=== PATIENT | male | born 1935 | race Caucasian/White ===

== ENCOUNTER 2016-04-14 19:12 | Inpatient (IN) ==
--- NOTE | 2016-04-14 20:02 | Emergency Department Note ---
Disposition Clinical Impression: Perforated diverticulum of large intestine, Abscess of sigmoid colon due to diverticulitis Disposition: Admitted As Inpatient Condition: Good Referrals: NO,PCP [Non-Partnered Physician] - Forms: ED Satisfaction Letter Time of Disposition: 23:01 Nausea/Vomiting/Diarrhea HPI - General Chief complaint: ED Nausea/Vomiting/Diarrhea Stated complaint: Diarrhea X3 weeks/weakness Time Seen by Provider: 04/14/16 19:40 Source: patient, family (Daughter), EMS Mode of arrival: EMS Limitations: no limitations Nursing Notes Reviewed: Yes Vital Signs Reviewed: Yes - History of Present Illness HPI Narrative: 80-year-old male past medical history hypertension, pulmonary disease 2.5 liter home dependent oxygen presents to the ED for generalized weakness and 3 weeks of watery nonbloody diarrhea. Reports 4-5 episodes of nonbloody diarrhea. Presents via EMS. Daughter is at bedside. States he has been evaluated for diarrhea by his primary care physician Dr. Carpenter multiple times, without cause. Denies any recent antibiotic use, hospitalization, recent travel. Denies any fevers, cough, chest pain, shortness of breath, nausea, vomiting. Patient daughter are more concerned with this generalized weakness. He called EMS squad due to generalized weakness that has been worsening over the past 3 days but ongoing since onset of diarrhea. He was having a bowel movement and was too weak to get up. Denies any fall or loss of consciousness. Prior to the diarrhea he has been very independent at home. Pt Subjective Complaint: diarrhea Onset (ago): week(s) - Related Data Home Medications Medication Instructions Recorded Confirmed Aspirin 81 mg PO DAILY 03/01/15 07/22/15 Atenolol [Tenormin] 100 mg PO DAILY 03/01/15 10/04/15 Donepezil [Aricept] 20 mg PO DAILY 03/01/15 10/04/15 Lisinopril [Zestril] 40 mg PO DAILY 03/01/15 10/04/15 Omeprazole [PriLOSEC] 20 mg PO DAILY 03/01/15 10/04/15 Zafirlukast [Accolate] 10 mg PO DAILY 03/01/15 10/04/15 Amlodipine [Norvasc] 10 mg PO DAILY 07/22/15 10/04/15 Fish Oil/Dha/Epa [Fish Oil 1,200 1 each PO DAILY 07/22/15 07/22/15 mg Fish Oil] Multivitamin [Multivitamins] 1 each PO DAILY 07/22/15 07/22/15 Finasteride [Proscar] 5 mg PO DAILY 10/03/15 10/04/15 Furosemide [Lasix] 40 mg PO DAILY 10/03/15 10/04/15 Nitroglycerin [Nitrostat] 0.4 mg SL PRN PRN 10/03/15 Ranitidine HCl [Heartburn Relief] 150 mg PO DAILY 10/03/15 10/04/15 Previous Rx's Medication Instructions Recorded Amoxicillin/Clavulanate [Augmentin] 875 mg PO BIDWM #20 tablet 10/05/15 Allergies Allergy/AdvReac Type Severity Reaction Status Date / Time No Known Allergies Allergy Verified 03/28/15 08:43 All systems ED: reviewed and negative except as stated. Constitutional: Reports: weakness. Denies: fever, chills, weight change Eyes: Denies: eye pain, vision change ENT ED: Denies: congestion, dysphagia Cardiovascular: Denies: chest pain, dyspnea on exertion Respiratory: Denies: cough, dyspnea Gastrointestinal: Reports: abdominal pain, diarrhea. Denies: nausea, vomiting, melena, hematochezia Genitourinary: Denies: urgency, dysuria Musculoskeletal: Denies: back pain, neck pain Integumentary: Reports: lesions (Lower extremity). Denies: rash, abrasion Neurological: Denies: headache, weakness Past Medical History - Past Medical History Attestation: Yes The following information was validated with the patient. Source: patient, obtained from family Medical history: Reports: CHF, COPD, coronary artery disease, dementia, hyperlipidemia, hypertension Surgical history: Reports: no surgical history Psychiatric history: Reports: no psych history - Social History Smoking Status: Never smoker Smokeless Tobacco Status: No Alcohol use: Reports: none Drug use: Reports: none Physical Exam - General Limitations: no limitations General appearance: alert, in no apparent distress, obese - Head Head exam: atraumatic, normocephalic, normal inspection - Eye Eye exam: Present: normal appearance, PERRL, EOMI - ENT ENT exam: normal exam, normal oropharynx, mucous membranes moist - Neck Neck exam: Present: normal inspection, full ROM, trachea midline - Chest Chest inspection: Present: normal inspection, symmetric chest wall rise - Respiratory Respiratory exam: Present: normal lung sounds bilaterally. Absent: respiratory distress, wheezes - Cardiovascular Cardiovascular exam: Present: regular rate, normal rhythm, normal heart sounds. Absent: systolic murmur, diastolic murmur - Abdominal Exam Abdominal exam: Present: soft, Non-Tender, normal bowel sounds, other (obese abdomen). Absent: tenderness, distention, guarding, rebound, rigidity, Vasquez' s sign, Rovsing's sign, tenderness at McBurney's Point Abdominal tenderness: Present: LLQ, mild - Extremities Exam Extremities exam: Present: normal inspection, full ROM, normal capillary refill , pedal edema. Absent: tenderness, calf tenderness - Back Exam Back exam: Present: normal inspection, full ROM. Absent: tenderness, CVA tenderness (R), CVA tenderness (L) - Neurological Exam Neurological exam: Present: alert, oriented X3 - Psychiatric Psychiatric exam: Present: normal affect, normal mood - Skin Skin exam: Present: warm, dry, intact, erythema. Absent: diaphoresis - Expanded Skin Exam Type of lesion: Present: rash Distribution: RLE Description: Present: erythematous. Absent: tenderness, vesicular, fluctuant, indurated Course Course Narrative: 80-year-old male history of hypertension presents to ED for generalized weakness and 3 weeks of watery nonbloody diarrhea. Since he has been more weaker past 3 weeks worse the past 30 days. Today after having a bowel movement was unable to help himself up to the toilet. He lives at home with his who has a difficult time taking care of him. Patient has a temperature of 100.3. He has hypertensive but admits to not taking his BP medications today. Patient is morbidly obese, is alert and awake and oriented to person place and time. Vogel's regular rate and rhythm. Lungs are clear to auscultation bilaterally. Due to patient's body habitus unable to get a great doll exam however it is soft and nondistended. He has some mild tenderness to the left lower quadrant that was not there until palpated. He has bilateral lower extremity edema with some erythema on the right ankle. States he is being worked up by his dermatologists with multiple skin grafts for biopsy. Patient and daughter states is been tested and is not cellulitis. Is not warm to the touch without any induration does not appear to be cellulitis. He is not acutely dehydrated. Check basic labs, troponin, chest x-ray, CT of the abdomen and pelvis. Patient is in agreement with plan. Will treat his BP with Metoprolol. - Reevaluation(s) Reevaluation #1: Saturday of the abdomen and pelvis demonstrates perforated sigmoid diverticulitis with developing abscess. Patient's abdomen continues to be soft and nontender. Will admit to hospital service. Patients in agreement plan. Started on IV antibiotic Flagyl and Zosyn. Blood cultures ordered. Time: 22:54 - Consultations Consultation #1: Spoke with Dr. Mcbride, medical management with IV antibiotics. Discussed that abdomen is soft without signs of peritonitis, patient in no acute distress. WBC 18.7. Time: 22:54 Consultation #2: Spoke to Dr. Beasley, ok to admit. No further order. Time: 23:14 Vital Signs Temperature 100.3 F H 04/14/16 19:14 Pulse Rate 102 04/14/16 19:14 Respiratory Rate 16 04/14/16 19:14 Blood Pressure 180/78 04/14/16 19:14 O2 Sat by Pulse Oximetry 96 04/14/16 19:14 Temperature 100.3 F H 04/14/16 19:14 Pulse Rate 85 04/14/16 23:03 Respiratory Rate 20 04/14/16 23:03 Blood Pressure 211/72 04/14/16 23:03 O2 Sat by Pulse Oximetry 98 04/14/16 23:03 Oxygen Delivery Oxygen Delivery Room Air Nausea/Vomiting/Diarrhea - Medical Records Medical records reviewed: Yes I reviewed the patient's medical records. - Lab Data Lab results reviewed: Yes I reviewed the patient's lab results. Result diagrams: 04/14/16 20:26 04/14/16 20:26 Lab Results 04/14/16 04/14/16 04/14/16 Range/Units 20:26 20:26 20:26 WBC 18.7 H (4.3-11.1) K/mcL RBC 3.82 L (4.19-5.50) M/mcL Hgb 11.6 L (12.9-16.9) g/dL Hct 34.5 L (37.5-50.1) % MCV 90.3 (83.0-100.0) fL MCH 30.4 (28.0-33.3) pg MCHC 33.6 (31.6-35.5) g/dL RDW 13.1 (11.5-14.5) % Plt Count 373 (140-400) K/mcL MPV 9.6 (9.4-12.4) fL Immature Gran % 0.5 (0-4) % Seg Neutrophils % 87.3 % Lymphocytes % 4.1 % Monocytes % 7.5 % Eosinophils % 0.3 % Basophils % 0.3 % Neutrophils # 16.3 H (1.6-8.9) K/mcL Lymphocytes # 0.8 (0.6-4.6) K/mcL Monocytes # 1.4 H (0.0-1.3) K/mcL Eosinophils # 0.1 (0.0-0.6) K/mcL Basophils # 0.1 (0.0-0.2) K/mcL Immature Plt Fraction 2.0 (1.1-6.1) % Sodium 135 L (136-145) mEq/L Potassium 3.9 (3.5-4.5) mEq/L Chloride 103 (98-109) mEq/L Carbon Dioxide 24 (19-29) mEq/L BUN 15 (8-26) mg/dL Creatinine 0.87 (0.72-1.25) mg/dL Est GFR ( Amer) > 60 (> 60) Est GFR (Non-Af Amer) > 60 (> 60) BUN/Creatinine Ratio 17 (6-26) Glucose 211 H (70-99) mg/dL Calculated Osmolality 287 (280-300) Calcium 8.9 (8.6-10.8) mg/dL Phosphorus 2.5 (2.3-4.7) mg/dL Magnesium 1.9 (1.6-2.6) mg/dL Total Bilirubin 0.6 (0.2-1.2) mg/dL AST 29 (5-34) Units/L ALT 22 (0-55) Units/L Alkaline Phosphatase 68 (38-126) Units/L Troponin I 0.01 (0-0.03) ng/mL B-Natriuretic Peptide (0-100) pg/mL Serum Total Protein 6.9 (6.0-8.3) g/dL Albumin 2.3 L (3.5-5.0) g/dL Globulin 4.6 H (2.4-3.5) g/dL Albumin/Globulin Ratio 0.5 L (1.1-2.2) Urine Color (Yellow) Urine Clarity (Clear) Urine pH (5.0-8.0) pH Units Ur Specific [place] (1.010-1.025) Urine Protein (Neg-Trace) mg/dL Urine Glucose (UA) (Normal) mg/dL Urine Ketones (Negative) mg/dL Urine Blood (Negative) Urine Nitrite (Negative) Urine Bilirubin (Negative) Urine Urobilinogen (Normal) mg/dL Ur Leukocyte Esterase (Negative) Urine Microscopic RBC (0-3) per hpf Urine Microscopic WBC (0-3) per hpf Ur Squamous Epith Cells (None-Few) per lpf Urine Bacteria (None-Few) per hpf Hyaline Casts (None-Few) per lpf Ur Culture Indicated? (NO) 04/14/16 04/14/16 Range/Units 20:26 22:45 WBC (4.3-11.1) K/mcL RBC (4.19-5.50) M/mcL Hgb (12.9-16.9) g/dL Hct (37.5-50.1) % MCV (83.0-100.0) fL MCH (28.0-33.3) pg MCHC (31.6-35.5) g/dL RDW (11.5-14.5) % Plt Count (140-400) K/mcL MPV (9.4-12.4) fL Immature Gran % (0-4) % Seg Neutrophils % % Lymphocytes % % Monocytes % % Eosinophils % % Basophils % % Neutrophils # (1.6-8.9) K/mcL Lymphocytes # (0.6-4.6) K/mcL Monocytes # (0.0-1.3) K/mcL Eosinophils # (0.0-0.6) K/mcL Basophils # (0.0-0.2) K/mcL Immature Plt Fraction (1.1-6.1) % Sodium (136-145) mEq/L Potassium (3.5-4.5) mEq/L Chloride (98-109) mEq/L Carbon Dioxide (19-29) mEq/L BUN (8-26) mg/dL Creatinine (0.72-1.25) mg/dL Est GFR ( Amer) (> 60) Est GFR (Non-Af Amer) (> 60) BUN/Creatinine Ratio (6-26) Glucose (70-99) mg/dL Calculated Osmolality (280-300) Calcium (8.6-10.8) mg/dL Phosphorus (2.3-4.7) mg/dL Magnesium (1.6-2.6) mg/dL Total Bilirubin (0.2-1.2) mg/dL AST (5-34) Units/L ALT (0-55) Units/L Alkaline Phosphatase (38-126) Units/L Troponin I (0-0.03) ng/mL B-Natriuretic Peptide 49 (0-100) pg/mL Serum Total Protein (6.0-8.3) g/dL Albumin (3.5-5.0) g/dL Globulin (2.4-3.5) g/dL Albumin/Globulin Ratio (1.1-2.2) Urine Color Yellow (Yellow) Urine Clarity Clear (Clear) Urine pH 6.0 (5.0-8.0) pH Units Ur Specific [place] 1.028 H (1.010-1.025) Urine Protein 100 H (Neg-Trace) mg/dL Urine Glucose (UA) Normal (Normal) mg/dL Urine Ketones Negative (Negative) mg/dL Urine Blood Trace H (Negative) Urine Nitrite Negative (Negative) Urine Bilirubin Negative (Negative) Urine Urobilinogen Normal (Normal) mg/dL Ur Leukocyte Esterase Trace H (Negative) Urine Microscopic RBC 3-5 H (0-3) per hpf Urine Microscopic WBC 30-50 H (0-3) per hpf Ur Squamous Epith Cells Many H (None-Few) per lpf Urine Bacteria None Seen (None-Few) per hpf Hyaline Casts Few (None-Few) per lpf Ur Culture Indicated? YES A (NO) - Radiology Data Radiology results reviewed: Yes I reviewed the patient's radiology results. Chest X-Ray 04/14/16 19:57 IMPRESSION: Cardiomegaly without evidence of acute cardiopulmonary process. D/ / 04/14/2016 20:53:08 Ja Navarro MD / joselito Interpreting Provider: Ja Navarro MD Abdomen/Pelvis CT 04/14/16 20:44 IMPRESSION: Above findings most likely due to perforated sigmoid diverticulitis with developing abscess. D/ / Martínez Elkins MD / Martínez Elkins MD Interpreting Provider: Martínez Elkins MD - EKG Data EKG attestation: Yes I reviewed and interpreted this EKG. EKG results narrative: EKG performed 1927 normal sinus rhythm 98 bpm through our P waves before every QRS no ST elevations or depressions, old Q waves in inferior leads, intervals are within normal limits. Compared to old EKG performed 10/02/2015 shows consistent findings. No acute ischemic changes. Critical Care Time Critical Care Time: Yes Total Critical Care Time: 35 Attestation: Critical care time 35 minutes managing patient's hypertension and abdominal abscess with ruptured bowel. Attestation Statement - Attestation Attestation: Patient presents to the emergency department with fevers diarrhea for 3 weeks and swelling. Patient has a history of a lower extremity disorder and skin condition that recently had a biopsy. Patient's not familiar with the name of it. But required multiple therapies for this. Notes that he said some increased swelling in his lower extremities bilaterally recently. In addition he feels like he has had increasing weakness for the last 3 weeks since she has had watery diarrhea. He states every bowel movement is basically water. He has not had any nausea or vomiting. No real abdominal pain denies shortness of breath or chest pain. Has a history also of stroke and hypertension he has been taking his medications regularly. On exam obese male heart is regular rhythm and rate. Lungs are clear abdomen is obese but nontender extremities patient has mild swelling of the lower extremities bilaterally with some skin discoloration secondary to skin condition. We will workup for generalized weakness. CT scan revealed a perforated diverticulitis with developing abscess. Surgeon on-call was notified and suggested having medicine with the patient with him seeing him tomorrow. We will start patient on broad-spectrum antibiotics. He remained comfortable without abdominal pain which she has not had through his stay. In addition we continue to treat his hypertension. Hospice was also notified and admission to the hospital was arranged. Care time for this patient 35 minutes. Agree with resident physician assessment plan.
[2016-04-14] MEDS ORDERED: *HR* Metoprolol 5 MG/5 ML VIAL IVP ONE ×2 (20:03→22:03)
[2016-04-14 20:34] LABS: Basophils # 0.1 K/mcL (0.0-0.2); Basophils % 0.3 %; Eosinophils # 0.1 K/mcL (0.0-0.6); Eosinophils % 0.3 %; Hematocrit 34.5 % (37.5-50.1); Hemoglobin 11.6 g/dL (12.9-16.9); Immature Granulocytes % 0.5 % (0-4); Lymphocytes # 0.8 K/mcL (0.6-4.6); Lymphocytes % 4.1 %; Mean Corpuscular HGB Conc 33.6 g/dL (31.6-35.5); Mean Corpuscular Hemoglobin 30.4 pg (28.0-33.3); Mean Corpuscular Volume 90.3 fL (83.0-100.0); Mean Platelet Volume 9.6 fL (9.4-12.4); Monocytes # 1.4 K/mcL (0.0-1.3); Monocytes % 7.5 %; Neutrophils # 16.3 K/mcL (1.6-8.9); Platelet Count 373 K/mcL (140-400); Red Blood Count 3.82 M/mcL (4.19-5.50); Red Cell Distribution Width 13.1 % (11.5-14.5); Segmented Neutrophils % 87.3 %
[2016-04-14 20:49] LABS: Alanine Aminotransferase 22 Units/L (0-55); Albumin 2.3 g/dL (3.5-5.0); Albumin/Globulin Ratio 0.5 (1.1-2.2); Alkaline Phosphatase 68 Units/L (38-126); Aspartate Amino Transferase 29 Units/L (5-34); BUN/Creatinine Ratio 17 (6-26); Bilirubin,Total 0.6 mg/dL (0.2-1.2); Blood Urea Nitrogen 15 mg/dL (8-26); Calcium 8.9 mg/dL (8.6-10.8); Carbon Dioxide 24 mEq/L (19-29); Chloride 103 mEq/L (98-109); Globulin 4.6 g/dL (2.4-3.5); Glucose 211 mg/dL (70-99); Magnesium 1.9 mg/dL (1.6-2.6); Osmolality,Calculated 287 (280-300); Phosphorous 2.5 mg/dL (2.3-4.7); Potassium 3.9 mEq/L (3.5-4.5); Sodium 135 mEq/L (136-145); Total Protein 6.9 g/dL (6.0-8.3); eGFR For African Americans > 60 (> 60); eGFR For Non-African Americans > 60 (> 60)
[2016-04-14] MEDS ORDERED: 0.9 % Sodium Chloride 1,000 ML IVC ONE (22:37)
[2016-04-14] MEDS ORDERED: MetroNIDAZOLE 500 MG/100 ML 500 MG/100 ML BAG IVPB ONE (22:46)
[2016-04-14] MEDS ORDERED: Piperacillin/Tazobactam 3.375 GM in D5% in Water (Mini-Bag+) 100 ML IVPB ONE (22:46)
[2016-04-14 22:52] LABS: Bilirubin,Urine Negative (Negative); Blood,Urine Trace (Negative); Clarity,Urine Clear (Clear); Color,Urine Yellow (Yellow); Glucose,Urine (UA) Normal (Normal); Ketones,Urine Negative (Negative); Leukocyte Esterase,Urine Trace (Negative); Nitrite,Urine Negative (Negative); Protein,Urine 100 mg/dL (Neg-Trace); Specific Gravity,Urine 1.028 (1.010-1.025); Urobilinogen,Urine Normal (Normal)
[2016-04-14 22:55] LABS: Bacteria,Urine None Seen per hpf (None-Few); Hyaline Casts,Urine Few per lpf (None-Few); Squamous Epithelial Cell,Urine Many per lpf (None-Few); WBC,Urine 30-50 per hpf (0-3)
[2016-04-14] MEDS ORDERED: Ondansetron 4 MG/2 ML VIAL IVP PRN (23:51)
[2016-04-14] MEDS ORDERED: Acetaminophen 325 MG TABLET PO PRN (23:51)
[2016-04-14] MEDS ORDERED: Naloxone 0.4 MG/ML INJ IVP PRN (23:51)
[2016-04-14] MEDS ORDERED: *HR* Morphine 2 MG/ML SYRINGE IVP PRN (23:51)
[2016-04-14] MEDS ORDERED: *HR* Promethazine 25 MG/ML VIAL IVP PRN (23:51)
--- NOTE | 2016-04-15 00:07 | Internal Med History&Physical ---
Date of Encounter: 04/15/16 Time of Encounter: 00:03 Assessment and Plan (1) Abscess of sigmoid colon due to diverticulitis Current visit: Yes Status: Acute Continue Cipro and Flagyl and monitor with acute abdominal series. General surgery Dr. Mcbride will be consulted for comanagement (2) Accelerated hypertension Current visit: Yes Status: Acute We will start home blood pressure medications. I will add when necessary emergency antihypertensive medications. (3) Acute gouty arthropathy Current visit: Yes Status: Acute Obtain uric acid level. If elevated will start patient on colchicine for acute gouty arthropathy Internal Medicine - H&P: HPI Chief complaint: Abdominal pain and diarrhea/generalized weakness Admitted From: Home Plans for Post Hospital Care: Home History of present illness: Mr. Desai is a 80 year old male patient presented to emergency department today with generalized weakness and fatigue. Patient also reported intractable diarrhea at least 4-5 times a day. Patient denies any bloody stools. Patient does report left lower quadrant abdominal tenderness. Patient denies any dysuria or burning sensation on urination or any bloody urine. Patient reports subjective fever at home but no chills. Workup emergency department today includes a CT scan abdomen and pelvis which shows evidence of sigmoid diverticulitis with perforation with associated abscess. Dr. Mcbride has been notified in case been discussed. Recommendation is to start patient on antibiotic therapy and continue to monitor. Past Med Surg Social Fam HX - Past Medical History Medical history: CHF, COPD, coronary artery disease, dementia, hyperlipidemia, hypertension Psychiatric history: no psych history - Past Surgical History Surgical History: no surgical history - Social History Smoking Status: Never smoker Smokeless Tobacco Status: No Alcohol use: none Drug use: none - Family History Father Adopted: No Family Member Ethnicity: Non- Living Status: Hx Family Cardiac Disorders: Yes Internal Medicine - H&P: Meds Aspirin 81 mg PO DAILY 03/01/15 [History] Atenolol [Tenormin] 100 mg PO DAILY 03/01/15 [History] Donepezil [Aricept] 20 mg PO DAILY 03/01/15 [History] Lisinopril [Zestril] 40 mg PO DAILY 03/01/15 [History] Omeprazole [PriLOSEC] 20 mg PO DAILY 03/01/15 [History] Zafirlukast [Accolate] 10 mg PO DAILY 03/01/15 [History] Amlodipine [Norvasc] 10 mg PO DAILY 07/22/15 [History] Fish Oil/Dha/Epa [Fish Oil 1,200 mg Fish Oil] 1 each PO DAILY 07/22/15 [History] Multivitamin [Multivitamins] 1 each PO DAILY 07/22/15 [History] Finasteride [Proscar] 5 mg PO DAILY 10/03/15 [History] Furosemide [Lasix] 40 mg PO DAILY 10/03/15 [History] Nitroglycerin [Nitrostat] 0.4 mg SL PRN PRN 10/03/15 [History] Ranitidine HCl [Heartburn Relief] 150 mg PO DAILY 10/03/15 [History] Amoxicillin/Clavulanate [Augmentin] 875 mg PO BIDWM #20 tablet 10/05/15 [Rx] Allergies No Known Allergies Allergy (Verified 03/28/15 08:43) All Systems PM: A 10-system review of systems was performed and is negative for pertinent findings except as documented above in the HPI. - Constitutional Constitutional: fever(s) - EENT Eyes: as per HPI Ears: as per HPI Nose, mouth and throat: as per HPI - Breasts Breasts: as per HPI - Cardiovascular Cardiovascular ROS IM: as per HPI - Respiratory Respiratory: as per HPI - Gastrointestinal Gastrointestinal: as per HPI - Genitourinary Genitourinary ROS male: as per HPI - Musculoskeletal Musculoskeletal ROS IM: as per HPI - Integumentary Integumentary IM: as per HPI - Neurological Neurological ROS: as per HPI - Psychiatric Psychiatric: as per HPI - Endocrine Endocrine IM: as per HPI - Hematologic/Lymphatic Hematologic/Lymphatic: as per HPI - Allergic/Immunologic Allergic/Immunologic: as per HPI - Constitutional Vitals: Temp Pulse Resp BP Pulse Ox 100.3 F H 78 18 204/90 96 04/14/16 19:14 04/14/16 23:30 04/14/16 23:59 04/14/16 23:59 04/14/16 23:30 General appearance: Present: cooperative, A&O X 3, no acute distress, answers questions appropriately - Head Head exam: Present: atraumatic, normal inspection, normocephalic - Eye Eye exam: Present: normal appearance, PERRL - ENT ENT exam: Present: mucous membranes moist, normal exam - Neck Neck exam general surgery: Present: normal inspection, supple - Respiratory Respiratory exam: Present: CTAB - Cardiovascular Cardiovascular exam: Present: RRR, +S1, +S2 - GI/Abdominal GI/Abdominal exam: Present: distended, firm, hypoactive bowel sounds, tenderness - Rectal Rectal exam: Present: deferred - exam: Present: normal inspection - Extremities Exam Extremities exam: Present: warm Additional comments: Right malleolar erythema - Back Exam Back exam: Present: normal inspection - Neurological Exam Neurological exam: Present: alert, CN II-XII intact, oriented X3 - Psychiatric Psychiatric exam: Present: normal affect, normal mood - Skin Skin exam: Present: normal color, warm Internal Med - H&P Results - Labs CBC & Chem 7: 04/14/16 20:26 04/14/16 20:26 Labs: Short CBC 04/14/16 Range/Units 20:26 WBC 18.7 H (4.3-11.1) K/mcL Hgb 11.6 L (12.9-16.9) g/dL Hct 34.5 L (37.5-50.1) % Plt Count 373 (140-400) K/mcL Neutrophils # 16.3 H (1.6-8.9) K/mcL BMP 04/14/16 20:26 Sodium 135 L Potassium 3.9 Chloride 103 Carbon Dioxide 24 BUN 15 Creatinine 0.87 Glucose 211 H Calcium 8.9 Cardiac Enzymes 04/14/16 Range/Units 20:26 Troponin I 0.01 (0-0.03) ng/mL Liver Function 04/14/16 Range/Units 20:26 Total Bilirubin 0.6 (0.2-1.2) mg/dL AST 29 (5-34) Units/L ALT 22 (0-55) Units/L Alkaline Phosphatase 68 (38-126) Units/L Albumin 2.3 L (3.5-5.0) g/dL Urine 04/14/16 Range/Units 22:45 Urine Color Yellow (Yellow) Urine Clarity Clear (Clear) Urine pH 6.0 (5.0-8.0) pH Units Ur Specific [place] 1.028 H (1.010-1.025) Urine Protein 100 H (Neg-Trace) mg/dL Urine Glucose (UA) Normal (Normal) mg/dL - Impressions ITS Impressions Chest X-Ray 04/14/16 19:57 IMPRESSION: Cardiomegaly without evidence of acute cardiopulmonary process. D/ / 04/14/2016 20:53:08 Ja Navarro MD / joselito Interpreting Provider: Ja Navarro MD Abdomen/Pelvis CT 04/14/16 20:44 IMPRESSION: Above findings most likely due to perforated sigmoid diverticulitis with developing abscess. D/ / Martínez Elkins MD / Martínez Elkins MD Interpreting Provider: Martínez Elikns MD
[2016-04-15 00:42] LABS: Uric Acid 3.8 mg/dL (3.5-7.2)
[2016-04-15] MEDS: *HR* Heparin 5,000 UNIT/ML VIAL SQ SCH ×4 (02:45→23:37)
[2016-04-15] MEDS: Ringers Solution, Lactated 1,000 ML IVC SCH ×2 (02:45→15:19)
[2016-04-15 05:09] LABS: Basophils # 0.1 K/mcL (0.0-0.2); Basophils % 0.3 %; Eosinophils # 0.1 K/mcL (0.0-0.6); Eosinophils % 0.3 %; Hematocrit 34.4 % (37.5-50.1); Hemoglobin 11.4 g/dL (12.9-16.9); Immature Granulocytes % 0.6 % (0-4); Lymphocytes # 0.9 K/mcL (0.6-4.6); Lymphocytes % 4.8 %; Mean Corpuscular HGB Conc 33.1 g/dL (31.6-35.5); Mean Corpuscular Hemoglobin 30.4 pg (28.0-33.3); Mean Corpuscular Volume 91.7 fL (83.0-100.0); Mean Platelet Volume 10.4 fL (9.4-12.4); Monocytes # 1.3 K/mcL (0.0-1.3); Monocytes % 7.4 %; Neutrophils # 15.5 K/mcL (1.6-8.9); Platelet Count 266 K/mcL (140-400); Red Blood Count 3.75 M/mcL (4.19-5.50); Red Cell Distribution Width 13.2 % (11.5-14.5); Segmented Neutrophils % 86.6 %
[2016-04-15 05:24] LABS: BUN/Creatinine Ratio 14 (6-26); Blood Urea Nitrogen 11 mg/dL (8-26); Calcium 9.1 mg/dL (8.6-10.8); Carbon Dioxide 21 mEq/L (19-29); Chloride 104 mEq/L (98-109); Glucose 154 mg/dL (70-99); Osmolality,Calculated 286 (280-300); Potassium 4.1 mEq/L (3.5-4.5); Sodium 137 mEq/L (136-145); eGFR For African Americans > 60 (> 60); eGFR For Non-African Americans > 60 (> 60)
[2016-04-15] MEDS: MetroNIDAZOLE 500 MG/100 ML 500 MG/100 ML BAG IVPB SCH ×3 (09:32→23:37)
[2016-04-15] MEDS: Furosemide 40 MG TABLET PO SCH (09:33)
[2016-04-15] MEDS: amLODIPine 5 MG TABLET PO SCH (09:33)
[2016-04-15] MEDS: Lisinopril 20 MG TABLET PO SCH (09:33)
--- NOTE | 2016-04-15 11:40 | Internal Med Progress Note ---
Date of Encounter: 04/15/16 Time of Encounter: 09:00 - Assessment and plan (1) Abscess of sigmoid colon due to diverticulitis Current Visit: Yes Status: Acute Assessment and plan: Surgical consult was called by ER. Suggest treat patient medically. Will continue IV antibiotic, give patient IV fluid, and keep nothing by mouth. Follow-up vitals and white count. (2) Acute gouty arthropathy Current Visit: Yes Status: Acute Assessment and plan: Closely monitor, may need to start NSAID or steroid. (3) CAD (coronary artery disease) Current Visit: No Status: Chronic Assessment and plan: Stable. Supportive management. Qualifiers: Coronary Disease-Associated Artery/Lesion type: teller artery [place] vs. transplanted heart: teller heart Associated angina: without angina Qualified Code(s): I25.10 - Atherosclerotic heart disease of teller coronary artery without angina pectoris (4) CHF (congestive heart failure) Current Visit: No Status: Chronic Assessment and plan: No signs of exacerbation. Qualifiers: Congestive heart failure type: unspecified congestive heart failure type Congestive heart failure chronicity: acute on chronic Qualified Code(s): I50.9 - Heart failure, unspecified (5) COPD (chronic obstructive pulmonary disease) Current Visit: No Status: Chronic Assessment and plan: Stable. Nebulizer when necessary. Qualifiers: COPD type: unspecified COPD Qualified Code(s): J44.9 - Chronic obstructive pulmonary disease, unspecified (6) Hyperlipidemia Current Visit: No Status: Chronic Assessment and plan: Stable. Qualifiers: Hyperlipidemia type: unspecified Qualified Code(s): E78.5 - Hyperlipidemia , unspecified (7) Hypertension Current Visit: No Status: Chronic Assessment and plan: Blood pressure is high, we will continue home medication, and hydralazine IV when necessary. Qualifiers: Hypertension type: essential hypertension Qualified Code(s): I10 - Essential (primary) hypertension (8) DVT prophylaxis Current Visit: Yes Status: Acute Assessment and plan: Heparin subcutaneously - Time Spent With Patient Greater than 35 minutes - Subjective Interval history: Patient is a 80-year-old male presented to ER for abdominal pain, diarrhea. His past medical history is significant for CHF, COPD, CAD, dementia, hyperlipidemia, hypertension. Patient was seen and examined. He is awake alert, oriented 3. He has mild fever overnight. He has a mild abdominal pain. No nausea, no vomiting. Still has diarrhea, which is nonbloody. CT of abdominal shows diverticulitis with possible perforation. We will continue IV Cipro and Flagyl, IV fluid, and keep patient nothing by mouth. Surgical consult. - Constitutional Vitals: Temp Pulse Resp BP Pulse Ox 97.5 F L 68 16 171/76 93 L 04/15/16 10:55 04/15/16 10:55 04/15/16 10:55 04/15/16 10:55 04/15/16 10:55 General appearance: Present: cooperative, A&O X 3, no acute distress, answers questions appropriately - Head Head exam: Present: atraumatic, normocephalic - Eye Eye exam: Present: PERRL, conjuntiva pink, sclera anicteric Pupils: Present: PERRL - Neck Neck exam general surgery: Present: supple, trachea midline. Absent: lymphadenopathy - Respiratory Respiratory exam: Present: CTAB. Absent: accessory muscle use, rales, rhonchi, wheezes - Cardiovascular Cardiovascular exam: Present: RRR, +S1, +S2. Absent: diastolic murmur, gallop, rubs, systolic murmur - GI/Abdominal GI/Abdominal exam: Present: normal bowel sounds, soft, tenderness (Mild to tenderness on left lower quarter without rebound or guarding.), no peritoneal signs. Absent: distended - Extremities Exam Extremities exam: Present: warm, radial pulses palpable and symetrical. Absent : calf tenderness, cyanotic, pedal edema - Neurological Exam Neurological exam: Present: CN II-XII intact, oriented X3, no focal deficits. Absent: pronater drift, facial droop, speech deficit - Skin Skin exam: Present: dry, intact Internal Medicine: Result - Labs CBC & Chem 7: 04/15/16 04:55 04/15/16 04:55 Labs: Short CBC 04/15/16 Range/Units 04:55 WBC 17.9 H (4.3-11.1) K/mcL Hgb 11.4 L (12.9-16.9) g/dL Hct 34.4 L (37.5-50.1) % Plt Count 266 (140-400) K/mcL Neutrophils # 15.5 H (1.6-8.9) K/mcL BMP 04/15/16 04:55 Sodium 137 Potassium 4.1 Chloride 104 Carbon Dioxide 21 BUN 11 Creatinine 0.77 Glucose 154 H Calcium 9.1 Consult Discharge Plan - Plan Referrals: Millie Carpenter DO [Primary Care Provider] -
--- NOTE | 2016-04-15 12:18 | General Surgery Consult Note ---
Date of Encounter: 04/15/16 Time of Encounter: 11:54 History of Present Illness Consult date: 04/15/16 Requesting physician: Kurt Thornton History of present illness: 80-year-old male admitted to [facility] after presenting to the emergency department with nausea and vomiting and a 3 week history of watery , nonbloody diarrhea. The patient describes progressive weakness which ultimately prompted the patient to present to the emergency department. In the course of his evaluation, the patient was noted to have a leukocytosis 18.[address] findings include no significant pulmonary findings on the lower chest; a low density lesions of the liver in stable from a previous CT completed 09/30/14. Extensive diverticulosis of the descending and sigmoid colon is noted with a multiloculated mixed air and fluid collection within the adjacent inflammatory fat of the mid sigmoid colon. No free intraperitoneal air or fluid noted elsewhere within the peritoneum. The findings are consistent with a perforated sigmoid diverticulitis. The patient is a poor historian but denies fever or abdominal pain. The patient was noted to have a low-grade fever of 100.3 with a pulse of 102 on presentation. Past medical history: morbid obesity, chronic respiratory failure requiring home oxygen. CHF, coronary artery disease, dementia, hyperlipidemia, hypertension Surgical history no previous surgeries acknowledged Allergies: No known drug allergies Medications: Aspirin 81 mg by mouth daily Atenolol 100 mg by mouth daily Donepezil 20 mg by mouth daily Lisinopril 40 mg by mouth daily Omeprazole 20 mg by mouth daily Accolate 10 mg by mouth daily Amlodipine 10 mg by mouth daily [place]-3 fish oil 1200 mg 1 by mouth daily Multivitamins 1 by mouth daily Finasteride 5 mg by mouth daily Lasix 40 mg by mouth daily Nitroglycerin 0.4 mg sublingually when necessary for chest pain Ranitidine 150 mg by mouth daily Social history: Patient indicates that he is , lives at home with his spouse of 58 years; he does not smoke, never has; he denies any alcohol or illicit drug use. Family history: Noncontributory Physical examination: Morbidly obese, age-appropriate male, in no acute distress , resting comfortably in his hospital bed. Height 1.8 m, weight 138 kg, BMI 42.5; current vital signs - afebrile, 97.5, pulse 68, respirations 16, blood pressure 171/76. SPO2 on 2 L/m nasal cannula 93% Skin: Warm, no obvious jaundice Lungs: Clear to auscultation, no abdominal pain evident on deep inspiration or cough Cardiac: Regular rate, Somewhat Muffled but No Audible Murmurs Abdomen: Morbidly obese, tenderness in the left mid to upper quadrant. No obvious rebound. Examination is limited by the patient's body habitus, no obvious hepatosplenomegaly, intra-abdominal masses or fullness. Bowel sounds present. Laboratories: White count 17.9, hemoglobin 11.4 with hematocrit 34.4. Platelet count 266,000. Electrolytes, BUN, creatinine within normal limits. Blood glucose 154- 211 (Accu-Chek 176) Bilirubin 0.6, AST 29, ALT 22, alkaline phosphatase 68 Impression: 80-year-old morbidly obese male admitted after presenting to the emergency department with progressive weakness, diarrhea for the past 3 weeks, and complaints of nausea and vomiting. The complaints of nausea and vomiting were not reiterated during my encounter with this patient. Extensive sigmoid diverticulosis with paracolic complex air and fluid collection consistent with what appears to be a contained perforation. Several medical comorbidities including chronic respiratory failure requiring supplemental oxygen, CHF, coronary artery disease, hypertension, hyperlipidemia, and dementia Elevated blood sugars suggestive of non-diagnosed diabetes Recommendations: Consult cardiology for cardiac assessment/risk stratification uncontrolled hypertension Control elevated blood sugars Maintain NPO, may have oral medications with sips water and ice chips sparingly Aggressive broad-spectrum IV antibiotics to treat the acute diverticulitis with perforation If the patient responds to treatment (ATB) sigmoid colectomy in 5-7 days. This may facilitate primary resection (sgmoid colectomy with anastomosis) If the patient fails to respond to treatment and exhibits increasing abd pain , fever, leukocytosis - more urgent surgery with end colostomy (Arúl procedure) I will follow with you, thank you for this consultation. Past Med Surg Social Fam HX - Past Medical History Medical history: CHF, COPD, coronary artery disease, dementia, hypertension Psychiatric history: no psych history - Past Surgical History Surgical History: no surgical history - Social History Smoking Status: Never smoker Smokeless Tobacco Status: No Alcohol use: none Drug use: none - Family History Father Adopted: No Family Member Ethnicity: Non- Living Status: Hx Family Cardiac Disorders: Yes Medications and Allergies Aspirin 81 mg PO DAILY 03/01/15 [History] Atenolol [Tenormin] 100 mg PO DAILY 03/01/15 [History] Donepezil [Aricept] 20 mg PO DAILY 03/01/15 [History] Lisinopril [Zestril] 40 mg PO DAILY 03/01/15 [History] Omeprazole [PriLOSEC] 20 mg PO DAILY 03/01/15 [History] Zafirlukast [Accolate] 10 mg PO DAILY 03/01/15 [History] Amlodipine [Norvasc] 10 mg PO DAILY 07/22/15 [History] Fish Oil/Dha/Epa [Fish Oil 1,200 mg Fish Oil] 1 each PO DAILY 07/22/15 [History] Multivitamin [Multivitamins] 1 each PO DAILY 07/22/15 [History] Finasteride [Proscar] 5 mg PO DAILY 10/03/15 [History] Furosemide [Lasix] 40 mg PO DAILY 10/03/15 [History] Nitroglycerin [Nitrostat] 0.4 mg SL PRN PRN 10/03/15 [History] Ranitidine HCl [Heartburn Relief] 150 mg PO DAILY 10/03/15 [History] Amoxicillin/Clavulanate [Augmentin] 875 mg PO BIDWM #20 tablet 10/05/15 [Rx] Acetaminophen [Tylenol] 650 mg PO Q6HR PRN #0 tablet 04/15/16 [Rx] Colchicine [Colcrys] 0.6 mg PO BID #14 tablet 04/15/16 [Rx] Heparin 5,000 unit SQ Q8HR vial 04/15/16 [Rx] HydrALAZINE 20 mg IV Q6HR PRN #7 vial 04/15/16 [Rx] Morphine [Morphine Sulfate] 2 mg IVP Q4HR PRN #0 syringe 04/15/16 [Rx] Naloxone [Narcan] 0.4 mg IVP Q2MIN PRN #0 inj 04/15/16 [Rx] Ondansetron [Zofran] 4 mg IVP Q8HR PRN #0 vial 04/15/16 [Rx] Promethazine [Phenergan] 25 mg IVP Q6HR PRN #0 vial 04/15/16 [Rx] Allergies No Known Allergies Allergy (Verified 03/28/15 08:43) Review of Systems All systems PM: A 10-system review of systems was performed and is negative for pertinent findings except as documented above in the HPI. General Surgery Exam Initial Vital Signs Temp Pulse Resp BP Pulse Ox 100.3 F H 102 16 180/78 96 04/14/16 19:14 04/14/16 19:14 04/14/16 19:14 04/14/16 19:14 04/14/16 19:14 Exam Initial Vital Signs Temp Pulse Resp BP Pulse Ox 100.3 F H 102 16 180/78 96 04/14/16 19:14 04/14/16 19:14 04/14/16 19:14 04/14/16 19:14 04/14/16 19:14 Results - Labs 04/15/16 04:55 04/15/16 04:55 Abnormal lab results WBC 17.9 K/mcL (4.3-11.1) H 04/15/16 04:55 RBC 3.75 M/mcL (4.19-5.50) L 04/15/16 04:55 Hgb 11.4 g/dL (12.9-16.9) L 04/15/16 04:55 Hct 34.4 % (37.5-50.1) L 04/15/16 04:55 Neutrophils # 15.5 K/mcL (1.6-8.9) H 04/15/16 04:55 Glucose 154 mg/dL (70-99) H 04/15/16 04:55 POC Glucose 176 (58-89) H 04/15/16 08:05 Albumin 2.3 g/dL (3.5-5.0) L 04/14/16 20:26 Globulin 4.6 g/dL (2.4-3.5) H 04/14/16 20:26 Albumin/Globulin Ratio 0.5 (1.1-2.2) L 04/14/16 20:26 Ur Specific [place] 1.028 (1.010-1.025) H 04/14/16 22:45 Urine Protein 100 mg/dL (Neg-Trace) H 04/14/16 22:45 Urine Blood Trace (Negative) H 04/14/16 22:45 Ur Leukocyte Esterase Trace (Negative) H 04/14/16 22:45 Urine Microscopic RBC 3-5 per hpf (0-3) H 04/14/16 22:45 Urine Microscopic WBC 30-50 per hpf (0-3) H 04/14/16 22:45 Ur Squamous Epith Cells Many per lpf (None-Few) H 04/14/16 22:45 Ur Culture Indicated? YES (NO) A 04/14/16 22:45 Diabetes panel 04/15/16 Range/Units 04:55 Sodium 137 (136-145) mEq/L Potassium 4.1 (3.5-4.5) mEq/L Chloride 104 (98-109) mEq/L Carbon Dioxide 21 (19-29) mEq/L BUN 11 (8-26) mg/dL Creatinine 0.77 (0.72-1.25) mg/dL Glucose 154 H (70-99) mg/dL Calcium 9.1 (8.6-10.8) mg/dL Calcium panel 04/15/16 Range/Units 04:55 Calcium 9.1 (8.6-10.8) mg/dL Pituitary panel 04/15/16 Range/Units 04:55 Sodium 137 (136-145) mEq/L Potassium 4.1 (3.5-4.5) mEq/L Chloride 104 (98-109) mEq/L Carbon Dioxide 21 (19-29) mEq/L BUN 11 (8-26) mg/dL Creatinine 0.77 (0.72-1.25) mg/dL Glucose 154 H (70-99) mg/dL Calcium 9.1 (8.6-10.8) mg/dL Adrenal panel 04/15/16 Range/Units 04:55 Sodium 137 (136-145) mEq/L Potassium 4.1 (3.5-4.5) mEq/L Chloride 104 (98-109) mEq/L Carbon Dioxide 21 (19-29) mEq/L BUN 11 (8-26) mg/dL Creatinine 0.77 (0.72-1.25) mg/dL Glucose 154 H (70-99) mg/dL Calcium 9.1 (8.6-10.8) mg/dL All other labs normal. Consult Discharge Plan - Plan Referrals: Millie Carpenter DO [Primary Care Provider] -
[2016-04-16] MEDS: Ringers Solution, Lactated 1,000 ML IVC SCH ×4 (02:40→23:22)
[2016-04-16 06:09] LABS: Basophils % 0.2 %; Eosinophils # 0.1 K/mcL (0.0-0.6); Eosinophils % 0.5 %; Hematocrit 35.6 % (37.5-50.1); Immature Granulocytes % 0.6 % (0-4); Lymphocytes # 1.1 K/mcL (0.6-4.6); Lymphocytes % 6.3 %; Mean Corpuscular HGB Conc 33.7 g/dL (31.6-35.5); Mean Corpuscular Hemoglobin 30.4 pg (28.0-33.3); Mean Corpuscular Volume 90.1 fL (83.0-100.0); Mean Platelet Volume 9.6 fL (9.4-12.4); Monocytes # 1.3 K/mcL (0.0-1.3); Monocytes % 7.2 %; Neutrophils # 15.4 K/mcL (1.6-8.9); Platelet Count 373 K/mcL (140-400); Red Blood Count 3.95 M/mcL (4.19-5.50); Segmented Neutrophils % 85.2 %
[2016-04-16 06:22] LABS: BUN/Creatinine Ratio 15 (6-26); Blood Urea Nitrogen 11 mg/dL (8-26); Calcium 9.3 mg/dL (8.6-10.8); Carbon Dioxide 26 mEq/L (19-29); Chloride 103 mEq/L (98-109); Glucose 138 mg/dL (70-99); Osmolality,Calculated 288 (280-300); Potassium 3.3 mEq/L (3.5-4.5); Sodium 138 mEq/L (136-145); eGFR For African Americans > 60 (> 60); eGFR For Non-African Americans > 60 (> 60)
[2016-04-16] MEDS ORDERED: Potassium Chloride 40 MEQ, Lidocaine 1% 2 ML in D5% in Water 500 ML IVPB ONE (07:44)
[2016-04-16] MEDS: Furosemide 40 MG TABLET PO SCH (08:15)
[2016-04-16] MEDS: amLODIPine 5 MG TABLET PO SCH (08:15)
[2016-04-16] MEDS: Lisinopril 20 MG TABLET PO SCH (08:15)
[2016-04-16] MEDS: *HR* Heparin 5,000 UNIT/ML VIAL SQ SCH ×2 (08:16→17:52)
[2016-04-16] MEDS: Piperacillin/Tazobactam 3.375 GM in D5% in Water (Mini-Bag+) 100 ML IVPB SCH ×3 (08:16→23:13)
[2016-04-16] MEDS ORDERED: Perflutren Lipid Microsphere 1.3 ML in 0.9 % Sodium Chloride 8.7 ML IVP ONE (08:30)
--- NOTE | 2016-04-16 10:02 | Cardiology Consult Note ---
Date of Encounter: 04/16/16 Time of Encounter: 10:48 Assessment and Plan (1) Preoperative cardiovascular examination Current Visit: Yes Status: Acute Cardiology consulted for preoperative evaluation for this patient with perforated diverticulitis with abscess formation. He has a history of coronary artery disease, FARHAT with 2.5L O2 supplementation at CPAP at night. He has had uncontrolled hypertension in the hospital as well. Although he is high risk for surgery, the benefits of surgical management outweigh the risks of withholding surgery from a cardiac standpoint which could result in further decline of his current condition including sepsis and . (2) Hypertension Current Visit: Yes Status: Chronic Patient currently takes atenolol 100 mg daily, lisinopril 40 mg daily, Norvasc 10 mg daily as his antihypertensive regimen. He has remained uncontrolled during his hospital stay and will require more aggressive management to better control his hypertension perioperatively. Continue hydralazine PRN for SBP > 160. Qualifiers: Hypertension type: essential hypertension Qualified Code(s): I10 - Essential (primary) hypertension (3) CAD (coronary artery disease) Current Visit: No Status: Chronic History of CAD with reported heart catheterization at [facility] 30 years ago as reported by the patient. We will attempt to obtain these records. Despite the results, the benefits of having surgery outweigh the risks for withholding surgical management. Echo from today with LVEF 60% with mild concentric LVH and mild left diastolic dysfunction. Qualifiers: Coronary Disease-Associated Artery/Lesion type: [place]well artery [place] vs. transplanted heart: cantwell heart Associated angina: without angina Qualified Code(s): I25.10 - Atherosclerotic heart disease of [place]well coronary artery without angina pectoris Discussion w patient/family: The assessment and plan as outlined above was discussed with the patient and/or family members who expressed understanding and agreement. All questions were answered. Thank you for involving us in the care of your patient. Please call with any questions. History of Present Illness Consult date: 04/16/16 Requesting physician: Marshal Kaminski Consult reason: Pre-operative evaluation Chief complaint: Pre-op evaluation History of present illness: Mr. Desai is a 80 year old male history of hypertension, hyperlipidemia, coronary artery disease, FARHAT on night supplemental O2 2.5 L at home with CPAP, obesity who initially presented to the emergency department for generalized weakness. At that time patient reported that he had had 3 weeks of diarrhea. He reports that it is nonbloody and mostly watery. He was having these episodes up to 4-5 times per day. Reports he had seen his primary care provider before for this. No recent antibiotic use or hospitalizations. He reports worsening weakness over the last few days which prompted the visit to the emergency department. In the emergency department the patient had a CT scan of the abdomen and pelvis which was reported as perforated diverticulitis with abscess formation. Surgery was consulted and the patient was admitted to the hospital to begin IV antibiotics. Cardiology consulted due to the likelihood that the patient will require surgical intervention given his current condition. In terms of cardiac history he had a heart catheterization at [facility] but reports that was 30 years ago. No cardiac work-up since. Initial presentation in the emergency Department: Patient had a CT scan of the abdomen and pelvis which was reported as perforated diverticulitis with abscess formation. WBC 18.7, hemoglobin 11.6, hematocrit 34.5, platelet 373. Sodium 135 , potassium 3.9, chloride 103, bicarbonate 24, BUNs 15, creatinine 0.87, glucose 211. Initial troponin 0.01 During his hospital course patient has had multiple elevated blood pressure readings including 217/97, 216/140, 205/104, 230/98. He takes atenolol 100 mg daily, lisinopril 40 mg daily and Norvasc 10 mg daily at home for his hypertension. Patient reports that his blood pressure is always high when he's at his doctor's office or around a hospital setting. Past Med Surg Social Fam HX - Past Medical History Source: patient Medical history: CHF, COPD, coronary artery disease, dementia, hypertension Psychiatric history: no psych history - Past Surgical History Surgical History: no surgical history - Social History Smoking Status: Never smoker Smokeless Tobacco Status: No Alcohol use: none Drug use: none - Family History Father Adopted: No Family Member Ethnicity: Non- Living Status: Hx Family Cardiac Disorders: Yes Medications and Allergies Atenolol [Tenormin] 100 mg PO DAILY 03/01/15 [History] Donepezil [Aricept] 20 mg PO DAILY 03/01/15 [History] Lisinopril [Zestril] 40 mg PO DAILY 03/01/15 [History] Omeprazole [PriLOSEC] 20 mg PO DAILY 03/01/15 [History] Zafirlukast [Accolate] 20 mg PO DAILY 03/01/15 [History] Amlodipine [Norvasc] 10 mg PO DAILY 07/22/15 [History] Finasteride [Proscar] 5 mg PO DAILY 10/03/15 [History] Ranitidine HCl [Heartburn Relief] 150 mg PO DAILY 10/03/15 [History] Albuterol Sulfate [Proair Hfa] 2 puff IH DAILY 04/15/16 [History] Metoprolol Succinate 100 mg PO DAILY 04/15/16 [History] Nortriptyline HCl 75 mg PO HS 04/15/16 [History] Oxycodone HCl/Acetaminophen [Percocet 5-325 mg Tablet] 1 - 2 tab PO QID [History] Oxygen 2.5 l .ROUTE DAILY 04/15/16 [History] Allergies No Known Allergies Allergy (Verified 04/15/16 15:46) All Systems Review: A 10-system review of systems was performed and is negative for pertinent findings except as documented above in the HPI. - Constitutional Constitutional: fatigue, weakness, no fever(s) - EENT Eyes: no blurred vision - Cardiovascular Cardiovascular: no chest pain at rest, no chest pain with exertion, no dyspnea at rest, no dyspnea on exertion, no palpitations - Respiratory Respiratory: no cough, no dyspnea - Gastrointestinal Gastrointestinal: diarrhea, no abdominal pain, no nausea - Genitourinary Genitourinary: no dysuria - Neurological Neurological: no dizziness Physical Examination Vital Signs, Last 4 Hours Temp Pulse Resp BP Pulse Ox 04/16/16 06:56 97.9 F 74 16 198/82 96 General: Conversant, No Apparent Distress HEENT: Atraumatic, Normocephaly, Mucus Membranes Moist Neck: No JVD Cardiac: Reg Rate and Rhythm, Normal S1 and S2, No Murmur Lungs: Normal Breath Sounds, No Wheeze, Rales, Rhonchi Neuro: Alert and responsive, No focal deficits noted Abdomen: Soft, Non-Tender Skin: No rashes noted on visualized skin Musculoskeletal: No Chest Wall Tenderness Extremities: No Clubbing, No Cyanosis, No Edema Results 04/16/16 05:44 04/16/16 05:44 Lab Results 04/16/16 04/16/16 05:44 05:44 WBC 18.1 H Hgb 12.0 L Hct 35.6 L Plt Count 373 Sodium 138 Potassium 3.3 L Chloride 103 Carbon Dioxide 26 BUN 11 Creatinine 0.74 Glucose 138 H Calcium 9.3 Consult Discharge Plan - Plan Referrals: Millie Carpenter DO [Primary Care Provider] -
--- NOTE | 2016-04-16 10:27 | ECHO - Doppler Report ---
Echo with Imaging Enhancement Agent Name: Nathen Desai Date of Study: 04/16/2016 Date: 1935 Ht: 71.0 in Medical Record#: [id number] Age: 80 Wt: 304.0 lb Gender: Male BSA: 2.52 Order #: [id number] Location: [facility] Room #: 3A55 Reading Physician: Reji Ramos DO, LUCA, ERI PITTS Social Work Specialist: David Longoria RN Ordering Physician: Primary Physician: Indications: Preoperative Evaluation Impressions: Technically sub-optimal due to body habitus. LVEF 60%. Grossly, mldly dilated left ventricle. Mild concentric left ventricular hypertrophy. Mild left ventricular diastolic dysfunction. Grossly, moderate biatrial enlargement. Grossly, normal right ventricular structure and function. No pulmonary hypertension identified. RVSP was not well obtained. No obvious significant valvular dysfunction. Left Ventricular Wall Motion: Rest Echo Findings All wall segments showed normal motion. Findings: Study Quality * Technically sub-optimal due to body habitus. ECG Findings * Normal sinus rhythm. Left Ventricle * LVEF 60%. * * Grossly, mldly dilated left ventricle. * Mild concentric left ventricular hypertrophy. * Mild left ventricular diastolic dysfunction. Right Ventricle * Grossly, normal right ventricular structure and function. Left Atrium * Moderately dilated left atrium. Right Atrium * Moderately dilated right atrium. Interatrial Septum * Interatrial septum not well evaluated. Aortic Valve * Aortic valve not well visualized. * No aortic regurgitation. * No aortic stenosis. Mitral Valve * Normal mitral valve structure and function. * No mitral regurgitation. * No mitral stenosis. Tricuspid Valve * Tricuspid valve not well visualized. * Trace tricuspid regurgitation. * No pulmonary hypertension identified. RVSP was not well obtained. Pulmonic Valve * Pulmonic valve not well visualized. Aorta * Normally sized aortic root. Pericardium * The pericardium appears normal. IVC * Normal IVC dimensions and inspiratory collapse. Pulmonary Artery * Pulmonary artery not well visualized. History Hypertension Family History of CAD 02/06/2014 a Previous Echo was performed. Contrast: Definity 1.3 ml in 8.7 ml of saline 3 ml. Measurements: BP: 198/ 82 2D Normal Values RVIDd: 2.80 cm <2.7 cm IVSd: 1.30 cm 0.6 - 1.0 cm LVIDd: 5.70 cm 3.7 - 5.6 cm LVPWd: 1.30 cm 0.6 - 1.1 cm LVIDs: 3.90 cm 1.5 - 3.6 cm LA: 5.00 cm 2.0 - 4.0cm %FS: 32.80 cm >25 % LVOT Diam: 2.20 cm LA volume: 73 Mitral Valve Peak E:.75 m/sec Peak A:1.07 m/sec E/A Ratio:0.7 Peak E' Lat Charly:8.29 cm/s Peak E' Med Charly:6.43 cm/s E/E' Lat Ratio:9 E/E' Med Ratio:11.7 Tricuspid Valve TV Peak Charly:2.48 m/sec TV Peak Grad:25.00 mmHg Updated by Reji Ramos DO, FACMary, GISSELLE, ERI on 04/16/2016 10:21:35 AM electronically signed on 04/16/2016 10:22:15 AM with status of Final Wall Motion [place]: 1=Normal, 2=Hypokinesis, 3=Akinesis, 4=Dyskinesis, 5=Aneurysmal, 6=Hyperkinetic, X=Not Visualized (Blank)=Missing
--- NOTE | 2016-04-16 13:26 | General Surgery Progress Note ---
Date of Encounter: 04/16/16 Time of Encounter: 13:10 Subjective Patient reports: still having pain Narrative: General Surgery: Hospital Day #1 - patient feeling better, initially denied abdominal pain. No recurrent fever, nausea or vomiting. Afebrile, 98.0, pulse 60, respirations 16, blood pressure 152/73. Lungs: Clear to auscultation, no abdominal pain with deep inspiration Abdomen: Obese, persistent tenderness left abdomen - mid to upper quadrants. No palpable mass but exam limited by body habitus. Active bowel. During palpation - the patient admitted persistent abdominal tenderness. No detected rebound. Labs: persistent leukocytosis, 18.1, hemoglobin 12.0, hematocrit 35.6. Platelet count 373,000. Electrolytes notable for potassium of 3.3 - IV supplementation provided earlier today Impression: 80-year-old morbidly obese male with perforated sigmoid diverticulitis with pericolic abscess. Antibiotics have been changed from ciprofloxacin and metronidazole to Zosyn. In face of the acute inflammatory findings and impending intra peritoneal abscess single agent therapy is likely not sufficient. Will resume Metronidazole 500 mg IV Q6H in addition to the zosyn. Discussed with Dietary. Patient likely to be NPO for several more days pre op and also immediately post op. IV access may also become problematic during the course of this patient's care. Will consider CVL in the next few days to enable TPN and intermediate venous access. Objective Vital Signs - Last 8 Hours Temp Pulse Resp BP Pulse Ox 04/16/16 11:06 98 F 60 16 152/73 97 04/16/16 06:56 97.9 F 74 16 198/82 96 Intake and Output 04/15/16 04/16/16 04/16/16 23:59 07:59 15:59 Intake Total 1300 / 1300 0 / 0 Output Total 300 / 300 0 / 0 0 / 0 Balance 1000 / 1000 0 / 0 0 / 0 Intake: IV Fluids 1300 / 1300 Lactated Ringers 1,000 ML 1000 / 1000 @ 125 mls/hr IVC .Q8H [facility] Rx#:[id number] Cipro 400 MG/200 ML 400 200 / 200 mg In 200 ml @ 200 mls/hr IVPB Q12HR [facility] Rx#: [id number] Flagyl 500 MG/100 ML 500 100 / 100 mg In 100 ml @ 100 mls/hr IVPB Q8HR [facility] Rx#: [id number] Oral 0 / 0 0 / 0 Output: Urine 300 / 300 0 / 0 0 / 0 Other: Meal NPO npo Percent of Meal Consumed 0% Stool Size Small Small Stool Consistency loose liquid liquid Stool Color Brown # Voids 1 # Bowel Movements 0 1 Blood Glucose* 124 127 142 - Labs 04/16/16 05:44 04/16/16 05:44 Diabetes panel 04/16/16 Range/Units 05:44 Sodium 138 (136-145) mEq/L Potassium 3.3 L (3.5-4.5) mEq/L Chloride 103 (98-109) mEq/L Carbon Dioxide 26 (19-29) mEq/L BUN 11 (8-26) mg/dL Creatinine 0.74 (0.72-1.25) mg/dL Glucose 138 H (70-99) mg/dL Calcium 9.3 (8.6-10.8) mg/dL Calcium panel 04/16/16 Range/Units 05:44 Calcium 9.3 (8.6-10.8) mg/dL Pituitary panel 04/16/16 Range/Units 05:44 Sodium 138 (136-145) mEq/L Potassium 3.3 L (3.5-4.5) mEq/L Chloride 103 (98-109) mEq/L Carbon Dioxide 26 (19-29) mEq/L BUN 11 (8-26) mg/dL Creatinine 0.74 (0.72-1.25) mg/dL Glucose 138 H (70-99) mg/dL Calcium 9.3 (8.6-10.8) mg/dL Adrenal panel 04/16/16 Range/Units 05:44 Sodium 138 (136-145) mEq/L Potassium 3.3 L (3.5-4.5) mEq/L Chloride 103 (98-109) mEq/L Carbon Dioxide 26 (19-29) mEq/L BUN 11 (8-26) mg/dL Creatinine 0.74 (0.72-1.25) mg/dL Glucose 138 H (70-99) mg/dL Calcium 9.3 (8.6-10.8) mg/dL Consult Discharge Plan - Plan Referrals: Millie Carpenter DO [Primary Care Provider] -
[2016-04-16] MEDS: MetroNIDAZOLE 500 MG/100 ML 500 MG/100 ML BAG IVPB SCH ×2 (17:52→23:12)
--- NOTE | 2016-04-16 19:36 | Internal Med Progress Note ---
Date of Encounter: 04/16/16 Time of Encounter: 09:00 - Assessment and plan (1) Abscess of sigmoid colon due to diverticulitis Current Visit: Yes Status: Acute Assessment and plan: Surgical consult was called by ER. Surgical consult saw pt, plan for surgery. Will continue IV antibiotic, give patient IV fluid, and keep nothing by mouth. Follow-up vitals and white count. F/U blood culture. (2) CAD (coronary artery disease) Current Visit: No Status: Chronic Assessment and plan: Stable. Supportive management. Qualifiers: Coronary Disease-Associated Artery/Lesion type: [place] artery [place] vs. transplanted heart: [place] heart Associated angina: without angina Qualified Code(s): I25.10 - Atherosclerotic heart disease of [place] coronary artery without angina pectoris (3) CHF (congestive heart failure) Current Visit: No Status: Chronic Assessment and plan: No signs of exacerbation. Qualifiers: Congestive heart failure type: unspecified congestive heart failure type Congestive heart failure chronicity: acute on chronic Qualified Code(s): I50.9 - Heart failure, unspecified (4) COPD (chronic obstructive pulmonary disease) Current Visit: No Status: Chronic Assessment and plan: Stable. Nebulizer when necessary. Qualifiers: COPD type: unspecified COPD Qualified Code(s): J44.9 - Chronic obstructive pulmonary disease, unspecified (5) Hyperlipidemia Current Visit: No Status: Chronic Assessment and plan: Stable. Qualifiers: Hyperlipidemia type: unspecified Qualified Code(s): E78.5 - Hyperlipidemia , unspecified (6) Hypertension Current Visit: Yes Status: Chronic Assessment and plan: Blood pressure is high, we will continue home medication, and hydralazine IV when necessary. Qualifiers: Hypertension type: essential hypertension Qualified Code(s): I10 - Essential (primary) hypertension (7) DVT prophylaxis Current Visit: Yes Status: Acute Assessment and plan: Heparin subcutaneously - Time Spent With Patient 25 - 35 minutes - Subjective Interval history: Patient is a 80-year-old male presented to ER for abdominal pain, diarrhea. His past medical history is significant for CHF, COPD, CAD, dementia, hyperlipidemia, hypertension. Patient was seen and examined. He is awake alert, oriented 3. He has no further fever overnight. He has a mild abdominal pain. No nausea, no vomiting. Still has diarrhea, which is nonbloody. CT of abdominal shows diverticulitis with possible perforation. WBC elevated, will change abx to zosyn, follow blood cx, Continue IV fluid, and keep patient nothing by mouth. Surgical consult appreciated. - Constitutional Vitals: Temp Pulse Resp BP Pulse Ox 98.6 F 67 18 169/74 96 04/16/16 18:39 04/16/16 18:39 04/16/16 18:39 04/16/16 18:39 04/16/16 18:39 General appearance: Present: cooperative, A&O X 3, no acute distress, answers questions appropriately - Head Head exam: Present: atraumatic, normocephalic - Eye Eye exam: Present: PERRL, conjuntiva pink, sclera anicteric Pupils: Present: PERRL - Neck Neck exam general surgery: Present: supple, trachea midline. Absent: lymphadenopathy - Respiratory Respiratory exam: Present: CTAB. Absent: accessory muscle use, rales, rhonchi, wheezes - Cardiovascular Cardiovascular exam: Present: RRR, +S1, +S2. Absent: diastolic murmur, gallop, rubs, systolic murmur - GI/Abdominal GI/Abdominal exam: Present: normal bowel sounds, soft, tenderness (Mild tenderness on LLQ w/o rebound), no peritoneal signs. Absent: distended - Extremities Exam Extremities exam: Present: warm, radial pulses palpable and symetrical. Absent : calf tenderness, cyanotic, pedal edema - Neurological Exam Neurological exam: Present: CN II-XII intact, oriented X3, no focal deficits. Absent: pronater drift, facial droop, speech deficit - Skin Skin exam: Present: dry, intact Internal Medicine: Result - Labs CBC & Chem 7: 04/16/16 05:44 04/16/16 05:44 Labs: Short CBC 04/16/16 Range/Units 05:44 WBC 18.1 H (4.3-11.1) K/mcL Hgb 12.0 L (12.9-16.9) g/dL Hct 35.6 L (37.5-50.1) % Plt Count 373 (140-400) K/mcL Neutrophils # 15.4 H (1.6-8.9) K/mcL BMP 04/16/16 05:44 Sodium 138 Potassium 3.3 L Chloride 103 Carbon Dioxide 26 BUN 11 Creatinine 0.74 Glucose 138 H Calcium 9.3 Consult Discharge Plan - Plan Referrals: Millie Carpenter, [Primary Care Provider] -
[2016-04-17] MEDS: Ringers Solution, Lactated 1,000 ML IVC SCH (04:47)
[2016-04-17 05:08] LABS: Basophils # 0.1 K/mcL (0.0-0.2); Basophils % 0.4 %; Eosinophils # 0.1 K/mcL (0.0-0.6); Eosinophils % 0.4 %; Hematocrit 35.8 % (37.5-50.1); Hemoglobin 11.8 g/dL (12.9-16.9); Immature Granulocytes % 0.6 % (0-4); Lymphocytes # 0.8 K/mcL (0.6-4.6); Lymphocytes % 4.8 %; Mean Corpuscular Hemoglobin 29.6 pg (28.0-33.3); Mean Corpuscular Volume 89.9 fL (83.0-100.0); Mean Platelet Volume 9.7 fL (9.4-12.4); Monocytes # 1.3 K/mcL (0.0-1.3); Monocytes % 7.3 %; Neutrophils # 14.7 K/mcL (1.6-8.9); Platelet Count 410 K/mcL (140-400); Red Blood Count 3.98 M/mcL (4.19-5.50); Segmented Neutrophils % 86.5 %
[2016-04-17] MEDS: MetroNIDAZOLE 500 MG/100 ML 500 MG/100 ML BAG IVPB SCH ×4 (05:09→23:29)
[2016-04-17] MEDS: *HR* Heparin 5,000 UNIT/ML VIAL SQ SCH ×3 (05:11→21:19)
[2016-04-17 05:19] LABS: Hemoglobin A1C 6.3 %
[2016-04-17 05:21] LABS: Magnesium 1.7 mg/dL (1.6-2.6); Phosphorous 2.9 mg/dL (2.3-4.7)
[2016-04-17 05:22] LABS: Alanine Aminotransferase 19 Units/L (0-55); Albumin 2.1 g/dL (3.5-5.0); Albumin/Globulin Ratio 0.4 (1.1-2.2); Alkaline Phosphatase 70 Units/L (38-126); Aspartate Amino Transferase 22 Units/L (5-34); BUN/Creatinine Ratio 18 (6-26); Bilirubin,Total 0.7 mg/dL (0.2-1.2); Blood Urea Nitrogen 13 mg/dL (8-26); Calcium 9.3 mg/dL (8.6-10.8); Carbon Dioxide 26 mEq/L (19-29); Chloride 103 mEq/L (98-109); Globulin 4.8 g/dL (2.4-3.5); Glucose 154 mg/dL (70-99); Osmolality,Calculated 289 (280-300); Potassium 3.3 mEq/L (3.5-4.5); Sodium 138 mEq/L (136-145); Total Protein 6.9 g/dL (6.0-8.3); eGFR For African Americans > 60 (> 60); eGFR For Non-African Americans > 60 (> 60)
[2016-04-17] MEDS: Piperacillin/Tazobactam 3.375 GM in D5% in Water (Mini-Bag+) 100 ML IVPB SCH ×3 (08:18→23:34)
[2016-04-17] MEDS: Furosemide 40 MG TABLET PO SCH (08:18)
[2016-04-17] MEDS: Lisinopril 20 MG TABLET PO SCH (08:18)
[2016-04-17] MEDS: amLODIPine 5 MG TABLET PO SCH (08:18)
--- NOTE | 2016-04-17 10:10 | Internal Med Progress Note ---
<Helena Parker - Last Filed: 04/17/16 13:24> Date of Encounter: 04/17/16 Time of Encounter: 08:30 - Assessment and plan (1) Abscess of sigmoid colon due to diverticulitis Current Visit: Yes Status: Acute Assessment and plan: - CT A/P suggests perforated sigmoid diverticulitis with developing abscess. - Dr. Mcbride on board and recommends antibiotics treatment for now with possible sigmoid colectomy later. - Clinically stable as patient has been afebrile, leukocytosis improves and no abdominal pain. - Continue IV Zosyn (Day 2) and IV Flagyl (Day 3). - Patient will need to be on NPO for several days. Chief Of Surgery on board and Dr. Mcbride plans to put in central line for the possible need of TPN. - Continue to monitor. (2) Hypertension Current Visit: Yes Status: Chronic Assessment and plan: - Elevated blood pressure this morning but later improves after patient received prn hydralazine as ordered. - Continue atenolol, amlodipine and prn hydralazine IV if SBP > 160. Qualifiers: Hypertension type: essential hypertension Qualified Code(s): I10 - Essential (primary) hypertension (3) CAD (coronary artery disease) Current Visit: No Status: Chronic Assessment and plan: - CAD s/p heart cath 30 years ago. - Cardiology was consulted for preoperative cardiovascular examination and determined patient is at intermediate risk of perioperative complications. Qualifiers: Coronary Disease-Associated Artery/Lesion type: [place] artery [place] vs. transplanted heart: [place] heart Associated angina: without angina Qualified Code(s): I25.10 - Atherosclerotic heart disease of [place] coronary artery without angina pectoris (4) CHF (congestive heart failure) Current Visit: No Status: Chronic Assessment and plan: - Echo on 04/16/16 found LVEF 60% with mild LV diastolic dysfunction. - Continue on Lasix 40 mg PO daily. Qualifiers: Congestive heart failure type: diastolic Congestive heart failure chronicity: unspecified congestive heart failure chronicity Qualified Code(s) : I50.30 - Unspecified diastolic (congestive) heart failure (5) COPD (chronic obstructive pulmonary disease) Current Visit: No Status: Chronic Assessment and plan: - Stable as patient reports no significant shortness of breath at this time. - Consider brochodilator if needed. Qualifiers: COPD type: unspecified COPD Qualified Code(s): J44.9 - Chronic obstructive pulmonary disease, unspecified (6) DVT prophylaxis Current Visit: Yes Status: Acute Assessment and plan: - Continue SQ heparin. - Time Spent With Patient less than 15 minutes - Subjective Interval history: No significant event noted overnight. Patient was seen and examined this morning. Patient complains of still having green-color diarrhea. Patient denies fever, chills, abdominal pain, nausea, vomiting. - Constitutional Vitals: Temp Pulse Resp BP Pulse Ox 98.2 F 86 16 194/77 99 04/17/16 07:27 04/17/16 07:27 04/17/16 07:27 04/17/16 07:27 04/17/16 07:27 General appearance: Present: cooperative, A&O X 3, no acute distress, answers questions appropriately - Head Head exam: Present: atraumatic, normocephalic - Eye Eye exam: Present: PERRL, conjuntiva pink, sclera anicteric Pupils: Present: PERRL - Neck Neck exam general surgery: Present: supple, trachea midline. Absent: lymphadenopathy - Respiratory Respiratory exam: Present: decreased breath sounds. Absent: accessory muscle use, rales, rhonchi, wheezes - Cardiovascular Cardiovascular exam: Present: RRR, +S1, +S2. Absent: diastolic murmur, gallop, rubs, systolic murmur - GI/Abdominal GI/Abdominal exam: Present: distended, normal bowel sounds, soft, tenderness ( left-sided), no peritoneal signs - Extremities Exam Extremities exam: Present: pedal edema (Mild non-pitting.), warm, radial pulses palpable and symetrical. Absent: calf tenderness, cyanotic - Neurological Exam Neurological exam: Present: CN II-XII intact, oriented X3, no focal deficits. Absent: pronater drift, facial droop, speech deficit - Skin Skin exam: Present: dry, intact, warm Internal Medicine: Result - Labs CBC & Chem 7: 04/17/16 04:52 04/17/16 04:52 Labs: Short CBC 04/17/16 Range/Units 04:52 WBC 17.0 H (4.3-11.1) K/mcL Hgb 11.8 L (12.9-16.9) g/dL Hct 35.8 L (37.5-50.1) % Plt Count 410 H (140-400) K/mcL Neutrophils # 14.7 H (1.6-8.9) K/mcL BMP 04/17/16 04:52 Sodium 138 Potassium 3.3 L Chloride 103 Carbon Dioxide 26 BUN 13 Creatinine 0.72 Glucose 154 H Calcium 9.3 Liver Function 04/17/16 Range/Units 04:52 Total Bilirubin 0.7 (0.2-1.2) mg/dL AST 22 (5-34) Units/L ALT 19 (0-55) Units/L Alkaline Phosphatase 70 (38-126) Units/L Albumin 2.1 L (3.5-5.0) g/dL Consult Discharge Plan - Plan Referrals: Millie Carpenter DO [Primary Care Provider] - <Vin Li H - Last Filed: 04/17/16 13:48> Date of Encounter: 04/17/16 - Constitutional Vitals: Temp Pulse Resp BP Pulse Ox 98.4 F 82 16 141/67 94 L 04/17/16 11:47 04/17/16 11:47 04/17/16 11:47 04/17/16 11:47 04/17/16 11:47 Internal Medicine: Result - Labs CBC & Chem 7: 04/17/16 04:52 04/17/16 04:52 Labs: Short CBC 04/17/16 Range/Units 04:52 WBC 17.0 H (4.3-11.1) K/mcL Hgb 11.8 L (12.9-16.9) g/dL Hct 35.8 L (37.5-50.1) % Plt Count 410 H (140-400) K/mcL Neutrophils # 14.7 H (1.6-8.9) K/mcL BMP 04/17/16 04:52 Sodium 138 Potassium 3.3 L Chloride 103 Carbon Dioxide 26 BUN 13 Creatinine 0.72 Glucose 154 H Calcium 9.3 Liver Function 04/17/16 Range/Units 04:52 Total Bilirubin 0.7 (0.2-1.2) mg/dL AST 22 (5-34) Units/L ALT 19 (0-55) Units/L Alkaline Phosphatase 70 (38-126) Units/L Albumin 2.1 L (3.5-5.0) g/dL - Attending Attestation continue nothing by mouth, start TPN once the central line is placed consider switching atenolol to Lopressor IV I examined this patient and my medical decision-making was reviewed with the MANAGER MEDICAL WRITING/PA/Advanced Practice Nurse/Resident Physician. I agree with the documented findings, disposition and treatment plan as described except to the extent set forth below.
--- NOTE | 2016-04-17 11:18 | Electrocardiograph Report ---
[facility] Test Date: 2016-04-14 Pat Name: Nathen Desai Department: 102 Room: 3A55 Gender: M [employer] Developer: Amanda : 1935 Requested By: Ronald Weber Order Number: [id number] Reading MD: Reji Ramos DO Measurements Intervals [place] Rate: 98 P: [place]: 0 QRS: -45 QRSD: 114 T: -1 QT: 335 QTc: 391 Interpretive Statements Sinus rhythm with PACs Possible inferior myocardial infarction, age undetermined Electronically Signed On 04-17-16 11:18:03 EST by Reji Ramos DO
[2016-04-17] MEDS ORDERED: D10% in Water 500 ML IV PRN (12:00)
[2016-04-17] MEDS ORDERED: *HR* Dextrose 50 % in Water (Syg) 50 ML SYRINGE IVP PRN (15:23)
[2016-04-17] MEDS ORDERED: D5% in Water 1,000 ML IV PRN (15:23)
[2016-04-17] MEDS ORDERED: Dextrose Gel 15 GM PO PRN (15:23)
[2016-04-17] MEDS ORDERED: 0.9 % Sodium Chloride 1,000 ML IVC SCH (15:30)
--- NOTE | 2016-04-17 15:40 | General Surgery Progress Note ---
Date of Encounter: 04/17/16 Time of Encounter: 15:30 Subjective Patient reports: feels better, still having pain Narrative: Surgery, Hospital Day 2: Patient voicing no complaints but admits to persisting left lower quadrant abdominal pain. Vital signs stable; low-grade temp 99.3, pulse 82, respirations 16, blood pressure 141/67 Lungs: Clear, no obvious abdominal pain with deep inspiration Abdomen: Obese, with tenderness in the left mid abdomen. No discernible masses or rebound. Active bowel sounds Laboratories: Persistent leukocytosis 17.0 (previously 18.1); hemoglobin 11.8, hematocrit 35.5. Platelet count 410,000. Electrolytes notable for persistent hypokalemia, 3.3. Hemoglobin A1c 6.3. Protein 6.9 but albumin diminished at 2.1; pre-albumin 5.0 Impression/Plan: Acute sigmoid diverticulitis with perforation and pericolic abscess. Patient appears to be responding to IV antibiotics. Continue IV ATB. Protein and calorie malnutrition - it is anticipated that the patient will be NPO for several more days as the hung colic acute inflammation subsides. PN has been discussed with nutrition; this will be initiated today. To faciliate TPN, a CVL will be placed. The procedure has discussed with the patient. Risks include hemorrhage, infection, malposition of the catheter and pneumothorax. Consent has been obtained. Hypokalemia - IV potassium ordered Obesity Hypertension - better control with change medications CAD - appreciate Cardiology assessment/risk stratification for the impending surgery Chronic respiratory failure - stable Hyperlipidemia - TG 59 Objective Vital Signs - Last 8 Hours Temp Pulse Resp BP Pulse Ox 04/17/16 11:47 98.4 F 82 16 141/67 94 L 04/17/16 10:34 163/73 Intake and Output 04/16/16 04/17/16 04/17/16 23:59 07:59 15:59 Intake Total 1722 / 1722 200 / 200 1100 / 1100 Output Total 0 / 0 Balance 1722 / 1722 200 / 200 1100 / 1100 Intake: IV Fluids 1722 / 1722 200 / 200 1100 / 1100 Lactated Ringers 1,000 ML 1000 / 1000 1000 / 1000 @ 125 mls/hr IVC .Q8H [facility] Rx#:[id number] Flagyl 500 MG/100 ML 500 100 / 100 200 / 200 mg In 100 ml @ 100 mls/hr IVPB Q6HR [facility] Rx#: [id number] Zosyn 3.375 GM In 100 / 100 100 / 100 Dextrose 5% (Minibag+) 100 ML 100 ML @ 25 mls/hr IVPB Q8HR [facility] Rx#: [id number] KCl 40 MEQ Xylocaine 2 ML 522 / 522 In Dextrose 5% 500 ML @ 130.5 mls/hr IVPB ONCE ONE Rx#:[id number] Oral 0 / 0 0 / 0 0 / 0 Output: Urine 0 / 0 Other: Meal npo Stool Size Small Smear Stool Consistency soft loose Stool Color Brown Brown Yellow # Voids 3 2 # Bowel Movements 1 1 Weight 138.2 kg Blood Glucose* 147 127 162 Patient Weight 04/17/16 23:59 Weight 138.2 kg - Labs 04/17/16 04:52 04/17/16 04:52 Diabetes panel 04/17/16 04/17/16 04/17/16 Range/Units 04:52 04:52 04:52 Sodium 138 (136-145) mEq/L Potassium 3.3 L (3.5-4.5) mEq/L Chloride 103 (98-109) mEq/L Carbon Dioxide 26 (19-29) mEq/L BUN 13 (8-26) mg/dL Creatinine 0.72 (0.72-1.25) mg/dL Glucose 154 H (70-99) mg/dL Hemoglobin A1c 6.3 H ( - 5.6) % Calcium 9.3 (8.6-10.8) mg/dL AST 22 (5-34) Units/L ALT 19 (0-55) Units/L Alkaline Phosphatase 70 (38-126) Units/L Albumin 2.1 L (3.5-5.0) g/dL Triglycerides 59 (< 150) mg/dL Calcium panel 04/17/16 04/17/16 Range/Units 04:52 04:52 Calcium 9.3 (8.6-10.8) mg/dL Phosphorus 2.9 (2.3-4.7) mg/dL Albumin 2.1 L (3.5-5.0) g/dL Pituitary panel 04/17/16 Range/Units 04:52 Sodium 138 (136-145) mEq/L Potassium 3.3 L (3.5-4.5) mEq/L Chloride 103 (98-109) mEq/L Carbon Dioxide 26 (19-29) mEq/L BUN 13 (8-26) mg/dL Creatinine 0.72 (0.72-1.25) mg/dL Glucose 154 H (70-99) mg/dL Calcium 9.3 (8.6-10.8) mg/dL Adrenal panel 04/17/16 Range/Units 04:52 Sodium 138 (136-145) mEq/L Potassium 3.3 L (3.5-4.5) mEq/L Chloride 103 (98-109) mEq/L Carbon Dioxide 26 (19-29) mEq/L BUN 13 (8-26) mg/dL Creatinine 0.72 (0.72-1.25) mg/dL Glucose 154 H (70-99) mg/dL Calcium 9.3 (8.6-10.8) mg/dL Total Bilirubin 0.7 (0.2-1.2) mg/dL AST 22 (5-34) Units/L ALT 19 (0-55) Units/L Alkaline Phosphatase 70 (38-126) Units/L Albumin 2.1 L (3.5-5.0) g/dL Consult Discharge Plan - Plan Referrals: Millie Carpenter DO [Primary Care Provider] -
--- NOTE | 2016-04-17 15:46 | General Surgery Procedure Note ---
Date of procedure: 04/17/16 Pre-op diagnosis: Acute sigmoid diverticulitis with perforation, prolonged NPO state Post-op diagnosis: same Procedure: Placement of central venous line via right subclavian vein Complications: None apparent Findings: Placement of central venous line via the right subclavian vein was discussed with the patient. Risks include hemorrhage, infection, malposition of the catheter, pneumothorax. Consent was obtained. Once consent was obtained, the patient was placed supine in his hospital bed in Trendelenburg. The right neck and chest were prepped and draped in usual sterile fashion using chlorhexidine. The surgeon was gowned, gloved, masked, and capped. A whole body drape was applied to the patient. Proximally 5 mL 1% lidocaine was infiltrated into the upper anterior chest, infraclavicular region. Using an 18-gauge needle, the right subclavian vein was located. This was accomplished easily, at no time was air aspirated. In the technique described by Desiree, and guidewire was inserted, the needle was extracted. Skin tract was incised and dilated. A 16 cm, 7FR, 3 lumen, [place] catheter was passed over the guidewire. The guidewire was extracted. The catheter was advanced to approximately 15 cm and anchored to the infraclavicular skin using 3-0 silk. The 3 ports aspirated easily for blood and were flushed with saline. A dry sterile dressing was applied. The patient tolerated the procedure well. He had bilaterally equal breath sounds at the completion of the procedure. Stat portable chest x-ray is pending at the time of this dictation and will be reviewed on its completion. The central line will be used for TPN as well as continued IV therapy. The IV access may be used for blood draws. Anesthesia: local (5 mL 1% lidocaine) Surgeon: Kobi Mcbride Estimated blood loss (cc): 1 Pathology: none sent Condition: stable
[2016-04-17] MEDS ORDERED: Clinimix E 5%-15% SOLUTION 2,000 ML with MVI, adult with vitamin K 10 ML IV SCH (17:00)
[2016-04-17] MEDS: Insulin LISPRO 300 UNITS/3 ML VIAL SQ SCH ×3 (17:50→23:36)
[2016-04-18 03:16] LABS: Basophils % 0.3 %; Eosinophils # 0.1 K/mcL (0.0-0.6); Eosinophils % 0.4 %; Hematocrit 34.3 % (37.5-50.1); Hemoglobin 11.3 g/dL (12.9-16.9); Immature Granulocytes % 0.6 % (0-4); Lymphocytes # 0.7 K/mcL (0.6-4.6); Lymphocytes % 4.5 %; Mean Corpuscular HGB Conc 32.9 g/dL (31.6-35.5); Mean Corpuscular Hemoglobin 29.7 pg (28.0-33.3); Mean Corpuscular Volume 90.3 fL (83.0-100.0); Mean Platelet Volume 9.6 fL (9.4-12.4); Monocytes # 1.1 K/mcL (0.0-1.3); Monocytes % 7.3 %; Neutrophils # 13.5 K/mcL (1.6-8.9); Platelet Count 372 K/mcL (140-400); Red Cell Distribution Width 13.1 % (11.5-14.5); Segmented Neutrophils % 86.9 %
[2016-04-18 03:29] LABS: BUN/Creatinine Ratio 15 (6-26); Blood Urea Nitrogen 11 mg/dL (8-26); Calcium 8.7 mg/dL (8.6-10.8); Carbon Dioxide 29 mEq/L (19-29); Chloride 103 mEq/L (98-109); Glucose 184 mg/dL (70-99); Osmolality,Calculated 292 (280-300); Potassium 2.9 mEq/L (3.5-4.5); Sodium 139 mEq/L (136-145); eGFR For African Americans > 60 (> 60); eGFR For Non-African Americans > 60 (> 60)
[2016-04-18] MEDS: Insulin LISPRO 300 UNITS/3 ML VIAL SQ SCH ×5 (03:50→22:05)
[2016-04-18] MEDS: *HR* Heparin 5,000 UNIT/ML VIAL SQ SCH ×3 (05:17→22:05)
[2016-04-18] MEDS: MetroNIDAZOLE 500 MG/100 ML 500 MG/100 ML BAG IVPB SCH ×3 (05:22→18:18)
--- NOTE | 2016-04-18 07:05 | Internal Med Progress Note ---
<Helena Parker - Last Filed: 04/18/16 09:26> Date of Encounter: 04/18/16 Time of Encounter: 06:40 - Assessment and plan (1) Abscess of sigmoid colon due to diverticulitis Current Visit: Yes Status: Acute Assessment and plan: - CT A/P suggests perforated sigmoid diverticulitis with developing abscess. - Dr. Mcbride on board and recommends antibiotics treatment for now with possible sigmoid colectomy later. - Clinically stable as patient has been afebrile, leukocytosis continues to improve and no abdominal pain. - Continue IV Zosyn (Day 3) and IV Flagyl (Day 4). - Currently on NPO. Regulatory Law Specialist on board and patient is receiving TPN via right subclavian CVC placed by Dr. Mcbride yesterday. - Continue to monitor. - Appreciate Dr. Mcbride's assistance in patient care. (2) Hypokalemia Current Visit: Yes Status: Acute Assessment and plan: - K dropped from 3.3 yesterday to 2.9 today despite of 40 meq KCl supplement yesterday. - Will give another 40 meq KCl IV for now. - Will discuss with car storer about K supplement via TPN. Appreciate car storer' s assistance on patient care. (3) Hypertension Current Visit: Yes Status: Chronic Assessment and plan: - Elevated blood pressure this morning. - Will add hydralazine 10 mg IV q6H scheduled for better BP control. - Continue atenolol, amlodipine and prn hydralazine IV if SBP > 160. - Continue to monitor. Qualifiers: Hypertension type: essential hypertension Qualified Code(s): I10 - Essential (primary) hypertension (4) CAD (coronary artery disease) Current Visit: No Status: Chronic Assessment and plan: - CAD s/p heart cath 30 years ago. - Cardiology was consulted for preoperative cardiovascular examination and determined patient is at intermediate risk of perioperative complications. Qualifiers: Coronary Disease-Associated Artery/Lesion type: [place] artery [place] vs. transplanted heart: [place] heart Associated angina: without angina Qualified Code(s): I25.10 - Atherosclerotic heart disease of [place] coronary artery without angina pectoris (5) CHF (congestive heart failure) Current Visit: No Status: Chronic Assessment and plan: - Echo on 04/16/16 found LVEF 60% with mild LV diastolic dysfunction. - Continue on Lasix 40 mg PO daily. Qualifiers: Congestive heart failure type: diastolic Congestive heart failure chronicity: unspecified congestive heart failure chronicity Qualified Code(s) : I50.30 - Unspecified diastolic (congestive) heart failure (6) COPD (chronic obstructive pulmonary disease) Current Visit: No Status: Chronic Assessment and plan: - Stable as patient reports no significant shortness of breath at this time. - Consider brochodilator if needed. Qualifiers: COPD type: unspecified COPD Qualified Code(s): J44.9 - Chronic obstructive pulmonary disease, unspecified (7) DVT prophylaxis Current Visit: Yes Status: Acute Assessment and plan: - Continue SQ heparin. - Time Spent With Patient less than 15 minutes - Subjective Interval history: No significant event noted overnight. Patient had right subclavian CVC placed by Dr. Mcbride yesterday and started on TPN. Patient was seen and examined this morning. Patient still has diarrhea but otherwise feels doing better. Patient denies fever, chills, abdominal pain, nausea, vomiting. - Constitutional Vitals: Temp Pulse Resp BP Pulse Ox 98.7 F 82 18 163/72 92 L 04/18/16 03:52 04/18/16 03:52 04/18/16 03:52 04/18/16 03:52 04/18/16 03:52 General appearance: Present: cooperative, A&O X 3, no acute distress, answers questions appropriately - Head Head exam: Present: atraumatic, normocephalic - Eye Eye exam: Present: EOMI, PERRL - Neck Neck exam general surgery: Present: supple, trachea midline. Absent: lymphadenopathy - Respiratory Respiratory exam: Present: CTAB. Absent: accessory muscle use, rales, rhonchi, wheezes - Cardiovascular Cardiovascular exam: Present: RRR, +S1, +S2. Absent: diastolic murmur, gallop, rubs, systolic murmur - GI/Abdominal GI/Abdominal exam: Present: distended, normal bowel sounds, tenderness (Left- sided discomfort on palpation. ) - Extremities Exam Extremities exam: Present: pedal edema (Bilateral), warm, radial pulses palpable and symetrical - Neurological Exam Neurological exam: Present: CN II-XII intact, oriented X3, no focal deficits. Absent: pronater drift, facial droop, speech deficit - Skin Skin exam: Present: dry, intact, warm Internal Medicine: Result - Labs CBC & Chem 7: 04/18/16 03:00 04/18/16 03:00 Labs: Short CBC 04/18/16 Range/Units 03:00 WBC 15.6 H (4.3-11.1) K/mcL Hgb 11.3 L (12.9-16.9) g/dL Hct 34.3 L (37.5-50.1) % Plt Count 372 (140-400) K/mcL Neutrophils # 13.5 H (1.6-8.9) K/mcL BMP 04/18/16 03:00 Sodium 139 Potassium 2.9 L Chloride 103 Carbon Dioxide 29 BUN 11 Creatinine 0.72 Glucose 184 H Calcium 8.7 - Impressions Impressions Chest X-Ray 04/17/16 15:23 IMPRESSION: 1. Interval placement of a right subclavian central venous catheter, in appropriate position, without evidence of a pneumothorax. 2. Stable mild left basilar atelectasis. 3. Stable cardiomegaly. D/ / 04/17/2016 16:46:14 Simeon Henderson MD / [email or web address] Interpreting Provider: Simeon Henderson MD Consult Discharge Plan - Plan Referrals: Millie Carpenter DO [Primary Care Provider] - <Vin Li H - Last Filed: 04/18/16 09:55> - Constitutional Vitals: Temp Pulse Resp BP Pulse Ox 98.3 F 76 16 187/78 95 04/18/16 07:17 04/18/16 07:17 04/18/16 07:17 04/18/16 07:17 04/18/16 07:17 Internal Medicine: Result - Labs CBC & Chem 7: 04/18/16 03:00 04/18/16 03:00 Labs: Short CBC 04/18/16 Range/Units 03:00 WBC 15.6 H (4.3-11.1) K/mcL Hgb 11.3 L (12.9-16.9) g/dL Hct 34.3 L (37.5-50.1) % Plt Count 372 (140-400) K/mcL Neutrophils # 13.5 H (1.6-8.9) K/mcL BMP 04/18/16 03:00 Sodium 139 Potassium 2.9 L Chloride 103 Carbon Dioxide 29 BUN 11 Creatinine 0.72 Glucose 184 H Calcium 8.7 - Impressions Impressions Chest X-Ray 04/17/16 15:23 IMPRESSION: 1. Interval placement of a right subclavian central venous catheter, in appropriate position, without evidence of a pneumothorax. 2. Stable mild left basilar atelectasis. 3. Stable cardiomegaly. D/ / 04/17/2016 16:46:14 Simeon Henderson MD / [email or web address] Interpreting Provider: Simeon Henderson MD - Attending Attestation Continue TPN, Flagyl and Zosyn I examined this patient and my medical decision-making was reviewed with the WORKPLACE REHABILITATION OFFICER/PA/Advanced Practice Nurse/Resident Physician. I agree with the documented findings, disposition and treatment plan as described except to the extent set forth below.
[2016-04-18] MEDS: Piperacillin/Tazobactam 3.375 GM in D5% in Water (Mini-Bag+) 100 ML IVPB SCH ×2 (07:54→16:32)
[2016-04-18] MEDS: Furosemide 40 MG TABLET PO SCH (09:11)
[2016-04-18] MEDS: Lisinopril 20 MG TABLET PO SCH (09:11)
[2016-04-18] MEDS: amLODIPine 5 MG TABLET PO SCH (09:11)
--- NOTE | 2016-04-18 15:09 | General Surgery Progress Note ---
Date of Encounter: 04/18/16 Time of Encounter: 15:01 Subjective Patient reports: feels better, still having pain Narrative: General Surgery: Hospital Day #3: The patient and he needs to be afebrile, 98.4 , pulse 68, DrTing rate 18, blood pressure 150/77. He is complaining of persistent diarrhea which requires frequent trips to the bathroom. To my examination he still has left-sided abdominal pain but no obvious intra -abdominal masses. No rebound. Blood pressure is improved, but nursing reports IV hydralazine administered twice today for elevated. Laboratories: White count improved, 15.6. Hemoglobin stable at 11.3 with hematocrit 34.3. Platelet count 372,000. Electrolytes notable for potassium of 2.9, otherwise normal electrolytes, BUN and creatinine. Blood sugar/accucheck 180's Impression/plan: Acute sigmoid diverticulitis with perforation and pericolic abscess. Admission CT, 04/14/16. Repeat CT abdomen and pelvis in AM. Continue IV antibiotics. Protein calorie malnutrition - TPN initiated Obesity CAD - stable chronic respiratory failure - stable but a risk factor for the post op period Hypertension - control improved but the patient's blood pressure is still somewhat labile Hypokalemia - exacerbated by the patient's diarrhea and daily furosemide. 40 mEq daily insufficient replacement as evidenced by K+ 2.9. Additonal IV potassium ordered today. Family present at bedside; discussed treatment plans and pending surgery. Objective Vital Signs - Last 8 Hours Temp Pulse Resp BP Pulse Ox 04/18/16 11:24 98 F 71 16 148/65 93 L 04/18/16 07:17 98.3 F 76 16 187/78 95 Intake and Output 04/17/16 04/18/16 04/18/16 23:59 07:59 15:59 Intake Total 400 / 400 1013 / 1013 1345 / 1345 Output Total 100 / 100 0 / 0 Balance 400 / 400 913 / 913 1345 / 1345 Intake: IV Fluids 400 / 400 1013 / 1013 1345 / 1345 Clinimix E 5%-15% 463 / 463 SOLUTION 2,000 ML @ 50 mls/hr IV .Q24H [facility] with M.v.i. Adult 10 ml Rx#: [id number] 0.9 % Sodium Chloride 1, 745 / 745 000 ML @ 50 mls/hr IVC . Q20H [facility] Rx#:[id number] Intralipid 20% 250 ML @ 250 / 250 21 mls/hr IVPB DAILY@1700 [facility] Rx#:[id number] Flagyl 500 MG/100 ML 500 100 / 100 200 / 200 100 / 100 mg In 100 ml @ 100 mls/hr IVPB Q6HR [facility] Rx#: [id number] Zosyn 3.375 GM In 100 / 100 100 / 100 100 / 100 Dextrose 5% (Minibag+) 100 ML 100 ML @ 25 mls/hr IVPB Q8HR [facility] Rx#: [id number] Potassium Chloride 10 mEq 200 / 200 400 / 400 /100mL 10 meq In 100 ml @ 100 mls/hr IVPB Q1H [facility] Rx#:[id number] Oral 0 / 0 0 / 0 0 / 0 Output: Urine 100 / 100 0 / 0 Other: Meal NPO Stool Size Small Small Stool Consistency loose liquid liquid Stool Color Brown Brown Brown Yellow # Voids 1 2 # Bowel Movements 1 1 Blood Glucose* 131 170 181 - Labs 04/18/16 03:00 04/18/16 03:00 Diabetes panel 04/18/16 Range/Units 03:00 Sodium 139 (136-145) mEq/L Potassium 2.9 L (3.5-4.5) mEq/L Chloride 103 (98-109) mEq/L Carbon Dioxide 29 (19-29) mEq/L BUN 11 (8-26) mg/dL Creatinine 0.72 (0.72-1.25) mg/dL Glucose 184 H (70-99) mg/dL Calcium 8.7 (8.6-10.8) mg/dL Calcium panel 04/18/16 Range/Units 03:00 Calcium 8.7 (8.6-10.8) mg/dL Pituitary panel 04/18/16 Range/Units 03:00 Sodium 139 (136-145) mEq/L Potassium 2.9 L (3.5-4.5) mEq/L Chloride 103 (98-109) mEq/L Carbon Dioxide 29 (19-29) mEq/L BUN 11 (8-26) mg/dL Creatinine 0.72 (0.72-1.25) mg/dL Glucose 184 H (70-99) mg/dL Calcium 8.7 (8.6-10.8) mg/dL Adrenal panel 04/18/16 Range/Units 03:00 Sodium 139 (136-145) mEq/L Potassium 2.9 L (3.5-4.5) mEq/L Chloride 103 (98-109) mEq/L Carbon Dioxide 29 (19-29) mEq/L BUN 11 (8-26) mg/dL Creatinine 0.72 (0.72-1.25) mg/dL Glucose 184 H (70-99) mg/dL Calcium 8.7 (8.6-10.8) mg/dL Consult Discharge Plan - Plan Referrals: Millie Carpenter DO [Primary Care Provider] - 04/27/16 1:30 pm
[2016-04-18 15:30] LABS: Magnesium 1.9 mg/dL (1.6-2.6); Potassium 2.9 mEq/L (3.5-4.5)
[2016-04-18] MEDS ORDERED: Clinimix E 5%-15% SOLUTION 2,000 ML with MVI, adult with vitamin K 10 ML, Insulin Hum... IV SCH (17:00)
[2016-04-19] MEDS: Piperacillin/Tazobactam 3.375 GM in D5% in Water (Mini-Bag+) 100 ML IVPB SCH ×3 (00:28→16:03)
[2016-04-19] MEDS: MetroNIDAZOLE 500 MG/100 ML 500 MG/100 ML BAG IVPB SCH ×4 (00:28→17:47)
[2016-04-19] MEDS: Insulin LISPRO 300 UNITS/3 ML VIAL SQ SCH ×6 (00:34→20:27)
[2016-04-19] MEDS: *HR* Heparin 5,000 UNIT/ML VIAL SQ SCH ×3 (05:03→23:08)
[2016-04-19 05:52] LABS: Magnesium 1.9 mg/dL (1.6-2.6); Phosphorous 2.6 mg/dL (2.3-4.7)
[2016-04-19] MEDS: Furosemide 40 MG TABLET PO SCH (08:20)
[2016-04-19] MEDS: Lisinopril 20 MG TABLET PO SCH (08:20)
[2016-04-19] MEDS: amLODIPine 5 MG TABLET PO SCH (08:20)
[2016-04-19 08:22] LABS: Basophils % 0.3 %; Eosinophils % 0.2 %; Hemoglobin 11.5 g/dL (12.9-16.9); Immature Granulocytes % 0.8 % (0-4); Immature Platelets 1.7 % (1.1-6.1); Lymphocytes # 0.7 K/mcL (0.6-4.6); Lymphocytes % 5.2 %; Mean Corpuscular HGB Conc 32.9 g/dL (31.6-35.5); Mean Corpuscular Hemoglobin 29.6 pg (28.0-33.3); Mean Corpuscular Volume 90.2 fL (83.0-100.0); Mean Platelet Volume 9.1 fL (9.4-12.4); Monocytes % 7.4 %; Neutrophils # 11.4 K/mcL (1.6-8.9); Platelet Count 423 K/mcL (140-400); Red Blood Count 3.88 M/mcL (4.19-5.50); Red Cell Distribution Width 13.2 % (11.5-14.5); Segmented Neutrophils % 86.1 %
[2016-04-19 08:32] LABS: BUN/Creatinine Ratio 19 (6-26); Blood Urea Nitrogen 13 mg/dL (8-26); Calcium 8.7 mg/dL (8.6-10.8); Carbon Dioxide 27 mEq/L (19-29); Chloride 104 mEq/L (98-109); Glucose 213 mg/dL (70-99); Osmolality,Calculated 294 (280-300); Potassium 2.9 mEq/L (3.5-4.5); Sodium 139 mEq/L (136-145); eGFR For African Americans > 60 (> 60); eGFR For Non-African Americans > 60 (> 60)
--- NOTE | 2016-04-19 08:35 | Internal Med Progress Note ---
<Helena Parker - Last Filed: 04/19/16 10:37> Date of Encounter: 04/19/16 Time of Encounter: 08:00 - Assessment and plan (1) Abscess of sigmoid colon due to diverticulitis Current Visit: Yes Status: Acute Assessment and plan: - CT A/P suggests perforated sigmoid diverticulitis with developing abscess. - Dr. Mcbride on board and recommends antibiotics treatment for now with possible sigmoid colectomy later. - Clinically stable as patient has been afebrile, leukocytosis continues to improve and no abdominal pain. - Repeated CT A/P today showed persistent changes of sigmoid diverticulitis with pericolonic phlegmon/extraluminal gas & fluid slightly worsened from prior study. - Continue IV Zosyn (Day 4) and IV Flagyl (Day 5). - Currently NPO. [employer] Worker Apprentice on board and patient is receiving TPN via right subclavian CVC placed by Dr. Mcbride yesterday. - Continue to monitor. - Appreciate Dr. Mcbride's assistance in patient care. (2) Hypokalemia Current Visit: Yes Status: Acute Assessment and plan: - K continues to be low (2.9 today) despite of K supplement via IV and TPN. - Likely GI loss from diarrhea. - Mg normal. - Will give another 40 meq KCl IV for now. - Will discuss with personal insurance advisor about increase of K supplement via TPN. Appreciate personal insurance advisor's assistance on patient care. (3) Hypertension Current Visit: Yes Status: Chronic Assessment and plan: - Elevated blood pressure this morning. - Continue atenolol, amlodipine and IV hydralazine scheduled & prn SBP > 160. - Continue to monitor. Qualifiers: Hypertension type: essential hypertension Qualified Code(s): I10 - Essential (primary) hypertension (4) CAD (coronary artery disease) Current Visit: No Status: Chronic Assessment and plan: - CAD s/p heart cath 30 years ago. - Cardiology was consulted for preoperative cardiovascular examination and determined patient is at intermediate risk of perioperative complications. Qualifiers: Coronary Disease-Associated Artery/Lesion type: [place] artery [place] vs. transplanted heart: [place] heart Associated angina: without angina Qualified Code(s): I25.10 - Atherosclerotic heart disease of [place] coronary artery without angina pectoris (5) CHF (congestive heart failure) Current Visit: No Status: Chronic Assessment and plan: - Echo on 04/16/16 found LVEF 60% with mild LV diastolic dysfunction. - Continue on Lasix 40 mg PO daily. Qualifiers: Congestive heart failure type: diastolic Congestive heart failure chronicity: unspecified congestive heart failure chronicity Qualified Code(s) : I50.30 - Unspecified diastolic (congestive) heart failure (6) COPD (chronic obstructive pulmonary disease) Current Visit: No Status: Chronic Assessment and plan: - Stable as patient reports no significant shortness of breath at this time. - Consider brochodilator if needed. Qualifiers: COPD type: unspecified COPD Qualified Code(s): J44.9 - Chronic obstructive pulmonary disease, unspecified (7) DVT prophylaxis Current Visit: Yes Status: Acute Assessment and plan: - Continue SQ heparin. - Subjective Interval history: No significant event noted overnight. Patient was seen and examined this morning. Patient has no complaint except diarrhea, which has been slightly slowing down. Patient denies fever, chills, abdominal pain, nausea, vomiting. - Constitutional Vitals: Temp Pulse Resp BP Pulse Ox 98.2 F 97 16 189/80 95 04/19/16 07:37 04/19/16 07:37 04/19/16 07:37 04/19/16 07:37 04/19/16 07:37 General appearance: Present: cooperative, A&O X 3, no acute distress, answers questions appropriately - Head Head exam: Present: atraumatic, normocephalic - Eye Eye exam: Present: PERRL, conjuntiva pink, sclera anicteric - Neck Neck exam general surgery: Present: supple, trachea midline. Absent: lymphadenopathy - Respiratory Respiratory exam: Present: CTAB. Absent: accessory muscle use, rales, rhonchi, wheezes - Cardiovascular Cardiovascular exam: Present: RRR, +S1, +S2. Absent: diastolic murmur, gallop, rubs, systolic murmur - GI/Abdominal GI/Abdominal exam: Present: normal bowel sounds, soft, tenderness (Some diffuse abdominal discomfort.), no peritoneal signs. Absent: distended - Extremities Exam Extremities exam: Present: pedal edema, warm, radial pulses palpable and symetrical. Absent: calf tenderness, cyanotic - Neurological Exam Neurological exam: Present: CN II-XII intact, oriented X3, no focal deficits. Absent: pronater drift, facial droop, speech deficit - Skin Skin exam: Present: dry, intact, warm Internal Medicine: Result - Labs CBC & Chem 7: 04/19/16 06:36 04/19/16 08:14 Labs: Short CBC 04/19/16 Range/Units 06:36 WBC 13.2 H (4.3-11.1) K/mcL Hgb 11.5 L (12.9-16.9) g/dL Hct 35.0 L (37.5-50.1) % Plt Count 423 H (140-400) K/mcL Neutrophils # 11.4 H (1.6-8.9) K/mcL BMP 04/18/16 04/19/16 14:55 08:14 Sodium 139 Potassium 2.9 L 2.9 L Chloride 104 Carbon Dioxide 27 BUN 13 Creatinine 0.69 L Glucose 213 H Calcium 8.7 - Impressions Impressions Abdomen/Pelvis CT 04/19/16 00:01 IMPRESSION: Persistent changes of sigmoid diverticulitis with pericolonic phlegmon/extraluminal gas and fluid slightly worsened from prior exam. D/ / Bipin Corona MD / Bipin Corona MD Interpreting Provider: Bipin Corona MD Consult Discharge Plan - Plan Referrals: Millie Carpenter DO [Primary Care Provider] - 04/27/16 1:30 pm <Vin Li H - Last Filed: 04/19/16 10:51> - Constitutional Vitals: Temp Pulse Resp BP Pulse Ox 98.2 F 97 16 189/80 95 04/19/16 07:37 04/19/16 07:37 04/19/16 07:37 04/19/16 07:37 04/19/16 07:37 Internal Medicine: Result - Labs CBC & Chem 7: 04/19/16 06:36 04/19/16 08:14 Labs: Short CBC 04/19/16 Range/Units 06:36 WBC 13.2 H (4.3-11.1) K/mcL Hgb 11.5 L (12.9-16.9) g/dL Hct 35.0 L (37.5-50.1) % Plt Count 423 H (140-400) K/mcL Neutrophils # 11.4 H (1.6-8.9) K/mcL BMP 04/18/16 04/19/16 14:55 08:14 Sodium 139 Potassium 2.9 L 2.9 L Chloride 104 Carbon Dioxide 27 BUN 13 Creatinine 0.69 L Glucose 213 H Calcium 8.7 - Impressions Impressions Abdomen/Pelvis CT 04/19/16 00:01 IMPRESSION: Persistent changes of sigmoid diverticulitis with pericolonic phlegmon/extraluminal gas and fluid slightly worsened from prior exam. D/ / 04/19/2016 08:43:03 Bipin Corona MD / nick Interpreting Provider: Bipin Corona MD - Attending Attestation Replete potassium and TPN Possible surgical procedure scheduled for next week Order [place] catheter I examined this patient and my medical decision-making was reviewed with the [employer] PRODUCT CONSULTANT/PA/Advanced Practice Nurse/Resident Physician. I agree with the documented findings, disposition and treatment plan as described except to the extent set forth below.
--- NOTE | 2016-04-19 13:40 | General Surgery Progress Note ---
Date of Encounter: 04/19/16 Time of Encounter: 13:20 Subjective Patient reports: no new complaints Narrative: General Surgery: hospital day #4: Patient denies abdominal pain, his only complaint is urinary frequency and urinary incontinence. A [place] catheter has been trialed unsuccessfully. the patient remains afebrile, 98.2, pulse 76-97, respirations 16, blood pressure 189/80. Lungs: Clear Abdomen: Obese, with minimal tenderness left mid to lower quadrant. No palpable masses or rebound. Exam limited by body habitus Diarrhea is described as better. Urine output: Accurate volume not recorded dating back to 04/15/16 Laboratories: Leukocytosis has improved to 13.2; hemoglobin stable at 11.5, hematocrit 35.0. Platelet count 423,000. Electrolytes, BUN and creatinine stable, potassium remains depleted at 2.9. Hypokalemia despite 80 mEq of IV potassium administered yesterday. Accu-Cheks: 198-221 - dietary has increasing insulin in the TPN; high sliding scale insulin coverage in place CT: Repeated today, personally reviewed. Findings include stable fatty infiltration of liver, multiple benign-appearing cystic lesions within the liver. No abnormal mesenteric lymph nodes. Persistent changes of sigmoid diverticulitis with pericolic phlegmon/abscess. The abscess is slightly enlarged but the rounding inflammation is improved. The abscess has not "coalesced" to facilitate percutaneous drainage, however, there is sufficient stability to warrant continued therapy as is. Surgery to be planned early to mid next week depending on the patient's continued response to therapy. Impression/Plan: Acute sigmoid diverticulitis with pericolic phlegmon/abscess - essentially stable - slight enlargement but surrounding inflammtion better. will allow clear liquids. Surgical resection still pending. Persistent hypokalemia - continue IV supplementation and add oral potassium Hypertension - systolic pressure still in the 180s Obesity Urinary frequency and incontinence - [place] catheter Objective Vital Signs - Last 8 Hours Temp Pulse Resp BP Pulse Ox 04/19/16 07:37 98.2 F 97 16 189/80 95 Intake and Output 04/18/16 04/19/16 04/19/16 23:59 07:59 15:59 Intake Total 1109 / 1109 550 / 550 500 / 500 Balance 1109 / 1109 550 / 550 500 / 500 Intake: IV Fluids 1109 / 1109 550 / 550 500 / 500 Clinimix E 5%-15% 708 / 708 SOLUTION 2,000 ML @ 50 mls/hr IV .Q24H [facility] with M.v.i. Adult 10 ml Rx#: [id number] 0.9 % Sodium Chloride 1, 101 / 101 000 ML @ 50 mls/hr IVC . Q20H [facility] Rx#:[id number] Intralipid 20% 250 ML @ 250 / 250 21 mls/hr IVPB DAILY@1700 [facility] Rx#:[id number] Flagyl 500 MG/100 ML 500 100 / 100 200 / 200 100 / 100 mg In 100 ml @ 100 mls/hr IVPB Q6HR [facility] Rx#: [id number] Zosyn 3.375 GM In 100 / 100 100 / 100 100 / 100 Dextrose 5% (Minibag+) 100 ML 100 ML @ 25 mls/hr IVPB Q8HR [facility] Rx#: [id number] Potassium Chloride 10 mEq 300 / 300 /100mL 10 meq In 100 ml @ 100 mls/hr IVPB Q1H [facility] Rx#:[id number] Potassium Chloride 20 mEq 100 / 100 /100 mL 20 meq In 100 ml @ 50 mls/hr IVPB Q1H [facility] Rx#:[id number] Oral 0 / 0 Other: Meal NPO Stool Size Small Moderate Stool Consistency loose loose Stool Characteristics Normal for Patient Pasty Stool Color Brown Brown Yellow # Voids 1 1 1 # Bowel Movements 1 2 Weight 138.2 kg Blood Glucose* 198 196 221 Patient Weight 04/19/16 23:59 Weight 138.2 kg - Labs 04/19/16 06:36 04/19/16 08:14 Diabetes panel 04/18/16 04/19/16 Range/Units 14:55 08:14 Sodium 139 (136-145) mEq/L Potassium 2.9 L 2.9 L (3.5-4.5) mEq/L Chloride 104 (98-109) mEq/L Carbon Dioxide 27 (19-29) mEq/L BUN 13 (8-26) mg/dL Creatinine 0.69 L (0.72-1.25) mg/dL Glucose 213 H (70-99) mg/dL Calcium 8.7 (8.6-10.8) mg/dL Calcium panel 04/19/16 04/19/16 Range/Units 04:30 08:14 Calcium 8.7 (8.6-10.8) mg/dL Phosphorus 2.6 (2.3-4.7) mg/dL Pituitary panel 04/18/16 04/19/16 Range/Units 14:55 08:14 Sodium 139 (136-145) mEq/L Potassium 2.9 L 2.9 L (3.5-4.5) mEq/L Chloride 104 (98-109) mEq/L Carbon Dioxide 27 (19-29) mEq/L BUN 13 (8-26) mg/dL Creatinine 0.69 L (0.72-1.25) mg/dL Glucose 213 H (70-99) mg/dL Calcium 8.7 (8.6-10.8) mg/dL Adrenal panel 04/18/16 04/19/16 Range/Units 14:55 08:14 Sodium 139 (136-145) mEq/L Potassium 2.9 L 2.9 L (3.5-4.5) mEq/L Chloride 104 (98-109) mEq/L Carbon Dioxide 27 (19-29) mEq/L BUN 13 (8-26) mg/dL Creatinine 0.69 L (0.72-1.25) mg/dL Glucose 213 H (70-99) mg/dL Calcium 8.7 (8.6-10.8) mg/dL Consult Discharge Plan - Plan Referrals: Millie Carpenter DO [Primary Care Provider] - 04/27/16 1:30 pm
[2016-04-19] MEDS ORDERED: Clinimix E 5%-15% SOLUTION 2,000 ML with MVI, adult with vitamin K 10 ML, Insulin Hum... IV SCH (17:00)
[2016-04-20] MEDS: Piperacillin/Tazobactam 3.375 GM in D5% in Water (Mini-Bag+) 100 ML IVPB SCH ×4 (00:38→23:34)
[2016-04-20] MEDS: MetroNIDAZOLE 500 MG/100 ML 500 MG/100 ML BAG IVPB SCH ×5 (00:55→23:34)
[2016-04-20] MEDS: Insulin LISPRO 300 UNITS/3 ML VIAL SQ SCH ×7 (00:56→23:47)
[2016-04-20 05:03] LABS: Basophils # 0.1 K/mcL (0.0-0.2); Basophils % 0.3 %; Eosinophils % 0.1 %; Hemoglobin 12.1 g/dL (12.9-16.9); Lymphocytes # 0.9 K/mcL (0.6-4.6); Lymphocytes % 4.9 %; Mean Corpuscular HGB Conc 33.6 g/dL (31.6-35.5); Mean Corpuscular Hemoglobin 30.2 pg (28.0-33.3); Mean Corpuscular Volume 89.8 fL (83.0-100.0); Mean Platelet Volume 9.5 fL (9.4-12.4); Monocytes # 1.6 K/mcL (0.0-1.3); Monocytes % 8.6 %; Neutrophils # 15.6 K/mcL (1.6-8.9); Platelet Count 430 K/mcL (140-400); Red Blood Count 4.01 M/mcL (4.19-5.50); Red Cell Distribution Width 13.1 % (11.5-14.5); Segmented Neutrophils % 85.1 %
[2016-04-20 05:33] LABS: BUN/Creatinine Ratio 21 (6-26); Blood Urea Nitrogen 15 mg/dL (8-26); Carbon Dioxide 27 mEq/L (19-29); Chloride 103 mEq/L (98-109); Glucose 216 mg/dL (70-99); Osmolality,Calculated 295 (280-300); Sodium 139 mEq/L (136-145); eGFR For African Americans > 60 (> 60); eGFR For Non-African Americans > 60 (> 60)
[2016-04-20] MEDS: *HR* Heparin 5,000 UNIT/ML VIAL SQ SCH ×3 (06:57→21:10)
--- NOTE | 2016-04-20 09:28 | Internal Med Progress Note ---
Addendum entered and electronically signed by Helena Parker DO 04/20/16 15:41: CT A/P was reviewed personally. It appears patient has huge urinary distention but abscess is about the same compare to prior study. Patient's mental status change and discomfort are most likley secondary to urinary retention. Dr. Caldwell of Urology was called and notified about the finding. And Dr. Caldwell is coming for young placement. Addendum entered and electronically signed by Helena Parker DO 04/20/16 14:10: Patient's nurse Erin notified medicine team about patient's mental status change and complaint of abdominal pain. Patient was seen and examined. Patient reports possible syncope and diffuse abdominal fullness/discomfort especially at lower quadrants. Concern of intraabdominal abscess spreading given worsening leukocytosis today. Will obtain CT A/P without contrast without evaluation. UA negative for UTI and urology has been consulted for young placement. Patient's blood pressure is elevated ~ 190s/80s. Will hold hydralazine for now. Closely monitor BP. If BP drops, plan to give IV fluid bolus wide open and transfer to more advanced care unit. Also consider adding vancomycin in that case. Will follow up on the CT A/P result. Original Note: <Helena Parker - Last Filed: 04/20/16 10:15> Date of Encounter: 04/20/16 Time of Encounter: 09:00 - Assessment and plan (1) Abscess of sigmoid colon due to diverticulitis Current Visit: Yes Status: Acute Assessment and plan: - CT A/P suggests perforated sigmoid diverticulitis with developing abscess. - Dr. Mcbride on board and recommends antibiotics treatment for now with sigmoid colectomy planned next week. - Clinically stable as patient has been afebrile and no abdominal pain. WBC is noted to increase from yesterday - Repeated CT A/P today showed persistent changes of sigmoid diverticulitis with pericolonic phlegmon/extraluminal gas & fluid. - Continue IV Zosyn (Day 5) and IV Flagyl (Day 6). - Currently NPO. Electrical Repairer on board and patient is receiving TPN via right subclavian CVC placed by Dr. Mcbride. - Continue to monitor. - Appreciate Dr. Mcbride's assistance in patient care. (2) Hypokalemia Current Visit: Yes Status: Acute Assessment and plan: - K stable (3.0 today). - Likely GI loss from diarrhea. - Mg normal. - Anticipate to improve as patient reports less diarrhea. - Continue K supplement via TPN. Appreciate alum mixer assistance on patient care. - Continue to monitor. (3) Hypertension Current Visit: Yes Status: Chronic Assessment and plan: - Elevated blood pressure this morning. - Continue atenolol, amlodipine and IV hydralazine scheduled & prn SBP > 160. - Continue to monitor. Qualifiers: Hypertension type: essential hypertension Qualified Code(s): I10 - Essential (primary) hypertension (4) Increased urinary frequency Current Visit: Yes Status: Acute Assessment and plan: - Doubt UTI given patient has been on antibiotics but will check UA given WBC increase today. (5) CAD (coronary artery disease) Current Visit: No Status: Chronic Assessment and plan: - CAD s/p heart cath 30 years ago. - Cardiology was consulted for preoperative cardiovascular examination and determined patient is at intermediate risk of perioperative complications. Qualifiers: Coronary Disease-Associated Artery/Lesion type: [place] artery [place] vs. transplanted heart: [place] heart Associated angina: without angina Qualified Code(s): I25.10 - Atherosclerotic heart disease of [place] coronary artery without angina pectoris (6) CHF (congestive heart failure) Current Visit: No Status: Chronic Assessment and plan: - Echo on 04/16/16 found LVEF 60% with mild LV diastolic dysfunction. - Continue on Lasix 40 mg PO daily. Qualifiers: Congestive heart failure type: diastolic Congestive heart failure chronicity: unspecified congestive heart failure chronicity Qualified Code(s) : I50.30 - Unspecified diastolic (congestive) heart failure (7) COPD (chronic obstructive pulmonary disease) Current Visit: No Status: Chronic Assessment and plan: - Stable as patient reports no significant shortness of breath at this time. - Consider brochodilator if needed. Qualifiers: COPD type: unspecified COPD Qualified Code(s): J44.9 - Chronic obstructive pulmonary disease, unspecified (8) DVT prophylaxis Current Visit: Yes Status: Acute Assessment and plan: - Continue SQ heparin. - Subjective Interval history: No significant event noted overnight. Patient was seen and examined this morning. Patient reports no abdominal pain and his diarrhea seems to slow down more. Patient denies fever, chills, nausea, vomiting. Patient notices increase in urinary frequency but denies dysuria. - Constitutional Vitals: Temp Pulse Resp BP Pulse Ox 97.9 F 87 16 192/69 95 04/20/16 07:16 04/20/16 07:16 04/20/16 07:16 04/20/16 07:16 04/20/16 07:16 General appearance: Present: cooperative, A&O X 3, no acute distress, answers questions appropriately - Head Head exam: Present: atraumatic, normocephalic - Eye Eye exam: Present: PERRL, conjuntiva pink, sclera anicteric Pupils: Present: PERRL - Neck Neck exam general surgery: Present: supple, trachea midline. Absent: lymphadenopathy - Respiratory Respiratory exam: Present: decreased breath sounds. Absent: accessory muscle use, rales, rhonchi, wheezes - Cardiovascular Cardiovascular exam: Present: RRR, +S1, +S2. Absent: diastolic murmur, gallop, rubs, systolic murmur - GI/Abdominal GI/Abdominal exam: Present: distended, normal bowel sounds, soft, no peritoneal signs. Absent: tenderness - Extremities Exam Extremities exam: Present: pedal edema, warm, radial pulses palpable and symetrical. Absent: calf tenderness, cyanotic - Neurological Exam Neurological exam: Present: CN II-XII intact, oriented X3, no focal deficits. Absent: pronater drift, facial droop, speech deficit - Skin Skin exam: Present: dry, intact Internal Medicine: Result - Labs CBC & Chem 7: 04/20/16 04:48 04/20/16 04:48 Labs: Short CBC 04/20/16 Range/Units 04:48 WBC 18.4 H (4.3-11.1) K/mcL Hgb 12.1 L (12.9-16.9) g/dL Hct 36.0 L (37.5-50.1) % Plt Count 430 H (140-400) K/mcL Neutrophils # 15.6 H (1.6-8.9) K/mcL BMP 04/19/16 04/20/16 15:00 04:48 Sodium 139 Potassium 2.9 L 3.0 L Chloride 103 Carbon Dioxide 27 BUN 15 Creatinine 0.71 L Glucose 216 H Calcium 9.0 Consult Discharge Plan - Plan Referrals: Millie Carpenter DO [Primary Care Provider] - 04/27/16 1:30 pm <Vin Li H - Last Filed: 04/20/16 16:14> - Constitutional Vitals: Temp Pulse Resp BP Pulse Ox 97.7 F 71 16 181/68 94 L 04/20/16 15:46 04/20/16 15:46 04/20/16 15:46 04/20/16 15:46 04/20/16 15:46 Internal Medicine: Result - Labs CBC & Chem 7: 04/20/16 04:48 04/20/16 04:48 Labs: Short CBC 04/20/16 Range/Units 04:48 WBC 18.4 H (4.3-11.1) K/mcL Hgb 12.1 L (12.9-16.9) g/dL Hct 36.0 L (37.5-50.1) % Plt Count 430 H (140-400) K/mcL Neutrophils # 15.6 H (1.6-8.9) K/mcL BMP 04/20/16 04:48 Sodium 139 Potassium 3.0 L Chloride 103 Carbon Dioxide 27 BUN 15 Creatinine 0.71 L Glucose 216 H Calcium 9.0 Urine 04/20/16 Range/Units 10:47 Urine Color Yellow (Yellow) Urine Clarity Clear (Clear) Urine pH 6.5 (5.0-8.0) pH Units Ur Specific [place] 1.015 (1.010-1.025) Urine Protein Trace (Neg-Trace) mg/dL Urine Glucose (UA) Normal (Normal) mg/dL - Impressions Impressions Abdomen/Pelvis CT 04/20/16 14:05 IMPRESSION: 1. Multilocular diverticular abscess adjacent to the sigmoid colon 2. Urinary bladder distention. Please correlate with any difficulty voiding 3. Stable hyperdense right renal lesion. This is stable compared with an older CT from 04/09/2007, compatible with a complicated cyst D/ / Roger De Luna MD / Roger De Luna MD Interpreting Provider: Roger De Luna MD - Attending Attestation Urinary retention noticed on CT scan, urology consult due to difficult Young placement I examined this patient and my medical decision-making was reviewed with the GEOSPATIAL IMAGE ANALYST/PA/Advanced Practice Nurse/Resident Physician. I agree with the documented findings, disposition and treatment plan as described except to the extent set forth below.
[2016-04-20] MEDS: amLODIPine 5 MG TABLET PO SCH (09:43)
[2016-04-20] MEDS: Lisinopril 20 MG TABLET PO SCH (09:44)
[2016-04-20] MEDS: Furosemide 40 MG TABLET PO SCH (09:44)
[2016-04-20 11:17] LABS: Bilirubin,Urine Negative (Negative); Blood,Urine Negative (Negative); Clarity,Urine Clear (Clear); Color,Urine Yellow (Yellow); Glucose,Urine (UA) Normal (Normal); Ketones,Urine Negative (Negative); Leukocyte Esterase,Urine Negative (Negative); Nitrite,Urine Negative (Negative); PH,Urine 6.5 pH Units (5.0-8.0); Protein,Urine Trace mg/dL (Neg-Trace); Specific Gravity,Urine 1.015 (1.010-1.025); Urobilinogen,Urine Normal (Normal)
[2016-04-20 11:20] LABS: Bacteria,Urine None Seen per hpf (None-Few); Hyaline Casts,Urine None Seen per lpf (None-Few); RBC,Urine 0-3 per hpf (0-3); Squamous Epithelial Cell,Urine Many per lpf (None-Few); WBC,Urine 0-3 per hpf (0-3)
--- NOTE | 2016-04-20 12:40 | General Surgery Progress Note ---
Date of Encounter: 04/20/16 Time of Encounter: 12:00 Subjective Patient reports: other (urinary frequency and urgency) Narrative: General Surgery: hospital day #5 - patient complaining of urinary frequency and urgency. Nursing reports that the patient is in the bathroom every 10 minutes" A Robbins catheter was ordered but not able to be placed; I attempted to place a Robbins without success. It appears patient has significant urethral stenosis. Urology has been consulted. Robbins catheter will be helpful when the sigmoid colectomy is completed. The patient indicates his abdominal pain is completely resolved. He is no longer complaining of diarrhea.\\ The patient is afebrile, 98.6, pulse 91, respirations 16, blood pressure 192/69 ; repeat 201/75. It is possible that the urinary complaints are contributing to the patient's hypertension. Possible overflow incontinence. Lungs: Clear Abdomen: Obese, no obvious tenderness, masses or rebound. Active bowel sounds. Urine output does not appear to be accurately measured due to the patient's urinary frequency. The patient does not describe large volumes per void. Laboratories: Increased leukocytosis to 18.4; hemoglobin 12.1 hematocrit 6.0. Platelet count 430,000 Electrolytes with the exception of potassium within normal limits; BUN 15, creatinine 0.71. Blood glucose and Accu-Cheks still ranging 177-219 despite high sliding scale coverage and increased insulin in TPN. Impression: Persistent hypokalemia, despite IV and oral supplementation Sigmoid diverticulitis with pericolic phlegmon/abscess Urinary frequency - apparent urethral stenosis. Urology consulted for assistance. Discussed with Dr Caldwell. Objective Vital Signs - Last 8 Hours Temp Pulse Resp BP Pulse Ox 04/20/16 11:08 98.6 F 91 16 201/75 94 L 04/20/16 07:16 97.9 F 87 16 192/69 95 Intake and Output 04/19/16 04/20/16 04/20/16 23:59 07:59 15:59 Intake Total 350 / 350 700 / 700 460 / 460 Output Total 250 / 250 300 / 300 Balance 350 / 350 450 / 450 160 / 160 Intake: IV Fluids 200 / 200 450 / 450 100 / 100 Intralipid 20% 250 ML @ 250 / 250 21 mls/hr IVPB DAILY@1700 [facility] Rx#:[id number] Flagyl 500 MG/100 ML 500 100 / 100 100 / 100 100 / 100 mg In 100 ml @ 100 mls/hr IVPB Q6HR [facility] Rx#: [id number] Zosyn 3.375 GM In 100 / 100 100 / 100 Dextrose 5% (Minibag+) 100 ML 100 ML @ 25 mls/hr IVPB Q8HR [facility] Rx#: [id number] Oral 150 / 150 250 / 250 360 / 360 Output: Urine 250 / 250 300 / 300 Other: Meal NPO Breakfast # Voids 2 1 2 # Bowel Movements 2 Weight 137.484 kg Blood Glucose* 177 216 219 Patient Weight 04/20/16 23:59 Weight 137.484 kg - Labs 04/20/16 04:48 04/20/16 04:48 Diabetes panel 04/19/16 04/20/16 Range/Units 15:00 04:48 Sodium 139 (136-145) mEq/L Potassium 2.9 L 3.0 L (3.5-4.5) mEq/L Chloride 103 (98-109) mEq/L Carbon Dioxide 27 (19-29) mEq/L BUN 15 (8-26) mg/dL Creatinine 0.71 L (0.72-1.25) mg/dL Glucose 216 H (70-99) mg/dL Calcium 9.0 (8.6-10.8) mg/dL Calcium panel 04/20/16 Range/Units 04:48 Calcium 9.0 (8.6-10.8) mg/dL Pituitary panel 04/19/16 04/20/16 Range/Units 15:00 04:48 Sodium 139 (136-145) mEq/L Potassium 2.9 L 3.0 L (3.5-4.5) mEq/L Chloride 103 (98-109) mEq/L Carbon Dioxide 27 (19-29) mEq/L BUN 15 (8-26) mg/dL Creatinine 0.71 L (0.72-1.25) mg/dL Glucose 216 H (70-99) mg/dL Calcium 9.0 (8.6-10.8) mg/dL Adrenal panel 04/19/16 04/20/16 Range/Units 15:00 04:48 Sodium 139 (136-145) mEq/L Potassium 2.9 L 3.0 L (3.5-4.5) mEq/L Chloride 103 (98-109) mEq/L Carbon Dioxide 27 (19-29) mEq/L BUN 15 (8-26) mg/dL Creatinine 0.71 L (0.72-1.25) mg/dL Glucose 216 H (70-99) mg/dL Calcium 9.0 (8.6-10.8) mg/dL Consult Discharge Plan - Plan Referrals: Millie Carpenter DO [Primary Care Provider] - 04/27/16 1:30 pm
[2016-04-20] MEDS: Clinimix E 5%-15% SOLUTION 2,000 ML with MVI, adult with vitamin K 10 ML, Insulin Hum... IV SCH (17:02)
--- NOTE | 2016-04-20 17:38 | Urology - Consult Note ---
Date of Encounter: 04/20/16 Time of Encounter: 17:36 - Assessment and Plan (1) Urinary retention due to benign prostatic hyperplasia Current Visit: Yes Status: Acute Assessment and plan: The patient was prepped and draped in normal sterile fashion. I then placed a Glidewire into the patient's urethra and advanced into the bladder. At this point I then dilated the patient's meatus using dilation sheath to 16-[place] which patient tolerated well. The wire was then removed and I placed a 12- [place] Robbins catheter into the patient's bladder. Patient will need to keep his Robbins catheter until recovered from surgery. At this time the catheter can be removed as per standard protocol. (2) Meatal stenosis Current Visit: Yes Status: Acute Assessment and plan: Patient will need to follow up with urology for discussion of treatment of meatal stenosis. Urology CN:JAIR Consult date: 04/20/16 Reason for consult Urology: Difficult Robbins Requesting physician: Kobi Mcbride History of present illness: Nathen is a 80-year-old male known to me secondary to recurrent UTIs for which I saw him approximately 2 years ago. Patient is now admitted secondary to diverticulitis with possible abscess. He is being followed by the surgical service. He has been having some difficulty with voiding where he leaks into a depends. He states that prior to this admission when he voided he sprayed his urinary stream. Multiple attempts of urinary catheter placement were attempted and were unsuccessful. Past Med Surg Social Fam HX - Past Medical History Medical history: CHF, COPD, coronary artery disease, dementia, hypertension Psychiatric history: no psych history - Past Surgical History Surgical History: no surgical history - Social History Smoking Status: Never smoker Smokeless Tobacco Status: No Alcohol use: none Drug use: none - Family History Father Adopted: No Family Member Ethnicity: Non- Living Status: Hx Family Cardiac Disorders: Yes Medications and Allergies Atenolol [Tenormin] 100 mg PO DAILY 03/01/15 [History] Donepezil [Aricept] 20 mg PO DAILY 03/01/15 [History] Lisinopril [Zestril] 40 mg PO DAILY 03/01/15 [History] Omeprazole [PriLOSEC] 20 mg PO DAILY 03/01/15 [History] Zafirlukast [Accolate] 20 mg PO DAILY 03/01/15 [History] Amlodipine [Norvasc] 10 mg PO DAILY 07/22/15 [History] Finasteride [Proscar] 5 mg PO DAILY 10/03/15 [History] Ranitidine HCl [Heartburn Relief] 150 mg PO DAILY 10/03/15 [History] Albuterol Sulfate [Proair Hfa] 2 puff IH DAILY 04/15/16 [History] Metoprolol Succinate 100 mg PO DAILY 04/15/16 [History] Nortriptyline HCl 75 mg PO HS 04/15/16 [History] Oxycodone HCl/Acetaminophen [Percocet 5-325 mg Tablet] 1 - 2 tab PO QID [History] Oxygen 2.5 l .ROUTE DAILY 04/15/16 [History] Allergies No Known Allergies Allergy (Verified 04/15/16 15:46) Review of Systems - Constitutional no chills - EENT Nose, mouth and throat: no dizziness - Cardiovascular no chest pain - Respiratory no cough - Gastrointestinal as per HPI, abdominal pain - Musculoskeletal no back pain - Integumentary no erythema - Neurological no confusion - Psychiatric no anxiety - Hematologic/Lymphatic no easy bleeding - Allergic/Immunologic no throat swelling Exam Initial Vital Signs Temp Pulse Resp BP Pulse Ox 100.3 F H 102 16 180/78 96 04/14/16 19:14 04/14/16 19:14 04/14/16 19:14 04/14/16 19:14 04/14/16 19:14 - General physical appearance Present: well developed - Eyes Present: PERRL - ENT Present: normal nares - Neck Present: no masses - Respiratory Present: normal respiratory effort - Cardiovascular Cardiovascular exam IM: RRR - Abdomen Abdomen: Present: soft (obese) - Genitourinary other (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 Meatus quite narrow) - Integumentary Present: no rash Urology Results - Labs 04/20/16 04:48 04/20/16 04:48 Abnormal lab results WBC 18.4 K/mcL (4.3-11.1) H 04/20/16 04:48 RBC 4.01 M/mcL (4.19-5.50) L 04/20/16 04:48 Hgb 12.1 g/dL (12.9-16.9) L 04/20/16 04:48 Hct 36.0 % (37.5-50.1) L 04/20/16 04:48 Plt Count 430 K/mcL (140-400) H 04/20/16 04:48 Neutrophils # 15.6 K/mcL (1.6-8.9) H 04/20/16 04:48 Monocytes # 1.6 K/mcL (0.0-1.3) H 04/20/16 04:48 Potassium 3.0 mEq/L (3.5-4.5) L 04/20/16 04:48 Creatinine 0.71 mg/dL (0.72-1.25) L 04/20/16 04:48 Glucose 216 mg/dL (70-99) H 04/20/16 04:48 POC Glucose 147 (58-89) H 04/20/16 15:44 Hemoglobin A1c 6.3 % (-5.6) H 04/17/16 04:52 Albumin 2.1 g/dL (3.5-5.0) L 04/17/16 04:52 Globulin 4.8 g/dL (2.4-3.5) H 04/17/16 04:52 Albumin/Globulin Ratio 0.4 (1.1-2.2) L 04/17/16 04:52 Prealbumin 5.0 mg/dL (18.0-45.0) L 04/17/16 04:52 Ur Squamous Epith Cells Many per lpf (None-Few) H 04/20/16 10:47 Diabetes panel 04/20/16 Range/Units 04:48 Sodium 139 (136-145) mEq/L Potassium 3.0 L (3.5-4.5) mEq/L Chloride 103 (98-109) mEq/L Carbon Dioxide 27 (19-29) mEq/L BUN 15 (8-26) mg/dL Creatinine 0.71 L (0.72-1.25) mg/dL Glucose 216 H (70-99) mg/dL Calcium 9.0 (8.6-10.8) mg/dL Calcium panel 04/20/16 Range/Units 04:48 Calcium 9.0 (8.6-10.8) mg/dL Pituitary panel 04/20/16 Range/Units 04:48 Sodium 139 (136-145) mEq/L Potassium 3.0 L (3.5-4.5) mEq/L Chloride 103 (98-109) mEq/L Carbon Dioxide 27 (19-29) mEq/L BUN 15 (8-26) mg/dL Creatinine 0.71 L (0.72-1.25) mg/dL Glucose 216 H (70-99) mg/dL Calcium 9.0 (8.6-10.8) mg/dL Adrenal panel 04/20/16 Range/Units 04:48 Sodium 139 (136-145) mEq/L Potassium 3.0 L (3.5-4.5) mEq/L Chloride 103 (98-109) mEq/L Carbon Dioxide 27 (19-29) mEq/L BUN 15 (8-26) mg/dL Creatinine 0.71 L (0.72-1.25) mg/dL Glucose 216 H (70-99) mg/dL Calcium 9.0 (8.6-10.8) mg/dL All other labs normal. Consult Discharge Plan - Plan Referrals: Millie Carpenter DO [Primary Care Provider] - 04/27/16 1:30 pm
[2016-04-20 17:40] LABS: Bilirubin,Urine Negative (Negative); Blood,Urine Negative (Negative); Clarity,Urine Clear (Clear); Color,Urine Yellow (Yellow); Glucose,Urine (UA) Normal (Normal); Ketones,Urine Negative (Negative); Leukocyte Esterase,Urine Negative (Negative); Nitrite,Urine Negative (Negative); PH,Urine 6.5 pH Units (5.0-8.0); Protein,Urine Negative (Neg-Trace); Urobilinogen,Urine Normal (Normal)
[2016-04-20] MEDS: Insulin DETEMIR 100 UNIT/ML X5UNITS SQ SCH (21:10)
[2016-04-21] MEDS: Insulin LISPRO 300 UNITS/3 ML VIAL SQ SCH ×6 (04:20→23:44)
[2016-04-21 05:51] LABS: Basophils % 0.3 %; Eosinophils # 0.1 K/mcL (0.0-0.6); Eosinophils % 0.7 %; Hematocrit 35.5 % (37.5-50.1); Hemoglobin 11.3 g/dL (12.9-16.9); Immature Granulocytes % 1.2 % (0-4); Lymphocytes # 1.2 K/mcL (0.6-4.6); Lymphocytes % 7.7 %; Mean Corpuscular HGB Conc 31.8 g/dL (31.6-35.5); Mean Corpuscular Hemoglobin 29.4 pg (28.0-33.3); Mean Corpuscular Volume 92.4 fL (83.0-100.0); Mean Platelet Volume 9.8 fL (9.4-12.4); Monocytes # 1.6 K/mcL (0.0-1.3); Monocytes % 10.5 %; Platelet Count 395 K/mcL (140-400); Red Blood Count 3.84 M/mcL (4.19-5.50); Red Cell Distribution Width 13.5 % (11.5-14.5); Segmented Neutrophils % 79.6 %
[2016-04-21] MEDS: MetroNIDAZOLE 500 MG/100 ML 500 MG/100 ML BAG IVPB SCH ×3 (05:51→21:21)
[2016-04-21] MEDS: *HR* Heparin 5,000 UNIT/ML VIAL SQ SCH ×3 (05:58→21:23)
[2016-04-21 06:04] LABS: BUN/Creatinine Ratio 25 (6-26); Blood Urea Nitrogen 17 mg/dL (8-26); Calcium 8.7 mg/dL (8.6-10.8); Carbon Dioxide 32 mEq/L (19-29); Chloride 105 mEq/L (98-109); Glucose 126 mg/dL (70-99); Osmolality,Calculated 299 (280-300); Potassium 3.6 mEq/L (3.5-4.5); Sodium 143 mEq/L (136-145); eGFR For African Americans > 60 (> 60); eGFR For Non-African Americans > 60 (> 60)
[2016-04-21] MEDS: Lisinopril 20 MG TABLET PO SCH (07:38)
[2016-04-21] MEDS: Furosemide 40 MG TABLET PO SCH (07:39)
[2016-04-21] MEDS: amLODIPine 5 MG TABLET PO SCH (07:39)
[2016-04-21] MEDS: Piperacillin/Tazobactam 3.375 GM in D5% in Water (Mini-Bag+) 100 ML IVPB SCH ×3 (07:39→23:48)
--- NOTE | 2016-04-21 10:08 | Internal Med Progress Note ---
Date of Encounter: 04/21/16 Time of Encounter: 10:06 - Assessment and plan (1) Abscess of sigmoid colon due to diverticulitis Current Visit: Yes Status: Acute Assessment and plan: - CT A/P suggests perforated sigmoid diverticulitis with developing intra- abdominal abscess. - Dr. Mcbride on board and recommends antibiotics treatment for now with sigmoid colectomy planned next week. - Clinically stable as patient has been afebrile and no abdominal pain. - Repeated CT A/P showed persistent changes of sigmoid diverticulitis with pericolonic phlegmon/extraluminal gas & fluid. - Continue IV Zosyn (Day 6) and IV Flagyl (Day 7). - Currently NPO. Civil Project Engineer on board and patient is receiving TPN via right subclavian CVC placed by Dr. Mcbride. (2) Urinary obstruction Current Visit: Yes Status: Acute Assessment and plan: Metabolic encephalopathy secondary to Urinary retention Improved after Robbins catheter placement Status post Robbins catheter placement by Dr. Caldwell CT scan of the abdomen showed severe bladder distention, abscess is about the same compare to prior study. (3) Hypokalemia Current Visit: Yes Status: Acute Assessment and plan: -Resolved - Continue K supplement via TPN. Appreciate extractions technician assistance on patient care. - Continue to monitor. (4) Hypertension Current Visit: Yes Status: Chronic Assessment and plan: - Accelerated hypertension - Continue atenolol, amlodipine and IV hydralazine scheduled & prn SBP > 160. - Continue to monitor. Qualifiers: Hypertension type: essential hypertension Qualified Code(s): I10 - Essential (primary) hypertension (5) CAD (coronary artery disease) Current Visit: No Status: Chronic Assessment and plan: - CAD s/p heart cath 30 years ago. - Cardiology was consulted for preoperative cardiovascular examination and determined patient is at intermediate risk of perioperative complications. Qualifiers: Coronary Disease-Associated Artery/Lesion type: [place] artery [place] vs. transplanted heart: [place] heart Associated angina: without angina Qualified Code(s): I25.10 - Atherosclerotic heart disease of [place] coronary artery without angina pectoris (6) CHF (congestive heart failure) Current Visit: No Status: Chronic Assessment and plan: - Echo on 04/16/16 found LVEF 60% with mild LV diastolic dysfunction. - Continue on Lasix 40 mg PO daily. Qualifiers: Congestive heart failure type: diastolic Congestive heart failure chronicity: unspecified congestive heart failure chronicity Qualified Code(s) : I50.30 - Unspecified diastolic (congestive) heart failure (7) COPD (chronic obstructive pulmonary disease) Current Visit: No Status: Chronic Assessment and plan: - Stable as patient reports no significant shortness of breath at this time. - Consider brochodilator if needed. Qualifiers: COPD type: unspecified COPD Qualified Code(s): J44.9 - Chronic obstructive pulmonary disease, unspecified - Time Spent With Patient Greater than 35 minutes - Subjective Interval history: Still complaining of some abdominal discomfort although it has improved, denies any nausea, having some diarrhea, no chest pain or shortness of breath, no fevers - Constitutional Vitals: Temp Pulse Resp BP Pulse Ox 98.4 F 72 18 186/77 95 04/21/16 07:50 04/21/16 07:50 04/21/16 07:50 04/21/16 07:50 04/21/16 07:50 General appearance: Present: cooperative, A&O X 3, no acute distress, answers questions appropriately - Head Head exam: Present: atraumatic, normocephalic - Eye Eye exam: Present: PERRL, conjuntiva pink, sclera anicteric Pupils: Present: PERRL - Neck Neck exam general surgery: Present: supple, trachea midline. Absent: lymphadenopathy - Respiratory Respiratory exam: Present: decreased breath sounds, CTAB. Absent: accessory muscle use, rales, rhonchi, wheezes - Cardiovascular Cardiovascular exam: Present: RRR, +S1, +S2. Absent: diastolic murmur, gallop, rubs, systolic murmur - GI/Abdominal GI/Abdominal exam: Present: distended (Very distended, mildly tender in the umbilical area), normal bowel sounds, soft, no peritoneal signs. Absent: tenderness - Extremities Exam Extremities exam: Present: warm, radial pulses palpable and symetrical. Absent : calf tenderness, cyanotic, pedal edema - Neurological Exam Neurological exam: Present: CN II-XII intact, oriented X3, no focal deficits. Absent: pronater drift, facial droop, speech deficit - Skin Skin exam: Present: dry, intact Additional comments: Right subclavian central line Internal Medicine: Result - Labs CBC & Chem 7: 04/21/16 05:34 04/21/16 05:34 Labs: Short CBC 04/21/16 Range/Units 05:34 WBC 15.0 H (4.3-11.1) K/mcL Hgb 11.3 L (12.9-16.9) g/dL Hct 35.5 L (37.5-50.1) % Plt Count 395 (140-400) K/mcL Neutrophils # 12.0 H (1.6-8.9) K/mcL BMP 04/21/16 05:34 Sodium 143 Potassium 3.6 Chloride 105 Carbon Dioxide 32 H BUN 17 Creatinine 0.69 L Glucose 126 H Calcium 8.7 Urine 04/20/16 04/20/16 Range/Units 10:47 17:00 Urine Color Yellow Yellow (Yellow) Urine Clarity Clear Clear (Clear) Urine pH 6.5 6.5 (5.0-8.0) pH Units Ur Specific [place] 1.015 1.010 (1.010-1.025) Urine Protein Trace Negative (Neg-Trace) mg/dL Urine Glucose (UA) Normal Normal (Normal) mg/dL - Impressions Impressions Abdomen/Pelvis CT 04/20/16 14:05 IMPRESSION: 1. Multilocular diverticular abscess adjacent to the sigmoid colon 2. Urinary bladder distention. Please correlate with any difficulty voiding 3. Stable hyperdense right renal lesion. This is stable compared with an older CT from 04/09/2007, compatible with a complicated cyst D/ / Roger De Luna MD / Roger De Luna MD Interpreting Provider: Roger De Luna MD Consult Discharge Plan - Plan Referrals: Millie Carpenter DO [Primary Care Provider] - 04/27/16 1:30 pm
--- NOTE | 2016-04-21 12:08 | General Surgery Progress Note ---
Date of Encounter: 04/21/16 Time of Encounter: 11:58 Subjective Patient reports: no new complaints Narrative: General Surgery: hospital day #6 - appreciate Dr. Caldwell's assistance and placement urinary catheter. Patient c/o diarrhea but is likely due to oral contrast for the CT yesterday as well as continued inflammation sigmoid colon Patient remains afebrile, 97.9, pulse 85, respirations 18, blood pressure currently 180/76 but through the night 153/72. SPO2 on 2-3 L/m nasal cannula 94-96% Lungs: Clear Abdomen: Obese but nontender. No appreciable intra-abdominal masses. No rebound Urine output: 1700 mL for 04/20/16 and 2500 mL so far today Laboratories: Leukocytosis improved to 15,000; hemoglobin 11.3 with hematocrit 35.5. Electrolytes, BUN, creatinine within normal limits; hypokalemia corrected to 3.6. Blood sugars running 140s to 168 - improved with QHS levemir Impression: Patient appears significantly more comfortable following placement of Robbins catheter No further complaints of abdominal pain. Leukocytosis improving. Sigmoid diverticulosis/diverticulitis with pericolic phlegmon/abscess - responding to IV ATB. Sugery pending. Hypokalemia corrected Hypertension appears to be better controlled Obesity Urethral stenosis, addressed per Urology. Plan: with clinical improvement, will allow full liquid diet. Objective Vital Signs - Last 8 Hours Temp Pulse Resp BP Pulse Ox 04/21/16 10:56 97.9 F 75 18 140/66 93 L 04/21/16 07:50 98.4 F 72 18 186/77 95 04/21/16 06:05 153/77 Intake and Output 04/20/16 04/21/16 04/21/16 23:59 07:59 15:59 Intake Total 200 / 200 550 / 550 Output Total 1700 / 1700 1650 / 1650 850 / 850 Balance -1500 / -1500 -1100 / -1100 -850 / -850 Intake: IV Fluids 200 / 200 550 / 550 Intralipid 20% 250 ML @ 250 / 250 21 mls/hr IVPB DAILY@1700 [facility] Rx#:[id number] Flagyl 500 MG/100 ML 500 100 / 100 200 / 200 mg In 100 ml @ 100 mls/hr IVPB Q6HR [facility] Rx#: [id number] Zosyn 3.375 GM In 100 / 100 100 / 100 Dextrose 5% (Minibag+) 100 ML 100 ML @ 25 mls/hr IVPB Q8HR [facility] Rx#: [id number] Oral 0 / 0 0 / 0 Output: Catheter 1700 / 1700 1650 / 1650 850 / 850 Other: Stool Size Large Small Stool Consistency liquid loose soft Stool Color Brown Brown Yellow # Bowel Movements 2 2 Weight 137.8 kg Blood Glucose* 343 143 168 Patient Weight 04/21/16 23:59 Weight 137.8 kg - Labs 04/21/16 05:34 04/21/16 05:34 Diabetes panel 04/21/16 Range/Units 05:34 Sodium 143 (136-145) mEq/L Potassium 3.6 (3.5-4.5) mEq/L Chloride 105 (98-109) mEq/L Carbon Dioxide 32 H (19-29) mEq/L BUN 17 (8-26) mg/dL Creatinine 0.69 L (0.72-1.25) mg/dL Glucose 126 H (70-99) mg/dL Calcium 8.7 (8.6-10.8) mg/dL Calcium panel 04/21/16 Range/Units 05:34 Calcium 8.7 (8.6-10.8) mg/dL Pituitary panel 04/21/16 Range/Units 05:34 Sodium 143 (136-145) mEq/L Potassium 3.6 (3.5-4.5) mEq/L Chloride 105 (98-109) mEq/L Carbon Dioxide 32 H (19-29) mEq/L BUN 17 (8-26) mg/dL Creatinine 0.69 L (0.72-1.25) mg/dL Glucose 126 H (70-99) mg/dL Calcium 8.7 (8.6-10.8) mg/dL Adrenal panel 04/21/16 Range/Units 05:34 Sodium 143 (136-145) mEq/L Potassium 3.6 (3.5-4.5) mEq/L Chloride 105 (98-109) mEq/L Carbon Dioxide 32 H (19-29) mEq/L BUN 17 (8-26) mg/dL Creatinine 0.69 L (0.72-1.25) mg/dL Glucose 126 H (70-99) mg/dL Calcium 8.7 (8.6-10.8) mg/dL Consult Discharge Plan - Plan Referrals: Millie Carpenter DO [Primary Care Provider] - 04/27/16 1:30 pm
--- NOTE | 2016-04-21 14:42 | Event Note ---
Date of Encounter: 04/21/16 Time of Encounter: 14:25 CXR obtained to eval position of right subclavian CVC. Chest X-Ray 04/21/16 13:50 IMPRESSION: Tip of right-sided central venous catheter with tip retracted to the level of the uppermost SVC. Patient seen/evaluated, had lunch (potato soup), without difficulty. No dyspnea , abdominal pain, chest discomfort. I discussed the position of the right subclavian CVC with Dr. Mcbride. It is still in the upper part of the SVC; per Dr. Mcbride may continue to receive IV medications through that access. Updated nursing staff and patient on plan of care.
[2016-04-21] MEDS: Clinimix E 5%-15% SOLUTION 2,000 ML with MVI, adult with vitamin K 10 ML, Insulin Hum... IV SCH (17:27)
[2016-04-21] MEDS: Insulin DETEMIR 100 UNIT/ML X5UNITS SQ SCH (21:24)
[2016-04-22 03:36] LABS: Basophils # 0.1 K/mcL (0.0-0.2); Basophils % 0.3 %; Eosinophils # 0.1 K/mcL (0.0-0.6); Eosinophils % 0.8 %; Hematocrit 34.8 % (37.5-50.1); Hemoglobin 11.2 g/dL (12.9-16.9); Immature Granulocytes % 0.7 % (0-4); Lymphocytes # 1.4 K/mcL (0.6-4.6); Lymphocytes % 9.4 %; Mean Corpuscular HGB Conc 32.2 g/dL (31.6-35.5); Mean Corpuscular Hemoglobin 29.7 pg (28.0-33.3); Mean Corpuscular Volume 92.3 fL (83.0-100.0); Mean Platelet Volume 9.9 fL (9.4-12.4); Monocytes # 1.5 K/mcL (0.0-1.3); Monocytes % 10.3 %; Neutrophils # 11.4 K/mcL (1.6-8.9); Platelet Count 357 K/mcL (140-400); Red Blood Count 3.77 M/mcL (4.19-5.50); Red Cell Distribution Width 13.7 % (11.5-14.5); Segmented Neutrophils % 78.5 %
[2016-04-22 03:50] LABS: BUN/Creatinine Ratio 27 (6-26); Blood Urea Nitrogen 19 mg/dL (8-26); Carbon Dioxide 29 mEq/L (19-29); Chloride 105 mEq/L (98-109); Glucose 144 mg/dL (70-99); Potassium 3.8 mEq/L (3.5-4.5); Sodium 141 mEq/L (136-145); eGFR For African Americans > 60 (> 60); eGFR For Non-African Americans > 60 (> 60)
[2016-04-22 03:51] LABS: Calcium 8.6 mg/dL (8.6-10.8); Osmolality,Calculated 297 (280-300)
[2016-04-22] MEDS: Insulin LISPRO 300 UNITS/3 ML VIAL SQ SCH ×5 (03:55→20:32)
[2016-04-22] MEDS: *HR* Heparin 5,000 UNIT/ML VIAL SQ SCH ×3 (05:01→21:24)
[2016-04-22] MEDS: Piperacillin/Tazobactam 3.375 GM in D5% in Water (Mini-Bag+) 100 ML IVPB SCH ×2 (07:49→15:18)
[2016-04-22] MEDS: MetroNIDAZOLE 500 MG/100 ML 500 MG/100 ML BAG IVPB SCH (07:50)
[2016-04-22] MEDS: Lisinopril 20 MG TABLET PO SCH (07:50)
[2016-04-22] MEDS: amLODIPine 5 MG TABLET PO SCH (07:50)
[2016-04-22] MEDS: Furosemide 40 MG TABLET PO SCH (07:51)
--- NOTE | 2016-04-22 08:22 | Internal Med Progress Note ---
Date of Encounter: 04/22/16 Time of Encounter: 08:19 - Assessment and plan (1) Abscess of sigmoid colon due to diverticulitis Current Visit: Yes Status: Acute Assessment and plan: - CT A/P suggests perforated acute sigmoid diverticulitis with developing intra- abdominal abscess/pericolonic phlegmon. - Dr. Mcbride on board and recommends antibiotics treatment for now with sigmoid colectomy planned possibly in the next few days . - Repeated CT A/P showed persistent changes of sigmoid diverticulitis with pericolonic phlegmon/extraluminal gas & fluid. - Continue IV Zosyn (Day 7) and IV Flagyl (Day 8). - Currently on full liquid diet Hoisting Pile Driving Engineer on board and patient is receiving TPN via right subclavian CVC placed by Dr. Mcbride. Complains of acute diarrhea, check C. difficile (2) Urinary obstruction Current Visit: Yes Status: Acute Assessment and plan: Metabolic encephalopathy secondary to Urinary retention Improved after Robbins catheter placement Status post Robbins catheter placement by Dr. Caldwell CT scan of the abdomen showed severe bladder distention, abscess is about the same compare to prior study. (3) Hypokalemia Current Visit: Yes Status: Acute Assessment and plan: -Resolved - Continue K supplement via TPN. Appreciate learning development specialist assistance on patient care. - Continue to monitor. (4) Hypertension Current Visit: Yes Status: Chronic Assessment and plan: - Accelerated hypertension - Continue atenolol, amlodipine and IV hydralazine scheduled & prn SBP > 160. - Continue to monitor. Qualifiers: Hypertension type: essential hypertension Qualified Code(s): I10 - Essential (primary) hypertension (5) CAD (coronary artery disease) Current Visit: No Status: Chronic Assessment and plan: - CAD s/p heart cath 30 years ago. - Cardiology was consulted for preoperative cardiovascular examination and determined patient is at intermediate risk of perioperative complications. Qualifiers: Coronary Disease-Associated Artery/Lesion type: [place] artery [place] vs. transplanted heart: [place] heart Associated angina: without angina Qualified Code(s): I25.10 - Atherosclerotic heart disease of [place] coronary artery without angina pectoris (6) CHF (congestive heart failure) Current Visit: No Status: Chronic Assessment and plan: - Echo on 04/16/16 found LVEF 60% with mild LV diastolic dysfunction. - Continue on Lasix 40 mg PO daily. Qualifiers: Congestive heart failure type: diastolic Congestive heart failure chronicity: unspecified congestive heart failure chronicity Qualified Code(s) : I50.30 - Unspecified diastolic (congestive) heart failure (7) COPD (chronic obstructive pulmonary disease) Current Visit: No Status: Chronic Assessment and plan: - Stable as patient reports no significant shortness of breath at this time. - Consider brochodilator if needed. Qualifiers: COPD type: unspecified COPD Qualified Code(s): J44.9 - Chronic obstructive pulmonary disease, unspecified - Time Spent With Patient Greater than 35 minutes - Subjective Interval history: The patient is complaining of increased diarrhea and abdominal discomfort. Feels very weak Denies any nausea, having some diarrhea, no chest pain or shortness of breath, no fevers - Constitutional Vitals: Temp Pulse Resp BP Pulse Ox 98.6 F 100 16 143/80 97 04/22/16 07:29 04/22/16 07:29 04/22/16 07:29 04/22/16 07:29 04/22/16 07:29 General appearance: Present: cooperative, A&O X 3, morbidly obese, no acute distress, answers questions appropriately - Head Head exam: Present: atraumatic, normocephalic - Eye Eye exam: Present: PERRL, conjuntiva pink, sclera anicteric Pupils: Present: PERRL - Neck Neck exam general surgery: Present: supple, trachea midline. Absent: lymphadenopathy - Respiratory Respiratory exam: Present: CTAB. Absent: accessory muscle use, rales, rhonchi, wheezes - Cardiovascular Cardiovascular exam: Present: RRR, +S1, +S2. Absent: diastolic murmur, gallop, rubs, systolic murmur - GI/Abdominal GI/Abdominal exam: Present: distended, normal bowel sounds, soft, no peritoneal signs. Absent: tenderness - Extremities Exam Extremities exam: Present: warm, radial pulses palpable and symetrical. Absent : calf tenderness, cyanotic, pedal edema Additional comments: +1 pitting edema in both lower extremities Robbins catheter present Right subclavian triple-lumen catheter - Neurological Exam Neurological exam: Present: CN II-XII intact, oriented X3, no focal deficits. Absent: pronater drift, facial droop, speech deficit - Skin Skin exam: Present: dry, intact Internal Medicine: Result - Labs CBC & Chem 7: 04/22/16 03:00 04/22/16 03:00 Labs: Short CBC 04/22/16 Range/Units 03:00 WBC 14.5 H (4.3-11.1) K/mcL Hgb 11.2 L (12.9-16.9) g/dL Hct 34.8 L (37.5-50.1) % Plt Count 357 (140-400) K/mcL Neutrophils # 11.4 H (1.6-8.9) K/mcL BMP 04/22/16 03:00 Sodium 141 Potassium 3.8 Chloride 105 Carbon Dioxide 29 BUN 19 Creatinine 0.70 L Glucose 144 H Calcium 8.6 - Impressions Impressions Chest X-Ray 04/21/16 13:50 IMPRESSION: Tip of right-sided central venous catheter with tip retracted to the level of the uppermost SVC. D/ / Sharla Lakhani MD / Sharla Lakhani MD Interpreting Provider: Sharla Lakhani MD Consult Discharge Plan - Plan Referrals: Millie Carpenter DO [Primary Care Provider] - 04/27/16 1:30 pm
--- NOTE | 2016-04-22 10:15 | General Surgery Progress Note ---
Date of Encounter: 04/22/16 Time of Encounter: 10:00 Subjective Patient reports: diarrhea Narrative: General Surgery: hospital day # 7 - patient complaining worsening diarrhea. Denies abd pain Maximum temperature, 99 2; pulse 92 (range 75-95); respiratory rate 16, blood pressure 143/80. SPO2 on 3 L/m nasal cannula 97% Lungs: Clear Abdomen: Obese, soft, nontender. No obvious rebound. No discernible intra- abdominal masses. Robbins intact, urine output 3800 mL yesterday; 425 mL so far today Liquid bowel movements by nursing since. Laboratory: White count slowly improving, 14.5; hemoglobin and hematocrit stable at 11.2 and 34.8; platelet count also stable 357,000. Electrolytes, BUN, creatinine remained within acceptable range; potassium 3.8 Accu-Cheks 140s to 180s. Also acceptable. Impression/Plan: sigmoid diverticulitis with hung colic phlegmon/abscess. Appears to be responding to ATB therapy. Surgery pending. If able to control the infection / inflammation a primary resection (sigmoid colectomy stapled anastomosis) becomes more likely. Increasing diarrhea - possibly due to ATB therapy (antibiotic associated colitis). Will change metronidazole to oral. Objective Vital Signs - Last 8 Hours Temp Pulse Resp BP Pulse Ox 04/22/16 07:29 98.6 F 100 16 143/80 97 04/22/16 03:39 99.2 F 89 17 142/54 96 Intake and Output 04/21/16 04/22/16 04/22/16 23:59 07:59 15:59 Intake Total 780 / 780 350 / 350 480 / 480 Output Total 750 / 750 425 / 425 Balance 30 / 30 -75 / -75 480 / 480 Intake: IV Fluids 300 / 300 350 / 350 Intralipid 20% 250 ML @ 250 / 250 21 mls/hr IVPB DAILY@1700 [facility] Rx#:[id number] Flagyl 500 MG/100 ML 500 200 / 200 mg In 100 ml @ 100 mls/hr IVPB TID [facility] Rx#: [id number] Zosyn 3.375 GM In 100 / 100 100 / 100 Dextrose 5% (Minibag+) 100 ML 100 ML @ 25 mls/hr IVPB Q8HR [facility] Rx#: [id number] Oral 480 / 480 480 / 480 Output: Catheter 750 / 750 425 / 425 Other: Meal Dinner Breakfast Percent of Meal Consumed 100% 100% Stool Size Small Small Moderate Stool Consistency loose loose liquid Stool Characteristics Mucoid Mucoid Stool Color Brown Brown Brown # Bowel Movements 1 1 1 # Bowel Movement Diapers 1 Weight 136.123 kg Blood Glucose* 147 182 Patient Weight 04/22/16 23:59 Weight 136.123 kg - Labs 04/22/16 03:00 04/22/16 03:00 Diabetes panel 04/22/16 Range/Units 03:00 Sodium 141 (136-145) mEq/L Potassium 3.8 (3.5-4.5) mEq/L Chloride 105 (98-109) mEq/L Carbon Dioxide 29 (19-29) mEq/L BUN 19 (8-26) mg/dL Creatinine 0.70 L (0.72-1.25) mg/dL Glucose 144 H (70-99) mg/dL Calcium 8.6 (8.6-10.8) mg/dL Calcium panel 04/22/16 Range/Units 03:00 Calcium 8.6 (8.6-10.8) mg/dL Pituitary panel 04/22/16 Range/Units 03:00 Sodium 141 (136-145) mEq/L Potassium 3.8 (3.5-4.5) mEq/L Chloride 105 (98-109) mEq/L Carbon Dioxide 29 (19-29) mEq/L BUN 19 (8-26) mg/dL Creatinine 0.70 L (0.72-1.25) mg/dL Glucose 144 H (70-99) mg/dL Calcium 8.6 (8.6-10.8) mg/dL Adrenal panel 04/22/16 Range/Units 03:00 Sodium 141 (136-145) mEq/L Potassium 3.8 (3.5-4.5) mEq/L Chloride 105 (98-109) mEq/L Carbon Dioxide 29 (19-29) mEq/L BUN 19 (8-26) mg/dL Creatinine 0.70 L (0.72-1.25) mg/dL Glucose 144 H (70-99) mg/dL Calcium 8.6 (8.6-10.8) mg/dL Consult Discharge Plan - Plan Referrals: Millie Carpenter DO [Primary Care Provider] - 04/27/16 1:30 pm
[2016-04-22] MEDS: metroNIDAZOLE 500 MG TABLET PO SCH ×3 (15:18→21:24)
[2016-04-22] MEDS: Clinimix E 5%-15% SOLUTION 2,000 ML with MVI, adult with vitamin K 10 ML, Insulin Hum... IV SCH (18:03)
[2016-04-22] MEDS: Insulin DETEMIR 100 UNIT/ML X5UNITS SQ SCH (20:31)
[2016-04-23] MEDS: Insulin LISPRO 300 UNITS/3 ML VIAL SQ SCH ×6 (00:18→20:14)
[2016-04-23] MEDS: Piperacillin/Tazobactam 3.375 GM in D5% in Water (Mini-Bag+) 100 ML IVPB SCH ×3 (00:19→17:22)
[2016-04-23 05:19] LABS: Basophils # 0.1 K/mcL (0.0-0.2); Basophils % 0.4 %; Eosinophils # 0.2 K/mcL (0.0-0.6); Eosinophils % 1.2 %; Hematocrit 35.3 % (37.5-50.1); Hemoglobin 11.4 g/dL (12.9-16.9); Immature Granulocytes % 0.7 % (0-4); Lymphocytes # 1.1 K/mcL (0.6-4.6); Lymphocytes % 6.4 %; Mean Corpuscular HGB Conc 32.3 g/dL (31.6-35.5); Mean Corpuscular Hemoglobin 29.8 pg (28.0-33.3); Mean Corpuscular Volume 92.2 fL (83.0-100.0); Mean Platelet Volume 9.6 fL (9.4-12.4); Monocytes # 1.4 K/mcL (0.0-1.3); Monocytes % 8.2 %; Neutrophils # 14.1 K/mcL (1.6-8.9); Platelet Count 346 K/mcL (140-400); Red Blood Count 3.83 M/mcL (4.19-5.50); Red Cell Distribution Width 13.8 % (11.5-14.5); Segmented Neutrophils % 83.1 %
[2016-04-23 05:34] LABS: Alanine Aminotransferase 12 Units/L (0-55); Albumin 2.1 g/dL (3.5-5.0); Albumin/Globulin Ratio 0.6 (1.1-2.2); Alkaline Phosphatase 52 Units/L (38-126); Aspartate Amino Transferase 15 Units/L (5-34); BUN/Creatinine Ratio 22 (6-26); Bilirubin,Total 0.5 mg/dL (0.2-1.2); Blood Urea Nitrogen 16 mg/dL (8-26); Calcium 8.6 mg/dL (8.6-10.8); Carbon Dioxide 31 mEq/L (19-29); Chloride 105 mEq/L (98-109); Globulin 3.6 g/dL (2.4-3.5); Glucose 155 mg/dL (70-99); Osmolality,Calculated 292 (280-300); Potassium 4.2 mEq/L (3.5-4.5); Sodium 139 mEq/L (136-145); Total Protein 5.7 g/dL (6.0-8.3); eGFR For African Americans > 60 (> 60); eGFR For Non-African Americans > 60 (> 60)
[2016-04-23] MEDS: *HR* Heparin 5,000 UNIT/ML VIAL SQ SCH ×3 (06:32→20:13)
--- NOTE | 2016-04-23 07:45 | Internal Med Progress Note ---
<Helena Parker - Last Filed: 04/23/16 10:30> Date of Encounter: 04/23/16 Time of Encounter: 07:15 - Assessment and plan (1) Abscess of sigmoid colon due to diverticulitis Current Visit: Yes Status: Acute Assessment and plan: - CT A/P suggests perforated acute sigmoid diverticulitis with developing intra- abdominal abscess/pericolonic phlegmon. - Dr. Mcbride on board and recommends antibiotics treatment for now with sigmoid colectomy planned possibly in the next few days. - Repeated CT A/P showed persistent changes of sigmoid diverticulitis with pericolonic phlegmon/extraluminal gas & fluid. - Clinically stable with diarrhea improves per patient. C. difficile negative. - Currently on full liquid diet - News Reel Cameraman on board and patient is receiving TPN via right subclavian CVC placed by Dr. Mcbride. - Continue IV Zosyn (Day 8) and PO Flagyl (Day 9). - Appreciate Dr. Mcbride's assistance on patient care. (2) Urinary obstruction Current Visit: Yes Status: Acute Assessment and plan: - Metabolic encephalopathy secondary to Urinary retention - CT scan of the abdomen showed severe bladder distention, abscess is about the same compare to prior study. - Status post Young catheter placement by Dr. Caldwell. Patient will also need outpatient follow-up with urology regarding his meatal stenosis. - Clinically improved. - Continue Young catheter placement until recovered from surgery. (3) Hypokalemia Current Visit: Yes Status: Resolved Assessment and plan: - Resolved - Continue K supplement via TPN. Appreciate meterman assistance on patient care. - Continue to monitor. (4) Hypertension Current Visit: Yes Status: Chronic Assessment and plan: - Accelerated hypertension - Continue atenolol, amlodipine and IV hydralazine scheduled & prn SBP > 160. - Continue to monitor. Qualifiers: Hypertension type: essential hypertension Qualified Code(s): I10 - Essential (primary) hypertension (5) CAD (coronary artery disease) Current Visit: No Status: Chronic Assessment and plan: - CAD s/p heart cath 30 years ago. - Cardiology was consulted for preoperative cardiovascular examination and determined patient is at intermediate risk of perioperative complications. Qualifiers: Coronary Disease-Associated Artery/Lesion type: [place] artery [place] vs. transplanted heart: [place] heart Associated angina: without angina Qualified Code(s): I25.10 - Atherosclerotic heart disease of [place] coronary artery without angina pectoris (6) CHF (congestive heart failure) Current Visit: No Status: Chronic Assessment and plan: - Echo on 04/16/16 found LVEF 60% with mild LV diastolic dysfunction. - Continue on Lasix 40 mg PO daily. Qualifiers: Congestive heart failure type: diastolic Congestive heart failure chronicity: unspecified congestive heart failure chronicity Qualified Code(s) : I50.30 - Unspecified diastolic (congestive) heart failure (7) COPD (chronic obstructive pulmonary disease) Current Visit: No Status: Chronic Assessment and plan: - Stable as patient reports no significant shortness of breath at this time. - Consider brochodilator if needed. Qualifiers: COPD type: unspecified COPD Qualified Code(s): J44.9 - Chronic obstructive pulmonary disease, unspecified (8) DVT prophylaxis Current Visit: Yes Status: Acute Assessment and plan: - Continue SQ heparin. - Subjective Interval history: No significant event noted overnight. Patient was seen and examined this morning. Patient reports no abdominal pain and his bowel movement has been more formed. Patient denies fever, chills, nausea, vomiting. Patient is still on young catheter. - Constitutional Vitals: Temp Pulse Resp BP Pulse Ox 98.3 F 57 16 155/64 95 04/23/16 06:32 04/23/16 06:32 04/23/16 06:32 04/23/16 06:32 04/23/16 06:32 General appearance: Present: cooperative, A&O X 3, morbidly obese, no acute distress, answers questions appropriately - Head Head exam: Present: atraumatic, normal inspection, normocephalic - Eye Eye exam: Present: PERRL, conjuntiva pink, sclera anicteric - Neck Neck exam general surgery: Present: supple, trachea midline. Absent: lymphadenopathy - Respiratory Respiratory exam: Present: CTAB. Absent: accessory muscle use, rales, rhonchi, wheezes - Cardiovascular Cardiovascular exam: Present: RRR, +S1, +S2. Absent: diastolic murmur, gallop, rubs, systolic murmur - GI/Abdominal GI/Abdominal exam: Present: normal bowel sounds, soft, no peritoneal signs. Absent: tenderness - Extremities Exam Extremities exam: Present: pedal edema, warm, radial pulses palpable and symetrical. Absent: calf tenderness, cyanotic - Neurological Exam Neurological exam: Present: CN II-XII intact, oriented X3, no focal deficits. Absent: pronater drift, facial droop, speech deficit - Skin Skin exam: Present: dry, intact Internal Medicine: Result - Labs CBC & Chem 7: 04/23/16 05:00 04/23/16 05:00 Labs: Short CBC 04/23/16 Range/Units 05:00 WBC 17.0 H (4.3-11.1) K/mcL Hgb 11.4 L (12.9-16.9) g/dL Hct 35.3 L (37.5-50.1) % Plt Count 346 (140-400) K/mcL Neutrophils # 14.1 H (1.6-8.9) K/mcL BMP 04/23/16 05:00 Sodium 139 Potassium 4.2 Chloride 105 Carbon Dioxide 31 H BUN 16 Creatinine 0.72 Glucose 155 H Calcium 8.6 Liver Function 04/23/16 Range/Units 05:00 Total Bilirubin 0.5 (0.2-1.2) mg/dL AST 15 (5-34) Units/L ALT 12 (0-55) Units/L Alkaline Phosphatase 52 (38-126) Units/L Albumin 2.1 L (3.5-5.0) g/dL Consult Discharge Plan - Plan Referrals: Millie Carpenter DO [Primary Care Provider] - 04/27/16 1:30 pm <Vin Li H - Last Filed: 04/23/16 11:28> - Assessment and plan (1) Abscess of sigmoid colon due to diverticulitis Current Visit: Yes Status: Acute (2) Urinary obstruction Current Visit: Yes Status: Acute (3) Hypokalemia Current Visit: Yes Status: Resolved (4) Hypertension Current Visit: Yes Status: Chronic Qualifiers: Hypertension type: essential hypertension Qualified Code(s): I10 - Essential (primary) hypertension (5) CAD (coronary artery disease) Current Visit: No Status: Chronic Qualifiers: Coronary Disease-Associated Artery/Lesion type: [place] artery [place] vs. transplanted heart: [place] heart Associated angina: without angina Qualified Code(s): I25.10 - Atherosclerotic heart disease of [place] coronary artery without angina pectoris (6) CHF (congestive heart failure) Current Visit: No Status: Chronic Qualifiers: Congestive heart failure type: diastolic Congestive heart failure chronicity: unspecified congestive heart failure chronicity Qualified Code(s) : I50.30 - Unspecified diastolic (congestive) heart failure (7) COPD (chronic obstructive pulmonary disease) Current Visit: No Status: Chronic Qualifiers: COPD type: unspecified COPD Qualified Code(s): J44.9 - Chronic obstructive pulmonary disease, unspecified - Constitutional Vitals: Temp Pulse Resp BP Pulse Ox 98.3 F 57 16 155/64 95 04/23/16 06:32 04/23/16 06:32 04/23/16 06:32 04/23/16 06:32 04/23/16 06:32 Internal Medicine: Result - Labs CBC & Chem 7: 04/23/16 05:00 04/23/16 05:00 Labs: Short CBC 04/23/16 Range/Units 05:00 WBC 17.0 H (4.3-11.1) K/mcL Hgb 11.4 L (12.9-16.9) g/dL Hct 35.3 L (37.5-50.1) % Plt Count 346 (140-400) K/mcL Neutrophils # 14.1 H (1.6-8.9) K/mcL BMP 04/23/16 05:00 Sodium 139 Potassium 4.2 Chloride 105 Carbon Dioxide 31 H BUN 16 Creatinine 0.72 Glucose 155 H Calcium 8.6 Liver Function 04/23/16 Range/Units 05:00 Total Bilirubin 0.5 (0.2-1.2) mg/dL AST 15 (5-34) Units/L ALT 12 (0-55) Units/L Alkaline Phosphatase 52 (38-126) Units/L Albumin 2.1 L (3.5-5.0) g/dL - Attending Attestation COntinue antibiotics management per SX I examined this patient and my medical decision-making was reviewed with the GRAPE PICKER/PA/Advanced Practice Nurse/Resident Physician. I agree with the documented findings, disposition and treatment plan as described except to the extent set forth below.
[2016-04-23] MEDS ORDERED: D10% in Water 500 ML IV PRN (11:24)
[2016-04-23] MEDS: amLODIPine 5 MG TABLET PO SCH (11:36)
[2016-04-23] MEDS: Furosemide 40 MG TABLET PO SCH (11:36)
[2016-04-23] MEDS: Lisinopril 20 MG TABLET PO SCH (11:36)
[2016-04-23] MEDS: metroNIDAZOLE 500 MG TABLET PO SCH ×4 (11:39→20:13)
--- NOTE | 2016-04-23 12:48 | General Surgery Progress Note ---
Date of Encounter: 04/23/16 Time of Encounter: 12:34 Subjective Patient reports: no new complaints Narrative: General Surgery: hospital day #8 -patient without complaints, feeling better as diarrhea is diminished. He denies abdominal pain. The patient remains afebrile, 98.3; pulse currently 105 but usual range 5788 ; respirations 16, blood pressure 152/81. SPO2 on 3 L/m nasal cannula 93-97% Lungs: Clear Abdomen: Obese, nontender. No detected intra-abdominal masses. No obvious rebound. Patient is tolerating a full liquid diet without increased abdominal pain. Active bowel sounds. Urine output: 1850 mL yesterday, 2600 mL so far today. Laboratories: White count elevated to 17,000; hemoglobin stable at 11.4 with hematocrit 35.3. Electrolytes, BUN, creatinine within normal limits. Potassium 4.2. We will reduce oral potassium from 80 mEq daily to 40mEq daily LFTs within normal limits; total serum protein 5.7, albumin 2.1; prealbumin 16.0 Accuchecks 158-[address] abdomen and pelvis last completed 04/20/16 showed the pericolic phlegmon/ abscess approximately 75.5 by 54.2mm; Prior CT 04/19 this same area measured 92.16 x 62.39 and on 04/14 is area measured 3.1 x 74.28. Despite the expected variation from one radiologist to another the phlegmon appears to be cuate with less surrounding inflammation. Impression: the increased leukocytosis is concerning. The patient currently demonstrates no new findings and no new complaints. Continue current medical regimen and monitor status. the diarrhea is improved. repeat CBC pending in AM Objective Vital Signs - Last 8 Hours Temp Pulse Resp BP Pulse Ox 04/23/16 11:30 98.3 F 105 16 152/81 97 04/23/16 06:32 98.3 F 57 16 155/64 95 Intake and Output 04/22/16 04/23/16 04/23/16 23:59 07:59 15:59 Intake Total 1000 / 1000 650 / 650 730 / 730 Output Total 400 / 400 1900 / 1900 700 / 700 Balance 600 / 600 -1250 / -1250 30 / 30 Intake: IV Fluids 100 / 100 100 / 100 250 / 250 Intralipid 20% 250 ML @ 250 / 250 21 mls/hr IVPB DAILY@1700 [facility] Rx#:[id number] Zosyn 3.375 GM In 100 / 100 100 / 100 Dextrose 5% (Minibag+) 100 ML 100 ML @ 25 mls/hr IVPB Q8HR [facility] Rx#: [id number] Oral 900 / 900 550 / 550 480 / 480 Output: Catheter 400 / 400 1900 / 1900 700 / 700 Other: Meal Breakfast Percent of Meal Consumed 100% Stool Size Small Small Moderate Stool Consistency loose loose loose Stool Color Brown Brown Brown Yellow Green # Bowel Movements 1 Blood Glucose* 195 158 181 - Labs 04/23/16 05:00 04/23/16 05:00 Diabetes panel 04/23/16 Range/Units 05:00 Sodium 139 (136-145) mEq/L Potassium 4.2 (3.5-4.5) mEq/L Chloride 105 (98-109) mEq/L Carbon Dioxide 31 H (19-29) mEq/L BUN 16 (8-26) mg/dL Creatinine 0.72 (0.72-1.25) mg/dL Glucose 155 H (70-99) mg/dL Calcium 8.6 (8.6-10.8) mg/dL AST 15 (5-34) Units/L ALT 12 (0-55) Units/L Alkaline Phosphatase 52 (38-126) Units/L Albumin 2.1 L (3.5-5.0) g/dL Calcium panel 04/23/16 Range/Units 05:00 Calcium 8.6 (8.6-10.8) mg/dL Phosphorus 3.0 (2.3-4.7) mg/dL Albumin 2.1 L (3.5-5.0) g/dL Pituitary panel 04/23/16 Range/Units 05:00 Sodium 139 (136-145) mEq/L Potassium 4.2 (3.5-4.5) mEq/L Chloride 105 (98-109) mEq/L Carbon Dioxide 31 H (19-29) mEq/L BUN 16 (8-26) mg/dL Creatinine 0.72 (0.72-1.25) mg/dL Glucose 155 H (70-99) mg/dL Calcium 8.6 (8.6-10.8) mg/dL Adrenal panel 04/23/16 Range/Units 05:00 Sodium 139 (136-145) mEq/L Potassium 4.2 (3.5-4.5) mEq/L Chloride 105 (98-109) mEq/L Carbon Dioxide 31 H (19-29) mEq/L BUN 16 (8-26) mg/dL Creatinine 0.72 (0.72-1.25) mg/dL Glucose 155 H (70-99) mg/dL Calcium 8.6 (8.6-10.8) mg/dL Total Bilirubin 0.5 (0.2-1.2) mg/dL AST 15 (5-34) Units/L ALT 12 (0-55) Units/L Alkaline Phosphatase 52 (38-126) Units/L Albumin 2.1 L (3.5-5.0) g/dL Consult Discharge Plan - Plan Referrals: Millie Carpenter DO [Primary Care Provider] - 04/27/16 1:30 pm
[2016-04-23] MEDS ORDERED: Clinimix E 5%-20% SOLUTION 2,000 ML, Amino Acids 10% 0 ML with MVI, adult with vitami... IV SCH (17:00)
[2016-04-23] MEDS ORDERED: Clinimix E 5%-15% SOLUTION 2,000 ML with MVI, adult with vitamin K 10 ML, Insulin Hum... IV SCH (17:00)
[2016-04-23] MEDS: Insulin DETEMIR 100 UNIT/ML X5UNITS SQ SCH (20:15)
[2016-04-24] MEDS: Piperacillin/Tazobactam 3.375 GM in D5% in Water (Mini-Bag+) 100 ML IVPB SCH ×3 (00:05→17:35)
[2016-04-24] MEDS: Insulin LISPRO 300 UNITS/3 ML VIAL SQ SCH ×6 (00:06→20:10)
[2016-04-24] MEDS: Melatonin 3 MG TABLET PO SCH ×2 (00:07→21:56)
[2016-04-24 05:14] LABS: BUN/Creatinine Ratio 21 (6-26); Blood Urea Nitrogen 15 mg/dL (8-26); Calcium 8.8 mg/dL (8.6-10.8); Carbon Dioxide 30 mEq/L (19-29); Chloride 102 mEq/L (98-109); Glucose 159 mg/dL (70-99); Osmolality,Calculated 288 (280-300); Potassium 4.1 mEq/L (3.5-4.5); Sodium 137 mEq/L (136-145); eGFR For African Americans > 60 (> 60); eGFR For Non-African Americans > 60 (> 60)
[2016-04-24 05:16] LABS: Basophils # 0.1 K/mcL (0.0-0.2); Basophils % 0.4 %; Eosinophils # 0.3 K/mcL (0.0-0.6); Eosinophils % 1.7 %; Hematocrit 35.2 % (37.5-50.1); Hemoglobin 11.3 g/dL (12.9-16.9); Lymphocytes # 1.2 K/mcL (0.6-4.6); Lymphocytes % 6.5 %; Mean Corpuscular HGB Conc 32.1 g/dL (31.6-35.5); Mean Corpuscular Hemoglobin 29.6 pg (28.0-33.3); Mean Corpuscular Volume 92.1 fL (83.0-100.0); Mean Platelet Volume 10.1 fL (9.4-12.4); Monocytes # 1.5 K/mcL (0.0-1.3); Neutrophils # 14.9 K/mcL (1.6-8.9); Platelet Count 344 K/mcL (140-400); Red Blood Count 3.82 M/mcL (4.19-5.50); Segmented Neutrophils % 82.4 %
[2016-04-24] MEDS: *HR* Heparin 5,000 UNIT/ML VIAL SQ SCH ×3 (06:08→20:20)
[2016-04-24] MEDS: Lisinopril 20 MG TABLET PO SCH (09:00)
[2016-04-24] MEDS: amLODIPine 5 MG TABLET PO SCH (09:01)
[2016-04-24] MEDS: Furosemide 40 MG TABLET PO SCH (09:01)
[2016-04-24] MEDS: metroNIDAZOLE 500 MG TABLET PO SCH ×4 (09:01→20:20)
--- NOTE | 2016-04-24 15:31 | General Surgery Progress Note ---
Date of Encounter: 04/24/16 Time of Encounter: 15:13 Subjective Patient reports: no new complaints Narrative: General Surgery: hospital day #9 - and daughter at bedside.. Patient voicing no new complaints. Diarrhea has diminished significantly. Patient remains afeb, 98.1; HR 73, RR 18, BP 158/90 Accuchecks - stable in the 150's Lungs clear to auscultation Abdomen: obese, soft, non tender. No discernible masses. No rebound. Active bowel sounds. Labs: increased leukocytosis - 18.1; Hgb/Hct stable 11.3/35.2; Platelets 344, 000 - also stable Electrolytes, BUN, Cr stable and within normal limits. K+ - 4.1 CT: completed today, was personally reviewed with [facility]. Findings include: stable hepatic cysts; no renal mass or hydronephrosis; no biliary findings; the sigmoid diverticulitis extends to the dome and left lateral wall of the urinary bladder; the multiloculated pericolonic abscess is stable. This collection is not amenable to percutaneous drainage. The stability is reassuring but the increasing leukocytosis is a concern. Impression: the patient 's medical status appears to have "plateau ed". It does not appear that continued medical management will offer significant additional benefit. Sigmoid colectomy will be scheduled, 03/27/2016, 07:45. The surgery was discussed in detail with the patient and family. An extended face to face encounter was necessary to complete this discussion. The risks of surgery include hemorrhage, infection, intra abdominal abscess, injury to adjacent structures, respiratory failure, cardiac failure/NV, stroke and if an anastomosis is completed, disruption or anastomotic leak. Possible post op transfer to ICU was also discussed. Plan: discontinue oral potassium continue TPN change full liquid diet to clear liquids. continue IV zosyn and oral metronidazole. exploratory celiotomy, sigmoid colectomy with possible colo colonic anastomosis v end colostomy, AM 04/26/2016. ADDENDUM TO MEDICAL AND SURGICAL HISTORY: reveals that patient had a stroke approx 20 years ago. 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 Objective Vital Signs - Last 8 Hours Temp Pulse Resp BP Pulse Ox 04/24/16 11:34 98.1 F 73 18 158/90 96 Intake and Output 04/23/16 04/24/16 04/24/16 23:59 07:59 15:59 Intake Total 340 / 340 350 / 350 Output Total 1400 / 1400 1250 / 1250 550 / 550 Balance -1060 / -1060 -900 / -900 -550 / -550 Intake: IV Fluids 100 / 100 350 / 350 Intralipid 20% 250 ML @ 250 / 250 21 mls/hr IVPB DAILY@1700 [facility] Rx#:[id number] Zosyn 3.375 GM In 100 / 100 100 / 100 Dextrose 5% (Minibag+) 100 ML 100 ML @ 25 mls/hr IVPB Q8HR [facility] Rx#: [id number] Oral 240 / 240 0 / 0 Output: Catheter 1400 / 1400 1250 / 1250 550 / 550 Other: Meal Dinner NPO Percent of Meal Consumed 75% Stool Size Small Stool Consistency soft Stool Color Brown # Bowel Movements 1 Weight 136.1 kg Blood Glucose* 186 156 155 Patient Weight 04/24/16 23:59 Weight 136.1 kg - Labs 04/24/16 04:30 04/24/16 04:30 Diabetes panel 04/24/16 Range/Units 04:30 Sodium 137 (136-145) mEq/L Potassium 4.1 (3.5-4.5) mEq/L Chloride 102 (98-109) mEq/L Carbon Dioxide 30 H (19-29) mEq/L BUN 15 (8-26) mg/dL Creatinine 0.71 L (0.72-1.25) mg/dL Glucose 159 H (70-99) mg/dL Calcium 8.8 (8.6-10.8) mg/dL Calcium panel 04/24/16 Range/Units 04:30 Calcium 8.8 (8.6-10.8) mg/dL Pituitary panel 04/24/16 Range/Units 04:30 Sodium 137 (136-145) mEq/L Potassium 4.1 (3.5-4.5) mEq/L Chloride 102 (98-109) mEq/L Carbon Dioxide 30 H (19-29) mEq/L BUN 15 (8-26) mg/dL Creatinine 0.71 L (0.72-1.25) mg/dL Glucose 159 H (70-99) mg/dL Calcium 8.8 (8.6-10.8) mg/dL Adrenal panel 04/24/16 Range/Units 04:30 Sodium 137 (136-145) mEq/L Potassium 4.1 (3.5-4.5) mEq/L Chloride 102 (98-109) mEq/L Carbon Dioxide 30 H (19-29) mEq/L BUN 15 (8-26) mg/dL Creatinine 0.71 L (0.72-1.25) mg/dL Glucose 159 H (70-99) mg/dL Calcium 8.8 (8.6-10.8) mg/dL Consult Discharge Plan - Plan Referrals: Millie Carpenter DO [Primary Care Provider] - 04/27/16 1:30 pm
--- NOTE | 2016-04-24 17:32 | Internal Med Progress Note ---
Date of Encounter: 04/24/16 Time of Encounter: 11:00 - Assessment and plan (1) Abscess of sigmoid colon due to diverticulitis Current Visit: Yes Status: Acute Assessment and plan: - CT A/P suggests perforated acute sigmoid diverticulitis with developing intra- abdominal abscess/pericolonic phlegmon. - Dr. Mcbride on board and recommends antibiotics treatment for now with sigmoid colectomy planned possibly in the next few days. - Repeated CT A/P showed persistent changes of sigmoid diverticulitis with pericolonic phlegmon/extraluminal gas & fluid. - Clinically stable with diarrhea improves per patient. C. difficile negative. - Currently on full liquid diet - Press Assistant And Feeder on board and patient is receiving TPN via right subclavian CVC placed by Dr. Mcbride. - Continue IV Zosyn (Day 8) and PO Flagyl (Day 9). - Appreciate Dr. Mcbride's assistance on patient care. - plan for surgery per Dr Mcbride on 04/26 am (2) CAD (coronary artery disease) Current Visit: No Status: Chronic Assessment and plan: - CAD s/p heart cath 30 years ago. - Cardiology was consulted for preoperative cardiovascular examination and determined patient is at intermediate risk of perioperative complications. Qualifiers: Coronary Disease-Associated Artery/Lesion type: [place] artery [place] vs. transplanted heart: [place] heart Associated angina: without angina Qualified Code(s): I25.10 - Atherosclerotic heart disease of [place] coronary artery without angina pectoris (3) CHF (congestive heart failure) Current Visit: No Status: Chronic Assessment and plan: - Echo on 04/16/16 found LVEF 60% with mild LV diastolic dysfunction. - Continue on Lasix 40 mg PO daily. Qualifiers: Congestive heart failure type: diastolic Congestive heart failure chronicity: unspecified congestive heart failure chronicity Qualified Code(s) : I50.30 - Unspecified diastolic (congestive) heart failure (4) COPD (chronic obstructive pulmonary disease) Current Visit: No Status: Chronic Assessment and plan: - Stable as patient reports no significant shortness of breath at this time. - Consider brochodilator if needed. Qualifiers: COPD type: unspecified COPD Qualified Code(s): J44.9 - Chronic obstructive pulmonary disease, unspecified (5) Hyperlipidemia Current Visit: No Status: Chronic Assessment and plan: Stable. Qualifiers: Hyperlipidemia type: unspecified Qualified Code(s): E78.5 - Hyperlipidemia , unspecified (6) Hypertension Current Visit: Yes Status: Chronic Assessment and plan: - Accelerated hypertension - Continue atenolol, amlodipine and IV hydralazine scheduled & prn SBP > 160. - Continue to monitor. Qualifiers: Hypertension type: essential hypertension Qualified Code(s): I10 - Essential (primary) hypertension (7) DVT prophylaxis Current Visit: Yes Status: Acute Assessment and plan: - Continue SQ heparin. - Time Spent With Patient 25 - 35 minutes - Subjective Interval history: Patient is a 80-year-old male presented to ER for abdominal pain, diarrhea. His past medical history is significant for CHF, COPD, CAD, dementia, hyperlipidemia, hypertension. Patient was seen and examined. He is awake alert, oriented 3. He has no further fever overnight. On TPN. Still have leukocytosis. Repeat CT abdomen shows stable pericolonic abscess. Surgical consult is appreciated. Plan is to have surgery on April 26. - Constitutional Vitals: Temp Pulse Resp BP Pulse Ox 98 F 82 16 155/74 96 04/24/16 16:59 04/24/16 16:59 04/24/16 16:59 04/24/16 16:59 04/24/16 16:59 General appearance: Present: cooperative, A&O X 3, morbidly obese, no acute distress, answers questions appropriately - Head Head exam: Present: atraumatic, normocephalic - Eye Eye exam: Present: PERRL, conjuntiva pink, sclera anicteric Pupils: Present: PERRL - Neck Neck exam general surgery: Present: supple, trachea midline. Absent: lymphadenopathy - Respiratory Respiratory exam: Present: CTAB. Absent: accessory muscle use, rales, rhonchi, wheezes - Cardiovascular Cardiovascular exam: Present: RRR, +S1, +S2. Absent: diastolic murmur, gallop, rubs, systolic murmur - GI/Abdominal GI/Abdominal exam: Present: normal bowel sounds, soft, tenderness (Mild tenderness without rebound or guarding), no peritoneal signs. Absent: distended - Extremities Exam Extremities exam: Present: warm, radial pulses palpable and symetrical. Absent : calf tenderness, cyanotic, pedal edema - Neurological Exam Neurological exam: Present: CN II-XII intact, oriented X3, no focal deficits. Absent: pronater drift, facial droop, speech deficit - Skin Skin exam: Present: dry, intact Internal Medicine: Result - Labs CBC & Chem 7: 04/24/16 04:30 04/24/16 04:30 Labs: Short CBC 04/24/16 Range/Units 04:30 WBC 18.1 H (4.3-11.1) K/mcL Hgb 11.3 L (12.9-16.9) g/dL Hct 35.2 L (37.5-50.1) % Plt Count 344 (140-400) K/mcL Neutrophils # 14.9 H (1.6-8.9) K/mcL BMP 04/24/16 04:30 Sodium 137 Potassium 4.1 Chloride 102 Carbon Dioxide 30 H BUN 15 Creatinine 0.71 L Glucose 159 H Calcium 8.8 - Impressions Impressions Abdomen/Pelvis CT 04/24/16 11:30 IMPRESSION: 1. Sigmoid diverticulitis with extension to the adjacent dome and left lateral wall of the bladder. Gas within the bladder likely iatrogenic and related to the Robbins catheter but raising the possibility of fistula. Stable multiloculated pericolonic abscess. 2. Otherwise stable CT of the abdomen and pelvis. Multiple hepatic cysts and indeterminate right hepatic lesion. Middle pole right renal cyst. D/ / 04/24/2016 12:29:16 Ja Robison MD / Martha Gomes Interpreting Provider: Ja Robison MD Consult Discharge Plan - Plan Referrals: Millie Carpenter DO [Primary Care Provider] - 04/27/16 1:30 pm
[2016-04-24] MEDS: Clinimix E 5%-15% SOLUTION 2,000 ML with MVI, adult with vitamin K 10 ML, Insulin Hum... IV SCH (17:34)
[2016-04-24] MEDS: Insulin DETEMIR 100 UNIT/ML X5UNITS SQ SCH (20:20)
[2016-04-25] MEDS: Insulin LISPRO 300 UNITS/3 ML VIAL SQ SCH ×6 (00:05→20:46)
[2016-04-25] MEDS: Piperacillin/Tazobactam 3.375 GM in D5% in Water (Mini-Bag+) 100 ML IVPB SCH ×3 (00:34→17:29)
[2016-04-25 03:35] LABS: Basophils # 0.1 K/mcL (0.0-0.2); Basophils % 0.3 %; Eosinophils # 0.3 K/mcL (0.0-0.6); Eosinophils % 1.4 %; Hematocrit 34.1 % (37.5-50.1); Hemoglobin 11.3 g/dL (12.9-16.9); Immature Granulocytes % 0.8 % (0-4); Lymphocytes % 5.2 %; Mean Corpuscular HGB Conc 33.1 g/dL (31.6-35.5); Mean Corpuscular Hemoglobin 30.5 pg (28.0-33.3); Mean Corpuscular Volume 92.2 fL (83.0-100.0); Mean Platelet Volume 9.7 fL (9.4-12.4); Monocytes # 1.5 K/mcL (0.0-1.3); Monocytes % 7.9 %; Neutrophils # 16.3 K/mcL (1.6-8.9); Platelet Count 335 K/mcL (140-400); Red Cell Distribution Width 14.4 % (11.5-14.5); Segmented Neutrophils % 84.4 %
[2016-04-25 03:49] LABS: BUN/Creatinine Ratio 25 (6-26); Blood Urea Nitrogen 19 mg/dL (8-26); Calcium 8.8 mg/dL (8.6-10.8); Carbon Dioxide 31 mEq/L (19-29); Chloride 102 mEq/L (98-109); Glucose 162 mg/dL (70-99); Osmolality,Calculated 290 (280-300); Potassium 4.2 mEq/L (3.5-4.5); Sodium 137 mEq/L (136-145); eGFR For African Americans > 60 (> 60); eGFR For Non-African Americans > 60 (> 60)
[2016-04-25] MEDS: *HR* Heparin 5,000 UNIT/ML VIAL SQ SCH ×3 (05:39→20:45)
[2016-04-25] MEDS: amLODIPine 5 MG TABLET PO SCH (07:50)
[2016-04-25] MEDS: Furosemide 40 MG TABLET PO SCH (07:50)
[2016-04-25] MEDS: Lisinopril 20 MG TABLET PO SCH (07:50)
[2016-04-25] MEDS: metroNIDAZOLE 500 MG TABLET PO SCH ×4 (07:50→20:45)
--- NOTE | 2016-04-25 15:59 | Internal Med Progress Note ---
Date of Encounter: 04/25/16 Time of Encounter: 10:00 - Assessment and plan (1) Abscess of sigmoid colon due to diverticulitis Current Visit: Yes Status: Acute Assessment and plan: - CT A/P suggests perforated acute sigmoid diverticulitis with developing intra- abdominal abscess/pericolonic phlegmon. - Dr. Mcbride on board and recommends antibiotics treatment for now with sigmoid colectomy planned possibly in the next few days. - Repeated CT A/P showed persistent changes of sigmoid diverticulitis with pericolonic phlegmon/extraluminal gas & fluid. - Clinically stable with diarrhea improves per patient. C. difficile negative. - Currently on full liquid diet - Slide Forming Machine Operator on board and patient is receiving TPN via right subclavian CVC placed by Dr. Mcbride. - Continue IV Zosyn (Day 8) and PO Flagyl (Day 9). - Appreciate Dr. Mcbride's assistance on patient care. - plan for surgery per Dr Mcbride on 04/26 am (2) CAD (coronary artery disease) Current Visit: No Status: Chronic Assessment and plan: - CAD s/p heart cath 30 years ago. - Cardiology was consulted for preoperative cardiovascular examination and determined patient is at intermediate risk of perioperative complications. Qualifiers: Coronary Disease-Associated Artery/Lesion type: [place] artery [place] vs. transplanted heart: [place] heart Associated angina: without angina Qualified Code(s): I25.10 - Atherosclerotic heart disease of [place] coronary artery without angina pectoris (3) CHF (congestive heart failure) Current Visit: No Status: Chronic Assessment and plan: - Echo on 04/16/16 found LVEF 60% with mild LV diastolic dysfunction. - Continue on Lasix 40 mg PO daily. Qualifiers: Congestive heart failure type: diastolic Congestive heart failure chronicity: unspecified congestive heart failure chronicity Qualified Code(s) : I50.30 - Unspecified diastolic (congestive) heart failure (4) COPD (chronic obstructive pulmonary disease) Current Visit: No Status: Chronic Assessment and plan: - Stable as patient reports no significant shortness of breath at this time. - Consider brochodilator if needed. Qualifiers: COPD type: unspecified COPD Qualified Code(s): J44.9 - Chronic obstructive pulmonary disease, unspecified (5) Hyperlipidemia Current Visit: No Status: Chronic Assessment and plan: Stable. Qualifiers: Hyperlipidemia type: unspecified Qualified Code(s): E78.5 - Hyperlipidemia , unspecified (6) Hypertension Current Visit: Yes Status: Chronic Assessment and plan: - Accelerated hypertension - Continue atenolol, amlodipine and IV hydralazine scheduled & prn SBP > 160. - Continue to monitor. Qualifiers: Hypertension type: essential hypertension Qualified Code(s): I10 - Essential (primary) hypertension (7) DVT prophylaxis Current Visit: Yes Status: Acute Assessment and plan: - Continue SQ heparin. - Time Spent With Patient 25 - 35 minutes - Subjective Interval history: Patient is a 80-year-old male presented to ER for abdominal pain, diarrhea. His past medical history is significant for CHF, COPD, CAD, dementia, hyperlipidemia, hypertension. Patient was seen and examined. He is awake alert, oriented 3. He has no further fever overnight. On TPN. Still have leukocytosis. Repeat CT abdomen shows stable pericolonic abscess. Surgical consult is appreciated. Plan is to have surgery on April 26. Continue zosyn now. - Constitutional Vitals: Temp Pulse Resp BP Pulse Ox 98.0 F 72 14 130/68 96 04/25/16 15:21 04/25/16 15:21 04/25/16 15:21 04/25/16 15:21 04/25/16 15:21 General appearance: Present: cooperative, A&O X 3, morbidly obese, no acute distress, answers questions appropriately - Head Head exam: Present: atraumatic, normocephalic - Eye Eye exam: Present: PERRL, conjuntiva pink, sclera anicteric Pupils: Present: PERRL - Neck Neck exam general surgery: Present: supple, trachea midline. Absent: lymphadenopathy - Respiratory Respiratory exam: Present: CTAB. Absent: accessory muscle use, rales, rhonchi, wheezes - Cardiovascular Cardiovascular exam: Present: RRR, +S1, +S2. Absent: diastolic murmur, gallop, rubs, systolic murmur - GI/Abdominal GI/Abdominal exam: Present: normal bowel sounds, soft, tenderness (Mild tenderness on lower abdomen), no peritoneal signs. Absent: distended - Extremities Exam Extremities exam: Present: warm, radial pulses palpable and symetrical. Absent : calf tenderness, cyanotic, pedal edema - Neurological Exam Neurological exam: Present: CN II-XII intact, oriented X3, no focal deficits. Absent: pronater drift, facial droop, speech deficit - Skin Skin exam: Present: dry, intact Internal Medicine: Result - Labs CBC & Chem 7: 04/25/16 03:27 04/25/16 03:27 Labs: Short CBC 04/25/16 Range/Units 03:27 WBC 19.3 H (4.3-11.1) K/mcL Hgb 11.3 L (12.9-16.9) g/dL Hct 34.1 L (37.5-50.1) % Plt Count 335 (140-400) K/mcL Neutrophils # 16.3 H (1.6-8.9) K/mcL BMP 04/25/16 03:27 Sodium 137 Potassium 4.2 Chloride 102 Carbon Dioxide 31 H BUN 19 Creatinine 0.76 Glucose 162 H Calcium 8.8 - Impressions Impressions Abdomen/Pelvis CT 04/24/16 11:30 IMPRESSION: 1. Sigmoid diverticulitis with extension to the adjacent dome and left lateral wall of the bladder. Gas within the bladder likely iatrogenic and related to the Robbins catheter but raising the possibility of fistula. Stable multiloculated pericolonic abscess. 2. Otherwise stable CT of the abdomen and pelvis. Multiple hepatic cysts and indeterminate right hepatic lesion. Middle pole right renal cyst. D/ : / 04/24/2016 12:29:16 Ja Robison MD / Martha Gomes Interpreting Provider: Ja Robison MD Consult Discharge Plan - Plan Referrals: Millie Carpenter DO [Primary Care Provider] - Kobi Mcbride MD [Non-Partnered Physician] -
[2016-04-25] MEDS: Clinimix E 5%-15% SOLUTION 2,000 ML with MVI, adult with vitamin K 10 ML, Insulin Hum... IV SCH (17:29)
--- NOTE | 2016-04-25 17:45 | General Surgery Progress Note ---
Date of Encounter: 04/25/16 Time of Encounter: 16:00 Subjective Patient reports: no new complaints Narrative: General surgery: Patient indicates that he is stable, he is voicing no complaints. He denies any abdominal pain. the patient remains afebrile despite increasing leukocytosis; pulse 72, respirations 14, blood pressure stable at 130/68. Lungs: Clear Abdomen: Obese, nontender with no appreciable intra-abdominal masses or rebound. Laboratories: White count has increased to 19.3; hemoglobin stable at 11.3, hematocrit 34.1. Electrolytes, BUN and creatinine also remained stable Accu-Cheks are slightly increased - there was a high of 269; range 164-199 Impression: A 10-year-old male with acute sigmoid diverticulitis with perforation and surrounding abscess/phlegmon. This abscess/phlegmon is poorly defined and not amenable to percutaneous drainage. Surgery is planned in the a.m. as discussed with the patient and his family yesterday. This was again discussed with the family and patient today, they have no further questions. The procedure, risks, and benefits were discussed. Possibility of a colostomy was reiterated. She expressed understanding and is ready to proceed in a.m. Objective Vital Signs - Last 8 Hours Temp Pulse Resp BP Pulse Ox 04/25/16 15:21 98.0 F 72 14 130/68 96 04/25/16 10:45 98.5 F 67 16 133/68 94 L Intake and Output 04/25/16 04/25/16 04/25/16 07:59 15:59 23:59 Intake Total 350 / 350 1300 / 1300 Output Total 925 / 925 800 / 800 650 / 650 Balance -575 / -575 500 / 500 -650 / -650 Intake: IV Fluids 350 / 350 100 / 100 Intralipid 20% 250 ML @ 250 / 250 21 mls/hr IVPB DAILY@1700 [facility] Rx#:[id number] Zosyn 3.375 GM In 100 / 100 100 / 100 Dextrose 5% (Minibag+) 100 ML 100 ML @ 25 mls/hr IVPB Q8HR [facility] Rx#: [id number] Oral 0 / 0 1200 / 1200 Output: Urine 0 / 0 Catheter 925 / 925 800 / 800 650 / 650 Other: Meal Lunch Stool Size Moderate Moderate Stool Consistency liquid liquid Stool Color Brown Brown Yellow # Bowel Movements 2 0 Weight 136.1 kg Blood Glucose* 172 184 Patient Weight 04/25/16 23:59 Weight 136.1 kg - Labs 04/25/16 03:27 04/25/16 03:27 Diabetes panel 04/25/16 Range/Units 03:27 Sodium 137 (136-145) mEq/L Potassium 4.2 (3.5-4.5) mEq/L Chloride 102 (98-109) mEq/L Carbon Dioxide 31 H (19-29) mEq/L BUN 19 (8-26) mg/dL Creatinine 0.76 (0.72-1.25) mg/dL Glucose 162 H (70-99) mg/dL Calcium 8.8 (8.6-10.8) mg/dL Calcium panel 04/25/16 Range/Units 03:27 Calcium 8.8 (8.6-10.8) mg/dL Pituitary panel 04/25/16 Range/Units 03:27 Sodium 137 (136-145) mEq/L Potassium 4.2 (3.5-4.5) mEq/L Chloride 102 (98-109) mEq/L Carbon Dioxide 31 H (19-29) mEq/L BUN 19 (8-26) mg/dL Creatinine 0.76 (0.72-1.25) mg/dL Glucose 162 H (70-99) mg/dL Calcium 8.8 (8.6-10.8) mg/dL Adrenal panel 04/25/16 Range/Units 03:27 Sodium 137 (136-145) mEq/L Potassium 4.2 (3.5-4.5) mEq/L Chloride 102 (98-109) mEq/L Carbon Dioxide 31 H (19-29) mEq/L BUN 19 (8-26) mg/dL Creatinine 0.76 (0.72-1.25) mg/dL Glucose 162 H (70-99) mg/dL Calcium 8.8 (8.6-10.8) mg/dL Consult Discharge Plan - Plan Referrals: Millie Carpenter DO [Primary Care Provider] - Kobi Mcbride MD [Non-Partnered Physician] -
[2016-04-25] MEDS: Melatonin 3 MG TABLET PO SCH (20:44)
[2016-04-25] MEDS: Insulin DETEMIR 100 UNIT/ML X5UNITS SQ SCH (20:45)
[2016-04-26] MEDS: Insulin LISPRO 300 UNITS/3 ML VIAL SQ SCH ×4 (00:12→20:19)
[2016-04-26] MEDS: Piperacillin/Tazobactam 3.375 GM in D5% in Water (Mini-Bag+) 100 ML IVPB SCH (00:36)
[2016-04-26] MEDS: *HR* Heparin 5,000 UNIT/ML VIAL SQ SCH (05:09)
[2016-04-26 05:21] LABS: Basophils # 0.1 K/mcL (0.0-0.2); Basophils % 0.4 %; Eosinophils # 0.2 K/mcL (0.0-0.6); Eosinophils % 1.4 %; Hematocrit 32.9 % (37.5-50.1); Hemoglobin 10.7 g/dL (12.9-16.9); Lymphocytes # 0.9 K/mcL (0.6-4.6); Lymphocytes % 5.4 %; Mean Corpuscular HGB Conc 32.5 g/dL (31.6-35.5); Mean Corpuscular Hemoglobin 29.9 pg (28.0-33.3); Mean Corpuscular Volume 91.9 fL (83.0-100.0); Mean Platelet Volume 9.9 fL (9.4-12.4); Monocytes # 1.3 K/mcL (0.0-1.3); Monocytes % 8.2 %; Neutrophils # 13.6 K/mcL (1.6-8.9); Platelet Count 282 K/mcL (140-400); Red Blood Count 3.58 M/mcL (4.19-5.50); Red Cell Distribution Width 14.3 % (11.5-14.5); Segmented Neutrophils % 83.6 %
[2016-04-26 05:31] LABS: INR 1.4; Prothrombin Time 15.1 Seconds (9.4-12.1)
[2016-04-26 05:36] LABS: BUN/Creatinine Ratio 24 (6-26); Blood Urea Nitrogen 17 mg/dL (8-26); Calcium 8.5 mg/dL (8.6-10.8); Carbon Dioxide 33 mEq/L (19-29); Chloride 105 mEq/L (98-109); Glucose 169 mg/dL (70-99); Magnesium 2.2 mg/dL (1.6-2.6); Osmolality,Calculated 291 (280-300); Phosphorous 2.7 mg/dL (2.3-4.7); Sodium 138 mEq/L (136-145); eGFR For African Americans > 60 (> 60); eGFR For Non-African Americans > 60 (> 60)
[2016-04-26] MEDS ORDERED: *HR* FentaNYL (PF) 100 MCG/2 ML VIAL ONE ×2 (07:13→07:19)
[2016-04-26] MEDS ORDERED: *HR* Succinylcholine 200 MG/10 ML VIAL IVP ONE (07:13)
[2016-04-26] MEDS ORDERED: *HR* Propofol 200 MG/20 ML VIAL IVP ONE ×2 (07:13→07:20)
[2016-04-26] MEDS ORDERED: *HR* Rocuronium Bromide 50 MG/5 ML VIAL ONE ×4 (07:13→09:23)
[2016-04-26] MEDS ORDERED: Neostigmine Methylsulfate 3 MG/3 ML SYRINGE ONE ×2 (07:19→11:39)
[2016-04-26] MEDS ORDERED: Ondansetron 4 MG/2 ML VIAL ONE (07:19)
[2016-04-26] MEDS ORDERED: Lidocaine -MPF 2% 2 ML VIAL ONE (07:19)
[2016-04-26] MEDS ORDERED: Dexamethasone 4 MG/ML VIAL ONE (07:19)
[2016-04-26] MEDS ORDERED: *HR* Midazolam HCl 2 MG/2 ML VIAL ONE (07:20)
[2016-04-26] MEDS ORDERED: *HR* Promethazine 25 MG/ML VIAL IVP PRN ×2 (07:36→13:22)
[2016-04-26] MEDS ORDERED: *HR* Labetalol 20 MG/4 ML SYRINGE IVP PRN (07:36)
--- NOTE | 2016-04-26 07:39 | Anesthesia Evaluation PreOp ---
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), Other (dementia?) Other Medical History: Diabetes Type II, GERD, Other (obesity BMI=42.2) Anesthesia History: Past Anesthesia (no prior surgery) Alcohol Use: none Drug use: none Medications and Allergies Atenolol [Tenormin] 100 mg PO DAILY 03/01/15 [History] Donepezil [Aricept] 20 mg PO DAILY 03/01/15 [History] Lisinopril [Zestril] 40 mg PO DAILY 03/01/15 [History] Omeprazole [PriLOSEC] 20 mg PO DAILY 03/01/15 [History] Zafirlukast [Accolate] 20 mg PO DAILY 03/01/15 [History] Amlodipine [Norvasc] 10 mg PO DAILY 07/22/15 [History] Finasteride [Proscar] 5 mg PO DAILY 10/03/15 [History] Ranitidine HCl [Heartburn Relief] 150 mg PO DAILY 10/03/15 [History] Albuterol Sulfate [Proair Hfa] 2 puff IH DAILY 04/15/16 [History] Metoprolol Succinate 100 mg PO DAILY 04/15/16 [History] Nortriptyline HCl 75 mg PO HS 04/15/16 [History] Oxycodone HCl/Acetaminophen [Percocet 5-325 mg Tablet] 1 - 2 tab PO QID [History] Oxygen 2.5 l .ROUTE DAILY 04/15/16 [History] Allergies No Known Allergies Allergy (Verified 04/15/16 15:46) - Meds/Allergy Pre-op Review Medications Reviewed: Yes Allergies Reviewed: Yes Beta Blockers on Current Med List: Yes If Beta Blockers taken, Date/Time (Last Dose taken): 04/25/2016 at 0750 Anesthesia Results - Labs 04/26/16 04:43 04/26/16 04:43 - Imaging EKG: report reviewed (04/14/2016 SR with PAC's, possible inferior infarct) Additional studies: 04/16/2016 Echo technically sub-optimal due to body habitus LVEF 60% grossly, mildly dilated LV mild concentric LVH mild LV diastolic dysfunction grossly, mild biatrial enlargement no obvious significant valvular dysfunction Anesthesia Exam Vital Signs/O2 Sat/Glucose, Most Recent Temp Pulse Resp BP Pulse Ox 99.2 F 81 12 149/71 95 04/26/16 03:21 04/26/16 03:21 04/26/16 03:21 04/26/16 03:21 04/26/16 03:21 Blood Glucose* 171 Height: 5'11''/1.8 m Weight: 302 lbs/137.348 kg NPO (# of Hours): 8 Pain Scale: 0 Pain Scale Used: Numeric (1 - 10) - HEENT Pupil (Motor): EOMI Mallampati: III Teeth: Normal Oral Opening: Greater than 3 - [employer] LOC: Oriented [employer] Motor: Normal RUE, Normal LUE, Normal RLE, Normal LLE, Normal Face [employer] Sensory: Normal: RUE, LUE, RLE, LLE, Face - Cardiac Rhythm: Regular Murmur: None - Pulmonary Breath Sounds: bilateral Clear Respiratory Effort: Symmetrical Anesthesia Assess/Plan ASA Score: 4 (Patient understands that he is at increased risk for perioperative complications including myocardial infarct, arrhythmias, CVA, post op vent support/ICU stay, and . Patient wishes to proceed.) Modified [place] Scale for Level of Consciousness: Cooperative, oriented, and tranquil Anesthetic Plan: General Monitoring Plan: Standard Monitors Recovery Plan: PACU
[2016-04-26] MEDS ORDERED: Ringers Solution, Lactated 1,000 ML IVC SCH (07:45)
[2016-04-26] MEDS ORDERED: *HR* Remifentanil 2 MG VIAL IVP ONE ×2 (08:05→10:59)
[2016-04-26] MEDS ORDERED: 0.9 % Sodium Chloride Mini Bag 100 ML ONE (08:54)
[2016-04-26] MEDS ORDERED: *HR* Metoprolol 5 MG/5 ML VIAL IVP ONE (09:27)
[2016-04-26] MEDS ORDERED: *HR* HYDROmorphone 2 MG/ML SYRINGE ONE ×2 (10:11→11:39)
--- NOTE | 2016-04-26 12:31 | Operative Note ---
Date of procedure: 04/26/16 Pre-op diagnosis: Acute perforated sigmoid diverticulitis with pericolic abscess Post-op diagnosis: same Procedure: Exploratory celiotomy, Raúl procedure (sigmoid colectomy with end colostomy and Raúl pouch); partial omentectomy, incidental appendectomy Complications: None apparent Anesthesia: [facility] Surgeon: Kobi Mcbride Estimated blood loss (cc): 700 IV fluids (cc): 2,000 (500 mL colloid) Specimen: sigmoid colon, omentum, appendix Condition: stable Disposition: PACU Procedure in Detail: The patient was brought to the operating room where he was placed supine upon the operating room table. The patient was intubated and anesthetized by [facility]. When the airway was secured, the patient was placed in low lithotomy using yellowfin stirrups. A Robbins catheter was already in place, an OG tube was passed by anesthesia. The patient was appropriately identified as to person and procedure. The accuracy of this information was confirmed by the procedure team. The abdomen and perineum were prepped and draped in the usual sterile fashion. When examined under anesthesia a large mass in the left lower quadrant was apparent. This mass was not discernible when the patient was awake. A midline incision was made from just above the umbilicus to the symphysis pubis. The incision was extended to the fascia. Bleeding points were controlled with electrocautery. The fascia was divided in the midline and the abdomen entered atraumatically. Exposure was facilitated with a self- retaining Omni Trak retractor. The palpable mass taken on external exam was a markedly thickened inflamed sigmoid colon with the expected paracolic abscess/ phlegmon. The urinary bladder was densely adherent to the medial wall of the sigmoid. As the urinary bladder was mobilized from the sigmoid colon, the abscess was entered. Copious pus was encountered. Aerobic and anaerobic cultures were obtained. The pus was evacuated. Once the bladder was mobilized , the mesentery medial to the sigmoid was incised and divided with the aid of the Covidien Impact Dissector. Section was carried into the pelvis where the inflammation was no longer present. The sigmoid was skeletonized and transected with the aid of a Ethicon TX 60 mm stapler. A noncrushing bowel clamp was applied proximal to the staple line and the bowel was divided. The sigmoid was mobilized from the lateral peritoneal wall dissection extending to the mid descending colon where the bowel was again divided with the aid of an Ethicon TX 60 mm stapler. The mesentery was divided with the Covidien Impact dissector with the left colic vessels controlled with suture ligatures of 2-0 silk. The specimen was removed from the field. The presence of this large abscess precluded my efforts to complete a primary anastomosis. The descending colon was from the lateral peritoneal reflection with the dissection extending proximal to the splenic flexure onto the distal transverse colon. This allowed sufficient length to exteriorize the descending colon as an end colostomy in the left upper quadrant anterior abdominal wall. The small bowel was examined and found to be normal. A rather lengthy retrocecal appendix was encountered. There was no inflammation, but the tip of the appendix was very close to the hepatic flexure. The mesoappendix was divided with curved hemostats. The appendix was transected at its junction with the cecum using the Ethicon TX 60 mm stapler. The appendiceal artery was suture ligated with 3-0 silk and the rest of the mesoappendix was divided with the aid of the Covidien Impact dissector. The appendix was removed from the field. The left upper quadrant and pelvis were inspected for adequate hemostasis before creating the ostomy through the anterior abdominal wall in the left upper quadrant. The site was selected, a circular incision was made in the skin and the dissection carried to the anterior rectus sheath. The rectus sheath was incised transversely, the left rectus abdominis muscle divided in the direction of its fibers, and the posterior rectus sheath was then transversely incised. The descending end colostomy was exteriorized through this opening and held in place with noncrushing bowel clamps. The abdominal wall was closed in layers closing the peritoneum with running interlocking 0 Vicryl. Fascia was approximated with interrupted [id number] 0 Vicryl. Subcutaneous tissue was approximated with running 3-0 Vicryl. The skin edges were reapproximated with fabi. A dry sterile dressing was applied to the midline incision. The end colostomy was then matured by excising the staple line, placing 4 quadrant vertical mattress 3-0 chromic followed by interrupted 3-0 chromic to approximate the colonic mucosa to the skin edges. An ostomy appliance was then placed. The patient was taken to recovery in stable condition. He tolerated the procedure well. Needle, sponge, and instrument counts were correct at the close of the case.
[2016-04-26] MEDS: *HR* HYDROmorphone (PF) 1 MG/ML SYRINGE IVP PRN ×5 (12:37→21:57)
--- NOTE | 2016-04-26 13:18 | Anesthesia Evaluation Post Op ---
Date of Encounter: 04/26/16 Time of Encounter: 13:20 - Vital Signs Vital Signs: Selected Entries 04/26/16 13:10 Pulse Rate 89 Respiratory Rate 16 Blood Pressure 156/98 O2 Sat by Pulse Oximetry 95 - Lungs Lungs: Clear Ascult./Percussion - Airway Airway: Non-obstructed - Cardiovascular Regular Rate - Mental Status Mental Status: Alert & Oriented, Answers Appropriately - Nausea Vomiting Nausea Vomiting: Not Present - Hydration Hydration: NPO - Discharge PostOp Status: Transfer Patient to floor
[2016-04-26] MEDS ORDERED: Ondansetron 4 MG/2 ML VIAL IVP PRN (13:22)
[2016-04-26] MEDS ORDERED: NON-FORMULARY MEDICATION 1 EACH EACH (Oxygen [Oxygen] 2.5 L) SCH (13:22)
[2016-04-26] MEDS ORDERED: Acetaminophen IV 1,000 MG/100 ML INFUS..BTL IVPB SCH (13:22)
[2016-04-26] MEDS ORDERED: D10% in Water 500 ML IV PRN (13:22)
[2016-04-26] MEDS ORDERED: Clinimix E 5%-15% SOLUTION 2,000 ML with MVI, adult with vitamin K 10 ML, Insulin Hum... IV SCH ×2 (13:22→17:00)
[2016-04-26] MEDS ORDERED: D5% in Water 1,000 ML IV PRN (13:22)
[2016-04-26] MEDS ORDERED: *HR* Dextrose 50 % in Water (Syg) 50 ML SYRINGE IVP PRN (13:22)
[2016-04-26] MEDS ORDERED: Naloxone 0.4 MG/ML INJ IVP PRN (13:22)
--- NOTE | 2016-04-26 15:20 | Internal Med Progress Note ---
Date of Encounter: 04/26/16 Time of Encounter: 15:00 - Assessment and plan (1) Abscess of sigmoid colon due to diverticulitis Current Visit: Yes Status: Acute Assessment and plan: - CT A/P suggests perforated acute sigmoid diverticulitis with developing intra- abdominal abscess/pericolonic phlegmon. - Dr. Mcbride on board and recommends antibiotics treatment for now with sigmoid colectomy planned possibly in the next few days. - Repeated CT A/P showed persistent changes of sigmoid diverticulitis with pericolonic phlegmon/extraluminal gas & fluid. - Clinically stable with diarrhea improves per patient. C. difficile negative. - Civil Manager on board and patient is receiving TPN via right subclavian CVC placed by Dr. Mcbride. - Appreciate Dr. Mcbride's assistance on patient care. - Surgery done today by Dr Mcbride. On Ertapenem now. Patient is at high risk because he has a diverticulitis which needed surgical intervention. (2) CAD (coronary artery disease) Current Visit: No Status: Chronic Assessment and plan: - CAD s/p heart cath 30 years ago. - Cardiology was consulted for preoperative cardiovascular examination and determined patient is at intermediate risk of perioperative complications. Qualifiers: Coronary Disease-Associated Artery/Lesion type: [place] artery [place] vs. transplanted heart: [place] heart Associated angina: without angina Qualified Code(s): I25.10 - Atherosclerotic heart disease of [place] coronary artery without angina pectoris (3) CHF (congestive heart failure) Current Visit: No Status: Chronic Assessment and plan: - Echo on 04/16/16 found LVEF 60% with mild LV diastolic dysfunction. - Continue on Lasix 40 mg PO daily. Qualifiers: Congestive heart failure type: diastolic Congestive heart failure chronicity: unspecified congestive heart failure chronicity Qualified Code(s) : I50.30 - Unspecified diastolic (congestive) heart failure (4) COPD (chronic obstructive pulmonary disease) Current Visit: No Status: Chronic Assessment and plan: - Stable as patient reports no significant shortness of breath at this time. - Consider brochodilator if needed. Qualifiers: COPD type: unspecified COPD Qualified Code(s): J44.9 - Chronic obstructive pulmonary disease, unspecified (5) Hyperlipidemia Current Visit: No Status: Chronic Assessment and plan: Stable. Qualifiers: Hyperlipidemia type: unspecified Qualified Code(s): E78.5 - Hyperlipidemia , unspecified (6) Hypertension Current Visit: Yes Status: Chronic Assessment and plan: - Accelerated hypertension - Continue atenolol, amlodipine and IV hydralazine scheduled & prn SBP > 160. - Continue to monitor. Qualifiers: Hypertension type: essential hypertension Qualified Code(s): I10 - Essential (primary) hypertension (7) DVT prophylaxis Current Visit: Yes Status: Acute Assessment and plan: - Continue SQ heparin. - Time Spent With Patient Greater than 35 minutes - Subjective Interval history: Patient is a 80-year-old male presented to ER for abdominal pain, diarrhea. His past medical history is significant for CHF, COPD, CAD, dementia, hyperlipidemia, hypertension. Patient has surgery today. Patient was seen and examined after surgery. He is sleepy, possibly due to anesthesia. He can be wake up and answer questions properly. He is placed on close monitoring. He does not complain pain right now. Will continue close monitoring, ertapenem placed by surgeon. - Constitutional Vitals: Temp Pulse Resp BP Pulse Ox 98.2 F 93 18 190/67 94 L 04/26/16 13:35 04/26/16 13:35 04/26/16 13:35 04/26/16 13:35 04/26/16 13:35 General appearance: Present: cooperative, A&O X 3, morbidly obese, no acute distress, answers questions appropriately - Head Head exam: Present: atraumatic, normocephalic - Eye Eye exam: Present: PERRL, conjuntiva pink, sclera anicteric Pupils: Present: PERRL - Neck Neck exam general surgery: Present: supple, trachea midline. Absent: lymphadenopathy - Respiratory Respiratory exam: Present: CTAB. Absent: accessory muscle use, rales, rhonchi, wheezes - Cardiovascular Cardiovascular exam: Present: RRR, +S1, +S2. Absent: diastolic murmur, gallop, rubs, systolic murmur - GI/Abdominal GI/Abdominal exam: Present: normal bowel sounds, soft, no peritoneal signs. Absent: distended, tenderness Additional comments: colostomy in place. No infiltration on incision dressing. - Extremities Exam Extremities exam: Present: warm, radial pulses palpable and symetrical. Absent : calf tenderness, cyanotic, pedal edema - Neurological Exam Neurological exam: Present: CN II-XII intact, oriented X3, no focal deficits. Absent: pronater drift, facial droop, speech deficit - Skin Skin exam: Present: dry, intact Internal Medicine: Result - Labs CBC & Chem 7: 04/26/16 04:43 04/26/16 04:43 Labs: Short CBC 04/26/16 Range/Units 04:43 WBC 16.2 H (4.3-11.1) K/mcL Hgb 10.7 L (12.9-16.9) g/dL Hct 32.9 L (37.5-50.1) % Plt Count 282 (140-400) K/mcL Neutrophils # 13.6 H (1.6-8.9) K/mcL BMP 04/26/16 04:43 Sodium 138 Potassium 4.0 Chloride 105 Carbon Dioxide 33 H BUN 17 Creatinine 0.70 L Glucose 169 H Calcium 8.5 L - ABG Interpretation ABG results: PT/INR, D-dimer PT 15.1 Seconds (9.4-12.1) H 04/26/16 04:43 Consult Discharge Plan - Plan Referrals: Millie Carpenter DO [Primary Care Provider] - Kobi Mcbride MD [Non-Partnered Physician] -
[2016-04-26] MEDS: *HR* Metoprolol 5 MG/5 ML VIAL IVP SCH (16:53)
[2016-04-26] MEDS: Clinimix E 5%-15% SOLUTION 2,000 ML with MVI, adult with vitamin K 10 ML, Insulin Hum... IV SCH ×2 (16:54→17:00)
[2016-04-26] MEDS: Insulin DETEMIR 100 UNIT/ML X5UNITS SQ SCH (21:58)
[2016-04-26] MEDS: Acetaminophen IV 1,000 MG/100 ML INFUS..BTL IVPB SCH (21:58)
[2016-04-27] MEDS: Insulin LISPRO 300 UNITS/3 ML VIAL SQ SCH ×6 (00:40→20:59)
[2016-04-27] MEDS: *HR* Metoprolol 5 MG/5 ML VIAL IVP SCH ×5 (00:43→23:58)
[2016-04-27] MEDS: Acetaminophen IV 1,000 MG/100 ML INFUS..BTL IVPB SCH ×4 (03:24→21:13)
[2016-04-27 04:13] LABS: BUN/Creatinine Ratio 37 (6-26); Blood Urea Nitrogen 27 mg/dL (8-26); Calcium 8.6 mg/dL (8.6-10.8); Carbon Dioxide 29 mEq/L (19-29); Chloride 105 mEq/L (98-109); Glucose 141 mg/dL (70-99); Osmolality,Calculated 291 (280-300); Potassium 4.8 mEq/L (3.5-4.5); Sodium 137 mEq/L (136-145); eGFR For African Americans > 60 (> 60); eGFR For Non-African Americans > 60 (> 60)
[2016-04-27] MEDS: *HR* HYDROmorphone (PF) 1 MG/ML SYRINGE IVP PRN ×3 (04:29→16:24)
[2016-04-27 05:14] LABS: Magnesium 2.1 mg/dL (1.6-2.6); Phosphorous 2.9 mg/dL (2.3-4.7)
[2016-04-27 07:39] LABS: Basophils % 0.1 %; Eosinophils % 0.1 %; Immature Granulocytes % 1.2 % (0-4); Immature Platelets 3.3 % (1.1-6.1); Lymphocytes # 0.9 K/mcL (0.6-4.6); Lymphocytes % 4.6 %; Mean Corpuscular HGB Conc 32.2 g/dL (31.6-35.5); Mean Corpuscular Hemoglobin 30.3 pg (28.0-33.3); Mean Platelet Volume 10.9 fL (9.4-12.4); Monocytes # 1.8 K/mcL (0.0-1.3); Monocytes % 9.5 %; Platelet Count 258 K/mcL (140-400); Red Blood Count 2.87 M/mcL (4.19-5.50); Red Cell Distribution Width 14.7 % (11.5-14.5); Segmented Neutrophils % 84.5 %
[2016-04-27] MEDS: Clinimix E 5%-15% SOLUTION 2,000 ML with MVI, adult with vitamin K 10 ML, Insulin Hum... IV SCH ×3 (07:49→17:41)
[2016-04-27] MEDS: Ringers Solution, Lactated 1,000 ML IVC SCH ×2 (07:51→12:56)
[2016-04-27 08:02] LABS: Hemoglobin 8.7 g/dL (12.9-16.9); Mean Corpuscular Volume 94.1 fL (83.0-100.0)
[2016-04-27 08:07] LABS: Platelet Estimate Normal (Normal)
[2016-04-27] MEDS: Ertapenem 1,000 MG in 0.9 % Sodium Chloride Mini Bag 100 ML IVPB SCH (08:15)
[2016-04-27] MEDS: Lisinopril 20 MG TABLET PO SCH (08:16)
[2016-04-27] MEDS: Furosemide 40 MG TABLET PO SCH (08:16)
[2016-04-27] MEDS: amLODIPine 5 MG TABLET PO SCH (08:16)
--- NOTE | 2016-04-27 11:25 | General Surgery Progress Note ---
Date of Encounter: 04/25/16 Time of Encounter: 10:40 Subjective Patient reports: feels better, still having pain Narrative: General Surgery: POD #1 - patient is awake and alert, complaining of incisional pain as expected. Patient has been afebrile since surgery, 98.8, pulse regular, 70 bpm; respirations 18-20, blood pressure 131/65. SPO2 on 4 L/m nasal cannula 95-97% Lungs: Clear to auscultation no bibasilar breath sounds are diminished. Minimal abdominal pain with deep inspiration Abdominal pain with cough, as expected Abdomen: Soft, with active bowel sounds. Small amount of stool present at the stoma. Midline incision is clean and dry. Active bowel sounds. Stoma upper left abdomen - healthy; intact mucosa. Robbins: Intact - urine output approximately 725 mL this date Laboratories: White count 18.9, reaction to surgery; hemoglobin 8.7, hematocrit 27.0 - reflecting intraoperative blood loss and perioperative IV fluids/dilution Platelet count 258,000. Electrolytes - sodium 137, potassium 4.8, BUN 27, creatinine 1.73. Estimated GFR remains greater than 60. Accu-Cheks: Range 146-196 Impression/Plan: Postoperative day 1 - status post Raúl procedure for sigmoid diverticulitis with large pericolic abscess; acceptable status Bowel activity present, active bowel sounds and colostomy output - will allow clear liquids Hyperkalemia - will reduce potassium and TPN as well as any oral supplements Acute blood loss anemia - related to intra operative blood loss as well as perioperative fluid/dilution. Continue to monitor Urethral stenosis - effectively dilated, requiring long-term Robbins per [facility]. Hypertension: Currently blood pressure controlled Diabetes mellitus - acceptable Accu-Cheks with sliding scale coverage History of chronic respiratory failure - status stable Dementia - stable - no obvious exacerbation with surgery/anesthesia morbid obesity Objective Vital Signs - Last 8 Hours Temp Pulse Resp BP Pulse Ox 04/27/16 06:42 98.8 F 70 20 131/65 04/27/16 05:58 77 18 147/80 97 04/27/16 04:09 98.3 F 75 16 151/71 95 Intake and Output 04/26/16 04/27/16 04/27/16 23:59 07:59 15:59 Intake Total 200 / 200 350 / 350 Output Total 375 / 375 350 / 350 Balance 200 / 200 -25 / -25 -350 / -350 Intake: IV Fluids 200 / 200 350 / 350 Ofirmev 1,000 mg In 100 200 / 200 100 / 100 ml @ 400 mls/hr IVPB Q6H [facility] Rx#:[id number] Intralipid 20% 250 ML @ 250 / 250 21 mls/hr IVPB DAILY@1700 [facility] Rx#:[id number] Oral 0 / 0 Output: Catheter 375 / 375 350 / 350 Other: Meal NPO NPO Percent of Meal Consumed 0% Weight 135.533 kg Blood Glucose* 253 146 Patient Weight 04/27/16 23:59 Weight 135.533 kg - Labs 04/27/16 04:50 04/27/16 03:45 Diabetes panel 04/27/16 Range/Units 03:45 Sodium 137 (136-145) mEq/L Potassium 4.8 H (3.5-4.5) mEq/L Chloride 105 (98-109) mEq/L Carbon Dioxide 29 (19-29) mEq/L BUN 27 H D (8-26) mg/dL Creatinine 0.73 (0.72-1.25) mg/dL Glucose 141 H (70-99) mg/dL Calcium 8.6 (8.6-10.8) mg/dL Calcium panel 04/27/16 04/27/16 Range/Units 03:45 03:45 Calcium 8.6 (8.6-10.8) mg/dL Phosphorus 2.9 (2.3-4.7) mg/dL Pituitary panel 04/27/16 Range/Units 03:45 Sodium 137 (136-145) mEq/L Potassium 4.8 H (3.5-4.5) mEq/L Chloride 105 (98-109) mEq/L Carbon Dioxide 29 (19-29) mEq/L BUN 27 H D (8-26) mg/dL Creatinine 0.73 (0.72-1.25) mg/dL Glucose 141 H (70-99) mg/dL Calcium 8.6 (8.6-10.8) mg/dL Adrenal panel 04/27/16 Range/Units 03:45 Sodium 137 (136-145) mEq/L Potassium 4.8 H (3.5-4.5) mEq/L Chloride 105 (98-109) mEq/L Carbon Dioxide 29 (19-29) mEq/L BUN 27 H D (8-26) mg/dL Creatinine 0.73 (0.72-1.25) mg/dL Glucose 141 H (70-99) mg/dL Calcium 8.6 (8.6-10.8) mg/dL - VTE Documentation of Mechanical Device: Intermittent pneumatic compression device Consult Discharge Plan - Plan Referrals: Kobi Mcbride MD [Non-Partnered Physician] -
--- NOTE | 2016-04-27 14:40 | Internal Med Progress Note ---
Date of Encounter: 04/27/16 Time of Encounter: 10:00 - Assessment and plan (1) Abscess of sigmoid colon due to diverticulitis Current Visit: Yes Status: Acute Assessment and plan: - CT A/P suggests perforated acute sigmoid diverticulitis with developing intra- abdominal abscess/pericolonic phlegmon. - Repeated CT A/P showed persistent changes of sigmoid diverticulitis with pericolonic phlegmon/extraluminal gas & fluid. - Surgery done by Dr Mcbride. On Ertapenem now. Clear liquid diet started. (2) CAD (coronary artery disease) Current Visit: No Status: Chronic Assessment and plan: - CAD s/p heart cath 30 years ago. - Cardiology was consulted for preoperative cardiovascular examination and determined patient is at intermediate risk of perioperative complications. Qualifiers: Coronary Disease-Associated Artery/Lesion type: [place] artery [place] vs. transplanted heart: [place] heart Associated angina: without angina Qualified Code(s): I25.10 - Atherosclerotic heart disease of [place] coronary artery without angina pectoris (3) CHF (congestive heart failure) Current Visit: No Status: Chronic Assessment and plan: - Echo on 04/16/16 found LVEF 60% with mild LV diastolic dysfunction. - Continue on Lasix 40 mg PO daily. Qualifiers: Congestive heart failure type: diastolic Congestive heart failure chronicity: unspecified congestive heart failure chronicity Qualified Code(s) : I50.30 - Unspecified diastolic (congestive) heart failure (4) COPD (chronic obstructive pulmonary disease) Current Visit: No Status: Chronic Assessment and plan: - Stable as patient reports no significant shortness of breath at this time. - Consider brochodilator if needed. Qualifiers: COPD type: unspecified COPD Qualified Code(s): J44.9 - Chronic obstructive pulmonary disease, unspecified (5) Hyperlipidemia Current Visit: No Status: Chronic Assessment and plan: Stable. Qualifiers: Hyperlipidemia type: unspecified Qualified Code(s): E78.5 - Hyperlipidemia , unspecified (6) Hypertension Current Visit: Yes Status: Chronic Assessment and plan: - Accelerated hypertension - Continue atenolol, amlodipine and IV hydralazine scheduled & prn SBP > 160. - Continue to monitor. Qualifiers: Hypertension type: essential hypertension Qualified Code(s): I10 - Essential (primary) hypertension (7) DVT prophylaxis Current Visit: Yes Status: Acute Assessment and plan: - Continue SQ heparin. - Time Spent With Patient 25 - 35 minutes - Subjective Interval history: Patient is a 80-year-old male presented to ER for abdominal pain, diarrhea. His past medical history is significant for CHF, COPD, CAD, dementia, hyperlipidemia, hypertension. Patient has surgery. Day 1 post surgery. Has mild to moderate incisional pain. No nausea, no vomiting. No fever. Started a clear liquid diet per surgical consult. on ertapenem. Continue close monitoring - Constitutional Vitals: Temp Pulse Resp BP Pulse Ox 98.8 F 75 16 159/61 98 04/27/16 06:42 04/27/16 12:52 04/27/16 11:44 04/27/16 12:52 04/27/16 11:44 General appearance: Present: cooperative, A&O X 3, morbidly obese, no acute distress, answers questions appropriately - Head Head exam: Present: atraumatic, normocephalic - Eye Eye exam: Present: PERRL, conjuntiva pink, sclera anicteric Pupils: Present: PERRL - Neck Neck exam general surgery: Present: supple, trachea midline. Absent: lymphadenopathy - Respiratory Respiratory exam: Present: CTAB. Absent: accessory muscle use, rales, rhonchi, wheezes - Cardiovascular Cardiovascular exam: Present: RRR, +S1, +S2. Absent: diastolic murmur, gallop, rubs, systolic murmur - GI/Abdominal GI/Abdominal exam: Present: normal bowel sounds, soft, no peritoneal signs. Absent: distended, tenderness Additional comments: Colostomy in place. Abd incision w/o infiltrate. - Extremities Exam Extremities exam: Present: warm, radial pulses palpable and symetrical. Absent : calf tenderness, cyanotic, pedal edema - Neurological Exam Neurological exam: Present: CN II-XII intact, oriented X3, no focal deficits. Absent: pronater drift, facial droop, speech deficit - Skin Skin exam: Present: dry, intact Internal Medicine: Result - Labs CBC & Chem 7: 04/27/16 04:50 04/27/16 03:45 Labs: Short CBC 04/27/16 Range/Units 04:50 WBC 18.9 H (4.3-11.1) K/mcL Hgb 8.7 L D (12.9-16.9) g/dL Hct 27.0 L (37.5-50.1) % Plt Count 258 (140-400) K/mcL Neutrophils # 16.0 H (1.6-8.9) K/mcL BMP 04/27/16 03:45 Sodium 137 Potassium 4.8 H Chloride 105 Carbon Dioxide 29 BUN 27 H D Creatinine 0.73 Glucose 141 H Calcium 8.6 - ABG Interpretation ABG results: PT/INR, D-dimer PT 15.1 Seconds (9.4-12.1) H 04/26/16 04:43 - VTE Documentation of Mechanical Device: Intermittent pneumatic compression device Consult Discharge Plan - Plan Referrals: Kobi Mcbride MD [Non-Partnered Physician] -
[2016-04-27] MEDS: Insulin DETEMIR 100 UNIT/ML X5UNITS SQ SCH (20:59)
[2016-04-28] MEDS: Insulin LISPRO 300 UNITS/3 ML VIAL SQ SCH ×6 (00:19→19:44)
[2016-04-28] MEDS: *HR* HYDROmorphone (PF) 1 MG/ML SYRINGE IVP PRN ×3 (01:08→19:38)
[2016-04-28] MEDS: Acetaminophen IV 1,000 MG/100 ML INFUS..BTL IVPB SCH ×2 (03:15→08:51)
[2016-04-28 03:20] LABS: Basophils % 0.1 %; Eosinophils # 0.1 K/mcL (0.0-0.6); Eosinophils % 0.8 %; Hematocrit 25.7 % (37.5-50.1); Immature Granulocytes % 0.8 % (0-4); Lymphocytes # 0.9 K/mcL (0.6-4.6); Lymphocytes % 5.4 %; Mean Corpuscular HGB Conc 32.7 g/dL (31.6-35.5); Mean Corpuscular Hemoglobin 30.8 pg (28.0-33.3); Mean Corpuscular Volume 94.1 fL (83.0-100.0); Monocytes # 1.5 K/mcL (0.0-1.3); Monocytes % 9.2 %; Neutrophils # 13.4 K/mcL (1.6-8.9); Platelet Count 256 K/mcL (140-400); Red Blood Count 2.73 M/mcL (4.19-5.50); Red Cell Distribution Width 14.9 % (11.5-14.5); Segmented Neutrophils % 83.7 %
[2016-04-28 03:21] LABS: Hemoglobin 8.4 g/dL (12.9-16.9)
[2016-04-28 03:33] LABS: Phosphorous 2.7 mg/dL (2.3-4.7)
[2016-04-28 03:36] LABS: Alanine Aminotransferase 6 Units/L (0-55); Albumin/Globulin Ratio 0.6 (1.1-2.2); Alkaline Phosphatase 37 Units/L (38-126); Aspartate Amino Transferase 12 Units/L (5-34); BUN/Creatinine Ratio 32 (6-26); Bilirubin,Total 0.4 mg/dL (0.2-1.2); Blood Urea Nitrogen 22 mg/dL (8-26); Calcium 8.5 mg/dL (8.6-10.8); Carbon Dioxide 29 mEq/L (19-29); Chloride 104 mEq/L (98-109); Globulin 3.3 g/dL (2.4-3.5); Glucose 162 mg/dL (70-99); Osmolality,Calculated 291 (280-300); Potassium 4.4 mEq/L (3.5-4.5); Sodium 137 mEq/L (136-145); Total Protein 5.2 g/dL (6.0-8.3); eGFR For African Americans > 60 (> 60); eGFR For Non-African Americans > 60 (> 60)
[2016-04-28 03:37] LABS: Albumin 1.9 g/dL (3.5-5.0)
[2016-04-28] MEDS: *HR* Metoprolol 5 MG/5 ML VIAL IVP SCH (05:43)
[2016-04-28] MEDS: Ertapenem 1,000 MG in 0.9 % Sodium Chloride Mini Bag 100 ML IVPB SCH (08:42)
[2016-04-28] MEDS: Furosemide 40 MG TABLET PO SCH (08:43)
[2016-04-28] MEDS: Lisinopril 20 MG TABLET PO SCH (08:44)
[2016-04-28] MEDS: amLODIPine 5 MG TABLET PO SCH (08:44)
--- NOTE | 2016-04-28 09:49 | General Surgery Progress Note ---
Date of Encounter: 04/28/16 Time of Encounter: 09:39 Subjective Patient reports: no new complaints, pain is less Narrative: General Surgery - POD #2: Patient is awake and alert, his incisional pain is described as diminished. He is tolerating clear liquids with no nausea vomiting. The patient remains afebrile and hemodynamically stable - 98.3, pulse 84, respirations 18, blood pressure 181/68. SPO2 on 4 L/m nasal cannula 96% Lungs: Clear Abdomen: Soft, minimal incisional tenderness, nondistended. Active bowel sounds. Midline incision clean and dry. No obvious intra-abdominal masses or rebound. Stoma left upper anterior abdominal wall appears healthy. Stoma output approximately 450 mL since surgery. Urine output 1925 mL for the period 04/27/16, 850 mL so far today Laboratories: White count slowly improving, 16.0; hemoglobin 8.4 with hematocrit 25.7; platelet count 256,000. Electrolytes, BUN, Creatinine within normal limits. LFTs within normal limits; total serum protein 5.2, albumin 1.9. Accu-Cheks ranging 146-196 Operative pathology still pending Impressions/plan: 80-year-old male, postoperative day 2, status post Raúl procedure with incidental appendectomy. Acceptable postoperative status. Postoperative anemia - stable at approximately 8.4/25.7 Hypertension - systolic elevated; we will resume oral meds, however, the patient may require additional BP control Morbid obesity Hyperkalemia - resolved Hypoproteinemia/hypoalbuminemia - continue TPN, advance diet; eventual goal is to resume regular diet and discontinue TPN Diabetes mellitus - acceptable Accu-Cheks, continue sliding-scale coverage History of chronic respiratory failure - status appears stable History of dementia - status appears stable Urethral stenosis - continue indwelling Robbins Objective Vital Signs - Last 8 Hours Temp Pulse Resp BP Pulse Ox 04/28/16 07:11 98.3 F 84 18 181/68 96 04/28/16 04:13 98.3 F 96 14 185/69 97 04/28/16 04:03 16 94 L Intake and Output 04/27/16 04/28/16 04/28/16 23:59 07:59 15:59 Intake Total 100 / 100 450 / 450 360 / 360 Output Total 200 / 200 1000 / 1000 Balance -100 / -100 -550 / -550 360 / 360 Intake: IV Fluids 100 / 100 450 / 450 Ofirmev 1,000 mg In 100 100 / 100 200 / 200 ml @ 400 mls/hr IVPB Q6H [facility] Rx#:[id number] Intralipid 20% 250 ML @ 250 / 250 21 mls/hr IVPB DAILY@1700 [facility] Rx#:[id number] Oral 0 / 0 0 / 0 360 / 360 Infusion Intake 0 / 0 Output: Stool 0 / 0 150 / 150 Catheter 200 / 200 850 / 850 Other: Meal Breakfast Blood Glucose* 182 173 - Labs 04/28/16 03:10 04/28/16 03:10 Diabetes panel 04/27/16 04/28/16 Range/Units 10:58 03:10 Sodium 137 (136-145) mEq/L Potassium 4.4 (3.5-4.5) mEq/L Chloride 104 (98-109) mEq/L Carbon Dioxide 29 (19-29) mEq/L BUN 22 (8-26) mg/dL Creatinine 0.68 L (0.72-1.25) mg/dL Glucose 162 H (70-99) mg/dL Calcium 8.5 L (8.6-10.8) mg/dL AST 12 (5-34) Units/L ALT 6 (0-55) Units/L Alkaline Phosphatase 37 L (38-126) Units/L Albumin 1.9 L (3.5-5.0) g/dL Triglycerides 40 (< 150) mg/dL Calcium panel 04/28/16 04/28/16 Range/Units 03:10 03:10 Calcium 8.5 L (8.6-10.8) mg/dL Phosphorus 2.7 (2.3-4.7) mg/dL Albumin 1.9 L (3.5-5.0) g/dL Pituitary panel 04/28/16 Range/Units 03:10 Sodium 137 (136-145) mEq/L Potassium 4.4 (3.5-4.5) mEq/L Chloride 104 (98-109) mEq/L Carbon Dioxide 29 (19-29) mEq/L BUN 22 (8-26) mg/dL Creatinine 0.68 L (0.72-1.25) mg/dL Glucose 162 H (70-99) mg/dL Calcium 8.5 L (8.6-10.8) mg/dL Adrenal panel 04/28/16 Range/Units 03:10 Sodium 137 (136-145) mEq/L Potassium 4.4 (3.5-4.5) mEq/L Chloride 104 (98-109) mEq/L Carbon Dioxide 29 (19-29) mEq/L BUN 22 (8-26) mg/dL Creatinine 0.68 L (0.72-1.25) mg/dL Glucose 162 H (70-99) mg/dL Calcium 8.5 L (8.6-10.8) mg/dL Total Bilirubin 0.4 (0.2-1.2) mg/dL AST 12 (5-34) Units/L ALT 6 (0-55) Units/L Alkaline Phosphatase 37 L (38-126) Units/L Albumin 1.9 L (3.5-5.0) g/dL - VTE Documentation of Mechanical Device: Intermittent pneumatic compression device Consult Discharge Plan - Plan Referrals: Kobi Mcbride MD [Non-Partnered Physician] -
[2016-04-28] MEDS: *HR* OxyCODONE/APAP 5/325 TABLET PO PRN ×2 (11:25→17:20)
--- NOTE | 2016-04-28 13:49 | Internal Med Progress Note ---
Date of Encounter: 04/28/16 Time of Encounter: 10:00 - Assessment and plan (1) Abscess of sigmoid colon due to diverticulitis Current Visit: Yes Status: Acute Assessment and plan: - CT A/P suggests perforated acute sigmoid diverticulitis with developing intra- abdominal abscess/pericolonic phlegmon. - Repeated CT A/P showed persistent changes of sigmoid diverticulitis with pericolonic phlegmon/extraluminal gas & fluid. - Surgery done by Dr cMbride. On Ertapenem now. On Full liquid diet. patient is at high risk of because he has diverticulitis with perforation, which need surgical intervention. (2) CAD (coronary artery disease) Current Visit: No Status: Chronic Assessment and plan: - CAD s/p heart cath 30 years ago. - Cardiology was consulted for preoperative cardiovascular examination and determined patient is at intermediate risk of perioperative complications. Qualifiers: Coronary Disease-Associated Artery/Lesion type: [place] artery [place] vs. transplanted heart: [place] heart Associated angina: without angina Qualified Code(s): I25.10 - Atherosclerotic heart disease of [place] coronary artery without angina pectoris (3) CHF (congestive heart failure) Current Visit: No Status: Chronic Assessment and plan: - Echo on 04/16/16 found LVEF 60% with mild LV diastolic dysfunction. - Continue on Lasix 40 mg PO daily. Qualifiers: Congestive heart failure type: diastolic Congestive heart failure chronicity: unspecified congestive heart failure chronicity Qualified Code(s) : I50.30 - Unspecified diastolic (congestive) heart failure (4) COPD (chronic obstructive pulmonary disease) Current Visit: No Status: Chronic Assessment and plan: - Stable as patient reports no significant shortness of breath at this time. - Consider brochodilator if needed. Qualifiers: COPD type: unspecified COPD Qualified Code(s): J44.9 - Chronic obstructive pulmonary disease, unspecified (5) Hyperlipidemia Current Visit: No Status: Chronic Assessment and plan: Stable. Qualifiers: Hyperlipidemia type: unspecified Qualified Code(s): E78.5 - Hyperlipidemia , unspecified (6) Hypertension Current Visit: Yes Status: Chronic Assessment and plan: - Accelerated hypertension - Continue atenolol, amlodipine, lisinopril and IV hydralazine prn SBP > 160. - Continue to monitor. - Change scheduled iv hydralazine to po. Qualifiers: Hypertension type: essential hypertension Qualified Code(s): I10 - Essential (primary) hypertension (7) DVT prophylaxis Current Visit: Yes Status: Acute Assessment and plan: - Continue SQ heparin. - Time Spent With Patient Greater than 35 minutes - Subjective Interval history: Patient is a 80-year-old male presented to ER for abdominal pain, diarrhea. His past medical history is significant for CHF, COPD, CAD, dementia, hyperlipidemia, hypertension. Patient has surgery. Day 2 post surgery. Not c/o pain today. No nausea, no vomiting. No fever. Started a full liquid diet per surgical consult. on ertapenem. Continue close monitoring. - Constitutional Vitals: Temp Pulse Resp BP Pulse Ox 98.3 F 84 14 181/68 96 04/28/16 07:11 04/28/16 07:11 04/28/16 13:10 04/28/16 07:11 04/28/16 13:10 General appearance: Present: cooperative, A&O X 3, morbidly obese, no acute distress, answers questions appropriately - Head Head exam: Present: atraumatic, normocephalic - Eye Eye exam: Present: PERRL, conjuntiva pink, sclera anicteric Pupils: Present: PERRL - Neck Neck exam general surgery: Present: supple, trachea midline. Absent: lymphadenopathy - Respiratory Respiratory exam: Present: CTAB. Absent: accessory muscle use, rales, rhonchi, wheezes - Cardiovascular Cardiovascular exam: Present: RRR, +S1, +S2. Absent: diastolic murmur, gallop, rubs, systolic murmur - GI/Abdominal GI/Abdominal exam: Present: normal bowel sounds, soft, no peritoneal signs. Absent: distended, tenderness Additional comments: Colostomy bag in place. Incision wound is clear. - Extremities Exam Extremities exam: Present: warm, radial pulses palpable and symetrical. Absent : calf tenderness, cyanotic, pedal edema - Neurological Exam Neurological exam: Present: CN II-XII intact, oriented X3, no focal deficits. Absent: pronater drift, facial droop, speech deficit - Skin Skin exam: Present: dry, intact Internal Medicine: Result - Labs CBC & Chem 7: 04/28/16 03:10 04/28/16 03:10 Labs: Short CBC 04/28/16 Range/Units 03:10 WBC 16.0 H (4.3-11.1) K/mcL Hgb 8.4 L (12.9-16.9) g/dL Hct 25.7 L (37.5-50.1) % Plt Count 256 (140-400) K/mcL Neutrophils # 13.4 H (1.6-8.9) K/mcL BMP 04/28/16 03:10 Sodium 137 Potassium 4.4 Chloride 104 Carbon Dioxide 29 BUN 22 Creatinine 0.68 L Glucose 162 H Calcium 8.5 L Liver Function 04/28/16 Range/Units 03:10 Total Bilirubin 0.4 (0.2-1.2) mg/dL AST 12 (5-34) Units/L ALT 6 (0-55) Units/L Alkaline Phosphatase 37 L (38-126) Units/L Albumin 1.9 L (3.5-5.0) g/dL - ABG Interpretation ABG results: PT/INR, D-dimer PT 15.1 Seconds (9.4-12.1) H 04/26/16 04:43 - VTE Documentation of Mechanical Device: Intermittent pneumatic compression device Consult Discharge Plan - Plan Referrals: Kobi Mcbride MD [Non-Partnered Physician] -
[2016-04-28] MEDS: Clinimix E 5%-15% SOLUTION 2,000 ML with MVI, adult with vitamin K 10 ML, Insulin Hum... IV SCH (15:57)
[2016-04-28] MEDS: *HR* Heparin 5,000 UNIT/ML VIAL SQ SCH (17:16)
[2016-04-28] MEDS: hydrALAZINE 25 MG TABLET PO SCH (17:17)
[2016-04-28] MEDS: Insulin DETEMIR 100 UNIT/ML X5UNITS SQ SCH (19:39)
[2016-04-29] MEDS: *HR* OxyCODONE/APAP 5/325 TABLET PO PRN ×3 (00:40→13:03)
[2016-04-29] MEDS: hydrALAZINE 25 MG TABLET PO SCH ×5 (00:41→23:55)
[2016-04-29] MEDS: Insulin LISPRO 300 UNITS/3 ML VIAL SQ SCH ×7 (00:41→23:56)
[2016-04-29 04:21] LABS: Basophils % 0.2 %; Eosinophils # 0.2 K/mcL (0.0-0.6); Hematocrit 24.4 % (37.5-50.1); Hemoglobin 7.9 g/dL (12.9-16.9); Immature Granulocytes % 1.2 % (0-4); Lymphocytes # 1.3 K/mcL (0.6-4.6); Lymphocytes % 10.7 %; Mean Corpuscular HGB Conc 32.4 g/dL (31.6-35.5); Mean Corpuscular Hemoglobin 30.5 pg (28.0-33.3); Mean Corpuscular Volume 94.2 fL (83.0-100.0); Mean Platelet Volume 10.1 fL (9.4-12.4); Monocytes # 1.2 K/mcL (0.0-1.3); Monocytes % 10.2 %; Neutrophils # 9.1 K/mcL (1.6-8.9); Platelet Count 253 K/mcL (140-400); Red Blood Count 2.59 M/mcL (4.19-5.50); Segmented Neutrophils % 75.7 %
[2016-04-29 04:40] LABS: BUN/Creatinine Ratio 33 (6-26); Blood Urea Nitrogen 21 mg/dL (8-26); Calcium 8.4 mg/dL (8.6-10.8); Carbon Dioxide 32 mEq/L (19-29); Chloride 105 mEq/L (98-109); Glucose 136 mg/dL (70-99); Magnesium 2.1 mg/dL (1.6-2.6); Osmolality,Calculated 291 (280-300); Phosphorous 3.1 mg/dL (2.3-4.7); Potassium 4.4 mEq/L (3.5-4.5); Sodium 138 mEq/L (136-145); eGFR For African Americans > 60 (> 60); eGFR For Non-African Americans > 60 (> 60)
[2016-04-29 04:51] LABS: Reactive Lymphocytes Present (Not Present)
[2016-04-29 04:52] LABS: Platelet Estimate Normal (Normal)
[2016-04-29] MEDS: *HR* Heparin 5,000 UNIT/ML VIAL SQ SCH ×2 (05:52→17:27)
[2016-04-29] MEDS: amLODIPine 5 MG TABLET PO SCH (09:17)
[2016-04-29] MEDS: Furosemide 40 MG TABLET PO SCH (09:17)
[2016-04-29] MEDS: Lisinopril 20 MG TABLET PO SCH (09:17)
[2016-04-29] MEDS: Ertapenem 1,000 MG in 0.9 % Sodium Chloride Mini Bag 100 ML IVPB SCH (09:18)
[2016-04-29] MEDS: *HR* HYDROmorphone (PF) 1 MG/ML SYRINGE IVP PRN (09:52)
--- NOTE | 2016-04-29 13:56 | General Surgery Progress Note ---
Date of Encounter: 04/29/16 Time of Encounter: 13:50 Subjective Patient reports: no new complaints, still having pain, tolerating liquids well Narrative: General Surgery: POD #3 - patient appears to be in stable condition, he is voicing no new complaints but on examination he is indicating increased abdominal pain. This may be due to the conversion from hourly Dilaudid 2 every 4 hour Percocet. The patient is afebrile, 98.4, pulse 62, respirations 18, blood pressure 180/ 76 (range 144/55 to 180/76) SPO2 on 4 L/m nasal cannula 96% Lungs: Clear to auscultation Cardiac: Regular rate, no appreciable murmurs Abdomen: Obese, diffusely tender to moderate palpation, no obvious rebound. Active bowel sounds. Midline incision clean and dry. Stoma left upper anterior abdominal wall appears healthy - stool approximately 300 mL no output recorded this date Robbins: Remains intact, urine output 2100 mL for calendar day 04/28/16; 2425 mL so far today Laboratories: Leukocytosis continues to improve, 12.0; hemoglobin 7.9 with hematocrit 24.4; platelet count 253,000 Electrolytes, BUN and creatinine remain acceptable/within normal limits Accu-Cheks - peak of 230 last evening; for this date, range 115 to 158. - Acceptable control Impression/Plan: Postoperative day 3, status post Raúl procedure with incidental appendectomy. Patient appears to be doing well. Pathology pending. Intraoperative cultures - no growth, will discontinue Ertapenem Morbid obesity Diabetes mellitus - satisfactory control per sliding scale coverage Hypertension - appears to be better controlled, however with pain, the patient is demonstrating increased blood pressure as expected. Postoperative pain - change Percocet to 10/325 every 6 hours as needed for pain; maintain Dilaudid for breakthrough Protein/calorie depletion - continue to taper TPN as oral intake returns to normal Acute blood loss anemia - H&H currently 7.9/24.4 - transfuse 1 unit of packed cells Urethral stenosis - maintain Robbins Objective Vital Signs - Last 8 Hours Temp Pulse Resp BP Pulse Ox 04/29/16 11:56 98.4 F 62 18 180/76 98 04/29/16 09:59 14 97 04/29/16 07:45 98.1 F 66 14 142/66 97 Intake and Output 04/28/16 04/29/16 04/29/16 23:59 07:59 15:59 Intake Total 480 / 480 300 / 300 480 / 480 Output Total 400 / 400 2425 / 2425 Balance 80 / 80 -2125 / -2124 480 / 480 Intake: Oral 480 / 480 300 / 300 480 / 480 Output: Stool 150 / 150 0 / 0 Catheter 250 / 250 2425 / 2425 Other: Meal Dinner Breakfast Percent of Meal Consumed 100% 100% Weight 135.5 kg Blood Glucose* 230 115 Patient Weight 04/29/16 23:59 Weight 135.5 kg - Labs 04/29/16 03:57 04/29/16 04:00 Diabetes panel 04/29/16 Range/Units 04:00 Sodium 138 (136-145) mEq/L Potassium 4.4 (3.5-4.5) mEq/L Chloride 105 (98-109) mEq/L Carbon Dioxide 32 H (19-29) mEq/L BUN 21 (8-26) mg/dL Creatinine 0.63 L (0.72-1.25) mg/dL Glucose 136 H (70-99) mg/dL Calcium 8.4 L (8.6-10.8) mg/dL Calcium panel 04/29/16 Range/Units 04:00 Calcium 8.4 L (8.6-10.8) mg/dL Phosphorus 3.1 (2.3-4.7) mg/dL Pituitary panel 04/29/16 Range/Units 04:00 Sodium 138 (136-145) mEq/L Potassium 4.4 (3.5-4.5) mEq/L Chloride 105 (98-109) mEq/L Carbon Dioxide 32 H (19-29) mEq/L BUN 21 (8-26) mg/dL Creatinine 0.63 L (0.72-1.25) mg/dL Glucose 136 H (70-99) mg/dL Calcium 8.4 L (8.6-10.8) mg/dL Adrenal panel 04/29/16 Range/Units 04:00 Sodium 138 (136-145) mEq/L Potassium 4.4 (3.5-4.5) mEq/L Chloride 105 (98-109) mEq/L Carbon Dioxide 32 H (19-29) mEq/L BUN 21 (8-26) mg/dL Creatinine 0.63 L (0.72-1.25) mg/dL Glucose 136 H (70-99) mg/dL Calcium 8.4 L (8.6-10.8) mg/dL - VTE Documentation of Mechanical Device: Intermittent pneumatic compression device Consult Discharge Plan - Plan Referrals: Kobi Mcbride MD [Non-Partnered Physician] -
--- NOTE | 2016-04-29 14:57 | Internal Med Progress Note ---
Date of Encounter: 04/29/16 Time of Encounter: 09:00 - Assessment and plan (1) Abscess of sigmoid colon due to diverticulitis Current Visit: Yes Status: Acute Assessment and plan: - CT A/P suggests perforated acute sigmoid diverticulitis with developing intra- abdominal abscess/pericolonic phlegmon. - Repeated CT A/P showed persistent changes of sigmoid diverticulitis with pericolonic phlegmon/extraluminal gas & fluid. - Surgery done by Dr Mcbride. Advance diet per surgery. patient is at high risk of because he has diverticulitis with perforation, which need surgical intervention. (2) CAD (coronary artery disease) Current Visit: No Status: Chronic Assessment and plan: - CAD s/p heart cath 30 years ago. - Cardiology was consulted for preoperative cardiovascular examination and determined patient is at intermediate risk of perioperative complications. Qualifiers: Qualified Code(s): I25.10 - Atherosclerotic heart disease of [place] coronary artery without angina pectoris (3) CHF (congestive heart failure) Current Visit: No Status: Chronic Assessment and plan: - Echo on 04/16/16 found LVEF 60% with mild LV diastolic dysfunction. - Continue on Lasix 40 mg PO daily. Qualifiers: Qualified Code(s): I50.30 - Unspecified diastolic (congestive) heart failure (4) COPD (chronic obstructive pulmonary disease) Current Visit: No Status: Chronic Assessment and plan: - Stable as patient reports no significant shortness of breath at this time. - Consider brochodilator if needed. Qualifiers: Qualified Code(s): J44.9 - Chronic obstructive pulmonary disease, unspecified (5) Hyperlipidemia Current Visit: No Status: Chronic Assessment and plan: Stable. Qualifiers: Qualified Code(s): E78.5 - Hyperlipidemia, unspecified (6) Hypertension Current Visit: Yes Status: Chronic Assessment and plan: - Accelerated hypertension - Continue atenolol, amlodipine, lisinopril and IV hydralazine prn SBP > 160. - Continue to monitor. - Change scheduled iv hydralazine to po. - Add isosorbide dinitrate 10mg po tid. Qualifiers: Qualified Code(s): I10 - Essential (primary) hypertension (7) DVT prophylaxis Current Visit: Yes Status: Acute Assessment and plan: - Continue SQ heparin. - Time Spent With Patient Greater than 35 minutes - Subjective Interval history: Patient is a 80-year-old male presented to ER for abdominal pain, diarrhea. His past medical history is significant for CHF, COPD, CAD, dementia, hyperlipidemia, hypertension. Patient has surgery. Day 3 post surgery. Not c/o pain today. No nausea, no vomiting. No fever. Advance diet per surgical consult. Gradually taper down TPN. WBC get down, abx stopped per surgical consult. Will give 1 unit PRBC today because the hemoglobin is 7.9. Continue close monitoring. - Constitutional Vitals: Temp Pulse Resp BP Pulse Ox 98.4 F 62 18 180/76 98 04/29/16 11:56 04/29/16 11:56 04/29/16 11:56 04/29/16 11:56 04/29/16 11:56 General appearance: Present: cooperative, A&O X 3, morbidly obese, no acute distress, answers questions appropriately - Head Head exam: Present: atraumatic, normocephalic - Eye Eye exam: Present: PERRL, conjuntiva pink, sclera anicteric Pupils: Present: PERRL - Neck Neck exam general surgery: Present: supple, trachea midline. Absent: lymphadenopathy - Respiratory Respiratory exam: Present: CTAB. Absent: accessory muscle use, rales, rhonchi, wheezes - Cardiovascular Cardiovascular exam: Present: RRR, +S1, +S2. Absent: diastolic murmur, gallop, rubs, systolic murmur - GI/Abdominal GI/Abdominal exam: Present: normal bowel sounds, soft, no peritoneal signs. Absent: distended, tenderness Additional comments: Colostomy bag in place. Incision is clear. - Extremities Exam Extremities exam: Present: warm, radial pulses palpable and symetrical. Absent : calf tenderness, cyanotic, pedal edema - Neurological Exam Neurological exam: Present: CN II-XII intact, oriented X3, no focal deficits. Absent: pronater drift, facial droop, speech deficit - Skin Skin exam: Present: dry, intact Internal Medicine: Result - Labs CBC & Chem 7: 04/29/16 03:57 04/29/16 04:00 Labs: Short CBC 04/29/16 Range/Units 03:57 WBC 12.0 H (4.3-11.1) K/mcL Hgb 7.9 L (12.9-16.9) g/dL Hct 24.4 L (37.5-50.1) % Plt Count 253 (140-400) K/mcL Neutrophils # 9.1 H (1.6-8.9) K/mcL BMP 04/29/16 04:00 Sodium 138 Potassium 4.4 Chloride 105 Carbon Dioxide 32 H BUN 21 Creatinine 0.63 L Glucose 136 H Calcium 8.4 L - ABG Interpretation ABG results: PT/INR, D-dimer PT 15.1 Seconds (9.4-12.1) H 04/26/16 04:43 - VTE Documentation of Mechanical Device: Intermittent pneumatic compression device Consult Discharge Plan - Plan Referrals: Kobi Mcbride MD [Non-Partnered Physician] -
[2016-04-29] MEDS ORDERED: 0.9 % Sodium Chloride Mini Bag 100 ML ONE (15:10)
[2016-04-29] MEDS: Clinimix E 5%-15% SOLUTION 2,000 ML with MVI, adult with vitamin K 10 ML, Insulin Hum... IV SCH ×2 (17:33→17:37)
[2016-04-29] MEDS: *HR* OxyCODONE/APAP 10/325 TABLET PO PRN (17:56)
[2016-04-29] MEDS: Insulin DETEMIR 100 UNIT/ML X5UNITS SQ SCH (21:08)
[2016-04-30] MEDS: *HR* OxyCODONE/APAP 10/325 TABLET PO PRN ×4 (01:03→21:28)
[2016-04-30] MEDS: Insulin LISPRO 300 UNITS/3 ML VIAL SQ SCH ×5 (05:35→21:29)
[2016-04-30] MEDS: *HR* Heparin 5,000 UNIT/ML VIAL SQ SCH ×2 (05:36→18:15)
[2016-04-30] MEDS: hydrALAZINE 25 MG TABLET PO SCH ×3 (05:36→18:15)
[2016-04-30] MEDS: Furosemide 40 MG TABLET PO SCH (07:35)
[2016-04-30] MEDS: Lisinopril 20 MG TABLET PO SCH (07:36)
[2016-04-30] MEDS: amLODIPine 5 MG TABLET PO SCH (07:36)
[2016-04-30 08:38] LABS: Basophils % 0.3 %; Eosinophils % 0.3 %; Hematocrit 27.9 % (37.5-50.1); Hemoglobin 9.3 g/dL (12.9-16.9); Immature Granulocytes % 0.9 % (0-4); Lymphocytes # 0.6 K/mcL (0.6-4.6); Lymphocytes % 4.7 %; Mean Corpuscular HGB Conc 33.3 g/dL (31.6-35.5); Mean Corpuscular Hemoglobin 30.5 pg (28.0-33.3); Mean Corpuscular Volume 91.5 fL (83.0-100.0); Mean Platelet Volume 9.7 fL (9.4-12.4); Monocytes # 0.8 K/mcL (0.0-1.3); Neutrophils # 10.2 K/mcL (1.6-8.9); Platelet Count 294 K/mcL (140-400); Red Blood Count 3.05 M/mcL (4.19-5.50); Red Cell Distribution Width 15.5 % (11.5-14.5); Segmented Neutrophils % 86.8 %
[2016-04-30 08:49] LABS: BUN/Creatinine Ratio 37 (6-26); Blood Urea Nitrogen 29 mg/dL (8-26); Calcium 8.7 mg/dL (8.6-10.8); Carbon Dioxide 31 mEq/L (19-29); Chloride 102 mEq/L (98-109); Glucose 181 mg/dL (70-99); Magnesium 1.8 mg/dL (1.6-2.6); Osmolality,Calculated 294 (280-300); Phosphorous 3.5 mg/dL (2.3-4.7); Potassium 4.1 mEq/L (3.5-4.5); Sodium 137 mEq/L (136-145); eGFR For African Americans > 60 (> 60); eGFR For Non-African Americans > 60 (> 60)
--- NOTE | 2016-04-30 11:36 | General Surgery Progress Note ---
Date of Encounter: 04/30/16 Time of Encounter: 11:05 Subjective Patient reports: feels better, pain is less Narrative: General Surgery: POD #4 - patient describes a difficult night; he describes significant lower abdominal pain related to acute urinary retention due to a malfunctioning catheter. The Robbins catheter was irrigated this morning with clearance of the obstruction. Urine output for calendar day 04/29/16 - 3575 mL. The Robbins catheter reservoir is full this AM with volume yet to be measured. Lungs: Notable for endoscopic respiratory wheezing this morning; respiratory treatment (albuterol) pending Abdomen: Soft, less tender than my examination yesterday; no obvious intra- abdominal masses. Midline incision clean and healing well. The patient is tolerating a regular diet, no abdominal distention, nausea or vomiting. Stoma left upper anterior abdominal wall healthy; stool output approximately 120 mL in the last 24 Impression/Plan: POD #4 - acceptable post op status. S/p Raúl procedure for acute sigmoid diverticulitis with perforation. Pathology still pending. patient tolerating diet, TPN has been tapered, to be discontinued today. Acute blood loss anemia - s/p transfusion 1 unit PRBC - H&H 9.3/27.9. Leukocytosis continues to improve, 11.8 Hypertension: Currently blood pressure 195/74; through the night ranging from 118/65-165/63. Continue to monitor and treat. Chronic respiratory failure: SPO2 maintain 95-96% with 2-4 L/minute nasal cannula. Wean supplemental oxygen to maintain SPO2 greater than 92% Wheezing this AM - repeat furosemide this evening. morbid obesity Diabetes mellitus - Accu-Cheks ranging 115 - 202. This should continue to improve/return to baseline when TPN discontinued. Urethral stenosis - addressed by [facility]. Robbins to be removed soon. Objective Vital Signs - Last 8 Hours Temp Pulse Resp BP Pulse Ox 04/30/16 07:42 18 97 04/30/16 06:33 97.6 F 77 16 195/74 97 04/30/16 04:33 17 96 Intake and Output 04/29/16 04/30/16 04/30/16 23:59 07:59 15:59 Intake Total 300 / 300 0 / 0 240 / 240 Output Total 1150 / 1150 120 / 120 Balance -850 / -850 -120 / -120 240 / 240 Intake: Oral 0 / 0 0 / 0 240 / 240 Blood Product 300 / 300 Rbcs Leuko Poor As-1 300 / 300 Unit [id number] Output: Urine 0 / 0 Stool 0 / 0 120 / 120 Catheter 1150 / 1150 0 / 0 Other: Meal Breakfast Percent of Meal Consumed 25% Blood Glucose* 142 196 - Labs 04/30/16 08:30 04/30/16 08:30 Diabetes panel 04/30/16 Range/Units 08:30 Sodium 137 (136-145) mEq/L Potassium 4.1 (3.5-4.5) mEq/L Chloride 102 (98-109) mEq/L Carbon Dioxide 31 H (19-29) mEq/L BUN 29 H (8-26) mg/dL Creatinine 0.79 (0.72-1.25) mg/dL Glucose 181 H (70-99) mg/dL Calcium 8.7 (8.6-10.8) mg/dL Calcium panel 04/30/16 Range/Units 08:30 Calcium 8.7 (8.6-10.8) mg/dL Phosphorus 3.5 (2.3-4.7) mg/dL Pituitary panel 04/30/16 Range/Units 08:30 Sodium 137 (136-145) mEq/L Potassium 4.1 (3.5-4.5) mEq/L Chloride 102 (98-109) mEq/L Carbon Dioxide 31 H (19-29) mEq/L BUN 29 H (8-26) mg/dL Creatinine 0.79 (0.72-1.25) mg/dL Glucose 181 H (70-99) mg/dL Calcium 8.7 (8.6-10.8) mg/dL Adrenal panel 04/30/16 Range/Units 08:30 Sodium 137 (136-145) mEq/L Potassium 4.1 (3.5-4.5) mEq/L Chloride 102 (98-109) mEq/L Carbon Dioxide 31 H (19-29) mEq/L BUN 29 H (8-26) mg/dL Creatinine 0.79 (0.72-1.25) mg/dL Glucose 181 H (70-99) mg/dL Calcium 8.7 (8.6-10.8) mg/dL - VTE Documentation of Mechanical Device: Intermittent pneumatic compression device Consult Discharge Plan - Plan Referrals: Kobi Mcbride MD [Non-Partnered Physician] -
--- NOTE | 2016-04-30 14:30 | Internal Med Progress Note ---
Date of Encounter: 04/30/16 Time of Encounter: 10:00 - Assessment and plan (1) Abscess of sigmoid colon due to diverticulitis Current Visit: Yes Status: Acute Assessment and plan: - CT A/P suggests perforated acute sigmoid diverticulitis with developing intra- abdominal abscess/pericolonic phlegmon. - Repeated CT A/P showed persistent changes of sigmoid diverticulitis with pericolonic phlegmon/extraluminal gas & fluid. - Surgery done by Dr Mcbride. Advance diet per surgery. Taper down TPN. patient is at high risk of because he has diverticulitis with perforation, which need surgical intervention. (2) CAD (coronary artery disease) Current Visit: No Status: Chronic Assessment and plan: - CAD s/p heart cath 30 years ago. - Cardiology was consulted for preoperative cardiovascular examination and determined patient is at intermediate risk of perioperative complications. Qualifiers: Qualified Code(s): I25.10 - Atherosclerotic heart disease of [place] coronary artery without angina pectoris (3) CHF (congestive heart failure) Current Visit: No Status: Chronic Assessment and plan: - Echo on 04/16/16 found LVEF 60% with mild LV diastolic dysfunction. - Continue on Lasix 40 mg PO daily. - Extra one dose lasix iv given today per surgical consult. Qualifiers: Qualified Code(s): I50.30 - Unspecified diastolic (congestive) heart failure (4) COPD (chronic obstructive pulmonary disease) Current Visit: No Status: Chronic Assessment and plan: - Stable as patient reports no significant shortness of breath at this time. - Consider brochodilator if needed. Qualifiers: Qualified Code(s): J44.9 - Chronic obstructive pulmonary disease, unspecified (5) Hyperlipidemia Current Visit: No Status: Chronic Assessment and plan: Stable. Qualifiers: Qualified Code(s): E78.5 - Hyperlipidemia, unspecified (6) Hypertension Current Visit: Yes Status: Chronic Assessment and plan: - Accelerated hypertension - Continue atenolol, amlodipine, lisinopril and IV hydralazine prn SBP > 160. - Continue to monitor. - Change scheduled iv hydralazine to po. - Add isosorbide dinitrate 10mg po tid. - Sometimes BP is still high possibly due to pain. Qualifiers: Qualified Code(s): I10 - Essential (primary) hypertension (7) DVT prophylaxis Current Visit: Yes Status: Acute Assessment and plan: - Continue SQ heparin. - Time Spent With Patient Greater than 35 minutes - Subjective Interval history: Patient is a 80-year-old male presented to ER for abdominal pain, diarrhea. His past medical history is significant for CHF, COPD, CAD, dementia, hyperlipidemia, hypertension. Patient has surgery. Day 4 post surgery. Not c/o pain today. No nausea, no vomiting. No fever. Advance diet per surgical consult. Gradually taper down TPN, possibly stop today. WBC get down, abx stopped per surgical consult. Hgb elevated after 1 unit PRBC. Continue close monitoring. - Constitutional Vitals: Temp Pulse Resp BP Pulse Ox 97.7 F 59 14 114/65 95 04/30/16 11:26 04/30/16 11:26 04/30/16 11:26 04/30/16 11:26 04/30/16 11:26 General appearance: Present: cooperative, A&O X 3, morbidly obese, no acute distress, answers questions appropriately - Head Head exam: Present: atraumatic, normocephalic - Eye Eye exam: Present: PERRL, conjuntiva pink, sclera anicteric Pupils: Present: PERRL - Neck Neck exam general surgery: Present: supple, trachea midline. Absent: lymphadenopathy - Respiratory Respiratory exam: Present: CTAB. Absent: accessory muscle use, rales, rhonchi, wheezes - Cardiovascular Cardiovascular exam: Present: RRR, +S1, +S2. Absent: diastolic murmur, gallop, rubs, systolic murmur - GI/Abdominal GI/Abdominal exam: Present: normal bowel sounds, soft, no peritoneal signs. Absent: distended, tenderness Additional comments: Colostomy bag in place, incision is clear. - Extremities Exam Extremities exam: Present: warm, radial pulses palpable and symetrical. Absent : calf tenderness, cyanotic, pedal edema - Neurological Exam Neurological exam: Present: CN II-XII intact, oriented X3, no focal deficits. Absent: pronater drift, facial droop, speech deficit - Skin Skin exam: Present: dry, intact Internal Medicine: Result - Labs CBC & Chem 7: 04/30/16 08:30 04/30/16 08:30 Labs: Short CBC 04/30/16 Range/Units 08:30 WBC 11.8 H (4.3-11.1) K/mcL Hgb 9.3 L (12.9-16.9) g/dL Hct 27.9 L (37.5-50.1) % Plt Count 294 (140-400) K/mcL Neutrophils # 10.2 H (1.6-8.9) K/mcL BMP 04/30/16 08:30 Sodium 137 Potassium 4.1 Chloride 102 Carbon Dioxide 31 H BUN 29 H Creatinine 0.79 Glucose 181 H Calcium 8.7 - ABG Interpretation ABG results: PT/INR, D-dimer PT 15.1 Seconds (9.4-12.1) H 04/26/16 04:43 - VTE Documentation of Mechanical Device: Intermittent pneumatic compression device Consult Discharge Plan - Plan Referrals: Kobi Mcbride MD [Non-Partnered Physician] -
[2016-04-30] MEDS ORDERED: Furosemide 40 MG/4 ML VIAL IVP ONE (18:00)
[2016-04-30] MEDS: Clinimix E 5%-15% SOLUTION 2,000 ML with MVI, adult with vitamin K 10 ML, Insulin Hum... IV SCH (18:27)
[2016-05-01] MEDS: hydrALAZINE 25 MG TABLET PO SCH ×4 (00:51→17:21)
[2016-05-01] MEDS: Insulin LISPRO 300 UNITS/3 ML VIAL SQ SCH ×6 (00:51→22:20)
[2016-05-01 03:53] LABS: Basophils % 0.4 %; Eosinophils # 0.3 K/mcL (0.0-0.6); Eosinophils % 2.9 %; Hematocrit 26.6 % (37.5-50.1); Hemoglobin 8.8 g/dL (12.9-16.9); Immature Granulocytes % 1.4 % (0-4); Lymphocytes # 1.2 K/mcL (0.6-4.6); Lymphocytes % 12.2 %; Mean Corpuscular HGB Conc 33.1 g/dL (31.6-35.5); Mean Corpuscular Hemoglobin 30.9 pg (28.0-33.3); Mean Corpuscular Volume 93.3 fL (83.0-100.0); Mean Platelet Volume 9.4 fL (9.4-12.4); Monocytes # 0.9 K/mcL (0.0-1.3); Monocytes % 9.7 %; Neutrophils # 6.9 K/mcL (1.6-8.9); Platelet Count 243 K/mcL (140-400); Red Blood Count 2.85 M/mcL (4.19-5.50); Red Cell Distribution Width 15.8 % (11.5-14.5); Segmented Neutrophils % 73.4 %
[2016-05-01 04:26] LABS: BUN/Creatinine Ratio 36 (6-26); Blood Urea Nitrogen 29 mg/dL (8-26); Calcium 8.7 mg/dL (8.6-10.8); Carbon Dioxide 31 mEq/L (19-29); Chloride 104 mEq/L (98-109); Glucose 115 mg/dL (70-99); Osmolality,Calculated 297 (280-300); Potassium 4.3 mEq/L (3.5-4.5); Sodium 140 mEq/L (136-145); eGFR For African Americans > 60 (> 60); eGFR For Non-African Americans > 60 (> 60)
[2016-05-01] MEDS: *HR* Heparin 5,000 UNIT/ML VIAL SQ SCH ×2 (05:30→17:21)
[2016-05-01] MEDS: Lisinopril 20 MG TABLET PO SCH (07:59)
[2016-05-01] MEDS: Furosemide 40 MG TABLET PO SCH (07:59)
[2016-05-01] MEDS: amLODIPine 5 MG TABLET PO SCH (07:59)
[2016-05-01] MEDS: *HR* OxyCODONE/APAP 10/325 TABLET PO PRN ×3 (09:14→22:19)
[2016-05-01] MEDS: *HR* HYDROmorphone (PF) 1 MG/ML SYRINGE IVP PRN (10:32)
--- NOTE | 2016-05-01 13:05 | General Surgery Progress Note ---
Date of Encounter: 05/01/16 Time of Encounter: 12:45 Subjective Patient reports: no new complaints Narrative: General Surgery: POD #5 - patient describes cramping abdominal pain this AM but no N/V. Tolerating diet. Colostomy moving without difficulty. Patient is afebrile, 98.1; pulse 61, respirations 16, blood pressure 112/64. SPO2 on 3 L/min per nasal cannula 96% Lungs: Clear to auscultation Abdomen: obese, nontender. Active bowel sounds. Healthy stoma functioning properly left upper anterior abdominal wall. Urine output for 04/30/16 - 2850 mL; urine output so far today 1850 mL. Laboratories: White count has returned to normal, 9.4; hemoglobin 8.8, hematocrit 26.6. Platelet count 243,000. Electrolytes within normal limits, BUN 29, creatinine 0.80. Accu-Cheks - range 117 to 194. Pathology: Right colon with diverticulosis, acute and chronic inflammation, congestion and abscess formation consistent with history of acute perforated diverticulitis. No malignancy or atypia seen. Appendix with no pathologic findings. Impression/plan: 80-year-old male, approximately 5 days status post Raúl procedure. Doing well post op. Tolerating diet. Colostomy care teaching initiated. Will continue those while patient remains in the hospital. Home health to continue with teaching and care at home post discharge. Urethral stricture requiring dilatation and prolonged Robbins catheter - catheter to be removed today Acute blood loss anemia - stable status post transfusion Morbid obesity Diabetes mellitus - satisfactory blood sugar control Hypertension - currently controlled Objective Vital Signs - Last 8 Hours Temp Pulse Resp BP Pulse Ox 05/01/16 11:08 16 96 05/01/16 10:26 98.1 F 61 14 112/64 96 05/01/16 07:18 97.8 F 64 14 111/74 97 05/01/16 05:39 95 Intake and Output 04/30/16 05/01/16 05/01/16 23:59 07:59 15:59 Intake Total 360 / 360 0 / 0 240 / 240 Output Total 1100 / 1100 1600 / 1600 450 / 450 Balance -740 / -740 -1600 / -1600 -210 / -210 Intake: Oral 360 / 360 0 / 0 240 / 240 Output: Stool 300 / 300 200 / 200 Catheter 800 / 800 1400 / 1400 450 / 450 Other: Meal Dinner Breakfast Percent of Meal Consumed 95% 100% Stool Size Moderate Stool Consistency soft Stool Characteristics Normal for Patient Stool Color Brown Weight 135.5 kg Blood Glucose* 154 120 138 Patient Weight 05/01/16 23:59 Weight 135.5 kg - Labs 05/01/16 03:40 05/01/16 03:40 Diabetes panel 05/01/16 Range/Units 03:40 Sodium 140 (136-145) mEq/L Potassium 4.3 (3.5-4.5) mEq/L Chloride 104 (98-109) mEq/L Carbon Dioxide 31 H (19-29) mEq/L BUN 29 H (8-26) mg/dL Creatinine 0.80 (0.72-1.25) mg/dL Glucose 115 H (70-99) mg/dL Calcium 8.7 (8.6-10.8) mg/dL Calcium panel 05/01/16 Range/Units 03:40 Calcium 8.7 (8.6-10.8) mg/dL Pituitary panel 05/01/16 Range/Units 03:40 Sodium 140 (136-145) mEq/L Potassium 4.3 (3.5-4.5) mEq/L Chloride 104 (98-109) mEq/L Carbon Dioxide 31 H (19-29) mEq/L BUN 29 H (8-26) mg/dL Creatinine 0.80 (0.72-1.25) mg/dL Glucose 115 H (70-99) mg/dL Calcium 8.7 (8.6-10.8) mg/dL Adrenal panel 05/01/16 Range/Units 03:40 Sodium 140 (136-145) mEq/L Potassium 4.3 (3.5-4.5) mEq/L Chloride 104 (98-109) mEq/L Carbon Dioxide 31 H (19-29) mEq/L BUN 29 H (8-26) mg/dL Creatinine 0.80 (0.72-1.25) mg/dL Glucose 115 H (70-99) mg/dL Calcium 8.7 (8.6-10.8) mg/dL - VTE Documentation of Mechanical Device: Intermittent pneumatic compression device Consult Discharge Plan - Plan Referrals: Kobi Mcbride MD [Non-Partnered Physician] -
--- NOTE | 2016-05-01 17:27 | Internal Med Progress Note ---
Date of Encounter: 05/01/16 Time of Encounter: 08:45 - Assessment and plan (1) Abscess of sigmoid colon due to diverticulitis Current Visit: Yes Status: Acute Assessment and plan: Status post surgery with exploratory celiotomy, Raúl procedure. Doing well from a surgical standpoint. Pain being controlled with oral narcotic medications. (2) DVT prophylaxis Current Visit: Yes Status: Acute Assessment and plan: With subcutaneous heparin (3) Hypertension Current Visit: Yes Status: Chronic Assessment and plan: Blood pressure has improved. Continue current antihypertensive regimen Qualifiers: Hypertension type: essential hypertension Qualified Code(s): I10 - Essential (primary) hypertension (4) CAD (coronary artery disease) Current Visit: No Status: Chronic Assessment and plan: Chronic. No chest pain. Qualifiers: Coronary Disease-Associated Artery/Lesion type: [place] artery [place] vs. transplanted heart: [place] heart Associated angina: without angina Qualified Code(s): I25.10 - Atherosclerotic heart disease of [place] coronary artery without angina pectoris (5) CHF (congestive heart failure) Current Visit: No Status: Chronic Assessment and plan: On oral Lasix. No acute exacerbation Qualifiers: Congestive heart failure type: diastolic Congestive heart failure chronicity: unspecified congestive heart failure chronicity Qualified Code(s) : I50.30 - Unspecified diastolic (congestive) heart failure (6) COPD (chronic obstructive pulmonary disease) Current Visit: No Status: Chronic Assessment and plan: On bronchodilator nebs as needed. Qualifiers: COPD type: unspecified COPD Qualified Code(s): J44.9 - Chronic obstructive pulmonary disease, unspecified - Subjective Interval history: Patient complaining of cramping abdominal pain. Tolerating regular diet. Denies any nausea or vomiting. Is complaining of cough. No sputum production. - Constitutional Vitals: Temp Pulse Resp BP Pulse Ox 98.1 F 64 16 134/64 97 05/01/16 15:00 05/01/16 15:00 05/01/16 15:00 05/01/16 15:00 05/01/16 15:00 General appearance: Present: cooperative, A&O X 3, morbidly obese, no acute distress, answers questions appropriately - Respiratory Respiratory exam: Present: CTAB. Absent: accessory muscle use, rales, rhonchi, wheezes - Cardiovascular Cardiovascular exam: Present: RRR, +S1, +S2. Absent: diastolic murmur, gallop, rubs, systolic murmur - GI/Abdominal GI/Abdominal exam: Present: normal bowel sounds, soft, tenderness (At surgical site) Additional comments: Colostomy bag in place - Extremities Exam Extremities exam: Present: warm, radial pulses palpable and symetrical. Absent : calf tenderness, cyanotic, pedal edema - Neurological Exam Neurological exam: Present: CN II-XII intact, oriented X3, no focal deficits. Absent: facial droop, speech deficit - Skin Skin exam: Present: dry, intact Internal Medicine: Result - Labs CBC & Chem 7: 05/02/16 03:30 05/02/16 03:30 Labs: Short CBC 05/01/16 Range/Units 03:40 WBC 9.4 (4.3-11.1) K/mcL Hgb 8.8 L (12.9-16.9) g/dL Hct 26.6 L (37.5-50.1) % Plt Count 243 (140-400) K/mcL Neutrophils # 6.9 (1.6-8.9) K/mcL BMP 05/01/16 03:40 Sodium 140 Potassium 4.3 Chloride 104 Carbon Dioxide 31 H BUN 29 H Creatinine 0.80 Glucose 115 H Calcium 8.7 - ABG Interpretation ABG results: PT/INR, D-dimer PT 15.1 Seconds (9.4-12.1) H 04/26/16 04:43 - VTE Documentation of Mechanical Device: Intermittent pneumatic compression device Consult Discharge Plan - Plan Referrals: Kobi Mcbride MD [Non-Partnered Physician] - - Attending Attestation This document has been at least partially created by Modern Message recognition technology by Dr. Valadez. Errors in grammar, wording or other phrases may exist. If errors are found after the documentation is signed, they will be addressed individually in the addendum section of this document when appropriate. Medical Decision Making - MDM Narrative Medical decision making narrative: Moderate risk for complications - Lab Data Result diagrams: 05/02/16 03:30 05/02/16 03:30 Lab Results 04/15/16 04/15/16 04/15/16 Range/Units 04:55 04:55 08:05 WBC 17.9 H (4.3-11.1) K/mcL RBC 3.75 L (4.19-5.50) M/mcL Hgb 11.4 L (12.9-16.9) g/dL Hct 34.4 L (37.5-50.1) % MCV 91.7 (83.0-100.0) fL MCH 30.4 (28.0-33.3) pg MCHC 33.1 (31.6-35.5) g/dL RDW 13.2 (11.5-14.5) % Plt Count 266 (140-400) K/mcL MPV 10.4 (9.4-12.4) fL Immature Gran % 0.6 (0-4) % Seg Neutrophils % 86.6 % Lymphocytes % 4.8 % Monocytes % 7.4 % Eosinophils % 0.3 % Basophils % 0.3 % Neutrophils # 15.5 H (1.6-8.9) K/mcL Lymphocytes # 0.9 (0.6-4.6) K/mcL Monocytes # 1.3 (0.0-1.3) K/mcL Eosinophils # 0.1 (0.0-0.6) K/mcL Basophils # 0.1 (0.0-0.2) K/mcL Reactive Lymphocytes (Not Present) Platelet Estimate (Normal) Immature Plt Fraction (1.1-6.1) % PT (9.4-12.1) Seconds INR Sodium 137 (136-145) mEq/L Potassium 4.1 (3.5-4.5) mEq/L Chloride 104 (98-109) mEq/L Carbon Dioxide 21 (19-29) mEq/L BUN 11 (8-26) mg/dL Creatinine 0.77 (0.72-1.25) mg/dL Est GFR ( Amer) > 60 (> 60) Est GFR (Non-Af Amer) > 60 (> 60) BUN/Creatinine Ratio 14 (6-26) Glucose 154 H (70-99) mg/dL POC Glucose 176 H (58-89) Est Mean Plasma Glucose mg/dl Hemoglobin A1c ( - 5.6) % Calculated Osmolality 286 (280-300) Calcium 9.1 (8.6-10.8) mg/dL Phosphorus (2.3-4.7) mg/dL Magnesium (1.6-2.6) mg/dL Total Bilirubin (0.2-1.2) mg/dL AST (5-34) Units/L ALT (0-55) Units/L Alkaline Phosphatase (38-126) Units/L Serum Total Protein (6.0-8.3) g/dL Albumin (3.5-5.0) g/dL Globulin (2.4-3.5) g/dL Albumin/Globulin Ratio (1.1-2.2) Prealbumin (18.0-45.0) mg/dL Triglycerides (< 150) mg/dL Urine Color (Yellow) Urine Clarity (Clear) Urine pH (5.0-8.0) pH Units Ur Specific [place] (1.010-1.025) Urine Protein (Neg-Trace) mg/dL Urine Glucose (UA) (Normal) mg/dL Urine Ketones (Negative) mg/dL Urine Blood (Negative) Urine Nitrite (Negative) Urine Bilirubin (Negative) Urine Urobilinogen (Normal) mg/dL Ur Leukocyte Esterase (Negative) Urine Microscopic RBC (0-3) per hpf Urine Microscopic WBC (0-3) per hpf Ur Squamous Epith Cells (None-Few) per lpf Urine Bacteria (None-Few) per hpf Hyaline Casts (None-Few) per lpf Ur Culture Indicated? (NO) C. difficile Tox (PCR) (Negative) Specimen Rejected Blood Type Antibody Screen Crossmatch 04/15/16 04/15/16 04/16/16 Range/Units 11:47 17:17 00:33 WBC (4.3-11.1) K/mcL RBC (4.19-5.50) M/mcL Hgb (12.9-16.9) g/dL Hct (37.5-50.1) % MCV (83.0-100.0) fL MCH (28.0-33.3) pg MCHC (31.6-35.5) g/dL RDW (11.5-14.5) % Plt Count (140-400) K/mcL MPV (9.4-12.4) fL Immature Gran % (0-4) % Seg Neutrophils % % Lymphocytes % % Monocytes % % Eosinophils % % Basophils % % Neutrophils # (1.6-8.9) K/mcL Lymphocytes # (0.6-4.6) K/mcL Monocytes # (0.0-1.3) K/mcL Eosinophils # (0.0-0.6) K/mcL Basophils # (0.0-0.2) K/mcL Reactive Lymphocytes (Not Present) Platelet Estimate (Normal) Immature Plt Fraction (1.1-6.1) % PT (9.4-12.1) Seconds INR Sodium (136-145) mEq/L Potassium (3.5-4.5) mEq/L Chloride (98-109) mEq/L Carbon Dioxide (19-29) mEq/L BUN (8-26) mg/dL Creatinine (0.72-1.25) mg/dL Est GFR ( Amer) (> 60) Est GFR (Non-Af Amer) (> 60) BUN/Creatinine Ratio (6-26) Glucose (70-99) mg/dL POC Glucose 164 H 124 H 133 H (58-89) Est Mean Plasma Glucose mg/dl Hemoglobin A1c ( - 5.6) % Calculated Osmolality (280-300) Calcium (8.6-10.8) mg/dL Phosphorus (2.3-4.7) mg/dL Magnesium (1.6-2.6) mg/dL Total Bilirubin (0.2-1.2) mg/dL AST (5-34) Units/L ALT (0-55) Units/L Alkaline Phosphatase (38-126) Units/L Serum Total Protein (6.0-8.3) g/dL Albumin (3.5-5.0) g/dL Globulin (2.4-3.5) g/dL Albumin/Globulin Ratio (1.1-2.2) Prealbumin (18.0-45.0) mg/dL Triglycerides (< 150) mg/dL Urine Color (Yellow) Urine Clarity (Clear) Urine pH (5.0-8.0) pH Units Ur Specific [place] (1.010-1.025) Urine Protein (Neg-Trace) mg/dL Urine Glucose (UA) (Normal) mg/dL Urine Ketones (Negative) mg/dL Urine Blood (Negative) Urine Nitrite (Negative) Urine Bilirubin (Negative) Urine Urobilinogen (Normal) mg/dL Ur Leukocyte Esterase (Negative) Urine Microscopic RBC (0-3) per hpf Urine Microscopic WBC (0-3) per hpf Ur Squamous Epith Cells (None-Few) per lpf Urine Bacteria (None-Few) per hpf Hyaline Casts (None-Few) per lpf Ur Culture Indicated? (NO) C. difficile Tox (PCR) (Negative) Specimen Rejected Blood Type Antibody Screen Crossmatch 04/16/16 04/16/16 04/16/16 Range/Units 05:44 05:44 05:53 WBC 18.1 H (4.3-11.1) K/mcL RBC 3.95 L (4.19-5.50) M/mcL Hgb 12.0 L (12.9-16.9) g/dL Hct 35.6 L (37.5-50.1) % MCV 90.1 (83.0-100.0) fL MCH 30.4 (28.0-33.3) pg MCHC 33.7 (31.6-35.5) g/dL RDW 13.0 (11.5-14.5) % Plt Count 373 (140-400) K/mcL MPV 9.6 (9.4-12.4) fL Immature Gran % 0.6 (0-4) % Seg Neutrophils % 85.2 % Lymphocytes % 6.3 % Monocytes % 7.2 % Eosinophils % 0.5 % Basophils % 0.2 % Neutrophils # 15.4 H (1.6-8.9) K/mcL Lymphocytes # 1.1 (0.6-4.6) K/mcL Monocytes # 1.3 (0.0-1.3) K/mcL Eosinophils # 0.1 (0.0-0.6) K/mcL Basophils # 0.0 (0.0-0.2) K/mcL Reactive Lymphocytes (Not Present) Platelet Estimate (Normal) Immature Plt Fraction (1.1-6.1) % PT (9.4-12.1) Seconds INR Sodium 138 (136-145) mEq/L Potassium 3.3 L (3.5-4.5) mEq/L Chloride 103 (98-109) mEq/L Carbon Dioxide 26 (19-29) mEq/L BUN 11 (8-26) mg/dL Creatinine 0.74 (0.72-1.25) mg/dL Est GFR ( Amer) > 60 (> 60) Est GFR (Non-Af Amer) > 60 (> 60) BUN/Creatinine Ratio 15 (6-26) Glucose 138 H (70-99) mg/dL POC Glucose 127 H (58-89) Est Mean Plasma Glucose mg/dl Hemoglobin A1c ( - 5.6) % Calculated Osmolality 288 (280-300) Calcium 9.3 (8.6-10.8) mg/dL Phosphorus (2.3-4.7) mg/dL Magnesium (1.6-2.6) mg/dL Total Bilirubin (0.2-1.2) mg/dL AST (5-34) Units/L ALT (0-55) Units/L Alkaline Phosphatase (38-126) Units/L Serum Total Protein (6.0-8.3) g/dL Albumin (3.5-5.0) g/dL Globulin (2.4-3.5) g/dL Albumin/Globulin Ratio (1.1-2.2) Prealbumin (18.0-45.0) mg/dL Triglycerides (< 150) mg/dL Urine Color (Yellow) Urine Clarity (Clear) Urine pH (5.0-8.0) pH Units Ur Specific [place] (1.010-1.025) Urine Protein (Neg-Trace) mg/dL Urine Glucose (UA) (Normal) mg/dL Urine Ketones (Negative) mg/dL Urine Blood (Negative) Urine Nitrite (Negative) Urine Bilirubin (Negative) Urine Urobilinogen (Normal) mg/dL Ur Leukocyte Esterase (Negative) Urine Microscopic RBC (0-3) per hpf Urine Microscopic WBC (0-3) per hpf Ur Squamous Epith Cells (None-Few) per lpf Urine Bacteria (None-Few) per hpf Hyaline Casts (None-Few) per lpf Ur Culture Indicated? (NO) C. difficile Tox (PCR) (Negative) Specimen Rejected Blood Type Antibody Screen Crossmatch 04/16/16 04/16/16 04/16/16 Range/Units 11:11 17:05 23:53 WBC (4.3-11.1) K/mcL RBC (4.19-5.50) M/mcL Hgb (12.9-16.9) g/dL Hct (37.5-50.1) % MCV (83.0-100.0) fL MCH (28.0-33.3) pg MCHC (31.6-35.5) g/dL RDW (11.5-14.5) % Plt Count (140-400) K/mcL MPV (9.4-12.4) fL Immature Gran % (0-4) % Seg Neutrophils % % Lymphocytes % % Monocytes % % Eosinophils % % Basophils % % Neutrophils # (1.6-8.9) K/mcL Lymphocytes # (0.6-4.6) K/mcL Monocytes # (0.0-1.3) K/mcL Eosinophils # (0.0-0.6) K/mcL Basophils # (0.0-0.2) K/mcL Reactive Lymphocytes (Not Present) Platelet Estimate (Normal) Immature Plt Fraction (1.1-6.1) % PT (9.4-12.1) Seconds INR Sodium (136-145) mEq/L Potassium (3.5-4.5) mEq/L Chloride (98-109) mEq/L Carbon Dioxide (19-29) mEq/L BUN (8-26) mg/dL Creatinine (0.72-1.25) mg/dL Est GFR ( Amer) (> 60) Est GFR (Non-Af Amer) (> 60) BUN/Creatinine Ratio (6-26) Glucose (70-99) mg/dL POC Glucose 142 H 146 H 147 H (58-89) Est Mean Plasma Glucose mg/dl Hemoglobin A1c ( - 5.6) % Calculated Osmolality (280-300) Calcium (8.6-10.8) mg/dL Phosphorus (2.3-4.7) mg/dL Magnesium (1.6-2.6) mg/dL Total Bilirubin (0.2-1.2) mg/dL AST (5-34) Units/L ALT (0-55) Units/L Alkaline Phosphatase (38-126) Units/L Serum Total Protein (6.0-8.3) g/dL Albumin (3.5-5.0) g/dL Globulin (2.4-3.5) g/dL Albumin/Globulin Ratio (1.1-2.2) Prealbumin (18.0-45.0) mg/dL Triglycerides (< 150) mg/dL Urine Color (Yellow) Urine Clarity (Clear) Urine pH (5.0-8.0) pH Units Ur Specific [place] (1.010-1.025) Urine Protein (Neg-Trace) mg/dL Urine Glucose (UA) (Normal) mg/dL Urine Ketones (Negative) mg/dL Urine Blood (Negative) Urine Nitrite (Negative) Urine Bilirubin (Negative) Urine Urobilinogen (Normal) mg/dL Ur Leukocyte Esterase (Negative) Urine Microscopic RBC (0-3) per hpf Urine Microscopic WBC (0-3) per hpf Ur Squamous Epith Cells (None-Few) per lpf Urine Bacteria (None-Few) per hpf Hyaline Casts (None-Few) per lpf Ur Culture Indicated? (NO) C. difficile Tox (PCR) (Negative) Specimen Rejected Blood Type Antibody Screen Crossmatch 04/17/16 04/17/16 04/17/16 Range/Units 04:52 04:52 04:52 WBC 17.0 H (4.3-11.1) K/mcL RBC 3.98 L (4.19-5.50) M/mcL Hgb 11.8 L (12.9-16.9) g/dL Hct 35.8 L (37.5-50.1) % MCV 89.9 (83.0-100.0) fL MCH 29.6 (28.0-33.3) pg MCHC 33.0 (31.6-35.5) g/dL RDW 13.0 (11.5-14.5) % Plt Count 410 H (140-400) K/mcL MPV 9.7 (9.4-12.4) fL Immature Gran % 0.6 (0-4) % Seg Neutrophils % 86.5 % Lymphocytes % 4.8 % Monocytes % 7.3 % Eosinophils % 0.4 % Basophils % 0.4 % Neutrophils # 14.7 H (1.6-8.9) K/mcL Lymphocytes # 0.8 (0.6-4.6) K/mcL Monocytes # 1.3 (0.0-1.3) K/mcL Eosinophils # 0.1 (0.0-0.6) K/mcL Basophils # 0.1 (0.0-0.2) K/mcL Reactive Lymphocytes (Not Present) Platelet Estimate (Normal) Immature Plt Fraction (1.1-6.1) % PT (9.4-12.1) Seconds INR Sodium 138 (136-145) mEq/L Potassium 3.3 L (3.5-4.5) mEq/L Chloride 103 (98-109) mEq/L Carbon Dioxide 26 (19-29) mEq/L BUN 13 (8-26) mg/dL Creatinine 0.72 (0.72-1.25) mg/dL Est GFR ( Amer) > 60 (> 60) Est GFR (Non-Af Amer) > 60 (> 60) BUN/Creatinine Ratio 18 (6-26) Glucose 154 H (70-99) mg/dL POC Glucose (58-89) Est Mean Plasma Glucose 134 mg/dl Hemoglobin A1c 6.3 H ( - 5.6) % Calculated Osmolality 289 (280-300) Calcium 9.3 (8.6-10.8) mg/dL Phosphorus (2.3-4.7) mg/dL Magnesium (1.6-2.6) mg/dL Total Bilirubin 0.7 (0.2-1.2) mg/dL AST 22 (5-34) Units/L ALT 19 (0-55) Units/L Alkaline Phosphatase 70 (38-126) Units/L Serum Total Protein 6.9 (6.0-8.3) g/dL Albumin 2.1 L (3.5-5.0) g/dL Globulin 4.8 H (2.4-3.5) g/dL Albumin/Globulin Ratio 0.4 L (1.1-2.2) Prealbumin (18.0-45.0) mg/dL Triglycerides (< 150) mg/dL Urine Color (Yellow) Urine Clarity (Clear) Urine pH (5.0-8.0) pH Units Ur Specific [place] (1.010-1.025) Urine Protein (Neg-Trace) mg/dL Urine Glucose (UA) (Normal) mg/dL Urine Ketones (Negative) mg/dL Urine Blood (Negative) Urine Nitrite (Negative) Urine Bilirubin (Negative) Urine Urobilinogen (Normal) mg/dL Ur Leukocyte Esterase (Negative) Urine Microscopic RBC (0-3) per hpf Urine Microscopic WBC (0-3) per hpf Ur Squamous Epith Cells (None-Few) per lpf Urine Bacteria (None-Few) per hpf Hyaline Casts (None-Few) per lpf Ur Culture Indicated? (NO) C. difficile Tox (PCR) (Negative) Specimen Rejected Blood Type Antibody Screen Crossmatch 04/17/16 04/17/16 04/17/16 Range/Units 04:52 04:52 06:08 WBC (4.3-11.1) K/mcL RBC (4.19-5.50) M/mcL Hgb (12.9-16.9) g/dL Hct (37.5-50.1) % MCV (83.0-100.0) fL MCH (28.0-33.3) pg MCHC (31.6-35.5) g/dL RDW (11.5-14.5) % Plt Count (140-400) K/mcL MPV (9.4-12.4) fL Immature Gran % (0-4) % Seg Neutrophils % % Lymphocytes % % Monocytes % % Eosinophils % % Basophils % % Neutrophils # (1.6-8.9) K/mcL Lymphocytes # (0.6-4.6) K/mcL Monocytes # (0.0-1.3) K/mcL Eosinophils # (0.0-0.6) K/mcL Basophils # (0.0-0.2) K/mcL Reactive Lymphocytes (Not Present) Platelet Estimate (Normal) Immature Plt Fraction (1.1-6.1) % PT (9.4-12.1) Seconds INR Sodium (136-145) mEq/L Potassium (3.5-4.5) mEq/L Chloride (98-109) mEq/L Carbon Dioxide (19-29) mEq/L BUN (8-26) mg/dL Creatinine (0.72-1.25) mg/dL Est GFR ( Amer) (> 60) Est GFR (Non-Af Amer) (> 60) BUN/Creatinine Ratio (6-26) Glucose (70-99) mg/dL POC Glucose 127 H (58-89) Est Mean Plasma Glucose mg/dl Hemoglobin A1c ( - 5.6) % Calculated Osmolality (280-300) Calcium (8.6-10.8) mg/dL Phosphorus 2.9 (2.3-4.7) mg/dL Magnesium 1.7 (1.6-2.6) mg/dL Total Bilirubin (0.2-1.2) mg/dL AST (5-34) Units/L ALT (0-55) Units/L Alkaline Phosphatase (38-126) Units/L Serum Total Protein (6.0-8.3) g/dL Albumin (3.5-5.0) g/dL Globulin (2.4-3.5) g/dL Albumin/Globulin Ratio (1.1-2.2) Prealbumin 5.0 L (18.0-45.0) mg/dL Triglycerides 59 (< 150) mg/dL Urine Color (Yellow) Urine Clarity (Clear) Urine pH (5.0-8.0) pH Units Ur Specific [place] (1.010-1.025) Urine Protein (Neg-Trace) mg/dL Urine Glucose (UA) (Normal) mg/dL Urine Ketones (Negative) mg/dL Urine Blood (Negative) Urine Nitrite (Negative) Urine Bilirubin (Negative) Urine Urobilinogen (Normal) mg/dL Ur Leukocyte Esterase (Negative) Urine Microscopic RBC (0-3) per hpf Urine Microscopic WBC (0-3) per hpf Ur Squamous Epith Cells (None-Few) per lpf Urine Bacteria (None-Few) per hpf Hyaline Casts (None-Few) per lpf Ur Culture Indicated? (NO) C. difficile Tox (PCR) (Negative) Specimen Rejected Blood Type Antibody Screen Crossmatch 04/17/16 04/17/16 04/17/16 Range/Units 11:36 17:03 19:34 WBC (4.3-11.1) K/mcL RBC (4.19-5.50) M/mcL Hgb (12.9-16.9) g/dL Hct (37.5-50.1) % MCV (83.0-100.0) fL MCH (28.0-33.3) pg MCHC (31.6-35.5) g/dL RDW (11.5-14.5) % Plt Count (140-400) K/mcL MPV (9.4-12.4) fL Immature Gran % (0-4) % Seg Neutrophils % % Lymphocytes % % Monocytes % % Eosinophils % % Basophils % % Neutrophils # (1.6-8.9) K/mcL Lymphocytes # (0.6-4.6) K/mcL Monocytes # (0.0-1.3) K/mcL Eosinophils # (0.0-0.6) K/mcL Basophils # (0.0-0.2) K/mcL Reactive Lymphocytes (Not Present) Platelet Estimate (Normal) Immature Plt Fraction (1.1-6.1) % PT (9.4-12.1) Seconds INR Sodium (136-145) mEq/L Potassium (3.5-4.5) mEq/L Chloride (98-109) mEq/L Carbon Dioxide (19-29) mEq/L BUN (8-26) mg/dL Creatinine (0.72-1.25) mg/dL Est GFR ( Amer) (> 60) Est GFR (Non-Af Amer) (> 60) BUN/Creatinine Ratio (6-26) Glucose (70-99) mg/dL POC Glucose 162 H 154 H 163 H (58-89) Est Mean Plasma Glucose mg/dl Hemoglobin A1c ( - 5.6) % Calculated Osmolality (280-300) Calcium (8.6-10.8) mg/dL Phosphorus (2.3-4.7) mg/dL Magnesium (1.6-2.6) mg/dL Total Bilirubin (0.2-1.2) mg/dL AST (5-34) Units/L ALT (0-55) Units/L Alkaline Phosphatase (38-126) Units/L Serum Total Protein (6.0-8.3) g/dL Albumin (3.5-5.0) g/dL Globulin (2.4-3.5) g/dL Albumin/Globulin Ratio (1.1-2.2) Prealbumin (18.0-45.0) mg/dL Triglycerides (< 150) mg/dL Urine Color (Yellow) Urine Clarity (Clear) Urine pH (5.0-8.0) pH Units Ur Specific [place] (1.010-1.025) Urine Protein (Neg-Trace) mg/dL Urine Glucose (UA) (Normal) mg/dL Urine Ketones (Negative) mg/dL Urine Blood (Negative) Urine Nitrite (Negative) Urine Bilirubin (Negative) Urine Urobilinogen (Normal) mg/dL Ur Leukocyte Esterase (Negative) Urine Microscopic RBC (0-3) per hpf Urine Microscopic WBC (0-3) per hpf Ur Squamous Epith Cells (None-Few) per lpf Urine Bacteria (None-Few) per hpf Hyaline Casts (None-Few) per lpf Ur Culture Indicated? (NO) C. difficile Tox (PCR) (Negative) Specimen Rejected Blood Type Antibody Screen Crossmatch 04/17/16 04/18/16 04/18/16 Range/Units 23:28 03:00 03:00 WBC 15.6 H (4.3-11.1) K/mcL RBC 3.80 L (4.19-5.50) M/mcL Hgb 11.3 L (12.9-16.9) g/dL Hct 34.3 L (37.5-50.1) % MCV 90.3 (83.0-100.0) fL MCH 29.7 (28.0-33.3) pg MCHC 32.9 (31.6-35.5) g/dL RDW 13.1 (11.5-14.5) % Plt Count 372 (140-400) K/mcL MPV 9.6 (9.4-12.4) fL Immature Gran % 0.6 (0-4) % Seg Neutrophils % 86.9 % Lymphocytes % 4.5 % Monocytes % 7.3 % Eosinophils % 0.4 % Basophils % 0.3 % Neutrophils # 13.5 H (1.6-8.9) K/mcL Lymphocytes # 0.7 (0.6-4.6) K/mcL Monocytes # 1.1 (0.0-1.3) K/mcL Eosinophils # 0.1 (0.0-0.6) K/mcL Basophils # 0.0 (0.0-0.2) K/mcL Reactive Lymphocytes (Not Present) Platelet Estimate (Normal) Immature Plt Fraction (1.1-6.1) % PT (9.4-12.1) Seconds INR Sodium 139 (136-145) mEq/L Potassium 2.9 L (3.5-4.5) mEq/L Chloride 103 (98-109) mEq/L Carbon Dioxide 29 (19-29) mEq/L BUN 11 (8-26) mg/dL Creatinine 0.72 (0.72-1.25) mg/dL Est GFR ( Amer) > 60 (> 60) Est GFR (Non-Af Amer) > 60 (> 60) BUN/Creatinine Ratio 15 (6-26) Glucose 184 H (70-99) mg/dL POC Glucose 131 H (58-89) Est Mean Plasma Glucose mg/dl Hemoglobin A1c ( - 5.6) % Calculated Osmolality 292 (280-300) Calcium 8.7 (8.6-10.8) mg/dL Phosphorus (2.3-4.7) mg/dL Magnesium (1.6-2.6) mg/dL Total Bilirubin (0.2-1.2) mg/dL AST (5-34) Units/L ALT (0-55) Units/L Alkaline Phosphatase (38-126) Units/L Serum Total Protein (6.0-8.3) g/dL Albumin (3.5-5.0) g/dL Globulin (2.4-3.5) g/dL Albumin/Globulin Ratio (1.1-2.2) Prealbumin (18.0-45.0) mg/dL Triglycerides (< 150) mg/dL Urine Color (Yellow) Urine Clarity (Clear) Urine pH (5.0-8.0) pH Units Ur Specific [place] (1.010-1.025) Urine Protein (Neg-Trace) mg/dL Urine Glucose (UA) (Normal) mg/dL Urine Ketones (Negative) mg/dL Urine Blood (Negative) Urine Nitrite (Negative) Urine Bilirubin (Negative) Urine Urobilinogen (Normal) mg/dL Ur Leukocyte Esterase (Negative) Urine Microscopic RBC (0-3) per hpf Urine Microscopic WBC (0-3) per hpf Ur Squamous Epith Cells (None-Few) per lpf Urine Bacteria (None-Few) per hpf Hyaline Casts (None-Few) per lpf Ur Culture Indicated? (NO) C. difficile Tox (PCR) (Negative) Specimen Rejected Blood Type Antibody Screen Crossmatch 04/18/16 04/18/16 04/18/16 Range/Units 03:41 07:23 11:18 WBC (4.3-11.1) K/mcL RBC (4.19-5.50) M/mcL Hgb (12.9-16.9) g/dL Hct (37.5-50.1) % MCV (83.0-100.0) fL MCH (28.0-33.3) pg MCHC (31.6-35.5) g/dL RDW (11.5-14.5) % Plt Count (140-400) K/mcL MPV (9.4-12.4) fL Immature Gran % (0-4) % Seg Neutrophils % % Lymphocytes % % Monocytes % % Eosinophils % % Basophils % % Neutrophils # (1.6-8.9) K/mcL Lymphocytes # (0.6-4.6) K/mcL Monocytes # (0.0-1.3) K/mcL Eosinophils # (0.0-0.6) K/mcL Basophils # (0.0-0.2) K/mcL Reactive Lymphocytes (Not Present) Platelet Estimate (Normal) Immature Plt Fraction (1.1-6.1) % PT (9.4-12.1) Seconds INR Sodium (136-145) mEq/L Potassium (3.5-4.5) mEq/L Chloride (98-109) mEq/L Carbon Dioxide (19-29) mEq/L BUN (8-26) mg/dL Creatinine (0.72-1.25) mg/dL Est GFR ( Amer) (> 60) Est GFR (Non-Af Amer) (> 60) BUN/Creatinine Ratio (6-26) Glucose (70-99) mg/dL POC Glucose 181 H 170 H 181 H (58-89) Est Mean Plasma Glucose mg/dl Hemoglobin A1c ( - 5.6) % Calculated Osmolality (280-300) Calcium (8.6-10.8) mg/dL Phosphorus (2.3-4.7) mg/dL Magnesium (1.6-2.6) mg/dL Total Bilirubin (0.2-1.2) mg/dL AST (5-34) Units/L ALT (0-55) Units/L Alkaline Phosphatase (38-126) Units/L Serum Total Protein (6.0-8.3) g/dL Albumin (3.5-5.0) g/dL Globulin (2.4-3.5) g/dL Albumin/Globulin Ratio (1.1-2.2) Prealbumin (18.0-45.0) mg/dL Triglycerides (< 150) mg/dL Urine Color (Yellow) Urine Clarity (Clear) Urine pH (5.0-8.0) pH Units Ur Specific [place] (1.010-1.025) Urine Protein (Neg-Trace) mg/dL Urine Glucose (UA) (Normal) mg/dL Urine Ketones (Negative) mg/dL Urine Blood (Negative) Urine Nitrite (Negative) Urine Bilirubin (Negative) Urine Urobilinogen (Normal) mg/dL Ur Leukocyte Esterase (Negative) Urine Microscopic RBC (0-3) per hpf Urine Microscopic WBC (0-3) per hpf Ur Squamous Epith Cells (None-Few) per lpf Urine Bacteria (None-Few) per hpf Hyaline Casts (None-Few) per lpf Ur Culture Indicated? (NO) C. difficile Tox (PCR) (Negative) Specimen Rejected Blood Type Antibody Screen Crossmatch 04/18/16 04/18/16 04/18/16 Range/Units 14:55 16:31 22:03 WBC (4.3-11.1) K/mcL RBC (4.19-5.50) M/mcL Hgb (12.9-16.9) g/dL Hct (37.5-50.1) % MCV (83.0-100.0) fL MCH (28.0-33.3) pg MCHC (31.6-35.5) g/dL RDW (11.5-14.5) % Plt Count (140-400) K/mcL MPV (9.4-12.4) fL Immature Gran % (0-4) % Seg Neutrophils % % Lymphocytes % % Monocytes % % Eosinophils % % Basophils % % Neutrophils # (1.6-8.9) K/mcL Lymphocytes # (0.6-4.6) K/mcL Monocytes # (0.0-1.3) K/mcL Eosinophils # (0.0-0.6) K/mcL Basophils # (0.0-0.2) K/mcL Reactive Lymphocytes (Not Present) Platelet Estimate (Normal) Immature Plt Fraction (1.1-6.1) % PT (9.4-12.1) Seconds INR Sodium (136-145) mEq/L Potassium 2.9 L (3.5-4.5) mEq/L Chloride (98-109) mEq/L Carbon Dioxide (19-29) mEq/L BUN (8-26) mg/dL Creatinine (0.72-1.25) mg/dL Est GFR ( Amer) (> 60) Est GFR (Non-Af Amer) (> 60) BUN/Creatinine Ratio (6-26) Glucose (70-99) mg/dL POC Glucose 184 H 198 H (58-89) Est Mean Plasma Glucose mg/dl Hemoglobin A1c ( - 5.6) % Calculated Osmolality (280-300) Calcium (8.6-10.8) mg/dL Phosphorus (2.3-4.7) mg/dL Magnesium 1.9 (1.6-2.6) mg/dL Total Bilirubin (0.2-1.2) mg/dL AST (5-34) Units/L ALT (0-55) Units/L Alkaline Phosphatase (38-126) Units/L Serum Total Protein (6.0-8.3) g/dL Albumin (3.5-5.0) g/dL Globulin (2.4-3.5) g/dL Albumin/Globulin Ratio (1.1-2.2) Prealbumin (18.0-45.0) mg/dL Triglycerides (< 150) mg/dL Urine Color (Yellow) Urine Clarity (Clear) Urine pH (5.0-8.0) pH Units Ur Specific [place] (1.010-1.025) Urine Protein (Neg-Trace) mg/dL Urine Glucose (UA) (Normal) mg/dL Urine Ketones (Negative) mg/dL Urine Blood (Negative) Urine Nitrite (Negative) Urine Bilirubin (Negative) Urine Urobilinogen (Normal) mg/dL Ur Leukocyte Esterase (Negative) Urine Microscopic RBC (0-3) per hpf Urine Microscopic WBC (0-3) per hpf Ur Squamous Epith Cells (None-Few) per lpf Urine Bacteria (None-Few) per hpf Hyaline Casts (None-Few) per lpf Ur Culture Indicated? (NO) C. difficile Tox (PCR) (Negative) Specimen Rejected Blood Type Antibody Screen Crossmatch 04/19/16 04/19/16 04/19/16 Range/Units 00:29 04:12 04:30 WBC (4.3-11.1) K/mcL RBC (4.19-5.50) M/mcL Hgb (12.9-16.9) g/dL Hct (37.5-50.1) % MCV (83.0-100.0) fL MCH (28.0-33.3) pg MCHC (31.6-35.5) g/dL RDW (11.5-14.5) % Plt Count (140-400) K/mcL MPV (9.4-12.4) fL Immature Gran % (0-4) % Seg Neutrophils % % Lymphocytes % % Monocytes % % Eosinophils % % Basophils % % Neutrophils # (1.6-8.9) K/mcL Lymphocytes # (0.6-4.6) K/mcL Monocytes # (0.0-1.3) K/mcL Eosinophils # (0.0-0.6) K/mcL Basophils # (0.0-0.2) K/mcL Reactive Lymphocytes (Not Present) Platelet Estimate (Normal) Immature Plt Fraction (1.1-6.1) % PT (9.4-12.1) Seconds INR Sodium (136-145) mEq/L Potassium (3.5-4.5) mEq/L Chloride (98-109) mEq/L Carbon Dioxide (19-29) mEq/L BUN (8-26) mg/dL Creatinine (0.72-1.25) mg/dL Est GFR ( Amer) (> 60) Est GFR (Non-Af Amer) (> 60) BUN/Creatinine Ratio (6-26) Glucose (70-99) mg/dL POC Glucose 203 H 137 H (58-89) Est Mean Plasma Glucose mg/dl Hemoglobin A1c ( - 5.6) % Calculated Osmolality (280-300) Calcium (8.6-10.8) mg/dL Phosphorus 2.6 (2.3-4.7) mg/dL Magnesium 1.9 (1.6-2.6) mg/dL Total Bilirubin (0.2-1.2) mg/dL AST (5-34) Units/L ALT (0-55) Units/L Alkaline Phosphatase (38-126) Units/L Serum Total Protein (6.0-8.3) g/dL Albumin (3.5-5.0) g/dL Globulin (2.4-3.5) g/dL Albumin/Globulin Ratio (1.1-2.2) Prealbumin (18.0-45.0) mg/dL Triglycerides (< 150) mg/dL Urine Color (Yellow) Urine Clarity (Clear) Urine pH (5.0-8.0) pH Units Ur Specific [place] (1.010-1.025) Urine Protein (Neg-Trace) mg/dL Urine Glucose (UA) (Normal) mg/dL Urine Ketones (Negative) mg/dL Urine Blood (Negative) Urine Nitrite (Negative) Urine Bilirubin (Negative) Urine Urobilinogen (Normal) mg/dL Ur Leukocyte Esterase (Negative) Urine Microscopic RBC (0-3) per hpf Urine Microscopic WBC (0-3) per hpf Ur Squamous Epith Cells (None-Few) per lpf Urine Bacteria (None-Few) per hpf Hyaline Casts (None-Few) per lpf Ur Culture Indicated? (NO) C. difficile Tox (PCR) (Negative) Specimen Rejected Blood Type Antibody Screen Crossmatch 04/19/16 04/19/16 04/19/16 Range/Units 06:36 07:32 08:14 WBC 13.2 H (4.3-11.1) K/mcL RBC 3.88 L (4.19-5.50) M/mcL Hgb 11.5 L (12.9-16.9) g/dL Hct 35.0 L (37.5-50.1) % MCV 90.2 (83.0-100.0) fL MCH 29.6 (28.0-33.3) pg MCHC 32.9 (31.6-35.5) g/dL RDW 13.2 (11.5-14.5) % Plt Count 423 H (140-400) K/mcL MPV 9.1 L (9.4-12.4) fL Immature Gran % 0.8 (0-4) % Seg Neutrophils % 86.1 % Lymphocytes % 5.2 % Monocytes % 7.4 % Eosinophils % 0.2 % Basophils % 0.3 % Neutrophils # 11.4 H (1.6-8.9) K/mcL Lymphocytes # 0.7 (0.6-4.6) K/mcL Monocytes # 1.0 (0.0-1.3) K/mcL Eosinophils # 0.0 (0.0-0.6) K/mcL Basophils # 0.0 (0.0-0.2) K/mcL Reactive Lymphocytes (Not Present) Platelet Estimate (Normal) Immature Plt Fraction 1.7 (1.1-6.1) % PT (9.4-12.1) Seconds INR Sodium 139 (136-145) mEq/L Potassium 2.9 L (3.5-4.5) mEq/L Chloride 104 (98-109) mEq/L Carbon Dioxide 27 (19-29) mEq/L BUN 13 (8-26) mg/dL Creatinine 0.69 L (0.72-1.25) mg/dL Est GFR ( Amer) > 60 (> 60) Est GFR (Non-Af Amer) > 60 (> 60) BUN/Creatinine Ratio 19 (6-26) Glucose 213 H (70-99) mg/dL POC Glucose 196 H (58-89) Est Mean Plasma Glucose mg/dl Hemoglobin A1c ( - 5.6) % Calculated Osmolality 294 (280-300) Calcium 8.7 (8.6-10.8) mg/dL Phosphorus (2.3-4.7) mg/dL Magnesium (1.6-2.6) mg/dL Total Bilirubin (0.2-1.2) mg/dL AST (5-34) Units/L ALT (0-55) Units/L Alkaline Phosphatase (38-126) Units/L Serum Total Protein (6.0-8.3) g/dL Albumin (3.5-5.0) g/dL Globulin (2.4-3.5) g/dL Albumin/Globulin Ratio (1.1-2.2) Prealbumin (18.0-45.0) mg/dL Triglycerides (< 150) mg/dL Urine Color (Yellow) Urine Clarity (Clear) Urine pH (5.0-8.0) pH Units Ur Specific [place] (1.010-1.025) Urine Protein (Neg-Trace) mg/dL Urine Glucose (UA) (Normal) mg/dL Urine Ketones (Negative) mg/dL Urine Blood (Negative) Urine Nitrite (Negative) Urine Bilirubin (Negative) Urine Urobilinogen (Normal) mg/dL Ur Leukocyte Esterase (Negative) Urine Microscopic RBC (0-3) per hpf Urine Microscopic WBC (0-3) per hpf Ur Squamous Epith Cells (None-Few) per lpf Urine Bacteria (None-Few) per hpf Hyaline Casts (None-Few) per lpf Ur Culture Indicated? (NO) C. difficile Tox (PCR) (Negative) Specimen Rejected Blood Type Antibody Screen Crossmatch 04/19/16 04/19/16 04/19/16 Range/Units 12:30 15:00 16:05 WBC (4.3-11.1) K/mcL RBC (4.19-5.50) M/mcL Hgb (12.9-16.9) g/dL Hct (37.5-50.1) % MCV (83.0-100.0) fL MCH (28.0-33.3) pg MCHC (31.6-35.5) g/dL RDW (11.5-14.5) % Plt Count (140-400) K/mcL MPV (9.4-12.4) fL Immature Gran % (0-4) % Seg Neutrophils % % Lymphocytes % % Monocytes % % Eosinophils % % Basophils % % Neutrophils # (1.6-8.9) K/mcL Lymphocytes # (0.6-4.6) K/mcL Monocytes # (0.0-1.3) K/mcL Eosinophils # (0.0-0.6) K/mcL Basophils # (0.0-0.2) K/mcL Reactive Lymphocytes (Not Present) Platelet Estimate (Normal) Immature Plt Fraction (1.1-6.1) % PT (9.4-12.1) Seconds INR Sodium (136-145) mEq/L Potassium 2.9 L (3.5-4.5) mEq/L Chloride (98-109) mEq/L Carbon Dioxide (19-29) mEq/L BUN (8-26) mg/dL Creatinine (0.72-1.25) mg/dL Est GFR ( Amer) (> 60) Est GFR (Non-Af Amer) (> 60) BUN/Creatinine Ratio (6-26) Glucose (70-99) mg/dL POC Glucose 221 H 212 H (58-89) Est Mean Plasma Glucose mg/dl Hemoglobin A1c ( - 5.6) % Calculated Osmolality (280-300) Calcium (8.6-10.8) mg/dL Phosphorus (2.3-4.7) mg/dL Magnesium (1.6-2.6) mg/dL Total Bilirubin (0.2-1.2) mg/dL AST (5-34) Units/L ALT (0-55) Units/L Alkaline Phosphatase (38-126) Units/L Serum Total Protein (6.0-8.3) g/dL Albumin (3.5-5.0) g/dL Globulin (2.4-3.5) g/dL Albumin/Globulin Ratio (1.1-2.2) Prealbumin (18.0-45.0) mg/dL Triglycerides (< 150) mg/dL Urine Color (Yellow) Urine Clarity (Clear) Urine pH (5.0-8.0) pH Units Ur Specific [place] (1.010-1.025) Urine Protein (Neg-Trace) mg/dL Urine Glucose (UA) (Normal) mg/dL Urine Ketones (Negative) mg/dL Urine Blood (Negative) Urine Nitrite (Negative) Urine Bilirubin (Negative) Urine Urobilinogen (Normal) mg/dL Ur Leukocyte Esterase (Negative) Urine Microscopic RBC (0-3) per hpf Urine Microscopic WBC (0-3) per hpf Ur Squamous Epith Cells (None-Few) per lpf Urine Bacteria (None-Few) per hpf Hyaline Casts (None-Few) per lpf Ur Culture Indicated? (NO) C. difficile Tox (PCR) (Negative) Specimen Rejected Blood Type Antibody Screen Crossmatch 04/19/16 04/19/16 04/20/16 Range/Units 19:36 23:49 04:25 WBC (4.3-11.1) K/mcL RBC (4.19-5.50) M/mcL Hgb (12.9-16.9) g/dL Hct (37.5-50.1) % MCV (83.0-100.0) fL MCH (28.0-33.3) pg MCHC (31.6-35.5) g/dL RDW (11.5-14.5) % Plt Count (140-400) K/mcL MPV (9.4-12.4) fL Immature Gran % (0-4) % Seg Neutrophils % % Lymphocytes % % Monocytes % % Eosinophils % % Basophils % % Neutrophils # (1.6-8.9) K/mcL Lymphocytes # (0.6-4.6) K/mcL Monocytes # (0.0-1.3) K/mcL Eosinophils # (0.0-0.6) K/mcL Basophils # (0.0-0.2) K/mcL Reactive Lymphocytes (Not Present) Platelet Estimate (Normal) Immature Plt Fraction (1.1-6.1) % PT (9.4-12.1) Seconds INR Sodium (136-145) mEq/L Potassium (3.5-4.5) mEq/L Chloride (98-109) mEq/L Carbon Dioxide (19-29) mEq/L BUN (8-26) mg/dL Creatinine (0.72-1.25) mg/dL Est GFR ( Amer) (> 60) Est GFR (Non-Af Amer) (> 60) BUN/Creatinine Ratio (6-26) Glucose (70-99) mg/dL POC Glucose 229 H 177 H 201 H (58-89) Est Mean Plasma Glucose mg/dl Hemoglobin A1c ( - 5.6) % Calculated Osmolality (280-300) Calcium (8.6-10.8) mg/dL Phosphorus (2.3-4.7) mg/dL Magnesium (1.6-2.6) mg/dL Total Bilirubin (0.2-1.2) mg/dL AST (5-34) Units/L ALT (0-55) Units/L Alkaline Phosphatase (38-126) Units/L Serum Total Protein (6.0-8.3) g/dL Albumin (3.5-5.0) g/dL Globulin (2.4-3.5) g/dL Albumin/Globulin Ratio (1.1-2.2) Prealbumin (18.0-45.0) mg/dL Triglycerides (< 150) mg/dL Urine Color (Yellow) Urine Clarity (Clear) Urine pH (5.0-8.0) pH Units Ur Specific [place] (1.010-1.025) Urine Protein (Neg-Trace) mg/dL Urine Glucose (UA) (Normal) mg/dL Urine Ketones (Negative) mg/dL Urine Blood (Negative) Urine Nitrite (Negative) Urine Bilirubin (Negative) Urine Urobilinogen (Normal) mg/dL Ur Leukocyte Esterase (Negative) Urine Microscopic RBC (0-3) per hpf Urine Microscopic WBC (0-3) per hpf Ur Squamous Epith Cells (None-Few) per lpf Urine Bacteria (None-Few) per hpf Hyaline Casts (None-Few) per lpf Ur Culture Indicated? (NO) C. difficile Tox (PCR) (Negative) Specimen Rejected Blood Type Antibody Screen Crossmatch 04/20/16 04/20/16 04/20/16 Range/Units 04:48 04:48 07:21 WBC 18.4 H (4.3-11.1) K/mcL RBC 4.01 L (4.19-5.50) M/mcL Hgb 12.1 L (12.9-16.9) g/dL Hct 36.0 L (37.5-50.1) % MCV 89.8 (83.0-100.0) fL MCH 30.2 (28.0-33.3) pg MCHC 33.6 (31.6-35.5) g/dL RDW 13.1 (11.5-14.5) % Plt Count 430 H (140-400) K/mcL MPV 9.5 (9.4-12.4) fL Immature Gran % 1.0 (0-4) % Seg Neutrophils % 85.1 % Lymphocytes % 4.9 % Monocytes % 8.6 % Eosinophils % 0.1 % Basophils % 0.3 % Neutrophils # 15.6 H (1.6-8.9) K/mcL Lymphocytes # 0.9 (0.6-4.6) K/mcL Monocytes # 1.6 H (0.0-1.3) K/mcL Eosinophils # 0.0 (0.0-0.6) K/mcL Basophils # 0.1 (0.0-0.2) K/mcL Reactive Lymphocytes (Not Present) Platelet Estimate (Normal) Immature Plt Fraction (1.1-6.1) % PT (9.4-12.1) Seconds INR Sodium 139 (136-145) mEq/L Potassium 3.0 L (3.5-4.5) mEq/L Chloride 103 (98-109) mEq/L Carbon Dioxide 27 (19-29) mEq/L BUN 15 (8-26) mg/dL Creatinine 0.71 L (0.72-1.25) mg/dL Est GFR ( Amer) > 60 (> 60) Est GFR (Non-Af Amer) > 60 (> 60) BUN/Creatinine Ratio 21 (6-26) Glucose 216 H (70-99) mg/dL POC Glucose 216 H (58-89) Est Mean Plasma Glucose mg/dl Hemoglobin A1c ( - 5.6) % Calculated Osmolality 295 (280-300) Calcium 9.0 (8.6-10.8) mg/dL Phosphorus (2.3-4.7) mg/dL Magnesium (1.6-2.6) mg/dL Total Bilirubin (0.2-1.2) mg/dL AST (5-34) Units/L ALT (0-55) Units/L Alkaline Phosphatase (38-126) Units/L Serum Total Protein (6.0-8.3) g/dL Albumin (3.5-5.0) g/dL Globulin (2.4-3.5) g/dL Albumin/Globulin Ratio (1.1-2.2) Prealbumin (18.0-45.0) mg/dL Triglycerides (< 150) mg/dL Urine Color (Yellow) Urine Clarity (Clear) Urine pH (5.0-8.0) pH Units Ur Specific [place] (1.010-1.025) Urine Protein (Neg-Trace) mg/dL Urine Glucose (UA) (Normal) mg/dL Urine Ketones (Negative) mg/dL Urine Blood (Negative) Urine Nitrite (Negative) Urine Bilirubin (Negative) Urine Urobilinogen (Normal) mg/dL Ur Leukocyte Esterase (Negative) Urine Microscopic RBC (0-3) per hpf Urine Microscopic WBC (0-3) per hpf Ur Squamous Epith Cells (None-Few) per lpf Urine Bacteria (None-Few) per hpf Hyaline Casts (None-Few) per lpf Ur Culture Indicated? (NO) C. difficile Tox (PCR) (Negative) Specimen Rejected Blood Type Antibody Screen Crossmatch 04/20/16 04/20/16 04/20/16 Range/Units 10:47 11:13 15:44 WBC (4.3-11.1) K/mcL RBC (4.19-5.50) M/mcL Hgb (12.9-16.9) g/dL Hct (37.5-50.1) % MCV (83.0-100.0) fL MCH (28.0-33.3) pg MCHC (31.6-35.5) g/dL RDW (11.5-14.5) % Plt Count (140-400) K/mcL MPV (9.4-12.4) fL Immature Gran % (0-4) % Seg Neutrophils % % Lymphocytes % % Monocytes % % Eosinophils % % Basophils % % Neutrophils # (1.6-8.9) K/mcL Lymphocytes # (0.6-4.6) K/mcL Monocytes # (0.0-1.3) K/mcL Eosinophils # (0.0-0.6) K/mcL Basophils # (0.0-0.2) K/mcL Reactive Lymphocytes (Not Present) Platelet Estimate (Normal) Immature Plt Fraction (1.1-6.1) % PT (9.4-12.1) Seconds INR Sodium (136-145) mEq/L Potassium (3.5-4.5) mEq/L Chloride (98-109) mEq/L Carbon Dioxide (19-29) mEq/L BUN (8-26) mg/dL Creatinine (0.72-1.25) mg/dL Est GFR ( Amer) (> 60) Est GFR (Non-Af Amer) (> 60) BUN/Creatinine Ratio (6-26) Glucose (70-99) mg/dL POC Glucose 219 H 147 H (58-89) Est Mean Plasma Glucose mg/dl Hemoglobin A1c ( - 5.6) % Calculated Osmolality (280-300) Calcium (8.6-10.8) mg/dL Phosphorus (2.3-4.7) mg/dL Magnesium (1.6-2.6) mg/dL Total Bilirubin (0.2-1.2) mg/dL AST (5-34) Units/L ALT (0-55) Units/L Alkaline Phosphatase (38-126) Units/L Serum Total Protein (6.0-8.3) g/dL Albumin (3.5-5.0) g/dL Globulin (2.4-3.5) g/dL Albumin/Globulin Ratio (1.1-2.2) Prealbumin (18.0-45.0) mg/dL Triglycerides (< 150) mg/dL Urine Color Yellow (Yellow) Urine Clarity Clear (Clear) Urine pH 6.5 (5.0-8.0) pH Units Ur Specific [place] 1.015 (1.010-1.025) Urine Protein Trace (Neg-Trace) mg/dL Urine Glucose (UA) Normal (Normal) mg/dL Urine Ketones Negative (Negative) mg/dL Urine Blood Negative (Negative) Urine Nitrite Negative (Negative) Urine Bilirubin Negative (Negative) Urine Urobilinogen Normal (Normal) mg/dL Ur Leukocyte Esterase Negative (Negative) Urine Microscopic RBC 0-3 (0-3) per hpf Urine Microscopic WBC 0-3 (0-3) per hpf Ur Squamous Epith Cells Many H (None-Few) per lpf Urine Bacteria None Seen (None-Few) per hpf Hyaline Casts None Seen (None-Few) per lpf Ur Culture Indicated? NO (NO) C. difficile Tox (PCR) (Negative) Specimen Rejected Blood Type Antibody Screen Crossmatch 04/20/16 04/20/16 04/20/16 Range/Units 17:00 20:38 23:35 WBC (4.3-11.1) K/mcL RBC (4.19-5.50) M/mcL Hgb (12.9-16.9) g/dL Hct (37.5-50.1) % MCV (83.0-100.0) fL MCH (28.0-33.3) pg MCHC (31.6-35.5) g/dL RDW (11.5-14.5) % Plt Count (140-400) K/mcL MPV (9.4-12.4) fL Immature Gran % (0-4) % Seg Neutrophils % % Lymphocytes % % Monocytes % % Eosinophils % % Basophils % % Neutrophils # (1.6-8.9) K/mcL Lymphocytes # (0.6-4.6) K/mcL Monocytes # (0.0-1.3) K/mcL Eosinophils # (0.0-0.6) K/mcL Basophils # (0.0-0.2) K/mcL Reactive Lymphocytes (Not Present) Platelet Estimate (Normal) Immature Plt Fraction (1.1-6.1) % PT (9.4-12.1) Seconds INR Sodium (136-145) mEq/L Potassium (3.5-4.5) mEq/L Chloride (98-109) mEq/L Carbon Dioxide (19-29) mEq/L BUN (8-26) mg/dL Creatinine (0.72-1.25) mg/dL Est GFR ( Amer) (> 60) Est GFR (Non-Af Amer) (> 60) BUN/Creatinine Ratio (6-26) Glucose (70-99) mg/dL POC Glucose 343 H 116 H (58-89) Est Mean Plasma Glucose mg/dl Hemoglobin A1c ( - 5.6) % Calculated Osmolality (280-300) Calcium (8.6-10.8) mg/dL Phosphorus (2.3-4.7) mg/dL Magnesium (1.6-2.6) mg/dL Total Bilirubin (0.2-1.2) mg/dL AST (5-34) Units/L ALT (0-55) Units/L Alkaline Phosphatase (38-126) Units/L Serum Total Protein (6.0-8.3) g/dL Albumin (3.5-5.0) g/dL Globulin (2.4-3.5) g/dL Albumin/Globulin Ratio (1.1-2.2) Prealbumin (18.0-45.0) mg/dL Triglycerides (< 150) mg/dL Urine Color Yellow (Yellow) Urine Clarity Clear (Clear) Urine pH 6.5 (5.0-8.0) pH Units Ur Specific [place] 1.010 (1.010-1.025) Urine Protein Negative (Neg-Trace) mg/dL Urine Glucose (UA) Normal (Normal) mg/dL Urine Ketones Negative (Negative) mg/dL Urine Blood Negative (Negative) Urine Nitrite Negative (Negative) Urine Bilirubin Negative (Negative) Urine Urobilinogen Normal (Normal) mg/dL Ur Leukocyte Esterase Negative (Negative) Urine Microscopic RBC (0-3) per hpf Urine Microscopic WBC (0-3) per hpf Ur Squamous Epith Cells (None-Few) per lpf Urine Bacteria (None-Few) per hpf Hyaline Casts (None-Few) per lpf Ur Culture Indicated? NO (NO) C. difficile Tox (PCR) (Negative) Specimen Rejected Blood Type Antibody Screen Crossmatch 04/21/16 04/21/16 04/21/16 Range/Units 03:55 05:34 05:34 WBC 15.0 H (4.3-11.1) K/mcL RBC 3.84 L (4.19-5.50) M/mcL Hgb 11.3 L (12.9-16.9) g/dL Hct 35.5 L (37.5-50.1) % MCV 92.4 (83.0-100.0) fL MCH 29.4 (28.0-33.3) pg MCHC 31.8 (31.6-35.5) g/dL RDW 13.5 (11.5-14.5) % Plt Count 395 (140-400) K/mcL MPV 9.8 (9.4-12.4) fL Immature Gran % 1.2 (0-4) % Seg Neutrophils % 79.6 % Lymphocytes % 7.7 % Monocytes % 10.5 % Eosinophils % 0.7 % Basophils % 0.3 % Neutrophils # 12.0 H (1.6-8.9) K/mcL Lymphocytes # 1.2 (0.6-4.6) K/mcL Monocytes # 1.6 H (0.0-1.3) K/mcL Eosinophils # 0.1 (0.0-0.6) K/mcL Basophils # 0.0 (0.0-0.2) K/mcL Reactive Lymphocytes (Not Present) Platelet Estimate (Normal) Immature Plt Fraction (1.1-6.1) % PT (9.4-12.1) Seconds INR Sodium 143 (136-145) mEq/L Potassium 3.6 (3.5-4.5) mEq/L Chloride 105 (98-109) mEq/L Carbon Dioxide 32 H (19-29) mEq/L BUN 17 (8-26) mg/dL Creatinine 0.69 L (0.72-1.25) mg/dL Est GFR ( Amer) > 60 (> 60) Est GFR (Non-Af Amer) > 60 (> 60) BUN/Creatinine Ratio 25 (6-26) Glucose 126 H (70-99) mg/dL POC Glucose 151 H (58-89) Est Mean Plasma Glucose mg/dl Hemoglobin A1c ( - 5.6) % Calculated Osmolality 299 (280-300) Calcium 8.7 (8.6-10.8) mg/dL Phosphorus (2.3-4.7) mg/dL Magnesium (1.6-2.6) mg/dL Total Bilirubin (0.2-1.2) mg/dL AST (5-34) Units/L ALT (0-55) Units/L Alkaline Phosphatase (38-126) Units/L Serum Total Protein (6.0-8.3) g/dL Albumin (3.5-5.0) g/dL Globulin (2.4-3.5) g/dL Albumin/Globulin Ratio (1.1-2.2) Prealbumin (18.0-45.0) mg/dL Triglycerides (< 150) mg/dL Urine Color (Yellow) Urine Clarity (Clear) Urine pH (5.0-8.0) pH Units Ur Specific [place] (1.010-1.025) Urine Protein (Neg-Trace) mg/dL Urine Glucose (UA) (Normal) mg/dL Urine Ketones (Negative) mg/dL Urine Blood (Negative) Urine Nitrite (Negative) Urine Bilirubin (Negative) Urine Urobilinogen (Normal) mg/dL Ur Leukocyte Esterase (Negative) Urine Microscopic RBC (0-3) per hpf Urine Microscopic WBC (0-3) per hpf Ur Squamous Epith Cells (None-Few) per lpf Urine Bacteria (None-Few) per hpf Hyaline Casts (None-Few) per lpf Ur Culture Indicated? (NO) C. difficile Tox (PCR) (Negative) Specimen Rejected Blood Type Antibody Screen Crossmatch 04/21/16 04/21/16 04/21/16 Range/Units 07:54 10:57 15:53 WBC (4.3-11.1) K/mcL RBC (4.19-5.50) M/mcL Hgb (12.9-16.9) g/dL Hct (37.5-50.1) % MCV (83.0-100.0) fL MCH (28.0-33.3) pg MCHC (31.6-35.5) g/dL RDW (11.5-14.5) % Plt Count (140-400) K/mcL MPV (9.4-12.4) fL Immature Gran % (0-4) % Seg Neutrophils % % Lymphocytes % % Monocytes % % Eosinophils % % Basophils % % Neutrophils # (1.6-8.9) K/mcL Lymphocytes # (0.6-4.6) K/mcL Monocytes # (0.0-1.3) K/mcL Eosinophils # (0.0-0.6) K/mcL Basophils # (0.0-0.2) K/mcL Reactive Lymphocytes (Not Present) Platelet Estimate (Normal) Immature Plt Fraction (1.1-6.1) % PT (9.4-12.1) Seconds INR Sodium (136-145) mEq/L Potassium (3.5-4.5) mEq/L Chloride (98-109) mEq/L Carbon Dioxide (19-29) mEq/L BUN (8-26) mg/dL Creatinine (0.72-1.25) mg/dL Est GFR ( Amer) (> 60) Est GFR (Non-Af Amer) (> 60) BUN/Creatinine Ratio (6-26) Glucose (70-99) mg/dL POC Glucose 143 H 168 H 161 H (58-89) Est Mean Plasma Glucose mg/dl Hemoglobin A1c ( - 5.6) % Calculated Osmolality (280-300) Calcium (8.6-10.8) mg/dL Phosphorus (2.3-4.7) mg/dL Magnesium (1.6-2.6) mg/dL Total Bilirubin (0.2-1.2) mg/dL AST (5-34) Units/L ALT (0-55) Units/L Alkaline Phosphatase (38-126) Units/L Serum Total Protein (6.0-8.3) g/dL Albumin (3.5-5.0) g/dL Globulin (2.4-3.5) g/dL Albumin/Globulin Ratio (1.1-2.2) Prealbumin (18.0-45.0) mg/dL Triglycerides (< 150) mg/dL Urine Color (Yellow) Urine Clarity (Clear) Urine pH (5.0-8.0) pH Units Ur Specific [place] (1.010-1.025) Urine Protein (Neg-Trace) mg/dL Urine Glucose (UA) (Normal) mg/dL Urine Ketones (Negative) mg/dL Urine Blood (Negative) Urine Nitrite (Negative) Urine Bilirubin (Negative) Urine Urobilinogen (Normal) mg/dL Ur Leukocyte Esterase (Negative) Urine Microscopic RBC (0-3) per hpf Urine Microscopic WBC (0-3) per hpf Ur Squamous Epith Cells (None-Few) per lpf Urine Bacteria (None-Few) per hpf Hyaline Casts (None-Few) per lpf Ur Culture Indicated? (NO) C. difficile Tox (PCR) (Negative) Specimen Rejected Blood Type Antibody Screen Crossmatch 04/21/16 04/21/16 04/22/16 Range/Units 19:09 23:34 03:00 WBC (4.3-11.1) K/mcL RBC (4.19-5.50) M/mcL Hgb (12.9-16.9) g/dL Hct (37.5-50.1) % MCV (83.0-100.0) fL MCH (28.0-33.3) pg MCHC (31.6-35.5) g/dL RDW (11.5-14.5) % Plt Count (140-400) K/mcL MPV (9.4-12.4) fL Immature Gran % (0-4) % Seg Neutrophils % % Lymphocytes % % Monocytes % % Eosinophils % % Basophils % % Neutrophils # (1.6-8.9) K/mcL Lymphocytes # (0.6-4.6) K/mcL Monocytes # (0.0-1.3) K/mcL Eosinophils # (0.0-0.6) K/mcL Basophils # (0.0-0.2) K/mcL Reactive Lymphocytes (Not Present) Platelet Estimate (Normal) Immature Plt Fraction (1.1-6.1) % PT (9.4-12.1) Seconds INR Sodium 141 (136-145) mEq/L Potassium 3.8 (3.5-4.5) mEq/L Chloride 105 (98-109) mEq/L Carbon Dioxide 29 (19-29) mEq/L BUN 19 (8-26) mg/dL Creatinine 0.70 L (0.72-1.25) mg/dL Est GFR ( Amer) > 60 (> 60) Est GFR (Non-Af Amer) > 60 (> 60) BUN/Creatinine Ratio 27 H (6-26) Glucose 144 H (70-99) mg/dL POC Glucose 253 H 147 H (58-89) Est Mean Plasma Glucose mg/dl Hemoglobin A1c ( - 5.6) % Calculated Osmolality 297 (280-300) Calcium 8.6 (8.6-10.8) mg/dL Phosphorus (2.3-4.7) mg/dL Magnesium (1.6-2.6) mg/dL Total Bilirubin (0.2-1.2) mg/dL AST (5-34) Units/L ALT (0-55) Units/L Alkaline Phosphatase (38-126) Units/L Serum Total Protein (6.0-8.3) g/dL Albumin (3.5-5.0) g/dL Globulin (2.4-3.5) g/dL Albumin/Globulin Ratio (1.1-2.2) Prealbumin (18.0-45.0) mg/dL Triglycerides (< 150) mg/dL Urine Color (Yellow) Urine Clarity (Clear) Urine pH (5.0-8.0) pH Units Ur Specific [place] (1.010-1.025) Urine Protein (Neg-Trace) mg/dL Urine Glucose (UA) (Normal) mg/dL Urine Ketones (Negative) mg/dL Urine Blood (Negative) Urine Nitrite (Negative) Urine Bilirubin (Negative) Urine Urobilinogen (Normal) mg/dL Ur Leukocyte Esterase (Negative) Urine Microscopic RBC (0-3) per hpf Urine Microscopic WBC (0-3) per hpf Ur Squamous Epith Cells (None-Few) per lpf Urine Bacteria (None-Few) per hpf Hyaline Casts (None-Few) per lpf Ur Culture Indicated? (NO) C. difficile Tox (PCR) (Negative) Specimen Rejected Blood Type Antibody Screen Crossmatch 04/22/16 04/22/16 04/22/16 Range/Units 03:00 03:42 07:27 WBC 14.5 H (4.3-11.1) K/mcL RBC 3.77 L (4.19-5.50) M/mcL Hgb 11.2 L (12.9-16.9) g/dL Hct 34.8 L (37.5-50.1) % MCV 92.3 (83.0-100.0) fL MCH 29.7 (28.0-33.3) pg MCHC 32.2 (31.6-35.5) g/dL RDW 13.7 (11.5-14.5) % Plt Count 357 (140-400) K/mcL MPV 9.9 (9.4-12.4) fL Immature Gran % 0.7 (0-4) % Seg Neutrophils % 78.5 % Lymphocytes % 9.4 % Monocytes % 10.3 % Eosinophils % 0.8 % Basophils % 0.3 % Neutrophils # 11.4 H (1.6-8.9) K/mcL Lymphocytes # 1.4 (0.6-4.6) K/mcL Monocytes # 1.5 H (0.0-1.3) K/mcL Eosinophils # 0.1 (0.0-0.6) K/mcL Basophils # 0.1 (0.0-0.2) K/mcL Reactive Lymphocytes (Not Present) Platelet Estimate (Normal) Immature Plt Fraction (1.1-6.1) % PT (9.4-12.1) Seconds INR Sodium (136-145) mEq/L Potassium (3.5-4.5) mEq/L Chloride (98-109) mEq/L Carbon Dioxide (19-29) mEq/L BUN (8-26) mg/dL Creatinine (0.72-1.25) mg/dL Est GFR ( Amer) (> 60) Est GFR (Non-Af Amer) (> 60) BUN/Creatinine Ratio (6-26) Glucose (70-99) mg/dL POC Glucose 171 H 182 H (58-89) Est Mean Plasma Glucose mg/dl Hemoglobin A1c ( - 5.6) % Calculated Osmolality (280-300) Calcium (8.6-10.8) mg/dL Phosphorus (2.3-4.7) mg/dL Magnesium (1.6-2.6) mg/dL Total Bilirubin (0.2-1.2) mg/dL AST (5-34) Units/L ALT (0-55) Units/L Alkaline Phosphatase (38-126) Units/L Serum Total Protein (6.0-8.3) g/dL Albumin (3.5-5.0) g/dL Globulin (2.4-3.5) g/dL Albumin/Globulin Ratio (1.1-2.2) Prealbumin (18.0-45.0) mg/dL Triglycerides (< 150) mg/dL Urine Color (Yellow) Urine Clarity (Clear) Urine pH (5.0-8.0) pH Units Ur Specific [place] (1.010-1.025) Urine Protein (Neg-Trace) mg/dL Urine Glucose (UA) (Normal) mg/dL Urine Ketones (Negative) mg/dL Urine Blood (Negative) Urine Nitrite (Negative) Urine Bilirubin (Negative) Urine Urobilinogen (Normal) mg/dL Ur Leukocyte Esterase (Negative) Urine Microscopic RBC (0-3) per hpf Urine Microscopic WBC (0-3) per hpf Ur Squamous Epith Cells (None-Few) per lpf Urine Bacteria (None-Few) per hpf Hyaline Casts (None-Few) per lpf Ur Culture Indicated? (NO) C. difficile Tox (PCR) (Negative) Specimen Rejected Blood Type Antibody Screen Crossmatch 04/22/16 04/22/16 04/22/16 Range/Units 11:19 13:40 15:16 WBC (4.3-11.1) K/mcL RBC (4.19-5.50) M/mcL Hgb (12.9-16.9) g/dL Hct (37.5-50.1) % MCV (83.0-100.0) fL MCH (28.0-33.3) pg MCHC (31.6-35.5) g/dL RDW (11.5-14.5) % Plt Count (140-400) K/mcL MPV (9.4-12.4) fL Immature Gran % (0-4) % Seg Neutrophils % % Lymphocytes % % Monocytes % % Eosinophils % % Basophils % % Neutrophils # (1.6-8.9) K/mcL Lymphocytes # (0.6-4.6) K/mcL Monocytes # (0.0-1.3) K/mcL Eosinophils # (0.0-0.6) K/mcL Basophils # (0.0-0.2) K/mcL Reactive Lymphocytes (Not Present) Platelet Estimate (Normal) Immature Plt Fraction (1.1-6.1) % PT (9.4-12.1) Seconds INR Sodium (136-145) mEq/L Potassium (3.5-4.5) mEq/L Chloride (98-109) mEq/L Carbon Dioxide (19-29) mEq/L BUN (8-26) mg/dL Creatinine (0.72-1.25) mg/dL Est GFR ( Amer) (> 60) Est GFR (Non-Af Amer) (> 60) BUN/Creatinine Ratio (6-26) Glucose (70-99) mg/dL POC Glucose 159 H 161 H (58-89) Est Mean Plasma Glucose mg/dl Hemoglobin A1c ( - 5.6) % Calculated Osmolality (280-300) Calcium (8.6-10.8) mg/dL Phosphorus (2.3-4.7) mg/dL Magnesium (1.6-2.6) mg/dL Total Bilirubin (0.2-1.2) mg/dL AST (5-34) Units/L ALT (0-55) Units/L Alkaline Phosphatase (38-126) Units/L Serum Total Protein (6.0-8.3) g/dL Albumin (3.5-5.0) g/dL Globulin (2.4-3.5) g/dL Albumin/Globulin Ratio (1.1-2.2) Prealbumin (18.0-45.0) mg/dL Triglycerides (< 150) mg/dL Urine Color (Yellow) Urine Clarity (Clear) Urine pH (5.0-8.0) pH Units Ur Specific [place] (1.010-1.025) Urine Protein (Neg-Trace) mg/dL Urine Glucose (UA) (Normal) mg/dL Urine Ketones (Negative) mg/dL Urine Blood (Negative) Urine Nitrite (Negative) Urine Bilirubin (Negative) Urine Urobilinogen (Normal) mg/dL Ur Leukocyte Esterase (Negative) Urine Microscopic RBC (0-3) per hpf Urine Microscopic WBC (0-3) per hpf Ur Squamous Epith Cells (None-Few) per lpf Urine Bacteria (None-Few) per hpf Hyaline Casts (None-Few) per lpf Ur Culture Indicated? (NO) C. difficile Tox (PCR) Negative (Negative) Specimen Rejected Blood Type Antibody Screen Crossmatch 04/22/16 04/23/16 04/23/16 Range/Units 20:01 00:01 04:06 WBC (4.3-11.1) K/mcL RBC (4.19-5.50) M/mcL Hgb (12.9-16.9) g/dL Hct (37.5-50.1) % MCV (83.0-100.0) fL MCH (28.0-33.3) pg MCHC (31.6-35.5) g/dL RDW (11.5-14.5) % Plt Count (140-400) K/mcL MPV (9.4-12.4) fL Immature Gran % (0-4) % Seg Neutrophils % % Lymphocytes % % Monocytes % % Eosinophils % % Basophils % % Neutrophils # (1.6-8.9) K/mcL Lymphocytes # (0.6-4.6) K/mcL Monocytes # (0.0-1.3) K/mcL Eosinophils # (0.0-0.6) K/mcL Basophils # (0.0-0.2) K/mcL Reactive Lymphocytes (Not Present) Platelet Estimate (Normal) Immature Plt Fraction (1.1-6.1) % PT (9.4-12.1) Seconds INR Sodium (136-145) mEq/L Potassium (3.5-4.5) mEq/L Chloride (98-109) mEq/L Carbon Dioxide (19-29) mEq/L BUN (8-26) mg/dL Creatinine (0.72-1.25) mg/dL Est GFR ( Amer) (> 60) Est GFR (Non-Af Amer) (> 60) BUN/Creatinine Ratio (6-26) Glucose (70-99) mg/dL POC Glucose 195 H 168 H 158 H (58-89) Est Mean Plasma Glucose mg/dl Hemoglobin A1c ( - 5.6) % Calculated Osmolality (280-300) Calcium (8.6-10.8) mg/dL Phosphorus (2.3-4.7) mg/dL Magnesium (1.6-2.6) mg/dL Total Bilirubin (0.2-1.2) mg/dL AST (5-34) Units/L ALT (0-55) Units/L Alkaline Phosphatase (38-126) Units/L Serum Total Protein (6.0-8.3) g/dL Albumin (3.5-5.0) g/dL Globulin (2.4-3.5) g/dL Albumin/Globulin Ratio (1.1-2.2) Prealbumin (18.0-45.0) mg/dL Triglycerides (< 150) mg/dL Urine Color (Yellow) Urine Clarity (Clear) Urine pH (5.0-8.0) pH Units Ur Specific [place] (1.010-1.025) Urine Protein (Neg-Trace) mg/dL Urine Glucose (UA) (Normal) mg/dL Urine Ketones (Negative) mg/dL Urine Blood (Negative) Urine Nitrite (Negative) Urine Bilirubin (Negative) Urine Urobilinogen (Normal) mg/dL Ur Leukocyte Esterase (Negative) Urine Microscopic RBC (0-3) per hpf Urine Microscopic WBC (0-3) per hpf Ur Squamous Epith Cells (None-Few) per lpf Urine Bacteria (None-Few) per hpf Hyaline Casts (None-Few) per lpf Ur Culture Indicated? (NO) C. difficile Tox (PCR) (Negative) Specimen Rejected Blood Type Antibody Screen Crossmatch 04/23/16 04/23/16 04/23/16 Range/Units 05:00 05:00 05:00 WBC 17.0 H (4.3-11.1) K/mcL RBC 3.83 L (4.19-5.50) M/mcL Hgb 11.4 L (12.9-16.9) g/dL Hct 35.3 L (37.5-50.1) % MCV 92.2 (83.0-100.0) fL MCH 29.8 (28.0-33.3) pg MCHC 32.3 (31.6-35.5) g/dL RDW 13.8 (11.5-14.5) % Plt Count 346 (140-400) K/mcL MPV 9.6 (9.4-12.4) fL Immature Gran % 0.7 (0-4) % Seg Neutrophils % 83.1 % Lymphocytes % 6.4 % Monocytes % 8.2 % Eosinophils % 1.2 % Basophils % 0.4 % Neutrophils # 14.1 H (1.6-8.9) K/mcL Lymphocytes # 1.1 (0.6-4.6) K/mcL Monocytes # 1.4 H (0.0-1.3) K/mcL Eosinophils # 0.2 (0.0-0.6) K/mcL Basophils # 0.1 (0.0-0.2) K/mcL Reactive Lymphocytes (Not Present) Platelet Estimate (Normal) Immature Plt Fraction (1.1-6.1) % PT (9.4-12.1) Seconds INR Sodium 139 (136-145) mEq/L Potassium 4.2 (3.5-4.5) mEq/L Chloride 105 (98-109) mEq/L Carbon Dioxide 31 H (19-29) mEq/L BUN 16 (8-26) mg/dL Creatinine 0.72 (0.72-1.25) mg/dL Est GFR ( Amer) > 60 (> 60) Est GFR (Non-Af Amer) > 60 (> 60) BUN/Creatinine Ratio 22 (6-26) Glucose 155 H (70-99) mg/dL POC Glucose (58-89) Est Mean Plasma Glucose mg/dl Hemoglobin A1c ( - 5.6) % Calculated Osmolality 292 (280-300) Calcium 8.6 (8.6-10.8) mg/dL Phosphorus 3.0 (2.3-4.7) mg/dL Magnesium 2.0 (1.6-2.6) mg/dL Total Bilirubin 0.5 (0.2-1.2) mg/dL AST 15 (5-34) Units/L ALT 12 (0-55) Units/L Alkaline Phosphatase 52 (38-126) Units/L Serum Total Protein 5.7 L (6.0-8.3) g/dL Albumin 2.1 L (3.5-5.0) g/dL Globulin 3.6 H (2.4-3.5) g/dL Albumin/Globulin Ratio 0.6 L (1.1-2.2) Prealbumin 16.0 L (18.0-45.0) mg/dL Triglycerides (< 150) mg/dL Urine Color (Yellow) Urine Clarity (Clear) Urine pH (5.0-8.0) pH Units Ur Specific [place] (1.010-1.025) Urine Protein (Neg-Trace) mg/dL Urine Glucose (UA) (Normal) mg/dL Urine Ketones (Negative) mg/dL Urine Blood (Negative) Urine Nitrite (Negative) Urine Bilirubin (Negative) Urine Urobilinogen (Normal) mg/dL Ur Leukocyte Esterase (Negative) Urine Microscopic RBC (0-3) per hpf Urine Microscopic WBC (0-3) per hpf Ur Squamous Epith Cells (None-Few) per lpf Urine Bacteria (None-Few) per hpf Hyaline Casts (None-Few) per lpf Ur Culture Indicated? (NO) C. difficile Tox (PCR) (Negative) Specimen Rejected Blood Type Antibody Screen Crossmatch 04/23/16 04/23/16 04/23/16 Range/Units 07:20 11:29 15:20 WBC (4.3-11.1) K/mcL RBC (4.19-5.50) M/mcL Hgb (12.9-16.9) g/dL Hct (37.5-50.1) % MCV (83.0-100.0) fL MCH (28.0-33.3) pg MCHC (31.6-35.5) g/dL RDW (11.5-14.5) % Plt Count (140-400) K/mcL MPV (9.4-12.4) fL Immature Gran % (0-4) % Seg Neutrophils % % Lymphocytes % % Monocytes % % Eosinophils % % Basophils % % Neutrophils # (1.6-8.9) K/mcL Lymphocytes # (0.6-4.6) K/mcL Monocytes # (0.0-1.3) K/mcL Eosinophils # (0.0-0.6) K/mcL Basophils # (0.0-0.2) K/mcL Reactive Lymphocytes (Not Present) Platelet Estimate (Normal) Immature Plt Fraction (1.1-6.1) % PT (9.4-12.1) Seconds INR Sodium (136-145) mEq/L Potassium (3.5-4.5) mEq/L Chloride (98-109) mEq/L Carbon Dioxide (19-29) mEq/L BUN (8-26) mg/dL Creatinine (0.72-1.25) mg/dL Est GFR ( Amer) (> 60) Est GFR (Non-Af Amer) (> 60) BUN/Creatinine Ratio (6-26) Glucose (70-99) mg/dL POC Glucose 158 H 181 H 160 H (58-89) Est Mean Plasma Glucose mg/dl Hemoglobin A1c ( - 5.6) % Calculated Osmolality (280-300) Calcium (8.6-10.8) mg/dL Phosphorus (2.3-4.7) mg/dL Magnesium (1.6-2.6) mg/dL Total Bilirubin (0.2-1.2) mg/dL AST (5-34) Units/L ALT (0-55) Units/L Alkaline Phosphatase (38-126) Units/L Serum Total Protein (6.0-8.3) g/dL Albumin (3.5-5.0) g/dL Globulin (2.4-3.5) g/dL Albumin/Globulin Ratio (1.1-2.2) Prealbumin (18.0-45.0) mg/dL Triglycerides (< 150) mg/dL Urine Color (Yellow) Urine Clarity (Clear) Urine pH (5.0-8.0) pH Units Ur Specific [place] (1.010-1.025) Urine Protein (Neg-Trace) mg/dL Urine Glucose (UA) (Normal) mg/dL Urine Ketones (Negative) mg/dL Urine Blood (Negative) Urine Nitrite (Negative) Urine Bilirubin (Negative) Urine Urobilinogen (Normal) mg/dL Ur Leukocyte Esterase (Negative) Urine Microscopic RBC (0-3) per hpf Urine Microscopic WBC (0-3) per hpf Ur Squamous Epith Cells (None-Few) per lpf Urine Bacteria (None-Few) per hpf Hyaline Casts (None-Few) per lpf Ur Culture Indicated? (NO) C. difficile Tox (PCR) (Negative) Specimen Rejected Blood Type Antibody Screen Crossmatch 04/23/16 04/23/16 04/24/16 Range/Units 18:59 23:42 04:23 WBC (4.3-11.1) K/mcL RBC (4.19-5.50) M/mcL Hgb (12.9-16.9) g/dL Hct (37.5-50.1) % MCV (83.0-100.0) fL MCH (28.0-33.3) pg MCHC (31.6-35.5) g/dL RDW (11.5-14.5) % Plt Count (140-400) K/mcL MPV (9.4-12.4) fL Immature Gran % (0-4) % Seg Neutrophils % % Lymphocytes % % Monocytes % % Eosinophils % % Basophils % % Neutrophils # (1.6-8.9) K/mcL Lymphocytes # (0.6-4.6) K/mcL Monocytes # (0.0-1.3) K/mcL Eosinophils # (0.0-0.6) K/mcL Basophils # (0.0-0.2) K/mcL Reactive Lymphocytes (Not Present) Platelet Estimate (Normal) Immature Plt Fraction (1.1-6.1) % PT (9.4-12.1) Seconds INR Sodium (136-145) mEq/L Potassium (3.5-4.5) mEq/L Chloride (98-109) mEq/L Carbon Dioxide (19-29) mEq/L BUN (8-26) mg/dL Creatinine (0.72-1.25) mg/dL Est GFR ( Amer) (> 60) Est GFR (Non-Af Amer) (> 60) BUN/Creatinine Ratio (6-26) Glucose (70-99) mg/dL POC Glucose 215 H 186 H 156 H (58-89) Est Mean Plasma Glucose mg/dl Hemoglobin A1c ( - 5.6) % Calculated Osmolality (280-300) Calcium (8.6-10.8) mg/dL Phosphorus (2.3-4.7) mg/dL Magnesium (1.6-2.6) mg/dL Total Bilirubin (0.2-1.2) mg/dL AST (5-34) Units/L ALT (0-55) Units/L Alkaline Phosphatase (38-126) Units/L Serum Total Protein (6.0-8.3) g/dL Albumin (3.5-5.0) g/dL Globulin (2.4-3.5) g/dL Albumin/Globulin Ratio (1.1-2.2) Prealbumin (18.0-45.0) mg/dL Triglycerides (< 150) mg/dL Urine Color (Yellow) Urine Clarity (Clear) Urine pH (5.0-8.0) pH Units Ur Specific [place] (1.010-1.025) Urine Protein (Neg-Trace) mg/dL Urine Glucose (UA) (Normal) mg/dL Urine Ketones (Negative) mg/dL Urine Blood (Negative) Urine Nitrite (Negative) Urine Bilirubin (Negative) Urine Urobilinogen (Normal) mg/dL Ur Leukocyte Esterase (Negative) Urine Microscopic RBC (0-3) per hpf Urine Microscopic WBC (0-3) per hpf Ur Squamous Epith Cells (None-Few) per lpf Urine Bacteria (None-Few) per hpf Hyaline Casts (None-Few) per lpf Ur Culture Indicated? (NO) C. difficile Tox (PCR) (Negative) Specimen Rejected Blood Type Antibody Screen Crossmatch 04/24/16 04/24/16 04/24/16 Range/Units 04:30 04:30 08:07 WBC 18.1 H (4.3-11.1) K/mcL RBC 3.82 L (4.19-5.50) M/mcL Hgb 11.3 L (12.9-16.9) g/dL Hct 35.2 L (37.5-50.1) % MCV 92.1 (83.0-100.0) fL MCH 29.6 (28.0-33.3) pg MCHC 32.1 (31.6-35.5) g/dL RDW 14.0 (11.5-14.5) % Plt Count 344 (140-400) K/mcL MPV 10.1 (9.4-12.4) fL Immature Gran % 1.0 (0-4) % Seg Neutrophils % 82.4 % Lymphocytes % 6.5 % Monocytes % 8.0 % Eosinophils % 1.7 % Basophils % 0.4 % Neutrophils # 14.9 H (1.6-8.9) K/mcL Lymphocytes # 1.2 (0.6-4.6) K/mcL Monocytes # 1.5 H (0.0-1.3) K/mcL Eosinophils # 0.3 (0.0-0.6) K/mcL Basophils # 0.1 (0.0-0.2) K/mcL Reactive Lymphocytes (Not Present) Platelet Estimate (Normal) Immature Plt Fraction (1.1-6.1) % PT (9.4-12.1) Seconds INR Sodium 137 (136-145) mEq/L Potassium 4.1 (3.5-4.5) mEq/L Chloride 102 (98-109) mEq/L Carbon Dioxide 30 H (19-29) mEq/L BUN 15 (8-26) mg/dL Creatinine 0.71 L (0.72-1.25) mg/dL Est GFR ( Amer) > 60 (> 60) Est GFR (Non-Af Amer) > 60 (> 60) BUN/Creatinine Ratio 21 (6-26) Glucose 159 H (70-99) mg/dL POC Glucose 158 H (58-89) Est Mean Plasma Glucose mg/dl Hemoglobin A1c ( - 5.6) % Calculated Osmolality 288 (280-300) Calcium 8.8 (8.6-10.8) mg/dL Phosphorus (2.3-4.7) mg/dL Magnesium (1.6-2.6) mg/dL Total Bilirubin (0.2-1.2) mg/dL AST (5-34) Units/L ALT (0-55) Units/L Alkaline Phosphatase (38-126) Units/L Serum Total Protein (6.0-8.3) g/dL Albumin (3.5-5.0) g/dL Globulin (2.4-3.5) g/dL Albumin/Globulin Ratio (1.1-2.2) Prealbumin (18.0-45.0) mg/dL Triglycerides (< 150) mg/dL Urine Color (Yellow) Urine Clarity (Clear) Urine pH (5.0-8.0) pH Units Ur Specific [place] (1.010-1.025) Urine Protein (Neg-Trace) mg/dL Urine Glucose (UA) (Normal) mg/dL Urine Ketones (Negative) mg/dL Urine Blood (Negative) Urine Nitrite (Negative) Urine Bilirubin (Negative) Urine Urobilinogen (Normal) mg/dL Ur Leukocyte Esterase (Negative) Urine Microscopic RBC (0-3) per hpf Urine Microscopic WBC (0-3) per hpf Ur Squamous Epith Cells (None-Few) per lpf Urine Bacteria (None-Few) per hpf Hyaline Casts (None-Few) per lpf Ur Culture Indicated? (NO) C. difficile Tox (PCR) (Negative) Specimen Rejected Blood Type Antibody Screen Crossmatch 04/24/16 04/24/16 04/24/16 Range/Units 11:31 16:56 19:43 WBC (4.3-11.1) K/mcL RBC (4.19-5.50) M/mcL Hgb (12.9-16.9) g/dL Hct (37.5-50.1) % MCV (83.0-100.0) fL MCH (28.0-33.3) pg MCHC (31.6-35.5) g/dL RDW (11.5-14.5) % Plt Count (140-400) K/mcL MPV (9.4-12.4) fL Immature Gran % (0-4) % Seg Neutrophils % % Lymphocytes % % Monocytes % % Eosinophils % % Basophils % % Neutrophils # (1.6-8.9) K/mcL Lymphocytes # (0.6-4.6) K/mcL Monocytes # (0.0-1.3) K/mcL Eosinophils # (0.0-0.6) K/mcL Basophils # (0.0-0.2) K/mcL Reactive Lymphocytes (Not Present) Platelet Estimate (Normal) Immature Plt Fraction (1.1-6.1) % PT (9.4-12.1) Seconds INR Sodium (136-145) mEq/L Potassium (3.5-4.5) mEq/L Chloride (98-109) mEq/L Carbon Dioxide (19-29) mEq/L BUN (8-26) mg/dL Creatinine (0.72-1.25) mg/dL Est GFR ( Amer) (> 60) Est GFR (Non-Af Amer) (> 60) BUN/Creatinine Ratio (6-26) Glucose (70-99) mg/dL POC Glucose 155 H 166 H 269 H (58-89) Est Mean Plasma Glucose mg/dl Hemoglobin A1c ( - 5.6) % Calculated Osmolality (280-300) Calcium (8.6-10.8) mg/dL Phosphorus (2.3-4.7) mg/dL Magnesium (1.6-2.6) mg/dL Total Bilirubin (0.2-1.2) mg/dL AST (5-34) Units/L ALT (0-55) Units/L Alkaline Phosphatase (38-126) Units/L Serum Total Protein (6.0-8.3) g/dL Albumin (3.5-5.0) g/dL Globulin (2.4-3.5) g/dL Albumin/Globulin Ratio (1.1-2.2) Prealbumin (18.0-45.0) mg/dL Triglycerides (< 150) mg/dL Urine Color (Yellow) Urine Clarity (Clear) Urine pH (5.0-8.0) pH Units Ur Specific [place] (1.010-1.025) Urine Protein (Neg-Trace) mg/dL Urine Glucose (UA) (Normal) mg/dL Urine Ketones (Negative) mg/dL Urine Blood (Negative) Urine Nitrite (Negative) Urine Bilirubin (Negative) Urine Urobilinogen (Normal) mg/dL Ur Leukocyte Esterase (Negative) Urine Microscopic RBC (0-3) per hpf Urine Microscopic WBC (0-3) per hpf Ur Squamous Epith Cells (None-Few) per lpf Urine Bacteria (None-Few) per hpf Hyaline Casts (None-Few) per lpf Ur Culture Indicated? (NO) C. difficile Tox (PCR) (Negative) Specimen Rejected Blood Type Antibody Screen Crossmatch 04/25/16 04/25/16 04/25/16 Range/Units 00:00 03:27 03:27 WBC 19.3 H (4.3-11.1) K/mcL RBC 3.70 L (4.19-5.50) M/mcL Hgb 11.3 L (12.9-16.9) g/dL Hct 34.1 L (37.5-50.1) % MCV 92.2 (83.0-100.0) fL MCH 30.5 (28.0-33.3) pg MCHC 33.1 (31.6-35.5) g/dL RDW 14.4 (11.5-14.5) % Plt Count 335 (140-400) K/mcL MPV 9.7 (9.4-12.4) fL Immature Gran % 0.8 (0-4) % Seg Neutrophils % 84.4 % Lymphocytes % 5.2 % Monocytes % 7.9 % Eosinophils % 1.4 % Basophils % 0.3 % Neutrophils # 16.3 H (1.6-8.9) K/mcL Lymphocytes # 1.0 (0.6-4.6) K/mcL Monocytes # 1.5 H (0.0-1.3) K/mcL Eosinophils # 0.3 (0.0-0.6) K/mcL Basophils # 0.1 (0.0-0.2) K/mcL Reactive Lymphocytes (Not Present) Platelet Estimate (Normal) Immature Plt Fraction (1.1-6.1) % PT (9.4-12.1) Seconds INR Sodium 137 (136-145) mEq/L Potassium 4.2 (3.5-4.5) mEq/L Chloride 102 (98-109) mEq/L Carbon Dioxide 31 H (19-29) mEq/L BUN 19 (8-26) mg/dL Creatinine 0.76 (0.72-1.25) mg/dL Est GFR ( Amer) > 60 (> 60) Est GFR (Non-Af Amer) > 60 (> 60) BUN/Creatinine Ratio 25 (6-26) Glucose 162 H (70-99) mg/dL POC Glucose 129 H (58-89) Est Mean Plasma Glucose mg/dl Hemoglobin A1c ( - 5.6) % Calculated Osmolality 290 (280-300) Calcium 8.8 (8.6-10.8) mg/dL Phosphorus (2.3-4.7) mg/dL Magnesium (1.6-2.6) mg/dL Total Bilirubin (0.2-1.2) mg/dL AST (5-34) Units/L ALT (0-55) Units/L Alkaline Phosphatase (38-126) Units/L Serum Total Protein (6.0-8.3) g/dL Albumin (3.5-5.0) g/dL Globulin (2.4-3.5) g/dL Albumin/Globulin Ratio (1.1-2.2) Prealbumin (18.0-45.0) mg/dL Triglycerides (< 150) mg/dL Urine Color (Yellow) Urine Clarity (Clear) Urine pH (5.0-8.0) pH Units Ur Specific [place] (1.010-1.025) Urine Protein (Neg-Trace) mg/dL Urine Glucose (UA) (Normal) mg/dL Urine Ketones (Negative) mg/dL Urine Blood (Negative) Urine Nitrite (Negative) Urine Bilirubin (Negative) Urine Urobilinogen (Normal) mg/dL Ur Leukocyte Esterase (Negative) Urine Microscopic RBC (0-3) per hpf Urine Microscopic WBC (0-3) per hpf Ur Squamous Epith Cells (None-Few) per lpf Urine Bacteria (None-Few) per hpf Hyaline Casts (None-Few) per lpf Ur Culture Indicated? (NO) C. difficile Tox (PCR) (Negative) Specimen Rejected Blood Type Antibody Screen Crossmatch 04/25/16 04/25/16 04/25/16 Range/Units 04:48 07:24 11:00 WBC (4.3-11.1) K/mcL RBC (4.19-5.50) M/mcL Hgb (12.9-16.9) g/dL Hct (37.5-50.1) % MCV (83.0-100.0) fL MCH (28.0-33.3) pg MCHC (31.6-35.5) g/dL RDW (11.5-14.5) % Plt Count (140-400) K/mcL MPV (9.4-12.4) fL Immature Gran % (0-4) % Seg Neutrophils % % Lymphocytes % % Monocytes % % Eosinophils % % Basophils % % Neutrophils # (1.6-8.9) K/mcL Lymphocytes # (0.6-4.6) K/mcL Monocytes # (0.0-1.3) K/mcL Eosinophils # (0.0-0.6) K/mcL Basophils # (0.0-0.2) K/mcL Reactive Lymphocytes (Not Present) Platelet Estimate (Normal) Immature Plt Fraction (1.1-6.1) % PT (9.4-12.1) Seconds INR Sodium (136-145) mEq/L Potassium (3.5-4.5) mEq/L Chloride (98-109) mEq/L Carbon Dioxide (19-29) mEq/L BUN (8-26) mg/dL Creatinine (0.72-1.25) mg/dL Est GFR ( Amer) (> 60) Est GFR (Non-Af Amer) (> 60) BUN/Creatinine Ratio (6-26) Glucose (70-99) mg/dL POC Glucose 164 H 172 H 199 H (58-89) Est Mean Plasma Glucose mg/dl Hemoglobin A1c ( - 5.6) % Calculated Osmolality (280-300) Calcium (8.6-10.8) mg/dL Phosphorus (2.3-4.7) mg/dL Magnesium (1.6-2.6) mg/dL Total Bilirubin (0.2-1.2) mg/dL AST (5-34) Units/L ALT (0-55) Units/L Alkaline Phosphatase (38-126) Units/L Serum Total Protein (6.0-8.3) g/dL Albumin (3.5-5.0) g/dL Globulin (2.4-3.5) g/dL Albumin/Globulin Ratio (1.1-2.2) Prealbumin (18.0-45.0) mg/dL Triglycerides (< 150) mg/dL Urine Color (Yellow) Urine Clarity (Clear) Urine pH (5.0-8.0) pH Units Ur Specific [place] (1.010-1.025) Urine Protein (Neg-Trace) mg/dL Urine Glucose (UA) (Normal) mg/dL Urine Ketones (Negative) mg/dL Urine Blood (Negative) Urine Nitrite (Negative) Urine Bilirubin (Negative) Urine Urobilinogen (Normal) mg/dL Ur Leukocyte Esterase (Negative) Urine Microscopic RBC (0-3) per hpf Urine Microscopic WBC (0-3) per hpf Ur Squamous Epith Cells (None-Few) per lpf Urine Bacteria (None-Few) per hpf Hyaline Casts (None-Few) per lpf Ur Culture Indicated? (NO) C. difficile Tox (PCR) (Negative) Specimen Rejected Blood Type Antibody Screen Crossmatch 04/25/16 04/25/16 04/25/16 Range/Units 15:19 20:21 23:54 WBC (4.3-11.1) K/mcL RBC (4.19-5.50) M/mcL Hgb (12.9-16.9) g/dL Hct (37.5-50.1) % MCV (83.0-100.0) fL MCH (28.0-33.3) pg MCHC (31.6-35.5) g/dL RDW (11.5-14.5) % Plt Count (140-400) K/mcL MPV (9.4-12.4) fL Immature Gran % (0-4) % Seg Neutrophils % % Lymphocytes % % Monocytes % % Eosinophils % % Basophils % % Neutrophils # (1.6-8.9) K/mcL Lymphocytes # (0.6-4.6) K/mcL Monocytes # (0.0-1.3) K/mcL Eosinophils # (0.0-0.6) K/mcL Basophils # (0.0-0.2) K/mcL Reactive Lymphocytes (Not Present) Platelet Estimate (Normal) Immature Plt Fraction (1.1-6.1) % PT (9.4-12.1) Seconds INR Sodium (136-145) mEq/L Potassium (3.5-4.5) mEq/L Chloride (98-109) mEq/L Carbon Dioxide (19-29) mEq/L BUN (8-26) mg/dL Creatinine (0.72-1.25) mg/dL Est GFR ( Amer) (> 60) Est GFR (Non-Af Amer) (> 60) BUN/Creatinine Ratio (6-26) Glucose (70-99) mg/dL POC Glucose 184 H 187 H 134 H (58-89) Est Mean Plasma Glucose mg/dl Hemoglobin A1c ( - 5.6) % Calculated Osmolality (280-300) Calcium (8.6-10.8) mg/dL Phosphorus (2.3-4.7) mg/dL Magnesium (1.6-2.6) mg/dL Total Bilirubin (0.2-1.2) mg/dL AST (5-34) Units/L ALT (0-55) Units/L Alkaline Phosphatase (38-126) Units/L Serum Total Protein (6.0-8.3) g/dL Albumin (3.5-5.0) g/dL Globulin (2.4-3.5) g/dL Albumin/Globulin Ratio (1.1-2.2) Prealbumin (18.0-45.0) mg/dL Triglycerides (< 150) mg/dL Urine Color (Yellow) Urine Clarity (Clear) Urine pH (5.0-8.0) pH Units Ur Specific [place] (1.010-1.025) Urine Protein (Neg-Trace) mg/dL Urine Glucose (UA) (Normal) mg/dL Urine Ketones (Negative) mg/dL Urine Blood (Negative) Urine Nitrite (Negative) Urine Bilirubin (Negative) Urine Urobilinogen (Normal) mg/dL Ur Leukocyte Esterase (Negative) Urine Microscopic RBC (0-3) per hpf Urine Microscopic WBC (0-3) per hpf Ur Squamous Epith Cells (None-Few) per lpf Urine Bacteria (None-Few) per hpf Hyaline Casts (None-Few) per lpf Ur Culture Indicated? (NO) C. difficile Tox (PCR) (Negative) Specimen Rejected Blood Type Antibody Screen Crossmatch 04/26/16 04/26/16 04/26/16 Range/Units 03:16 04:43 04:43 WBC 16.2 H (4.3-11.1) K/mcL RBC 3.58 L (4.19-5.50) M/mcL Hgb 10.7 L (12.9-16.9) g/dL Hct 32.9 L (37.5-50.1) % MCV 91.9 (83.0-100.0) fL MCH 29.9 (28.0-33.3) pg MCHC 32.5 (31.6-35.5) g/dL RDW 14.3 (11.5-14.5) % Plt Count 282 (140-400) K/mcL MPV 9.9 (9.4-12.4) fL Immature Gran % 1.0 (0-4) % Seg Neutrophils % 83.6 % Lymphocytes % 5.4 % Monocytes % 8.2 % Eosinophils % 1.4 % Basophils % 0.4 % Neutrophils # 13.6 H (1.6-8.9) K/mcL Lymphocytes # 0.9 (0.6-4.6) K/mcL Monocytes # 1.3 (0.0-1.3) K/mcL Eosinophils # 0.2 (0.0-0.6) K/mcL Basophils # 0.1 (0.0-0.2) K/mcL Reactive Lymphocytes (Not Present) Platelet Estimate (Normal) Immature Plt Fraction (1.1-6.1) % PT (9.4-12.1) Seconds INR Sodium 138 (136-145) mEq/L Potassium 4.0 (3.5-4.5) mEq/L Chloride 105 (98-109) mEq/L Carbon Dioxide 33 H (19-29) mEq/L BUN 17 (8-26) mg/dL Creatinine 0.70 L (0.72-1.25) mg/dL Est GFR ( Amer) > 60 (> 60) Est GFR (Non-Af Amer) > 60 (> 60) BUN/Creatinine Ratio 24 (6-26) Glucose 169 H (70-99) mg/dL POC Glucose 171 H (58-89) Est Mean Plasma Glucose mg/dl Hemoglobin A1c ( - 5.6) % Calculated Osmolality 291 (280-300) Calcium 8.5 L (8.6-10.8) mg/dL Phosphorus 2.7 (2.3-4.7) mg/dL Magnesium 2.2 (1.6-2.6) mg/dL Total Bilirubin (0.2-1.2) mg/dL AST (5-34) Units/L ALT (0-55) Units/L Alkaline Phosphatase (38-126) Units/L Serum Total Protein (6.0-8.3) g/dL Albumin (3.5-5.0) g/dL Globulin (2.4-3.5) g/dL Albumin/Globulin Ratio (1.1-2.2) Prealbumin (18.0-45.0) mg/dL Triglycerides (< 150) mg/dL Urine Color (Yellow) Urine Clarity (Clear) Urine pH (5.0-8.0) pH Units Ur Specific [place] (1.010-1.025) Urine Protein (Neg-Trace) mg/dL Urine Glucose (UA) (Normal) mg/dL Urine Ketones (Negative) mg/dL Urine Blood (Negative) Urine Nitrite (Negative) Urine Bilirubin (Negative) Urine Urobilinogen (Normal) mg/dL Ur Leukocyte Esterase (Negative) Urine Microscopic RBC (0-3) per hpf Urine Microscopic WBC (0-3) per hpf Ur Squamous Epith Cells (None-Few) per lpf Urine Bacteria (None-Few) per hpf Hyaline Casts (None-Few) per lpf Ur Culture Indicated? (NO) C. difficile Tox (PCR) (Negative) Specimen Rejected Blood Type Antibody Screen Crossmatch 04/26/16 04/26/16 04/26/16 Range/Units 04:43 05:00 12:25 WBC (4.3-11.1) K/mcL RBC (4.19-5.50) M/mcL Hgb (12.9-16.9) g/dL Hct (37.5-50.1) % MCV (83.0-100.0) fL MCH (28.0-33.3) pg MCHC (31.6-35.5) g/dL RDW (11.5-14.5) % Plt Count (140-400) K/mcL MPV (9.4-12.4) fL Immature Gran % (0-4) % Seg Neutrophils % % Lymphocytes % % Monocytes % % Eosinophils % % Basophils % % Neutrophils # (1.6-8.9) K/mcL Lymphocytes # (0.6-4.6) K/mcL Monocytes # (0.0-1.3) K/mcL Eosinophils # (0.0-0.6) K/mcL Basophils # (0.0-0.2) K/mcL Reactive Lymphocytes (Not Present) Platelet Estimate (Normal) Immature Plt Fraction (1.1-6.1) % PT 15.1 H (9.4-12.1) Seconds INR 1.4 Sodium (136-145) mEq/L Potassium (3.5-4.5) mEq/L Chloride (98-109) mEq/L Carbon Dioxide (19-29) mEq/L BUN (8-26) mg/dL Creatinine (0.72-1.25) mg/dL Est GFR ( Amer) (> 60) Est GFR (Non-Af Amer) (> 60) BUN/Creatinine Ratio (6-26) Glucose (70-99) mg/dL POC Glucose 203 H (58-89) Est Mean Plasma Glucose mg/dl Hemoglobin A1c ( - 5.6) % Calculated Osmolality (280-300) Calcium (8.6-10.8) mg/dL Phosphorus (2.3-4.7) mg/dL Magnesium (1.6-2.6) mg/dL Total Bilirubin (0.2-1.2) mg/dL AST (5-34) Units/L ALT (0-55) Units/L Alkaline Phosphatase (38-126) Units/L Serum Total Protein (6.0-8.3) g/dL Albumin (3.5-5.0) g/dL Globulin (2.4-3.5) g/dL Albumin/Globulin Ratio (1.1-2.2) Prealbumin (18.0-45.0) mg/dL Triglycerides (< 150) mg/dL Urine Color (Yellow) Urine Clarity (Clear) Urine pH (5.0-8.0) pH Units Ur Specific [place] (1.010-1.025) Urine Protein (Neg-Trace) mg/dL Urine Glucose (UA) (Normal) mg/dL Urine Ketones (Negative) mg/dL Urine Blood (Negative) Urine Nitrite (Negative) Urine Bilirubin (Negative) Urine Urobilinogen (Normal) mg/dL Ur Leukocyte Esterase (Negative) Urine Microscopic RBC (0-3) per hpf Urine Microscopic WBC (0-3) per hpf Ur Squamous Epith Cells (None-Few) per lpf Urine Bacteria (None-Few) per hpf Hyaline Casts (None-Few) per lpf Ur Culture Indicated? (NO) C. difficile Tox (PCR) (Negative) Specimen Rejected Blood Type B POSITIVE Antibody Screen NEGATIVE Crossmatch See Detail 04/26/16 04/26/16 04/27/16 Range/Units 16:05 20:15 00:25 WBC (4.3-11.1) K/mcL RBC (4.19-5.50) M/mcL Hgb (12.9-16.9) g/dL Hct (37.5-50.1) % MCV (83.0-100.0) fL MCH (28.0-33.3) pg MCHC (31.6-35.5) g/dL RDW (11.5-14.5) % Plt Count (140-400) K/mcL MPV (9.4-12.4) fL Immature Gran % (0-4) % Seg Neutrophils % % Lymphocytes % % Monocytes % % Eosinophils % % Basophils % % Neutrophils # (1.6-8.9) K/mcL Lymphocytes # (0.6-4.6) K/mcL Monocytes # (0.0-1.3) K/mcL Eosinophils # (0.0-0.6) K/mcL Basophils # (0.0-0.2) K/mcL Reactive Lymphocytes (Not Present) Platelet Estimate (Normal) Immature Plt Fraction (1.1-6.1) % PT (9.4-12.1) Seconds INR Sodium (136-145) mEq/L Potassium (3.5-4.5) mEq/L Chloride (98-109) mEq/L Carbon Dioxide (19-29) mEq/L BUN (8-26) mg/dL Creatinine (0.72-1.25) mg/dL Est GFR ( Amer) (> 60) Est GFR (Non-Af Amer) (> 60) BUN/Creatinine Ratio (6-26) Glucose (70-99) mg/dL POC Glucose 245 H 253 H 196 H (58-89) Est Mean Plasma Glucose mg/dl Hemoglobin A1c ( - 5.6) % Calculated Osmolality (280-300) Calcium (8.6-10.8) mg/dL Phosphorus (2.3-4.7) mg/dL Magnesium (1.6-2.6) mg/dL Total Bilirubin (0.2-1.2) mg/dL AST (5-34) Units/L ALT (0-55) Units/L Alkaline Phosphatase (38-126) Units/L Serum Total Protein (6.0-8.3) g/dL Albumin (3.5-5.0) g/dL Globulin (2.4-3.5) g/dL Albumin/Globulin Ratio (1.1-2.2) Prealbumin (18.0-45.0) mg/dL Triglycerides (< 150) mg/dL Urine Color (Yellow) Urine Clarity (Clear) Urine pH (5.0-8.0) pH Units Ur Specific [place] (1.010-1.025) Urine Protein (Neg-Trace) mg/dL Urine Glucose (UA) (Normal) mg/dL Urine Ketones (Negative) mg/dL Urine Blood (Negative) Urine Nitrite (Negative) Urine Bilirubin (Negative) Urine Urobilinogen (Normal) mg/dL Ur Leukocyte Esterase (Negative) Urine Microscopic RBC (0-3) per hpf Urine Microscopic WBC (0-3) per hpf Ur Squamous Epith Cells (None-Few) per lpf Urine Bacteria (None-Few) per hpf Hyaline Casts (None-Few) per lpf Ur Culture Indicated? (NO) C. difficile Tox (PCR) (Negative) Specimen Rejected Blood Type Antibody Screen Crossmatch 04/27/16 04/27/16 04/27/16 Range/Units 03:45 03:45 03:45 WBC (4.3-11.1) K/mcL RBC (4.19-5.50) M/mcL Hgb (12.9-16.9) g/dL Hct (37.5-50.1) % MCV (83.0-100.0) fL MCH (28.0-33.3) pg MCHC (31.6-35.5) g/dL RDW (11.5-14.5) % Plt Count (140-400) K/mcL MPV (9.4-12.4) fL Immature Gran % (0-4) % Seg Neutrophils % % Lymphocytes % % Monocytes % % Eosinophils % % Basophils % % Neutrophils # (1.6-8.9) K/mcL Lymphocytes # (0.6-4.6) K/mcL Monocytes # (0.0-1.3) K/mcL Eosinophils # (0.0-0.6) K/mcL Basophils # (0.0-0.2) K/mcL Reactive Lymphocytes (Not Present) Platelet Estimate (Normal) Immature Plt Fraction (1.1-6.1) % PT (9.4-12.1) Seconds INR Sodium 137 (136-145) mEq/L Potassium 4.8 H (3.5-4.5) mEq/L Chloride 105 (98-109) mEq/L Carbon Dioxide 29 (19-29) mEq/L BUN 27 H D (8-26) mg/dL Creatinine 0.73 (0.72-1.25) mg/dL Est GFR ( Amer) > 60 (> 60) Est GFR (Non-Af Amer) > 60 (> 60) BUN/Creatinine Ratio 37 H (6-26) Glucose 141 H (70-99) mg/dL POC Glucose (58-89) Est Mean Plasma Glucose mg/dl Hemoglobin A1c ( - 5.6) % Calculated Osmolality 291 (280-300) Calcium 8.6 (8.6-10.8) mg/dL Phosphorus 2.9 (2.3-4.7) mg/dL Magnesium 2.1 (1.6-2.6) mg/dL Total Bilirubin (0.2-1.2) mg/dL AST (5-34) Units/L ALT (0-55) Units/L Alkaline Phosphatase (38-126) Units/L Serum Total Protein (6.0-8.3) g/dL Albumin (3.5-5.0) g/dL Globulin (2.4-3.5) g/dL Albumin/Globulin Ratio (1.1-2.2) Prealbumin (18.0-45.0) mg/dL Triglycerides (< 150) mg/dL Urine Color (Yellow) Urine Clarity (Clear) Urine pH (5.0-8.0) pH Units Ur Specific [place] (1.010-1.025) Urine Protein (Neg-Trace) mg/dL Urine Glucose (UA) (Normal) mg/dL Urine Ketones (Negative) mg/dL Urine Blood (Negative) Urine Nitrite (Negative) Urine Bilirubin (Negative) Urine Urobilinogen (Normal) mg/dL Ur Leukocyte Esterase (Negative) Urine Microscopic RBC (0-3) per hpf Urine Microscopic WBC (0-3) per hpf Ur Squamous Epith Cells (None-Few) per lpf Urine Bacteria (None-Few) per hpf Hyaline Casts (None-Few) per lpf Ur Culture Indicated? (NO) C. difficile Tox (PCR) (Negative) Specimen Rejected Clotted Blood Type Antibody Screen Crossmatch 04/27/16 04/27/16 04/27/16 Range/Units 04:11 04:50 06:44 WBC 18.9 H (4.3-11.1) K/mcL RBC 2.87 L (4.19-5.50) M/mcL Hgb 8.7 L D (12.9-16.9) g/dL Hct 27.0 L (37.5-50.1) % MCV 94.1 (83.0-100.0) fL MCH 30.3 (28.0-33.3) pg MCHC 32.2 (31.6-35.5) g/dL RDW 14.7 H (11.5-14.5) % Plt Count 258 (140-400) K/mcL MPV 10.9 (9.4-12.4) fL Immature Gran % 1.2 (0-4) % Seg Neutrophils % 84.5 % Lymphocytes % 4.6 % Monocytes % 9.5 % Eosinophils % 0.1 % Basophils % 0.1 % Neutrophils # 16.0 H (1.6-8.9) K/mcL Lymphocytes # 0.9 (0.6-4.6) K/mcL Monocytes # 1.8 H (0.0-1.3) K/mcL Eosinophils # 0.0 (0.0-0.6) K/mcL Basophils # 0.0 (0.0-0.2) K/mcL Reactive Lymphocytes (Not Present) Platelet Estimate Normal (Normal) Immature Plt Fraction 3.3 (1.1-6.1) % PT (9.4-12.1) Seconds INR Sodium (136-145) mEq/L Potassium (3.5-4.5) mEq/L Chloride (98-109) mEq/L Carbon Dioxide (19-29) mEq/L BUN (8-26) mg/dL Creatinine (0.72-1.25) mg/dL Est GFR ( Amer) (> 60) Est GFR (Non-Af Amer) (> 60) BUN/Creatinine Ratio (6-26) Glucose (70-99) mg/dL POC Glucose 157 H 146 H (58-89) Est Mean Plasma Glucose mg/dl Hemoglobin A1c ( - 5.6) % Calculated Osmolality (280-300) Calcium (8.6-10.8) mg/dL Phosphorus (2.3-4.7) mg/dL Magnesium (1.6-2.6) mg/dL Total Bilirubin (0.2-1.2) mg/dL AST (5-34) Units/L ALT (0-55) Units/L Alkaline Phosphatase (38-126) Units/L Serum Total Protein (6.0-8.3) g/dL Albumin (3.5-5.0) g/dL Globulin (2.4-3.5) g/dL Albumin/Globulin Ratio (1.1-2.2) Prealbumin (18.0-45.0) mg/dL Triglycerides (< 150) mg/dL Urine Color (Yellow) Urine Clarity (Clear) Urine pH (5.0-8.0) pH Units Ur Specific [place] (1.010-1.025) Urine Protein (Neg-Trace) mg/dL Urine Glucose (UA) (Normal) mg/dL Urine Ketones (Negative) mg/dL Urine Blood (Negative) Urine Nitrite (Negative) Urine Bilirubin (Negative) Urine Urobilinogen (Normal) mg/dL Ur Leukocyte Esterase (Negative) Urine Microscopic RBC (0-3) per hpf Urine Microscopic WBC (0-3) per hpf Ur Squamous Epith Cells (None-Few) per lpf Urine Bacteria (None-Few) per hpf Hyaline Casts (None-Few) per lpf Ur Culture Indicated? (NO) C. difficile Tox (PCR) (Negative) Specimen Rejected Blood Type Antibody Screen Crossmatch 04/27/16 04/27/16 04/27/16 Range/Units 10:58 11:14 15:59 WBC (4.3-11.1) K/mcL RBC (4.19-5.50) M/mcL Hgb (12.9-16.9) g/dL Hct (37.5-50.1) % MCV (83.0-100.0) fL MCH (28.0-33.3) pg MCHC (31.6-35.5) g/dL RDW (11.5-14.5) % Plt Count (140-400) K/mcL MPV (9.4-12.4) fL Immature Gran % (0-4) % Seg Neutrophils % % Lymphocytes % % Monocytes % % Eosinophils % % Basophils % % Neutrophils # (1.6-8.9) K/mcL Lymphocytes # (0.6-4.6) K/mcL Monocytes # (0.0-1.3) K/mcL Eosinophils # (0.0-0.6) K/mcL Basophils # (0.0-0.2) K/mcL Reactive Lymphocytes (Not Present) Platelet Estimate (Normal) Immature Plt Fraction (1.1-6.1) % PT (9.4-12.1) Seconds INR Sodium (136-145) mEq/L Potassium (3.5-4.5) mEq/L Chloride (98-109) mEq/L Carbon Dioxide (19-29) mEq/L BUN (8-26) mg/dL Creatinine (0.72-1.25) mg/dL Est GFR ( Amer) (> 60) Est GFR (Non-Af Amer) (> 60) BUN/Creatinine Ratio (6-26) Glucose (70-99) mg/dL POC Glucose 158 H 243 H (58-89) Est Mean Plasma Glucose mg/dl Hemoglobin A1c ( - 5.6) % Calculated Osmolality (280-300) Calcium (8.6-10.8) mg/dL Phosphorus (2.3-4.7) mg/dL Magnesium (1.6-2.6) mg/dL Total Bilirubin (0.2-1.2) mg/dL AST (5-34) Units/L ALT (0-55) Units/L Alkaline Phosphatase (38-126) Units/L Serum Total Protein (6.0-8.3) g/dL Albumin (3.5-5.0) g/dL Globulin (2.4-3.5) g/dL Albumin/Globulin Ratio (1.1-2.2) Prealbumin (18.0-45.0) mg/dL Triglycerides 40 (< 150) mg/dL Urine Color (Yellow) Urine Clarity (Clear) Urine pH (5.0-8.0) pH Units Ur Specific [place] (1.010-1.025) Urine Protein (Neg-Trace) mg/dL Urine Glucose (UA) (Normal) mg/dL Urine Ketones (Negative) mg/dL Urine Blood (Negative) Urine Nitrite (Negative) Urine Bilirubin (Negative) Urine Urobilinogen (Normal) mg/dL Ur Leukocyte Esterase (Negative) Urine Microscopic RBC (0-3) per hpf Urine Microscopic WBC (0-3) per hpf Ur Squamous Epith Cells (None-Few) per lpf Urine Bacteria (None-Few) per hpf Hyaline Casts (None-Few) per lpf Ur Culture Indicated? (NO) C. difficile Tox (PCR) (Negative) Specimen Rejected Blood Type Antibody Screen Crossmatch 04/27/16 04/28/16 04/28/16 Range/Units 20:51 00:08 03:10 WBC (4.3-11.1) K/mcL RBC (4.19-5.50) M/mcL Hgb (12.9-16.9) g/dL Hct (37.5-50.1) % MCV (83.0-100.0) fL MCH (28.0-33.3) pg MCHC (31.6-35.5) g/dL RDW (11.5-14.5) % Plt Count (140-400) K/mcL MPV (9.4-12.4) fL Immature Gran % (0-4) % Seg Neutrophils % % Lymphocytes % % Monocytes % % Eosinophils % % Basophils % % Neutrophils # (1.6-8.9) K/mcL Lymphocytes # (0.6-4.6) K/mcL Monocytes # (0.0-1.3) K/mcL Eosinophils # (0.0-0.6) K/mcL Basophils # (0.0-0.2) K/mcL Reactive Lymphocytes (Not Present) Platelet Estimate (Normal) Immature Plt Fraction (1.1-6.1) % PT (9.4-12.1) Seconds INR Sodium (136-145) mEq/L Potassium (3.5-4.5) mEq/L Chloride (98-109) mEq/L Carbon Dioxide (19-29) mEq/L BUN (8-26) mg/dL Creatinine (0.72-1.25) mg/dL Est GFR ( Amer) (> 60) Est GFR (Non-Af Amer) (> 60) BUN/Creatinine Ratio (6-26) Glucose (70-99) mg/dL POC Glucose 182 H 146 H (58-89) Est Mean Plasma Glucose mg/dl Hemoglobin A1c ( - 5.6) % Calculated Osmolality (280-300) Calcium (8.6-10.8) mg/dL Phosphorus 2.7 (2.3-4.7) mg/dL Magnesium 2.0 (1.6-2.6) mg/dL Total Bilirubin (0.2-1.2) mg/dL AST (5-34) Units/L ALT (0-55) Units/L Alkaline Phosphatase (38-126) Units/L Serum Total Protein (6.0-8.3) g/dL Albumin (3.5-5.0) g/dL Globulin (2.4-3.5) g/dL Albumin/Globulin Ratio (1.1-2.2) Prealbumin (18.0-45.0) mg/dL Triglycerides (< 150) mg/dL Urine Color (Yellow) Urine Clarity (Clear) Urine pH (5.0-8.0) pH Units Ur Specific [place] (1.010-1.025) Urine Protein (Neg-Trace) mg/dL Urine Glucose (UA) (Normal) mg/dL Urine Ketones (Negative) mg/dL Urine Blood (Negative) Urine Nitrite (Negative) Urine Bilirubin (Negative) Urine Urobilinogen (Normal) mg/dL Ur Leukocyte Esterase (Negative) Urine Microscopic RBC (0-3) per hpf Urine Microscopic WBC (0-3) per hpf Ur Squamous Epith Cells (None-Few) per lpf Urine Bacteria (None-Few) per hpf Hyaline Casts (None-Few) per lpf Ur Culture Indicated? (NO) C. difficile Tox (PCR) (Negative) Specimen Rejected Blood Type Antibody Screen Crossmatch 04/28/16 04/28/16 04/28/16 Range/Units 03:10 03:10 04:03 WBC 16.0 H (4.3-11.1) K/mcL RBC 2.73 L (4.19-5.50) M/mcL Hgb 8.4 L (12.9-16.9) g/dL Hct 25.7 L (37.5-50.1) % MCV 94.1 (83.0-100.0) fL MCH 30.8 (28.0-33.3) pg MCHC 32.7 (31.6-35.5) g/dL RDW 14.9 H (11.5-14.5) % Plt Count 256 (140-400) K/mcL MPV 10.0 (9.4-12.4) fL Immature Gran % 0.8 (0-4) % Seg Neutrophils % 83.7 % Lymphocytes % 5.4 % Monocytes % 9.2 % Eosinophils % 0.8 % Basophils % 0.1 % Neutrophils # 13.4 H (1.6-8.9) K/mcL Lymphocytes # 0.9 (0.6-4.6) K/mcL Monocytes # 1.5 H (0.0-1.3) K/mcL Eosinophils # 0.1 (0.0-0.6) K/mcL Basophils # 0.0 (0.0-0.2) K/mcL Reactive Lymphocytes (Not Present) Platelet Estimate (Normal) Immature Plt Fraction (1.1-6.1) % PT (9.4-12.1) Seconds INR Sodium 137 (136-145) mEq/L Potassium 4.4 (3.5-4.5) mEq/L Chloride 104 (98-109) mEq/L Carbon Dioxide 29 (19-29) mEq/L BUN 22 (8-26) mg/dL Creatinine 0.68 L (0.72-1.25) mg/dL Est GFR ( Amer) > 60 (> 60) Est GFR (Non-Af Amer) > 60 (> 60) BUN/Creatinine Ratio 32 H (6-26) Glucose 162 H (70-99) mg/dL POC Glucose 160 H (58-89) Est Mean Plasma Glucose mg/dl Hemoglobin A1c ( - 5.6) % Calculated Osmolality 291 (280-300) Calcium 8.5 L (8.6-10.8) mg/dL Phosphorus (2.3-4.7) mg/dL Magnesium (1.6-2.6) mg/dL Total Bilirubin 0.4 (0.2-1.2) mg/dL AST 12 (5-34) Units/L ALT 6 (0-55) Units/L Alkaline Phosphatase 37 L (38-126) Units/L Serum Total Protein 5.2 L (6.0-8.3) g/dL Albumin 1.9 L (3.5-5.0) g/dL Globulin 3.3 (2.4-3.5) g/dL Albumin/Globulin Ratio 0.6 L (1.1-2.2) Prealbumin (18.0-45.0) mg/dL Triglycerides (< 150) mg/dL Urine Color (Yellow) Urine Clarity (Clear) Urine pH (5.0-8.0) pH Units Ur Specific [place] (1.010-1.025) Urine Protein (Neg-Trace) mg/dL Urine Glucose (UA) (Normal) mg/dL Urine Ketones (Negative) mg/dL Urine Blood (Negative) Urine Nitrite (Negative) Urine Bilirubin (Negative) Urine Urobilinogen (Normal) mg/dL Ur Leukocyte Esterase (Negative) Urine Microscopic RBC (0-3) per hpf Urine Microscopic WBC (0-3) per hpf Ur Squamous Epith Cells (None-Few) per lpf Urine Bacteria (None-Few) per hpf Hyaline Casts (None-Few) per lpf Ur Culture Indicated? (NO) C. difficile Tox (PCR) (Negative) Specimen Rejected Blood Type Antibody Screen Crossmatch 04/28/16 04/28/16 04/28/16 Range/Units 07:15 10:44 15:41 WBC (4.3-11.1) K/mcL RBC (4.19-5.50) M/mcL Hgb (12.9-16.9) g/dL Hct (37.5-50.1) % MCV (83.0-100.0) fL MCH (28.0-33.3) pg MCHC (31.6-35.5) g/dL RDW (11.5-14.5) % Plt Count (140-400) K/mcL MPV (9.4-12.4) fL Immature Gran % (0-4) % Seg Neutrophils % % Lymphocytes % % Monocytes % % Eosinophils % % Basophils % % Neutrophils # (1.6-8.9) K/mcL Lymphocytes # (0.6-4.6) K/mcL Monocytes # (0.0-1.3) K/mcL Eosinophils # (0.0-0.6) K/mcL Basophils # (0.0-0.2) K/mcL Reactive Lymphocytes (Not Present) Platelet Estimate (Normal) Immature Plt Fraction (1.1-6.1) % PT (9.4-12.1) Seconds INR Sodium (136-145) mEq/L Potassium (3.5-4.5) mEq/L Chloride (98-109) mEq/L Carbon Dioxide (19-29) mEq/L BUN (8-26) mg/dL Creatinine (0.72-1.25) mg/dL Est GFR ( Amer) (> 60) Est GFR (Non-Af Amer) (> 60) BUN/Creatinine Ratio (6-26) Glucose (70-99) mg/dL POC Glucose 173 H 217 H 156 H (58-89) Est Mean Plasma Glucose mg/dl Hemoglobin A1c ( - 5.6) % Calculated Osmolality (280-300) Calcium (8.6-10.8) mg/dL Phosphorus (2.3-4.7) mg/dL Magnesium (1.6-2.6) mg/dL Total Bilirubin (0.2-1.2) mg/dL AST (5-34) Units/L ALT (0-55) Units/L Alkaline Phosphatase (38-126) Units/L Serum Total Protein (6.0-8.3) g/dL Albumin (3.5-5.0) g/dL Globulin (2.4-3.5) g/dL Albumin/Globulin Ratio (1.1-2.2) Prealbumin (18.0-45.0) mg/dL Triglycerides (< 150) mg/dL Urine Color (Yellow) Urine Clarity (Clear) Urine pH (5.0-8.0) pH Units Ur Specific [place] (1.010-1.025) Urine Protein (Neg-Trace) mg/dL Urine Glucose (UA) (Normal) mg/dL Urine Ketones (Negative) mg/dL Urine Blood (Negative) Urine Nitrite (Negative) Urine Bilirubin (Negative) Urine Urobilinogen (Normal) mg/dL Ur Leukocyte Esterase (Negative) Urine Microscopic RBC (0-3) per hpf Urine Microscopic WBC (0-3) per hpf Ur Squamous Epith Cells (None-Few) per lpf Urine Bacteria (None-Few) per hpf Hyaline Casts (None-Few) per lpf Ur Culture Indicated? (NO) C. difficile Tox (PCR) (Negative) Specimen Rejected Blood Type Antibody Screen Crossmatch 04/28/16 04/28/16 04/29/16 Range/Units 17:39 19:29 00:33 WBC (4.3-11.1) K/mcL RBC (4.19-5.50) M/mcL Hgb (12.9-16.9) g/dL Hct (37.5-50.1) % MCV (83.0-100.0) fL MCH (28.0-33.3) pg MCHC (31.6-35.5) g/dL RDW (11.5-14.5) % Plt Count (140-400) K/mcL MPV (9.4-12.4) fL Immature Gran % (0-4) % Seg Neutrophils % % Lymphocytes % % Monocytes % % Eosinophils % % Basophils % % Neutrophils # (1.6-8.9) K/mcL Lymphocytes # (0.6-4.6) K/mcL Monocytes # (0.0-1.3) K/mcL Eosinophils # (0.0-0.6) K/mcL Basophils # (0.0-0.2) K/mcL Reactive Lymphocytes (Not Present) Platelet Estimate (Normal) Immature Plt Fraction (1.1-6.1) % PT (9.4-12.1) Seconds INR Sodium (136-145) mEq/L Potassium (3.5-4.5) mEq/L Chloride (98-109) mEq/L Carbon Dioxide (19-29) mEq/L BUN (8-26) mg/dL Creatinine (0.72-1.25) mg/dL Est GFR ( Amer) (> 60) Est GFR (Non-Af Amer) (> 60) BUN/Creatinine Ratio (6-26) Glucose (70-99) mg/dL POC Glucose 155 H 230 H 158 H (58-89) Est Mean Plasma Glucose mg/dl Hemoglobin A1c ( - 5.6) % Calculated Osmolality (280-300) Calcium (8.6-10.8) mg/dL Phosphorus (2.3-4.7) mg/dL Magnesium (1.6-2.6) mg/dL Total Bilirubin (0.2-1.2) mg/dL AST (5-34) Units/L ALT (0-55) Units/L Alkaline Phosphatase (38-126) Units/L Serum Total Protein (6.0-8.3) g/dL Albumin (3.5-5.0) g/dL Globulin (2.4-3.5) g/dL Albumin/Globulin Ratio (1.1-2.2) Prealbumin (18.0-45.0) mg/dL Triglycerides (< 150) mg/dL Urine Color (Yellow) Urine Clarity (Clear) Urine pH (5.0-8.0) pH Units Ur Specific [place] (1.010-1.025) Urine Protein (Neg-Trace) mg/dL Urine Glucose (UA) (Normal) mg/dL Urine Ketones (Negative) mg/dL Urine Blood (Negative) Urine Nitrite (Negative) Urine Bilirubin (Negative) Urine Urobilinogen (Normal) mg/dL Ur Leukocyte Esterase (Negative) Urine Microscopic RBC (0-3) per hpf Urine Microscopic WBC (0-3) per hpf Ur Squamous Epith Cells (None-Few) per lpf Urine Bacteria (None-Few) per hpf Hyaline Casts (None-Few) per lpf Ur Culture Indicated? (NO) C. difficile Tox (PCR) (Negative) Specimen Rejected Blood Type Antibody Screen Crossmatch 04/29/16 04/29/16 04/29/16 Range/Units 03:08 03:57 04:00 WBC 12.0 H (4.3-11.1) K/mcL RBC 2.59 L (4.19-5.50) M/mcL Hgb 7.9 L (12.9-16.9) g/dL Hct 24.4 L (37.5-50.1) % MCV 94.2 (83.0-100.0) fL MCH 30.5 (28.0-33.3) pg MCHC 32.4 (31.6-35.5) g/dL RDW 15.0 H (11.5-14.5) % Plt Count 253 (140-400) K/mcL MPV 10.1 (9.4-12.4) fL Immature Gran % 1.2 (0-4) % Seg Neutrophils % 75.7 % Lymphocytes % 10.7 % Monocytes % 10.2 % Eosinophils % 2.0 % Basophils % 0.2 % Neutrophils # 9.1 H (1.6-8.9) K/mcL Lymphocytes # 1.3 (0.6-4.6) K/mcL Monocytes # 1.2 (0.0-1.3) K/mcL Eosinophils # 0.2 (0.0-0.6) K/mcL Basophils # 0.0 (0.0-0.2) K/mcL Reactive Lymphocytes Present A (Not Present) Platelet Estimate Normal (Normal) Immature Plt Fraction (1.1-6.1) % PT (9.4-12.1) Seconds INR Sodium 138 (136-145) mEq/L Potassium 4.4 (3.5-4.5) mEq/L Chloride 105 (98-109) mEq/L Carbon Dioxide 32 H (19-29) mEq/L BUN 21 (8-26) mg/dL Creatinine 0.63 L (0.72-1.25) mg/dL Est GFR ( Amer) > 60 (> 60) Est GFR (Non-Af Amer) > 60 (> 60) BUN/Creatinine Ratio 33 H (6-26) Glucose 136 H (70-99) mg/dL POC Glucose 155 H (58-89) Est Mean Plasma Glucose mg/dl Hemoglobin A1c ( - 5.6) % Calculated Osmolality 291 (280-300) Calcium 8.4 L (8.6-10.8) mg/dL Phosphorus 3.1 (2.3-4.7) mg/dL Magnesium 2.1 (1.6-2.6) mg/dL Total Bilirubin (0.2-1.2) mg/dL AST (5-34) Units/L ALT (0-55) Units/L Alkaline Phosphatase (38-126) Units/L Serum Total Protein (6.0-8.3) g/dL Albumin (3.5-5.0) g/dL Globulin (2.4-3.5) g/dL Albumin/Globulin Ratio (1.1-2.2) Prealbumin (18.0-45.0) mg/dL Triglycerides (< 150) mg/dL Urine Color (Yellow) Urine Clarity (Clear) Urine pH (5.0-8.0) pH Units Ur Specific [place] (1.010-1.025) Urine Protein (Neg-Trace) mg/dL Urine Glucose (UA) (Normal) mg/dL Urine Ketones (Negative) mg/dL Urine Blood (Negative) Urine Nitrite (Negative) Urine Bilirubin (Negative) Urine Urobilinogen (Normal) mg/dL Ur Leukocyte Esterase (Negative) Urine Microscopic RBC (0-3) per hpf Urine Microscopic WBC (0-3) per hpf Ur Squamous Epith Cells (None-Few) per lpf Urine Bacteria (None-Few) per hpf Hyaline Casts (None-Few) per lpf Ur Culture Indicated? (NO) C. difficile Tox (PCR) (Negative) Specimen Rejected Blood Type Antibody Screen Crossmatch 04/29/16 04/29/16 04/29/16 Range/Units 07:48 12:00 17:33 WBC (4.3-11.1) K/mcL RBC (4.19-5.50) M/mcL Hgb (12.9-16.9) g/dL Hct (37.5-50.1) % MCV (83.0-100.0) fL MCH (28.0-33.3) pg MCHC (31.6-35.5) g/dL RDW (11.5-14.5) % Plt Count (140-400) K/mcL MPV (9.4-12.4) fL Immature Gran % (0-4) % Seg Neutrophils % % Lymphocytes % % Monocytes % % Eosinophils % % Basophils % % Neutrophils # (1.6-8.9) K/mcL Lymphocytes # (0.6-4.6) K/mcL Monocytes # (0.0-1.3) K/mcL Eosinophils # (0.0-0.6) K/mcL Basophils # (0.0-0.2) K/mcL Reactive Lymphocytes (Not Present) Platelet Estimate (Normal) Immature Plt Fraction (1.1-6.1) % PT (9.4-12.1) Seconds INR Sodium (136-145) mEq/L Potassium (3.5-4.5) mEq/L Chloride (98-109) mEq/L Carbon Dioxide (19-29) mEq/L BUN (8-26) mg/dL Creatinine (0.72-1.25) mg/dL Est GFR ( Amer) (> 60) Est GFR (Non-Af Amer) (> 60) BUN/Creatinine Ratio (6-26) Glucose (70-99) mg/dL POC Glucose 115 H 141 H 202 H (58-89) Est Mean Plasma Glucose mg/dl Hemoglobin A1c ( - 5.6) % Calculated Osmolality (280-300) Calcium (8.6-10.8) mg/dL Phosphorus (2.3-4.7) mg/dL Magnesium (1.6-2.6) mg/dL Total Bilirubin (0.2-1.2) mg/dL AST (5-34) Units/L ALT (0-55) Units/L Alkaline Phosphatase (38-126) Units/L Serum Total Protein (6.0-8.3) g/dL Albumin (3.5-5.0) g/dL Globulin (2.4-3.5) g/dL Albumin/Globulin Ratio (1.1-2.2) Prealbumin (18.0-45.0) mg/dL Triglycerides (< 150) mg/dL Urine Color (Yellow) Urine Clarity (Clear) Urine pH (5.0-8.0) pH Units Ur Specific [place] (1.010-1.025) Urine Protein (Neg-Trace) mg/dL Urine Glucose (UA) (Normal) mg/dL Urine Ketones (Negative) mg/dL Urine Blood (Negative) Urine Nitrite (Negative) Urine Bilirubin (Negative) Urine Urobilinogen (Normal) mg/dL Ur Leukocyte Esterase (Negative) Urine Microscopic RBC (0-3) per hpf Urine Microscopic WBC (0-3) per hpf Ur Squamous Epith Cells (None-Few) per lpf Urine Bacteria (None-Few) per hpf Hyaline Casts (None-Few) per lpf Ur Culture Indicated? (NO) C. difficile Tox (PCR) (Negative) Specimen Rejected Blood Type Antibody Screen Crossmatch 04/29/16 04/29/16 04/30/16 Range/Units 20:08 23:48 05:25 WBC (4.3-11.1) K/mcL RBC (4.19-5.50) M/mcL Hgb (12.9-16.9) g/dL Hct (37.5-50.1) % MCV (83.0-100.0) fL MCH (28.0-33.3) pg MCHC (31.6-35.5) g/dL RDW (11.5-14.5) % Plt Count (140-400) K/mcL MPV (9.4-12.4) fL Immature Gran % (0-4) % Seg Neutrophils % % Lymphocytes % % Monocytes % % Eosinophils % % Basophils % % Neutrophils # (1.6-8.9) K/mcL Lymphocytes # (0.6-4.6) K/mcL Monocytes # (0.0-1.3) K/mcL Eosinophils # (0.0-0.6) K/mcL Basophils # (0.0-0.2) K/mcL Reactive Lymphocytes (Not Present) Platelet Estimate (Normal) Immature Plt Fraction (1.1-6.1) % PT (9.4-12.1) Seconds INR Sodium (136-145) mEq/L Potassium (3.5-4.5) mEq/L Chloride (98-109) mEq/L Carbon Dioxide (19-29) mEq/L BUN (8-26) mg/dL Creatinine (0.72-1.25) mg/dL Est GFR ( Amer) (> 60) Est GFR (Non-Af Amer) (> 60) BUN/Creatinine Ratio (6-26) Glucose (70-99) mg/dL POC Glucose 187 H 142 H 194 H (58-89) Est Mean Plasma Glucose mg/dl Hemoglobin A1c ( - 5.6) % Calculated Osmolality (280-300) Calcium (8.6-10.8) mg/dL Phosphorus (2.3-4.7) mg/dL Magnesium (1.6-2.6) mg/dL Total Bilirubin (0.2-1.2) mg/dL AST (5-34) Units/L ALT (0-55) Units/L Alkaline Phosphatase (38-126) Units/L Serum Total Protein (6.0-8.3) g/dL Albumin (3.5-5.0) g/dL Globulin (2.4-3.5) g/dL Albumin/Globulin Ratio (1.1-2.2) Prealbumin (18.0-45.0) mg/dL Triglycerides (< 150) mg/dL Urine Color (Yellow) Urine Clarity (Clear) Urine pH (5.0-8.0) pH Units Ur Specific [place] (1.010-1.025) Urine Protein (Neg-Trace) mg/dL Urine Glucose (UA) (Normal) mg/dL Urine Ketones (Negative) mg/dL Urine Blood (Negative) Urine Nitrite (Negative) Urine Bilirubin (Negative) Urine Urobilinogen (Normal) mg/dL Ur Leukocyte Esterase (Negative) Urine Microscopic RBC (0-3) per hpf Urine Microscopic WBC (0-3) per hpf Ur Squamous Epith Cells (None-Few) per lpf Urine Bacteria (None-Few) per hpf Hyaline Casts (None-Few) per lpf Ur Culture Indicated? (NO) C. difficile Tox (PCR) (Negative) Specimen Rejected Blood Type Antibody Screen Crossmatch 04/30/16 04/30/16 04/30/16 Range/Units 08:30 08:30 11:22 WBC 11.8 H (4.3-11.1) K/mcL RBC 3.05 L (4.19-5.50) M/mcL Hgb 9.3 L (12.9-16.9) g/dL Hct 27.9 L (37.5-50.1) % MCV 91.5 (83.0-100.0) fL MCH 30.5 (28.0-33.3) pg MCHC 33.3 (31.6-35.5) g/dL RDW 15.5 H (11.5-14.5) % Plt Count 294 (140-400) K/mcL MPV 9.7 (9.4-12.4) fL Immature Gran % 0.9 (0-4) % Seg Neutrophils % 86.8 % Lymphocytes % 4.7 % Monocytes % 7.0 % Eosinophils % 0.3 % Basophils % 0.3 % Neutrophils # 10.2 H (1.6-8.9) K/mcL Lymphocytes # 0.6 (0.6-4.6) K/mcL Monocytes # 0.8 (0.0-1.3) K/mcL Eosinophils # 0.0 (0.0-0.6) K/mcL Basophils # 0.0 (0.0-0.2) K/mcL Reactive Lymphocytes (Not Present) Platelet Estimate (Normal) Immature Plt Fraction (1.1-6.1) % PT (9.4-12.1) Seconds INR Sodium 137 (136-145) mEq/L Potassium 4.1 (3.5-4.5) mEq/L Chloride 102 (98-109) mEq/L Carbon Dioxide 31 H (19-29) mEq/L BUN 29 H (8-26) mg/dL Creatinine 0.79 (0.72-1.25) mg/dL Est GFR ( Amer) > 60 (> 60) Est GFR (Non-Af Amer) > 60 (> 60) BUN/Creatinine Ratio 37 H (6-26) Glucose 181 H (70-99) mg/dL POC Glucose 192 H (58-89) Est Mean Plasma Glucose mg/dl Hemoglobin A1c ( - 5.6) % Calculated Osmolality 294 (280-300) Calcium 8.7 (8.6-10.8) mg/dL Phosphorus 3.5 (2.3-4.7) mg/dL Magnesium 1.8 (1.6-2.6) mg/dL Total Bilirubin (0.2-1.2) mg/dL AST (5-34) Units/L ALT (0-55) Units/L Alkaline Phosphatase (38-126) Units/L Serum Total Protein (6.0-8.3) g/dL Albumin (3.5-5.0) g/dL Globulin (2.4-3.5) g/dL Albumin/Globulin Ratio (1.1-2.2) Prealbumin (18.0-45.0) mg/dL Triglycerides (< 150) mg/dL Urine Color (Yellow) Urine Clarity (Clear) Urine pH (5.0-8.0) pH Units Ur Specific [place] (1.010-1.025) Urine Protein (Neg-Trace) mg/dL Urine Glucose (UA) (Normal) mg/dL Urine Ketones (Negative) mg/dL Urine Blood (Negative) Urine Nitrite (Negative) Urine Bilirubin (Negative) Urine Urobilinogen (Normal) mg/dL Ur Leukocyte Esterase (Negative) Urine Microscopic RBC (0-3) per hpf Urine Microscopic WBC (0-3) per hpf Ur Squamous Epith Cells (None-Few) per lpf Urine Bacteria (None-Few) per hpf Hyaline Casts (None-Few) per lpf Ur Culture Indicated? (NO) C. difficile Tox (PCR) (Negative) Specimen Rejected Blood Type Antibody Screen Crossmatch 04/30/16 04/30/16 05/01/16 Range/Units 16:03 21:02 00:24 WBC (4.3-11.1) K/mcL RBC (4.19-5.50) M/mcL Hgb (12.9-16.9) g/dL Hct (37.5-50.1) % MCV (83.0-100.0) fL MCH (28.0-33.3) pg MCHC (31.6-35.5) g/dL RDW (11.5-14.5) % Plt Count (140-400) K/mcL MPV (9.4-12.4) fL Immature Gran % (0-4) % Seg Neutrophils % % Lymphocytes % % Monocytes % % Eosinophils % % Basophils % % Neutrophils # (1.6-8.9) K/mcL Lymphocytes # (0.6-4.6) K/mcL Monocytes # (0.0-1.3) K/mcL Eosinophils # (0.0-0.6) K/mcL Basophils # (0.0-0.2) K/mcL Reactive Lymphocytes (Not Present) Platelet Estimate (Normal) Immature Plt Fraction (1.1-6.1) % PT (9.4-12.1) Seconds INR Sodium (136-145) mEq/L Potassium (3.5-4.5) mEq/L Chloride (98-109) mEq/L Carbon Dioxide (19-29) mEq/L BUN (8-26) mg/dL Creatinine (0.72-1.25) mg/dL Est GFR ( Amer) (> 60) Est GFR (Non-Af Amer) (> 60) BUN/Creatinine Ratio (6-26) Glucose (70-99) mg/dL POC Glucose 117 H 154 H 127 H (58-89) Est Mean Plasma Glucose mg/dl Hemoglobin A1c ( - 5.6) % Calculated Osmolality (280-300) Calcium (8.6-10.8) mg/dL Phosphorus (2.3-4.7) mg/dL Magnesium (1.6-2.6) mg/dL Total Bilirubin (0.2-1.2) mg/dL AST (5-34) Units/L ALT (0-55) Units/L Alkaline Phosphatase (38-126) Units/L Serum Total Protein (6.0-8.3) g/dL Albumin (3.5-5.0) g/dL Globulin (2.4-3.5) g/dL Albumin/Globulin Ratio (1.1-2.2) Prealbumin (18.0-45.0) mg/dL Triglycerides (< 150) mg/dL Urine Color (Yellow) Urine Clarity (Clear) Urine pH (5.0-8.0) pH Units Ur Specific [place] (1.010-1.025) Urine Protein (Neg-Trace) mg/dL Urine Glucose (UA) (Normal) mg/dL Urine Ketones (Negative) mg/dL Urine Blood (Negative) Urine Nitrite (Negative) Urine Bilirubin (Negative) Urine Urobilinogen (Normal) mg/dL Ur Leukocyte Esterase (Negative) Urine Microscopic RBC (0-3) per hpf Urine Microscopic WBC (0-3) per hpf Ur Squamous Epith Cells (None-Few) per lpf Urine Bacteria (None-Few) per hpf Hyaline Casts (None-Few) per lpf Ur Culture Indicated? (NO) C. difficile Tox (PCR) (Negative) Specimen Rejected Blood Type Antibody Screen Crossmatch 05/01/16 05/01/16 05/01/16 Range/Units 03:40 03:40 03:56 WBC 9.4 (4.3-11.1) K/mcL RBC 2.85 L (4.19-5.50) M/mcL Hgb 8.8 L (12.9-16.9) g/dL Hct 26.6 L (37.5-50.1) % MCV 93.3 (83.0-100.0) fL MCH 30.9 (28.0-33.3) pg MCHC 33.1 (31.6-35.5) g/dL RDW 15.8 H (11.5-14.5) % Plt Count 243 (140-400) K/mcL MPV 9.4 (9.4-12.4) fL Immature Gran % 1.4 (0-4) % Seg Neutrophils % 73.4 % Lymphocytes % 12.2 % Monocytes % 9.7 % Eosinophils % 2.9 % Basophils % 0.4 % Neutrophils # 6.9 (1.6-8.9) K/mcL Lymphocytes # 1.2 (0.6-4.6) K/mcL Monocytes # 0.9 (0.0-1.3) K/mcL Eosinophils # 0.3 (0.0-0.6) K/mcL Basophils # 0.0 (0.0-0.2) K/mcL Reactive Lymphocytes (Not Present) Platelet Estimate (Normal) Immature Plt Fraction (1.1-6.1) % PT (9.4-12.1) Seconds INR Sodium 140 (136-145) mEq/L Potassium 4.3 (3.5-4.5) mEq/L Chloride 104 (98-109) mEq/L Carbon Dioxide 31 H (19-29) mEq/L BUN 29 H (8-26) mg/dL Creatinine 0.80 (0.72-1.25) mg/dL Est GFR ( Amer) > 60 (> 60) Est GFR (Non-Af Amer) > 60 (> 60) BUN/Creatinine Ratio 36 H (6-26) Glucose 115 H (70-99) mg/dL POC Glucose 120 H (58-89) Est Mean Plasma Glucose mg/dl Hemoglobin A1c ( - 5.6) % Calculated Osmolality 297 (280-300) Calcium 8.7 (8.6-10.8) mg/dL Phosphorus (2.3-4.7) mg/dL Magnesium (1.6-2.6) mg/dL Total Bilirubin (0.2-1.2) mg/dL AST (5-34) Units/L ALT (0-55) Units/L Alkaline Phosphatase (38-126) Units/L Serum Total Protein (6.0-8.3) g/dL Albumin (3.5-5.0) g/dL Globulin (2.4-3.5) g/dL Albumin/Globulin Ratio (1.1-2.2) Prealbumin (18.0-45.0) mg/dL Triglycerides (< 150) mg/dL Urine Color (Yellow) Urine Clarity (Clear) Urine pH (5.0-8.0) pH Units Ur Specific [place] (1.010-1.025) Urine Protein (Neg-Trace) mg/dL Urine Glucose (UA) (Normal) mg/dL Urine Ketones (Negative) mg/dL Urine Blood (Negative) Urine Nitrite (Negative) Urine Bilirubin (Negative) Urine Urobilinogen (Normal) mg/dL Ur Leukocyte Esterase (Negative) Urine Microscopic RBC (0-3) per hpf Urine Microscopic WBC (0-3) per hpf Ur Squamous Epith Cells (None-Few) per lpf Urine Bacteria (None-Few) per hpf Hyaline Casts (None-Few) per lpf Ur Culture Indicated? (NO) C. difficile Tox (PCR) (Negative) Specimen Rejected Blood Type Antibody Screen Crossmatch 05/01/16 05/01/16 05/01/16 Range/Units 07:17 11:29 15:52 WBC (4.3-11.1) K/mcL RBC (4.19-5.50) M/mcL Hgb (12.9-16.9) g/dL Hct (37.5-50.1) % MCV (83.0-100.0) fL MCH (28.0-33.3) pg MCHC (31.6-35.5) g/dL RDW (11.5-14.5) % Plt Count (140-400) K/mcL MPV (9.4-12.4) fL Immature Gran % (0-4) % Seg Neutrophils % % Lymphocytes % % Monocytes % % Eosinophils % % Basophils % % Neutrophils # (1.6-8.9) K/mcL Lymphocytes # (0.6-4.6) K/mcL Monocytes # (0.0-1.3) K/mcL Eosinophils # (0.0-0.6) K/mcL Basophils # (0.0-0.2) K/mcL Reactive Lymphocytes (Not Present) Platelet Estimate (Normal) Immature Plt Fraction (1.1-6.1) % PT (9.4-12.1) Seconds INR Sodium (136-145) mEq/L Potassium (3.5-4.5) mEq/L Chloride (98-109) mEq/L Carbon Dioxide (19-29) mEq/L BUN (8-26) mg/dL Creatinine (0.72-1.25) mg/dL Est GFR ( Amer) (> 60) Est GFR (Non-Af Amer) (> 60) BUN/Creatinine Ratio (6-26) Glucose (70-99) mg/dL POC Glucose 120 H 138 H 161 H (58-89) Est Mean Plasma Glucose mg/dl Hemoglobin A1c ( - 5.6) % Calculated Osmolality (280-300) Calcium (8.6-10.8) mg/dL Phosphorus (2.3-4.7) mg/dL Magnesium (1.6-2.6) mg/dL Total Bilirubin (0.2-1.2) mg/dL AST (5-34) Units/L ALT (0-55) Units/L Alkaline Phosphatase (38-126) Units/L Serum Total Protein (6.0-8.3) g/dL Albumin (3.5-5.0) g/dL Globulin (2.4-3.5) g/dL Albumin/Globulin Ratio (1.1-2.2) Prealbumin (18.0-45.0) mg/dL Triglycerides (< 150) mg/dL Urine Color (Yellow) Urine Clarity (Clear) Urine pH (5.0-8.0) pH Units Ur Specific [place] (1.010-1.025) Urine Protein (Neg-Trace) mg/dL Urine Glucose (UA) (Normal) mg/dL Urine Ketones (Negative) mg/dL Urine Blood (Negative) Urine Nitrite (Negative) Urine Bilirubin (Negative) Urine Urobilinogen (Normal) mg/dL Ur Leukocyte Esterase (Negative) Urine Microscopic RBC (0-3) per hpf Urine Microscopic WBC (0-3) per hpf Ur Squamous Epith Cells (None-Few) per lpf Urine Bacteria (None-Few) per hpf Hyaline Casts (None-Few) per lpf Ur Culture Indicated? (NO) C. difficile Tox (PCR) (Negative) Specimen Rejected Blood Type Antibody Screen Crossmatch 05/01/16 05/01/16 05/02/16 Range/Units 20:32 23:48 03:30 WBC 9.7 (4.3-11.1) K/mcL RBC 3.14 L (4.19-5.50) M/mcL Hgb 9.8 L (12.9-16.9) g/dL Hct 29.4 L (37.5-50.1) % MCV 93.6 (83.0-100.0) fL MCH 31.2 (28.0-33.3) pg MCHC 33.3 (31.6-35.5) g/dL RDW 15.6 H (11.5-14.5) % Plt Count 253 (140-400) K/mcL MPV 9.8 (9.4-12.4) fL Immature Gran % 1.2 (0-4) % Seg Neutrophils % 78.9 % Lymphocytes % 7.9 % Monocytes % 9.7 % Eosinophils % 2.1 % Basophils % 0.2 % Neutrophils # 7.6 (1.6-8.9) K/mcL Lymphocytes # 0.8 (0.6-4.6) K/mcL Monocytes # 0.9 (0.0-1.3) K/mcL Eosinophils # 0.2 (0.0-0.6) K/mcL Basophils # 0.0 (0.0-0.2) K/mcL Reactive Lymphocytes (Not Present) Platelet Estimate (Normal) Immature Plt Fraction (1.1-6.1) % PT (9.4-12.1) Seconds INR Sodium (136-145) mEq/L Potassium (3.5-4.5) mEq/L Chloride (98-109) mEq/L Carbon Dioxide (19-29) mEq/L BUN (8-26) mg/dL Creatinine (0.72-1.25) mg/dL Est GFR ( Amer) (> 60) Est GFR (Non-Af Amer) (> 60) BUN/Creatinine Ratio (6-26) Glucose (70-99) mg/dL POC Glucose 179 H 116 H (58-89) Est Mean Plasma Glucose mg/dl Hemoglobin A1c ( - 5.6) % Calculated Osmolality (280-300) Calcium (8.6-10.8) mg/dL Phosphorus (2.3-4.7) mg/dL Magnesium (1.6-2.6) mg/dL Total Bilirubin (0.2-1.2) mg/dL AST (5-34) Units/L ALT (0-55) Units/L Alkaline Phosphatase (38-126) Units/L Serum Total Protein (6.0-8.3) g/dL Albumin (3.5-5.0) g/dL Globulin (2.4-3.5) g/dL Albumin/Globulin Ratio (1.1-2.2) Prealbumin (18.0-45.0) mg/dL Triglycerides (< 150) mg/dL Urine Color (Yellow) Urine Clarity (Clear) Urine pH (5.0-8.0) pH Units Ur Specific [place] (1.010-1.025) Urine Protein (Neg-Trace) mg/dL Urine Glucose (UA) (Normal) mg/dL Urine Ketones (Negative) mg/dL Urine Blood (Negative) Urine Nitrite (Negative) Urine Bilirubin (Negative) Urine Urobilinogen (Normal) mg/dL Ur Leukocyte Esterase (Negative) Urine Microscopic RBC (0-3) per hpf Urine Microscopic WBC (0-3) per hpf Ur Squamous Epith Cells (None-Few) per lpf Urine Bacteria (None-Few) per hpf Hyaline Casts (None-Few) per lpf Ur Culture Indicated? (NO) C. difficile Tox (PCR) (Negative) Specimen Rejected Blood Type Antibody Screen Crossmatch 05/02/16 05/02/16 05/02/16 Range/Units 03:30 03:42 07:10 WBC (4.3-11.1) K/mcL RBC (4.19-5.50) M/mcL Hgb (12.9-16.9) g/dL Hct (37.5-50.1) % MCV (83.0-100.0) fL MCH (28.0-33.3) pg MCHC (31.6-35.5) g/dL RDW (11.5-14.5) % Plt Count (140-400) K/mcL MPV (9.4-12.4) fL Immature Gran % (0-4) % Seg Neutrophils % % Lymphocytes % % Monocytes % % Eosinophils % % Basophils % % Neutrophils # (1.6-8.9) K/mcL Lymphocytes # (0.6-4.6) K/mcL Monocytes # (0.0-1.3) K/mcL Eosinophils # (0.0-0.6) K/mcL Basophils # (0.0-0.2) K/mcL Reactive Lymphocytes (Not Present) Platelet Estimate (Normal) Immature Plt Fraction (1.1-6.1) % PT (9.4-12.1) Seconds INR Sodium 139 (136-145) mEq/L Potassium 4.1 (3.5-4.5) mEq/L Chloride 104 (98-109) mEq/L Carbon Dioxide 31 H (19-29) mEq/L BUN 25 (8-26) mg/dL Creatinine 0.73 (0.72-1.25) mg/dL Est GFR ( Amer) > 60 (> 60) Est GFR (Non-Af Amer) > 60 (> 60) BUN/Creatinine Ratio 34 H (6-26) Glucose 120 H (70-99) mg/dL POC Glucose 112 H 123 H (58-89) Est Mean Plasma Glucose mg/dl Hemoglobin A1c ( - 5.6) % Calculated Osmolality 294 (280-300) Calcium 8.8 (8.6-10.8) mg/dL Phosphorus (2.3-4.7) mg/dL Magnesium (1.6-2.6) mg/dL Total Bilirubin (0.2-1.2) mg/dL AST (5-34) Units/L ALT (0-55) Units/L Alkaline Phosphatase (38-126) Units/L Serum Total Protein (6.0-8.3) g/dL Albumin (3.5-5.0) g/dL Globulin (2.4-3.5) g/dL Albumin/Globulin Ratio (1.1-2.2) Prealbumin (18.0-45.0) mg/dL Triglycerides (< 150) mg/dL Urine Color (Yellow) Urine Clarity (Clear) Urine pH (5.0-8.0) pH Units Ur Specific [place] (1.010-1.025) Urine Protein (Neg-Trace) mg/dL Urine Glucose (UA) (Normal) mg/dL Urine Ketones (Negative) mg/dL Urine Blood (Negative) Urine Nitrite (Negative) Urine Bilirubin (Negative) Urine Urobilinogen (Normal) mg/dL Ur Leukocyte Esterase (Negative) Urine Microscopic RBC (0-3) per hpf Urine Microscopic WBC (0-3) per hpf Ur Squamous Epith Cells (None-Few) per lpf Urine Bacteria (None-Few) per hpf Hyaline Casts (None-Few) per lpf Ur Culture Indicated? (NO) C. difficile Tox (PCR) (Negative) Specimen Rejected Blood Type Antibody Screen Crossmatch 05/02/16 Range/Units 11:27 WBC (4.3-11.1) K/mcL RBC (4.19-5.50) M/mcL Hgb (12.9-16.9) g/dL Hct (37.5-50.1) % MCV (83.0-100.0) fL MCH (28.0-33.3) pg MCHC (31.6-35.5) g/dL RDW (11.5-14.5) % Plt Count (140-400) K/mcL MPV (9.4-12.4) fL Immature Gran % (0-4) % Seg Neutrophils % % Lymphocytes % % Monocytes % % Eosinophils % % Basophils % % Neutrophils # (1.6-8.9) K/mcL Lymphocytes # (0.6-4.6) K/mcL Monocytes # (0.0-1.3) K/mcL Eosinophils # (0.0-0.6) K/mcL Basophils # (0.0-0.2) K/mcL Reactive Lymphocytes (Not Present) Platelet Estimate (Normal) Immature Plt Fraction (1.1-6.1) % PT (9.4-12.1) Seconds INR Sodium (136-145) mEq/L Potassium (3.5-4.5) mEq/L Chloride (98-109) mEq/L Carbon Dioxide (19-29) mEq/L BUN (8-26) mg/dL Creatinine (0.72-1.25) mg/dL Est GFR ( Amer) (> 60) Est GFR (Non-Af Amer) (> 60) BUN/Creatinine Ratio (6-26) Glucose (70-99) mg/dL POC Glucose 186 H (58-89) Est Mean Plasma Glucose mg/dl Hemoglobin A1c ( - 5.6) % Calculated Osmolality (280-300) Calcium (8.6-10.8) mg/dL Phosphorus (2.3-4.7) mg/dL Magnesium (1.6-2.6) mg/dL Total Bilirubin (0.2-1.2) mg/dL AST (5-34) Units/L ALT (0-55) Units/L Alkaline Phosphatase (38-126) Units/L Serum Total Protein (6.0-8.3) g/dL Albumin (3.5-5.0) g/dL Globulin (2.4-3.5) g/dL Albumin/Globulin Ratio (1.1-2.2) Prealbumin (18.0-45.0) mg/dL Triglycerides (< 150) mg/dL Urine Color (Yellow) Urine Clarity (Clear) Urine pH (5.0-8.0) pH Units Ur Specific [place] (1.010-1.025) Urine Protein (Neg-Trace) mg/dL Urine Glucose (UA) (Normal) mg/dL Urine Ketones (Negative) mg/dL Urine Blood (Negative) Urine Nitrite (Negative) Urine Bilirubin (Negative) Urine Urobilinogen (Normal) mg/dL Ur Leukocyte Esterase (Negative) Urine Microscopic RBC (0-3) per hpf Urine Microscopic WBC (0-3) per hpf Ur Squamous Epith Cells (None-Few) per lpf Urine Bacteria (None-Few) per hpf Hyaline Casts (None-Few) per lpf Ur Culture Indicated? (NO) C. difficile Tox (PCR) (Negative) Specimen Rejected Blood Type Antibody Screen Crossmatch
[2016-05-01] MEDS: Acetaminophen 325 MG TABLET PO PRN (19:45)
[2016-05-02] MEDS: Insulin LISPRO 300 UNITS/3 ML VIAL SQ SCH ×3 (01:40→08:50)
[2016-05-02] MEDS: hydrALAZINE 25 MG TABLET PO SCH ×4 (01:40→16:55)
[2016-05-02 03:54] LABS: Basophils % 0.2 %; Eosinophils # 0.2 K/mcL (0.0-0.6); Eosinophils % 2.1 %; Hematocrit 29.4 % (37.5-50.1); Hemoglobin 9.8 g/dL (12.9-16.9); Immature Granulocytes % 1.2 % (0-4); Lymphocytes # 0.8 K/mcL (0.6-4.6); Lymphocytes % 7.9 %; Mean Corpuscular HGB Conc 33.3 g/dL (31.6-35.5); Mean Corpuscular Hemoglobin 31.2 pg (28.0-33.3); Mean Corpuscular Volume 93.6 fL (83.0-100.0); Mean Platelet Volume 9.8 fL (9.4-12.4); Monocytes # 0.9 K/mcL (0.0-1.3); Monocytes % 9.7 %; Neutrophils # 7.6 K/mcL (1.6-8.9); Platelet Count 253 K/mcL (140-400); Red Blood Count 3.14 M/mcL (4.19-5.50); Red Cell Distribution Width 15.6 % (11.5-14.5); Segmented Neutrophils % 78.9 %
[2016-05-02 03:58] LABS: BUN/Creatinine Ratio 34 (6-26); Blood Urea Nitrogen 25 mg/dL (8-26); Calcium 8.8 mg/dL (8.6-10.8); Carbon Dioxide 31 mEq/L (19-29); Chloride 104 mEq/L (98-109); Glucose 120 mg/dL (70-99); Osmolality,Calculated 294 (280-300); Potassium 4.1 mEq/L (3.5-4.5); Sodium 139 mEq/L (136-145); eGFR For African Americans > 60 (> 60); eGFR For Non-African Americans > 60 (> 60)
[2016-05-02] MEDS: *HR* OxyCODONE/APAP 10/325 TABLET PO PRN (05:07)
[2016-05-02] MEDS: *HR* Heparin 5,000 UNIT/ML VIAL SQ SCH ×2 (05:08→16:55)
[2016-05-02] MEDS: Furosemide 40 MG TABLET PO SCH (09:02)
[2016-05-02] MEDS: amLODIPine 5 MG TABLET PO SCH (09:02)
[2016-05-02] MEDS: Lisinopril 20 MG TABLET PO SCH (09:02)
[2016-05-02] MEDS: Acetaminophen 325 MG TABLET PO PRN (09:04)
--- NOTE | 2016-05-02 11:43 | General Surgery Progress Note ---
Date of Encounter: 05/02/16 Time of Encounter: 11:37 Subjective Patient reports: no new complaints, feels better Narrative: General Surgery: POD #6 - patient indicates that he is well, no further cramping abdominal pain. Tolerating regular diet. Afebrile, 98.4, pulse 70, respirations 16, blood pressure 111/65 (early this morning blood pressure was 176/70) Lungs: Clear, no audible wheezes or rales Abdomen: Obese, soft, active bowel sounds. No obvious tenderness. Colostomy functioning well. Stoma healthy. Midline incision clean and dry. Robbins catheter removed - patient able to void Laboratories: White count 9.7; hemoglobin 9.8, hematocrit 29.4; platelet count 253,000. Electrolytes, BUN, creatinine stable and within normal limits Accu-Cheks ranged 112 to 185 Impression: Postoperative day 6, status post Raúl procedure; Acceptable status. Patient apparently awaiting placement [facility] Urethral stenosis - controlled; Robbins removed, patient able to void. Continued follow-up with Dr. Caldwell recommended post discharge Acute blood loss anemia - stable Morbid obesity Diabetes mellitus Hypertension Recommendation: May be transferred to ECF when that process is completed. Objective Vital Signs - Last 8 Hours Temp Pulse Resp BP Pulse Ox 05/02/16 11:19 98.4 F 70 16 111/65 95 05/02/16 11:03 12 95 05/02/16 07:07 98.0 F 65 12 176/70 95 05/02/16 03:43 17 93 L 05/02/16 03:38 98.2 F 70 16 130/53 95 Intake and Output 05/01/16 05/02/16 05/02/16 23:59 07:59 15:59 Intake Total 360 / 360 0 / 0 Output Total 105 / 105 200 / 200 Balance 255 / 255 -200 / -200 Intake: Oral 360 / 360 0 / 0 Output: Urine 5 / 5 Stool 100 / 100 200 / 200 Other: Meal Dinner Breakfast Percent of Meal Consumed 100% 100% Stool Size Moderate Stool Consistency soft Stool Color Brown # Urine Diapers 1 Blood Glucose* 116 123 186 - Labs 05/02/16 03:30 05/02/16 03:30 Diabetes panel 05/02/16 Range/Units 03:30 Sodium 139 (136-145) mEq/L Potassium 4.1 (3.5-4.5) mEq/L Chloride 104 (98-109) mEq/L Carbon Dioxide 31 H (19-29) mEq/L BUN 25 (8-26) mg/dL Creatinine 0.73 (0.72-1.25) mg/dL Glucose 120 H (70-99) mg/dL Calcium 8.8 (8.6-10.8) mg/dL Calcium panel 05/02/16 Range/Units 03:30 Calcium 8.8 (8.6-10.8) mg/dL Pituitary panel 05/02/16 Range/Units 03:30 Sodium 139 (136-145) mEq/L Potassium 4.1 (3.5-4.5) mEq/L Chloride 104 (98-109) mEq/L Carbon Dioxide 31 H (19-29) mEq/L BUN 25 (8-26) mg/dL Creatinine 0.73 (0.72-1.25) mg/dL Glucose 120 H (70-99) mg/dL Calcium 8.8 (8.6-10.8) mg/dL Adrenal panel 05/02/16 Range/Units 03:30 Sodium 139 (136-145) mEq/L Potassium 4.1 (3.5-4.5) mEq/L Chloride 104 (98-109) mEq/L Carbon Dioxide 31 H (19-29) mEq/L BUN 25 (8-26) mg/dL Creatinine 0.73 (0.72-1.25) mg/dL Glucose 120 H (70-99) mg/dL Calcium 8.8 (8.6-10.8) mg/dL - VTE Documentation of Mechanical Device: Intermittent pneumatic compression device Consult Discharge Plan - Plan Referrals: Kobi Mcbride MD [Non-Partnered Physician] -
--- NOTE | 2016-05-02 15:41 | Internal Med Progress Note ---
Date of Encounter: 05/02/16 Time of Encounter: 15:39 - Assessment and plan (1) Abscess of sigmoid colon due to diverticulitis Current Visit: Yes Status: Acute Assessment and plan: Tolerating regular diet well. Awaiting placement to skilled rehabilitation. (2) DVT prophylaxis Current Visit: Yes Status: Acute Assessment and plan: On subcutaneous heparin (3) Hypertension Current Visit: Yes Status: Chronic Assessment and plan: Well controlled. No changes at this time Qualifiers: Hypertension type: essential hypertension Qualified Code(s): I10 - Essential (primary) hypertension (4) CAD (coronary artery disease) Current Visit: No Status: Chronic Assessment and plan: No chest pain. Qualifiers: Coronary Disease-Associated Artery/Lesion type: [place] artery [place] vs. transplanted heart: [place] heart Associated angina: without angina Qualified Code(s): I25.10 - Atherosclerotic heart disease of [place] coronary artery without angina pectoris (5) CHF (congestive heart failure) Current Visit: No Status: Chronic Assessment and plan: Continue oral Lasix. Qualifiers: Congestive heart failure type: diastolic Congestive heart failure chronicity: unspecified congestive heart failure chronicity Qualified Code(s) : I50.30 - Unspecified diastolic (congestive) heart failure (6) COPD (chronic obstructive pulmonary disease) Current Visit: No Status: Chronic Assessment and plan: Continue meds as needed. Chest x-ray done today did not show any pneumonia. Will add cough suppressants to help treat patient's cough. Qualifiers: COPD type: unspecified COPD Qualified Code(s): J44.9 - Chronic obstructive pulmonary disease, unspecified - Subjective Interval history: Patient's abdominal pain has improved. He is feeling better today but continues to have cough. No shortness of breath. No fever or chills or night sweats. - Constitutional Vitals: Temp Pulse Resp BP Pulse Ox 98.5 F 73 16 144/70 96 05/02/16 15:29 05/02/16 15:29 05/02/16 11:19 05/02/16 15:29 05/02/16 15:29 General appearance: Present: cooperative, A&O X 3, morbidly obese, no acute distress, answers questions appropriately - Respiratory Respiratory exam: Present: CTAB. Absent: accessory muscle use, rales, rhonchi, wheezes - Cardiovascular Cardiovascular exam: Present: RRR, +S1, +S2. Absent: diastolic murmur, gallop, rubs, systolic murmur - GI/Abdominal GI/Abdominal exam: Present: normal bowel sounds, soft, no peritoneal signs. Absent: distended, tenderness - Extremities Exam Extremities exam: Present: warm, radial pulses palpable and symetrical. Absent : calf tenderness, cyanotic, pedal edema - Neurological Exam Neurological exam: Present: CN II-XII intact, oriented X3, no focal deficits. Absent: facial droop, speech deficit Internal Medicine: Result - Labs CBC & Chem 7: 05/02/16 03:30 05/02/16 03:30 Labs: Short CBC 05/02/16 Range/Units 03:30 WBC 9.7 (4.3-11.1) K/mcL Hgb 9.8 L (12.9-16.9) g/dL Hct 29.4 L (37.5-50.1) % Plt Count 253 (140-400) K/mcL Neutrophils # 7.6 (1.6-8.9) K/mcL BMP 05/02/16 03:30 Sodium 139 Potassium 4.1 Chloride 104 Carbon Dioxide 31 H BUN 25 Creatinine 0.73 Glucose 120 H Calcium 8.8 - ABG Interpretation ABG results: PT/INR, D-dimer PT 15.1 Seconds (9.4-12.1) H 04/26/16 04:43 - Impressions Impressions Chest X-Ray 05/02/16 10:44 IMPRESSION: No evidence of acute pneumonia or atelectasis. D/ : / 05/02/2016 11:16:27 Pedro Young MD / [email or web address] Interpreting Provider: Pedro Young MD - VTE Documentation of Mechanical Device: Intermittent pneumatic compression device Consult Discharge Plan - Plan Referrals: Kobi Mcbride MD [Non-Partnered Physician] - - Attending Attestation This document has been at least partially created by [employer] recognition technology by Dr. Valadez. Errors in grammar, wording or other phrases may exist. If errors are found after the documentation is signed, they will be addressed individually in the addendum section of this document when appropriate. Medical Decision Making - [facility] Narrative Medical decision making narrative: Low risk for complications - Lab Data Result diagrams: 05/02/16 03:30 05/02/16 03:30 Lab Results 04/15/16 04/15/16 04/15/16 Range/Units 04:55 04:55 08:05 WBC 17.9 H (4.3-11.1) K/mcL RBC 3.75 L (4.19-5.50) M/mcL Hgb 11.4 L (12.9-16.9) g/dL Hct 34.4 L (37.5-50.1) % MCV 91.7 (83.0-100.0) fL MCH 30.4 (28.0-33.3) pg MCHC 33.1 (31.6-35.5) g/dL RDW 13.2 (11.5-14.5) % Plt Count 266 (140-400) K/mcL MPV 10.4 (9.4-12.4) fL Immature Gran % 0.6 (0-4) % Seg Neutrophils % 86.6 % Lymphocytes % 4.8 % Monocytes % 7.4 % Eosinophils % 0.3 % Basophils % 0.3 % Neutrophils # 15.5 H (1.6-8.9) K/mcL Lymphocytes # 0.9 (0.6-4.6) K/mcL Monocytes # 1.3 (0.0-1.3) K/mcL Eosinophils # 0.1 (0.0-0.6) K/mcL Basophils # 0.1 (0.0-0.2) K/mcL Reactive Lymphocytes (Not Present) Platelet Estimate (Normal) Immature Plt Fraction (1.1-6.1) % PT (9.4-12.1) Seconds INR Sodium 137 (136-145) mEq/L Potassium 4.1 (3.5-4.5) mEq/L Chloride 104 (98-109) mEq/L Carbon Dioxide 21 (19-29) mEq/L BUN 11 (8-26) mg/dL Creatinine 0.77 (0.72-1.25) mg/dL Est GFR ( Amer) > 60 (> 60) Est GFR (Non-Af Amer) > 60 (> 60) BUN/Creatinine Ratio 14 (6-26) Glucose 154 H (70-99) mg/dL POC Glucose 176 H (58-89) Est Mean Plasma Glucose mg/dl Hemoglobin A1c ( - 5.6) % Calculated Osmolality 286 (280-300) Calcium 9.1 (8.6-10.8) mg/dL Phosphorus (2.3-4.7) mg/dL Magnesium (1.6-2.6) mg/dL Total Bilirubin (0.2-1.2) mg/dL AST (5-34) Units/L ALT (0-55) Units/L Alkaline Phosphatase (38-126) Units/L Serum Total Protein (6.0-8.3) g/dL Albumin (3.5-5.0) g/dL Globulin (2.4-3.5) g/dL Albumin/Globulin Ratio (1.1-2.2) Prealbumin (18.0-45.0) mg/dL Triglycerides (< 150) mg/dL Urine Color (Yellow) Urine Clarity (Clear) Urine pH (5.0-8.0) pH Units Ur Specific [place] (1.010-1.025) Urine Protein (Neg-Trace) mg/dL Urine Glucose (UA) (Normal) mg/dL Urine Ketones (Negative) mg/dL Urine Blood (Negative) Urine Nitrite (Negative) Urine Bilirubin (Negative) Urine Urobilinogen (Normal) mg/dL Ur Leukocyte Esterase (Negative) Urine Microscopic RBC (0-3) per hpf Urine Microscopic WBC (0-3) per hpf Ur Squamous Epith Cells (None-Few) per lpf Urine Bacteria (None-Few) per hpf Hyaline Casts (None-Few) per lpf Ur Culture Indicated? (NO) C. difficile Tox (PCR) (Negative) Specimen Rejected Blood Type Antibody Screen Crossmatch 04/15/16 04/15/16 04/16/16 Range/Units 11:47 17:17 00:33 WBC (4.3-11.1) K/mcL RBC (4.19-5.50) M/mcL Hgb (12.9-16.9) g/dL Hct (37.5-50.1) % MCV (83.0-100.0) fL MCH (28.0-33.3) pg MCHC (31.6-35.5) g/dL RDW (11.5-14.5) % Plt Count (140-400) K/mcL MPV (9.4-12.4) fL Immature Gran % (0-4) % Seg Neutrophils % % Lymphocytes % % Monocytes % % Eosinophils % % Basophils % % Neutrophils # (1.6-8.9) K/mcL Lymphocytes # (0.6-4.6) K/mcL Monocytes # (0.0-1.3) K/mcL Eosinophils # (0.0-0.6) K/mcL Basophils # (0.0-0.2) K/mcL Reactive Lymphocytes (Not Present) Platelet Estimate (Normal) Immature Plt Fraction (1.1-6.1) % PT (9.4-12.1) Seconds INR Sodium (136-145) mEq/L Potassium (3.5-4.5) mEq/L Chloride (98-109) mEq/L Carbon Dioxide (19-29) mEq/L BUN (8-26) mg/dL Creatinine (0.72-1.25) mg/dL Est GFR ( Amer) (> 60) Est GFR (Non-Af Amer) (> 60) BUN/Creatinine Ratio (6-26) Glucose (70-99) mg/dL POC Glucose 164 H 124 H 133 H (58-89) Est Mean Plasma Glucose mg/dl Hemoglobin A1c ( - 5.6) % Calculated Osmolality (280-300) Calcium (8.6-10.8) mg/dL Phosphorus (2.3-4.7) mg/dL Magnesium (1.6-2.6) mg/dL Total Bilirubin (0.2-1.2) mg/dL AST (5-34) Units/L ALT (0-55) Units/L Alkaline Phosphatase (38-126) Units/L Serum Total Protein (6.0-8.3) g/dL Albumin (3.5-5.0) g/dL Globulin (2.4-3.5) g/dL Albumin/Globulin Ratio (1.1-2.2) Prealbumin (18.0-45.0) mg/dL Triglycerides (< 150) mg/dL Urine Color (Yellow) Urine Clarity (Clear) Urine pH (5.0-8.0) pH Units Ur Specific [place] (1.010-1.025) Urine Protein (Neg-Trace) mg/dL Urine Glucose (UA) (Normal) mg/dL Urine Ketones (Negative) mg/dL Urine Blood (Negative) Urine Nitrite (Negative) Urine Bilirubin (Negative) Urine Urobilinogen (Normal) mg/dL Ur Leukocyte Esterase (Negative) Urine Microscopic RBC (0-3) per hpf Urine Microscopic WBC (0-3) per hpf Ur Squamous Epith Cells (None-Few) per lpf Urine Bacteria (None-Few) per hpf Hyaline Casts (None-Few) per lpf Ur Culture Indicated? (NO) C. difficile Tox (PCR) (Negative) Specimen Rejected Blood Type Antibody Screen Crossmatch 04/16/16 04/16/16 04/16/16 Range/Units 05:44 05:44 05:53 WBC 18.1 H (4.3-11.1) K/mcL RBC 3.95 L (4.19-5.50) M/mcL Hgb 12.0 L (12.9-16.9) g/dL Hct 35.6 L (37.5-50.1) % MCV 90.1 (83.0-100.0) fL MCH 30.4 (28.0-33.3) pg MCHC 33.7 (31.6-35.5) g/dL RDW 13.0 (11.5-14.5) % Plt Count 373 (140-400) K/mcL MPV 9.6 (9.4-12.4) fL Immature Gran % 0.6 (0-4) % Seg Neutrophils % 85.2 % Lymphocytes % 6.3 % Monocytes % 7.2 % Eosinophils % 0.5 % Basophils % 0.2 % Neutrophils # 15.4 H (1.6-8.9) K/mcL Lymphocytes # 1.1 (0.6-4.6) K/mcL Monocytes # 1.3 (0.0-1.3) K/mcL Eosinophils # 0.1 (0.0-0.6) K/mcL Basophils # 0.0 (0.0-0.2) K/mcL Reactive Lymphocytes (Not Present) Platelet Estimate (Normal) Immature Plt Fraction (1.1-6.1) % PT (9.4-12.1) Seconds INR Sodium 138 (136-145) mEq/L Potassium 3.3 L (3.5-4.5) mEq/L Chloride 103 (98-109) mEq/L Carbon Dioxide 26 (19-29) mEq/L BUN 11 (8-26) mg/dL Creatinine 0.74 (0.72-1.25) mg/dL Est GFR ( Amer) > 60 (> 60) Est GFR (Non-Af Amer) > 60 (> 60) BUN/Creatinine Ratio 15 (6-26) Glucose 138 H (70-99) mg/dL POC Glucose 127 H (58-89) Est Mean Plasma Glucose mg/dl Hemoglobin A1c ( - 5.6) % Calculated Osmolality 288 (280-300) Calcium 9.3 (8.6-10.8) mg/dL Phosphorus (2.3-4.7) mg/dL Magnesium (1.6-2.6) mg/dL Total Bilirubin (0.2-1.2) mg/dL AST (5-34) Units/L ALT (0-55) Units/L Alkaline Phosphatase (38-126) Units/L Serum Total Protein (6.0-8.3) g/dL Albumin (3.5-5.0) g/dL Globulin (2.4-3.5) g/dL Albumin/Globulin Ratio (1.1-2.2) Prealbumin (18.0-45.0) mg/dL Triglycerides (< 150) mg/dL Urine Color (Yellow) Urine Clarity (Clear) Urine pH (5.0-8.0) pH Units Ur Specific [place] (1.010-1.025) Urine Protein (Neg-Trace) mg/dL Urine Glucose (UA) (Normal) mg/dL Urine Ketones (Negative) mg/dL Urine Blood (Negative) Urine Nitrite (Negative) Urine Bilirubin (Negative) Urine Urobilinogen (Normal) mg/dL Ur Leukocyte Esterase (Negative) Urine Microscopic RBC (0-3) per hpf Urine Microscopic WBC (0-3) per hpf Ur Squamous Epith Cells (None-Few) per lpf Urine Bacteria (None-Few) per hpf Hyaline Casts (None-Few) per lpf Ur Culture Indicated? (NO) C. difficile Tox (PCR) (Negative) Specimen Rejected Blood Type Antibody Screen Crossmatch 04/16/16 04/16/16 04/16/16 Range/Units 11:11 17:05 23:53 WBC (4.3-11.1) K/mcL RBC (4.19-5.50) M/mcL Hgb (12.9-16.9) g/dL Hct (37.5-50.1) % MCV (83.0-100.0) fL MCH (28.0-33.3) pg MCHC (31.6-35.5) g/dL RDW (11.5-14.5) % Plt Count (140-400) K/mcL MPV (9.4-12.4) fL Immature Gran % (0-4) % Seg Neutrophils % % Lymphocytes % % Monocytes % % Eosinophils % % Basophils % % Neutrophils # (1.6-8.9) K/mcL Lymphocytes # (0.6-4.6) K/mcL Monocytes # (0.0-1.3) K/mcL Eosinophils # (0.0-0.6) K/mcL Basophils # (0.0-0.2) K/mcL Reactive Lymphocytes (Not Present) Platelet Estimate (Normal) Immature Plt Fraction (1.1-6.1) % PT (9.4-12.1) Seconds INR Sodium (136-145) mEq/L Potassium (3.5-4.5) mEq/L Chloride (98-109) mEq/L Carbon Dioxide (19-29) mEq/L BUN (8-26) mg/dL Creatinine (0.72-1.25) mg/dL Est GFR ( Amer) (> 60) Est GFR (Non-Af Amer) (> 60) BUN/Creatinine Ratio (6-26) Glucose (70-99) mg/dL POC Glucose 142 H 146 H 147 H (58-89) Est Mean Plasma Glucose mg/dl Hemoglobin A1c ( - 5.6) % Calculated Osmolality (280-300) Calcium (8.6-10.8) mg/dL Phosphorus (2.3-4.7) mg/dL Magnesium (1.6-2.6) mg/dL Total Bilirubin (0.2-1.2) mg/dL AST (5-34) Units/L ALT (0-55) Units/L Alkaline Phosphatase (38-126) Units/L Serum Total Protein (6.0-8.3) g/dL Albumin (3.5-5.0) g/dL Globulin (2.4-3.5) g/dL Albumin/Globulin Ratio (1.1-2.2) Prealbumin (18.0-45.0) mg/dL Triglycerides (< 150) mg/dL Urine Color (Yellow) Urine Clarity (Clear) Urine pH (5.0-8.0) pH Units Ur Specific [place] (1.010-1.025) Urine Protein (Neg-Trace) mg/dL Urine Glucose (UA) (Normal) mg/dL Urine Ketones (Negative) mg/dL Urine Blood (Negative) Urine Nitrite (Negative) Urine Bilirubin (Negative) Urine Urobilinogen (Normal) mg/dL Ur Leukocyte Esterase (Negative) Urine Microscopic RBC (0-3) per hpf Urine Microscopic WBC (0-3) per hpf Ur Squamous Epith Cells (None-Few) per lpf Urine Bacteria (None-Few) per hpf Hyaline Casts (None-Few) per lpf Ur Culture Indicated? (NO) C. difficile Tox (PCR) (Negative) Specimen Rejected Blood Type Antibody Screen Crossmatch 04/17/16 04/17/16 04/17/16 Range/Units 04:52 04:52 04:52 WBC 17.0 H (4.3-11.1) K/mcL RBC 3.98 L (4.19-5.50) M/mcL Hgb 11.8 L (12.9-16.9) g/dL Hct 35.8 L (37.5-50.1) % MCV 89.9 (83.0-100.0) fL MCH 29.6 (28.0-33.3) pg MCHC 33.0 (31.6-35.5) g/dL RDW 13.0 (11.5-14.5) % Plt Count 410 H (140-400) K/mcL MPV 9.7 (9.4-12.4) fL Immature Gran % 0.6 (0-4) % Seg Neutrophils % 86.5 % Lymphocytes % 4.8 % Monocytes % 7.3 % Eosinophils % 0.4 % Basophils % 0.4 % Neutrophils # 14.7 H (1.6-8.9) K/mcL Lymphocytes # 0.8 (0.6-4.6) K/mcL Monocytes # 1.3 (0.0-1.3) K/mcL Eosinophils # 0.1 (0.0-0.6) K/mcL Basophils # 0.1 (0.0-0.2) K/mcL Reactive Lymphocytes (Not Present) Platelet Estimate (Normal) Immature Plt Fraction (1.1-6.1) % PT (9.4-12.1) Seconds INR Sodium 138 (136-145) mEq/L Potassium 3.3 L (3.5-4.5) mEq/L Chloride 103 (98-109) mEq/L Carbon Dioxide 26 (19-29) mEq/L BUN 13 (8-26) mg/dL Creatinine 0.72 (0.72-1.25) mg/dL Est GFR ( Amer) > 60 (> 60) Est GFR (Non-Af Amer) > 60 (> 60) BUN/Creatinine Ratio 18 (6-26) Glucose 154 H (70-99) mg/dL POC Glucose (58-89) Est Mean Plasma Glucose 134 mg/dl Hemoglobin A1c 6.3 H ( - 5.6) % Calculated Osmolality 289 (280-300) Calcium 9.3 (8.6-10.8) mg/dL Phosphorus (2.3-4.7) mg/dL Magnesium (1.6-2.6) mg/dL Total Bilirubin 0.7 (0.2-1.2) mg/dL AST 22 (5-34) Units/L ALT 19 (0-55) Units/L Alkaline Phosphatase 70 (38-126) Units/L Serum Total Protein 6.9 (6.0-8.3) g/dL Albumin 2.1 L (3.5-5.0) g/dL Globulin 4.8 H (2.4-3.5) g/dL Albumin/Globulin Ratio 0.4 L (1.1-2.2) Prealbumin (18.0-45.0) mg/dL Triglycerides (< 150) mg/dL Urine Color (Yellow) Urine Clarity (Clear) Urine pH (5.0-8.0) pH Units Ur Specific [place] (1.010-1.025) Urine Protein (Neg-Trace) mg/dL Urine Glucose (UA) (Normal) mg/dL Urine Ketones (Negative) mg/dL Urine Blood (Negative) Urine Nitrite (Negative) Urine Bilirubin (Negative) Urine Urobilinogen (Normal) mg/dL Ur Leukocyte Esterase (Negative) Urine Microscopic RBC (0-3) per hpf Urine Microscopic WBC (0-3) per hpf Ur Squamous Epith Cells (None-Few) per lpf Urine Bacteria (None-Few) per hpf Hyaline Casts (None-Few) per lpf Ur Culture Indicated? (NO) C. difficile Tox (PCR) (Negative) Specimen Rejected Blood Type Antibody Screen Crossmatch 04/17/16 04/17/16 04/17/16 Range/Units 04:52 04:52 06:08 WBC (4.3-11.1) K/mcL RBC (4.19-5.50) M/mcL Hgb (12.9-16.9) g/dL Hct (37.5-50.1) % MCV (83.0-100.0) fL MCH (28.0-33.3) pg MCHC (31.6-35.5) g/dL RDW (11.5-14.5) % Plt Count (140-400) K/mcL MPV (9.4-12.4) fL Immature Gran % (0-4) % Seg Neutrophils % % Lymphocytes % % Monocytes % % Eosinophils % % Basophils % % Neutrophils # (1.6-8.9) K/mcL Lymphocytes # (0.6-4.6) K/mcL Monocytes # (0.0-1.3) K/mcL Eosinophils # (0.0-0.6) K/mcL Basophils # (0.0-0.2) K/mcL Reactive Lymphocytes (Not Present) Platelet Estimate (Normal) Immature Plt Fraction (1.1-6.1) % PT (9.4-12.1) Seconds INR Sodium (136-145) mEq/L Potassium (3.5-4.5) mEq/L Chloride (98-109) mEq/L Carbon Dioxide (19-29) mEq/L BUN (8-26) mg/dL Creatinine (0.72-1.25) mg/dL Est GFR ( Amer) (> 60) Est GFR (Non-Af Amer) (> 60) BUN/Creatinine Ratio (6-26) Glucose (70-99) mg/dL POC Glucose 127 H (58-89) Est Mean Plasma Glucose mg/dl Hemoglobin A1c ( - 5.6) % Calculated Osmolality (280-300) Calcium (8.6-10.8) mg/dL Phosphorus 2.9 (2.3-4.7) mg/dL Magnesium 1.7 (1.6-2.6) mg/dL Total Bilirubin (0.2-1.2) mg/dL AST (5-34) Units/L ALT (0-55) Units/L Alkaline Phosphatase (38-126) Units/L Serum Total Protein (6.0-8.3) g/dL Albumin (3.5-5.0) g/dL Globulin (2.4-3.5) g/dL Albumin/Globulin Ratio (1.1-2.2) Prealbumin 5.0 L (18.0-45.0) mg/dL Triglycerides 59 (< 150) mg/dL Urine Color (Yellow) Urine Clarity (Clear) Urine pH (5.0-8.0) pH Units Ur Specific [place] (1.010-1.025) Urine Protein (Neg-Trace) mg/dL Urine Glucose (UA) (Normal) mg/dL Urine Ketones (Negative) mg/dL Urine Blood (Negative) Urine Nitrite (Negative) Urine Bilirubin (Negative) Urine Urobilinogen (Normal) mg/dL Ur Leukocyte Esterase (Negative) Urine Microscopic RBC (0-3) per hpf Urine Microscopic WBC (0-3) per hpf Ur Squamous Epith Cells (None-Few) per lpf Urine Bacteria (None-Few) per hpf Hyaline Casts (None-Few) per lpf Ur Culture Indicated? (NO) C. difficile Tox (PCR) (Negative) Specimen Rejected Blood Type Antibody Screen Crossmatch 04/17/16 04/17/16 04/17/16 Range/Units 11:36 17:03 19:34 WBC (4.3-11.1) K/mcL RBC (4.19-5.50) M/mcL Hgb (12.9-16.9) g/dL Hct (37.5-50.1) % MCV (83.0-100.0) fL MCH (28.0-33.3) pg MCHC (31.6-35.5) g/dL RDW (11.5-14.5) % Plt Count (140-400) K/mcL MPV (9.4-12.4) fL Immature Gran % (0-4) % Seg Neutrophils % % Lymphocytes % % Monocytes % % Eosinophils % % Basophils % % Neutrophils # (1.6-8.9) K/mcL Lymphocytes # (0.6-4.6) K/mcL Monocytes # (0.0-1.3) K/mcL Eosinophils # (0.0-0.6) K/mcL Basophils # (0.0-0.2) K/mcL Reactive Lymphocytes (Not Present) Platelet Estimate (Normal) Immature Plt Fraction (1.1-6.1) % PT (9.4-12.1) Seconds INR Sodium (136-145) mEq/L Potassium (3.5-4.5) mEq/L Chloride (98-109) mEq/L Carbon Dioxide (19-29) mEq/L BUN (8-26) mg/dL Creatinine (0.72-1.25) mg/dL Est GFR ( Amer) (> 60) Est GFR (Non-Af Amer) (> 60) BUN/Creatinine Ratio (6-26) Glucose (70-99) mg/dL POC Glucose 162 H 154 H 163 H (58-89) Est Mean Plasma Glucose mg/dl Hemoglobin A1c ( - 5.6) % Calculated Osmolality (280-300) Calcium (8.6-10.8) mg/dL Phosphorus (2.3-4.7) mg/dL Magnesium (1.6-2.6) mg/dL Total Bilirubin (0.2-1.2) mg/dL AST (5-34) Units/L ALT (0-55) Units/L Alkaline Phosphatase (38-126) Units/L Serum Total Protein (6.0-8.3) g/dL Albumin (3.5-5.0) g/dL Globulin (2.4-3.5) g/dL Albumin/Globulin Ratio (1.1-2.2) Prealbumin (18.0-45.0) mg/dL Triglycerides (< 150) mg/dL Urine Color (Yellow) Urine Clarity (Clear) Urine pH (5.0-8.0) pH Units Ur Specific [place] (1.010-1.025) Urine Protein (Neg-Trace) mg/dL Urine Glucose (UA) (Normal) mg/dL Urine Ketones (Negative) mg/dL Urine Blood (Negative) Urine Nitrite (Negative) Urine Bilirubin (Negative) Urine Urobilinogen (Normal) mg/dL Ur Leukocyte Esterase (Negative) Urine Microscopic RBC (0-3) per hpf Urine Microscopic WBC (0-3) per hpf Ur Squamous Epith Cells (None-Few) per lpf Urine Bacteria (None-Few) per hpf Hyaline Casts (None-Few) per lpf Ur Culture Indicated? (NO) C. difficile Tox (PCR) (Negative) Specimen Rejected Blood Type Antibody Screen Crossmatch 04/17/16 04/18/16 04/18/16 Range/Units 23:28 03:00 03:00 WBC 15.6 H (4.3-11.1) K/mcL RBC 3.80 L (4.19-5.50) M/mcL Hgb 11.3 L (12.9-16.9) g/dL Hct 34.3 L (37.5-50.1) % MCV 90.3 (83.0-100.0) fL MCH 29.7 (28.0-33.3) pg MCHC 32.9 (31.6-35.5) g/dL RDW 13.1 (11.5-14.5) % Plt Count 372 (140-400) K/mcL MPV 9.6 (9.4-12.4) fL Immature Gran % 0.6 (0-4) % Seg Neutrophils % 86.9 % Lymphocytes % 4.5 % Monocytes % 7.3 % Eosinophils % 0.4 % Basophils % 0.3 % Neutrophils # 13.5 H (1.6-8.9) K/mcL Lymphocytes # 0.7 (0.6-4.6) K/mcL Monocytes # 1.1 (0.0-1.3) K/mcL Eosinophils # 0.1 (0.0-0.6) K/mcL Basophils # 0.0 (0.0-0.2) K/mcL Reactive Lymphocytes (Not Present) Platelet Estimate (Normal) Immature Plt Fraction (1.1-6.1) % PT (9.4-12.1) Seconds INR Sodium 139 (136-145) mEq/L Potassium 2.9 L (3.5-4.5) mEq/L Chloride 103 (98-109) mEq/L Carbon Dioxide 29 (19-29) mEq/L BUN 11 (8-26) mg/dL Creatinine 0.72 (0.72-1.25) mg/dL Est GFR ( Amer) > 60 (> 60) Est GFR (Non-Af Amer) > 60 (> 60) BUN/Creatinine Ratio 15 (6-26) Glucose 184 H (70-99) mg/dL POC Glucose 131 H (58-89) Est Mean Plasma Glucose mg/dl Hemoglobin A1c ( - 5.6) % Calculated Osmolality 292 (280-300) Calcium 8.7 (8.6-10.8) mg/dL Phosphorus (2.3-4.7) mg/dL Magnesium (1.6-2.6) mg/dL Total Bilirubin (0.2-1.2) mg/dL AST (5-34) Units/L ALT (0-55) Units/L Alkaline Phosphatase (38-126) Units/L Serum Total Protein (6.0-8.3) g/dL Albumin (3.5-5.0) g/dL Globulin (2.4-3.5) g/dL Albumin/Globulin Ratio (1.1-2.2) Prealbumin (18.0-45.0) mg/dL Triglycerides (< 150) mg/dL Urine Color (Yellow) Urine Clarity (Clear) Urine pH (5.0-8.0) pH Units Ur Specific [place] (1.010-1.025) Urine Protein (Neg-Trace) mg/dL Urine Glucose (UA) (Normal) mg/dL Urine Ketones (Negative) mg/dL Urine Blood (Negative) Urine Nitrite (Negative) Urine Bilirubin (Negative) Urine Urobilinogen (Normal) mg/dL Ur Leukocyte Esterase (Negative) Urine Microscopic RBC (0-3) per hpf Urine Microscopic WBC (0-3) per hpf Ur Squamous Epith Cells (None-Few) per lpf Urine Bacteria (None-Few) per hpf Hyaline Casts (None-Few) per lpf Ur Culture Indicated? (NO) C. difficile Tox (PCR) (Negative) Specimen Rejected Blood Type Antibody Screen Crossmatch 04/18/16 04/18/16 04/18/16 Range/Units 03:41 07:23 11:18 WBC (4.3-11.1) K/mcL RBC (4.19-5.50) M/mcL Hgb (12.9-16.9) g/dL Hct (37.5-50.1) % MCV (83.0-100.0) fL MCH (28.0-33.3) pg MCHC (31.6-35.5) g/dL RDW (11.5-14.5) % Plt Count (140-400) K/mcL MPV (9.4-12.4) fL Immature Gran % (0-4) % Seg Neutrophils % % Lymphocytes % % Monocytes % % Eosinophils % % Basophils % % Neutrophils # (1.6-8.9) K/mcL Lymphocytes # (0.6-4.6) K/mcL Monocytes # (0.0-1.3) K/mcL Eosinophils # (0.0-0.6) K/mcL Basophils # (0.0-0.2) K/mcL Reactive Lymphocytes (Not Present) Platelet Estimate (Normal) Immature Plt Fraction (1.1-6.1) % PT (9.4-12.1) Seconds INR Sodium (136-145) mEq/L Potassium (3.5-4.5) mEq/L Chloride (98-109) mEq/L Carbon Dioxide (19-29) mEq/L BUN (8-26) mg/dL Creatinine (0.72-1.25) mg/dL Est GFR ( Amer) (> 60) Est GFR (Non-Af Amer) (> 60) BUN/Creatinine Ratio (6-26) Glucose (70-99) mg/dL POC Glucose 181 H 170 H 181 H (58-89) Est Mean Plasma Glucose mg/dl Hemoglobin A1c ( - 5.6) % Calculated Osmolality (280-300) Calcium (8.6-10.8) mg/dL Phosphorus (2.3-4.7) mg/dL Magnesium (1.6-2.6) mg/dL Total Bilirubin (0.2-1.2) mg/dL AST (5-34) Units/L ALT (0-55) Units/L Alkaline Phosphatase (38-126) Units/L Serum Total Protein (6.0-8.3) g/dL Albumin (3.5-5.0) g/dL Globulin (2.4-3.5) g/dL Albumin/Globulin Ratio (1.1-2.2) Prealbumin (18.0-45.0) mg/dL Triglycerides (< 150) mg/dL Urine Color (Yellow) Urine Clarity (Clear) Urine pH (5.0-8.0) pH Units Ur Specific [place] (1.010-1.025) Urine Protein (Neg-Trace) mg/dL Urine Glucose (UA) (Normal) mg/dL Urine Ketones (Negative) mg/dL Urine Blood (Negative) Urine Nitrite (Negative) Urine Bilirubin (Negative) Urine Urobilinogen (Normal) mg/dL Ur Leukocyte Esterase (Negative) Urine Microscopic RBC (0-3) per hpf Urine Microscopic WBC (0-3) per hpf Ur Squamous Epith Cells (None-Few) per lpf Urine Bacteria (None-Few) per hpf Hyaline Casts (None-Few) per lpf Ur Culture Indicated? (NO) C. difficile Tox (PCR) (Negative) Specimen Rejected Blood Type Antibody Screen Crossmatch 04/18/16 04/18/16 04/18/16 Range/Units 14:55 16:31 22:03 WBC (4.3-11.1) K/mcL RBC (4.19-5.50) M/mcL Hgb (12.9-16.9) g/dL Hct (37.5-50.1) % MCV (83.0-100.0) fL MCH (28.0-33.3) pg MCHC (31.6-35.5) g/dL RDW (11.5-14.5) % Plt Count (140-400) K/mcL MPV (9.4-12.4) fL Immature Gran % (0-4) % Seg Neutrophils % % Lymphocytes % % Monocytes % % Eosinophils % % Basophils % % Neutrophils # (1.6-8.9) K/mcL Lymphocytes # (0.6-4.6) K/mcL Monocytes # (0.0-1.3) K/mcL Eosinophils # (0.0-0.6) K/mcL Basophils # (0.0-0.2) K/mcL Reactive Lymphocytes (Not Present) Platelet Estimate (Normal) Immature Plt Fraction (1.1-6.1) % PT (9.4-12.1) Seconds INR Sodium (136-145) mEq/L Potassium 2.9 L (3.5-4.5) mEq/L Chloride (98-109) mEq/L Carbon Dioxide (19-29) mEq/L BUN (8-26) mg/dL Creatinine (0.72-1.25) mg/dL Est GFR ( Amer) (> 60) Est GFR (Non-Af Amer) (> 60) BUN/Creatinine Ratio (6-26) Glucose (70-99) mg/dL POC Glucose 184 H 198 H (58-89) Est Mean Plasma Glucose mg/dl Hemoglobin A1c ( - 5.6) % Calculated Osmolality (280-300) Calcium (8.6-10.8) mg/dL Phosphorus (2.3-4.7) mg/dL Magnesium 1.9 (1.6-2.6) mg/dL Total Bilirubin (0.2-1.2) mg/dL AST (5-34) Units/L ALT (0-55) Units/L Alkaline Phosphatase (38-126) Units/L Serum Total Protein (6.0-8.3) g/dL Albumin (3.5-5.0) g/dL Globulin (2.4-3.5) g/dL Albumin/Globulin Ratio (1.1-2.2) Prealbumin (18.0-45.0) mg/dL Triglycerides (< 150) mg/dL Urine Color (Yellow) Urine Clarity (Clear) Urine pH (5.0-8.0) pH Units Ur Specific [place] (1.010-1.025) Urine Protein (Neg-Trace) mg/dL Urine Glucose (UA) (Normal) mg/dL Urine Ketones (Negative) mg/dL Urine Blood (Negative) Urine Nitrite (Negative) Urine Bilirubin (Negative) Urine Urobilinogen (Normal) mg/dL Ur Leukocyte Esterase (Negative) Urine Microscopic RBC (0-3) per hpf Urine Microscopic WBC (0-3) per hpf Ur Squamous Epith Cells (None-Few) per lpf Urine Bacteria (None-Few) per hpf Hyaline Casts (None-Few) per lpf Ur Culture Indicated? (NO) C. difficile Tox (PCR) (Negative) Specimen Rejected Blood Type Antibody Screen Crossmatch 04/19/16 04/19/16 04/19/16 Range/Units 00:29 04:12 04:30 WBC (4.3-11.1) K/mcL RBC (4.19-5.50) M/mcL Hgb (12.9-16.9) g/dL Hct (37.5-50.1) % MCV (83.0-100.0) fL MCH (28.0-33.3) pg MCHC (31.6-35.5) g/dL RDW (11.5-14.5) % Plt Count (140-400) K/mcL MPV (9.4-12.4) fL Immature Gran % (0-4) % Seg Neutrophils % % Lymphocytes % % Monocytes % % Eosinophils % % Basophils % % Neutrophils # (1.6-8.9) K/mcL Lymphocytes # (0.6-4.6) K/mcL Monocytes # (0.0-1.3) K/mcL Eosinophils # (0.0-0.6) K/mcL Basophils # (0.0-0.2) K/mcL Reactive Lymphocytes (Not Present) Platelet Estimate (Normal) Immature Plt Fraction (1.1-6.1) % PT (9.4-12.1) Seconds INR Sodium (136-145) mEq/L Potassium (3.5-4.5) mEq/L Chloride (98-109) mEq/L Carbon Dioxide (19-29) mEq/L BUN (8-26) mg/dL Creatinine (0.72-1.25) mg/dL Est GFR ( Amer) (> 60) Est GFR (Non-Af Amer) (> 60) BUN/Creatinine Ratio (6-26) Glucose (70-99) mg/dL POC Glucose 203 H 137 H (58-89) Est Mean Plasma Glucose mg/dl Hemoglobin A1c ( - 5.6) % Calculated Osmolality (280-300) Calcium (8.6-10.8) mg/dL Phosphorus 2.6 (2.3-4.7) mg/dL Magnesium 1.9 (1.6-2.6) mg/dL Total Bilirubin (0.2-1.2) mg/dL AST (5-34) Units/L ALT (0-55) Units/L Alkaline Phosphatase (38-126) Units/L Serum Total Protein (6.0-8.3) g/dL Albumin (3.5-5.0) g/dL Globulin (2.4-3.5) g/dL Albumin/Globulin Ratio (1.1-2.2) Prealbumin (18.0-45.0) mg/dL Triglycerides (< 150) mg/dL Urine Color (Yellow) Urine Clarity (Clear) Urine pH (5.0-8.0) pH Units Ur Specific [place] (1.010-1.025) Urine Protein (Neg-Trace) mg/dL Urine Glucose (UA) (Normal) mg/dL Urine Ketones (Negative) mg/dL Urine Blood (Negative) Urine Nitrite (Negative) Urine Bilirubin (Negative) Urine Urobilinogen (Normal) mg/dL Ur Leukocyte Esterase (Negative) Urine Microscopic RBC (0-3) per hpf Urine Microscopic WBC (0-3) per hpf Ur Squamous Epith Cells (None-Few) per lpf Urine Bacteria (None-Few) per hpf Hyaline Casts (None-Few) per lpf Ur Culture Indicated? (NO) C. difficile Tox (PCR) (Negative) Specimen Rejected Blood Type Antibody Screen Crossmatch 04/19/16 04/19/16 04/19/16 Range/Units 06:36 07:32 08:14 WBC 13.2 H (4.3-11.1) K/mcL RBC 3.88 L (4.19-5.50) M/mcL Hgb 11.5 L (12.9-16.9) g/dL Hct 35.0 L (37.5-50.1) % MCV 90.2 (83.0-100.0) fL MCH 29.6 (28.0-33.3) pg MCHC 32.9 (31.6-35.5) g/dL RDW 13.2 (11.5-14.5) % Plt Count 423 H (140-400) K/mcL MPV 9.1 L (9.4-12.4) fL Immature Gran % 0.8 (0-4) % Seg Neutrophils % 86.1 % Lymphocytes % 5.2 % Monocytes % 7.4 % Eosinophils % 0.2 % Basophils % 0.3 % Neutrophils # 11.4 H (1.6-8.9) K/mcL Lymphocytes # 0.7 (0.6-4.6) K/mcL Monocytes # 1.0 (0.0-1.3) K/mcL Eosinophils # 0.0 (0.0-0.6) K/mcL Basophils # 0.0 (0.0-0.2) K/mcL Reactive Lymphocytes (Not Present) Platelet Estimate (Normal) Immature Plt Fraction 1.7 (1.1-6.1) % PT (9.4-12.1) Seconds INR Sodium 139 (136-145) mEq/L Potassium 2.9 L (3.5-4.5) mEq/L Chloride 104 (98-109) mEq/L Carbon Dioxide 27 (19-29) mEq/L BUN 13 (8-26) mg/dL Creatinine 0.69 L (0.72-1.25) mg/dL Est GFR ( Amer) > 60 (> 60) Est GFR (Non-Af Amer) > 60 (> 60) BUN/Creatinine Ratio 19 (6-26) Glucose 213 H (70-99) mg/dL POC Glucose 196 H (58-89) Est Mean Plasma Glucose mg/dl Hemoglobin A1c ( - 5.6) % Calculated Osmolality 294 (280-300) Calcium 8.7 (8.6-10.8) mg/dL Phosphorus (2.3-4.7) mg/dL Magnesium (1.6-2.6) mg/dL Total Bilirubin (0.2-1.2) mg/dL AST (5-34) Units/L ALT (0-55) Units/L Alkaline Phosphatase (38-126) Units/L Serum Total Protein (6.0-8.3) g/dL Albumin (3.5-5.0) g/dL Globulin (2.4-3.5) g/dL Albumin/Globulin Ratio (1.1-2.2) Prealbumin (18.0-45.0) mg/dL Triglycerides (< 150) mg/dL Urine Color (Yellow) Urine Clarity (Clear) Urine pH (5.0-8.0) pH Units Ur Specific [place] (1.010-1.025) Urine Protein (Neg-Trace) mg/dL Urine Glucose (UA) (Normal) mg/dL Urine Ketones (Negative) mg/dL Urine Blood (Negative) Urine Nitrite (Negative) Urine Bilirubin (Negative) Urine Urobilinogen (Normal) mg/dL Ur Leukocyte Esterase (Negative) Urine Microscopic RBC (0-3) per hpf Urine Microscopic WBC (0-3) per hpf Ur Squamous Epith Cells (None-Few) per lpf Urine Bacteria (None-Few) per hpf Hyaline Casts (None-Few) per lpf Ur Culture Indicated? (NO) C. difficile Tox (PCR) (Negative) Specimen Rejected Blood Type Antibody Screen Crossmatch 04/19/16 04/19/16 04/19/16 Range/Units 12:30 15:00 16:05 WBC (4.3-11.1) K/mcL RBC (4.19-5.50) M/mcL Hgb (12.9-16.9) g/dL Hct (37.5-50.1) % MCV (83.0-100.0) fL MCH (28.0-33.3) pg MCHC (31.6-35.5) g/dL RDW (11.5-14.5) % Plt Count (140-400) K/mcL MPV (9.4-12.4) fL Immature Gran % (0-4) % Seg Neutrophils % % Lymphocytes % % Monocytes % % Eosinophils % % Basophils % % Neutrophils # (1.6-8.9) K/mcL Lymphocytes # (0.6-4.6) K/mcL Monocytes # (0.0-1.3) K/mcL Eosinophils # (0.0-0.6) K/mcL Basophils # (0.0-0.2) K/mcL Reactive Lymphocytes (Not Present) Platelet Estimate (Normal) Immature Plt Fraction (1.1-6.1) % PT (9.4-12.1) Seconds INR Sodium (136-145) mEq/L Potassium 2.9 L (3.5-4.5) mEq/L Chloride (98-109) mEq/L Carbon Dioxide (19-29) mEq/L BUN (8-26) mg/dL Creatinine (0.72-1.25) mg/dL Est GFR ( Amer) (> 60) Est GFR (Non-Af Amer) (> 60) BUN/Creatinine Ratio (6-26) Glucose (70-99) mg/dL POC Glucose 221 H 212 H (58-89) Est Mean Plasma Glucose mg/dl Hemoglobin A1c ( - 5.6) % Calculated Osmolality (280-300) Calcium (8.6-10.8) mg/dL Phosphorus (2.3-4.7) mg/dL Magnesium (1.6-2.6) mg/dL Total Bilirubin (0.2-1.2) mg/dL AST (5-34) Units/L ALT (0-55) Units/L Alkaline Phosphatase (38-126) Units/L Serum Total Protein (6.0-8.3) g/dL Albumin (3.5-5.0) g/dL Globulin (2.4-3.5) g/dL Albumin/Globulin Ratio (1.1-2.2) Prealbumin (18.0-45.0) mg/dL Triglycerides (< 150) mg/dL Urine Color (Yellow) Urine Clarity (Clear) Urine pH (5.0-8.0) pH Units Ur Specific [place] (1.010-1.025) Urine Protein (Neg-Trace) mg/dL Urine Glucose (UA) (Normal) mg/dL Urine Ketones (Negative) mg/dL Urine Blood (Negative) Urine Nitrite (Negative) Urine Bilirubin (Negative) Urine Urobilinogen (Normal) mg/dL Ur Leukocyte Esterase (Negative) Urine Microscopic RBC (0-3) per hpf Urine Microscopic WBC (0-3) per hpf Ur Squamous Epith Cells (None-Few) per lpf Urine Bacteria (None-Few) per hpf Hyaline Casts (None-Few) per lpf Ur Culture Indicated? (NO) C. difficile Tox (PCR) (Negative) Specimen Rejected Blood Type Antibody Screen Crossmatch 04/19/16 04/19/16 04/20/16 Range/Units 19:36 23:49 04:25 WBC (4.3-11.1) K/mcL RBC (4.19-5.50) M/mcL Hgb (12.9-16.9) g/dL Hct (37.5-50.1) % MCV (83.0-100.0) fL MCH (28.0-33.3) pg MCHC (31.6-35.5) g/dL RDW (11.5-14.5) % Plt Count (140-400) K/mcL MPV (9.4-12.4) fL Immature Gran % (0-4) % Seg Neutrophils % % Lymphocytes % % Monocytes % % Eosinophils % % Basophils % % Neutrophils # (1.6-8.9) K/mcL Lymphocytes # (0.6-4.6) K/mcL Monocytes # (0.0-1.3) K/mcL Eosinophils # (0.0-0.6) K/mcL Basophils # (0.0-0.2) K/mcL Reactive Lymphocytes (Not Present) Platelet Estimate (Normal) Immature Plt Fraction (1.1-6.1) % PT (9.4-12.1) Seconds INR Sodium (136-145) mEq/L Potassium (3.5-4.5) mEq/L Chloride (98-109) mEq/L Carbon Dioxide (19-29) mEq/L BUN (8-26) mg/dL Creatinine (0.72-1.25) mg/dL Est GFR ( Amer) (> 60) Est GFR (Non-Af Amer) (> 60) BUN/Creatinine Ratio (6-26) Glucose (70-99) mg/dL POC Glucose 229 H 177 H 201 H (58-89) Est Mean Plasma Glucose mg/dl Hemoglobin A1c ( - 5.6) % Calculated Osmolality (280-300) Calcium (8.6-10.8) mg/dL Phosphorus (2.3-4.7) mg/dL Magnesium (1.6-2.6) mg/dL Total Bilirubin (0.2-1.2) mg/dL AST (5-34) Units/L ALT (0-55) Units/L Alkaline Phosphatase (38-126) Units/L Serum Total Protein (6.0-8.3) g/dL Albumin (3.5-5.0) g/dL Globulin (2.4-3.5) g/dL Albumin/Globulin Ratio (1.1-2.2) Prealbumin (18.0-45.0) mg/dL Triglycerides (< 150) mg/dL Urine Color (Yellow) Urine Clarity (Clear) Urine pH (5.0-8.0) pH Units Ur Specific [place] (1.010-1.025) Urine Protein (Neg-Trace) mg/dL Urine Glucose (UA) (Normal) mg/dL Urine Ketones (Negative) mg/dL Urine Blood (Negative) Urine Nitrite (Negative) Urine Bilirubin (Negative) Urine Urobilinogen (Normal) mg/dL Ur Leukocyte Esterase (Negative) Urine Microscopic RBC (0-3) per hpf Urine Microscopic WBC (0-3) per hpf Ur Squamous Epith Cells (None-Few) per lpf Urine Bacteria (None-Few) per hpf Hyaline Casts (None-Few) per lpf Ur Culture Indicated? (NO) C. difficile Tox (PCR) (Negative) Specimen Rejected Blood Type Antibody Screen Crossmatch 04/20/16 04/20/16 04/20/16 Range/Units 04:48 04:48 07:21 WBC 18.4 H (4.3-11.1) K/mcL RBC 4.01 L (4.19-5.50) M/mcL Hgb 12.1 L (12.9-16.9) g/dL Hct 36.0 L (37.5-50.1) % MCV 89.8 (83.0-100.0) fL MCH 30.2 (28.0-33.3) pg MCHC 33.6 (31.6-35.5) g/dL RDW 13.1 (11.5-14.5) % Plt Count 430 H (140-400) K/mcL MPV 9.5 (9.4-12.4) fL Immature Gran % 1.0 (0-4) % Seg Neutrophils % 85.1 % Lymphocytes % 4.9 % Monocytes % 8.6 % Eosinophils % 0.1 % Basophils % 0.3 % Neutrophils # 15.6 H (1.6-8.9) K/mcL Lymphocytes # 0.9 (0.6-4.6) K/mcL Monocytes # 1.6 H (0.0-1.3) K/mcL Eosinophils # 0.0 (0.0-0.6) K/mcL Basophils # 0.1 (0.0-0.2) K/mcL Reactive Lymphocytes (Not Present) Platelet Estimate (Normal) Immature Plt Fraction (1.1-6.1) % PT (9.4-12.1) Seconds INR Sodium 139 (136-145) mEq/L Potassium 3.0 L (3.5-4.5) mEq/L Chloride 103 (98-109) mEq/L Carbon Dioxide 27 (19-29) mEq/L BUN 15 (8-26) mg/dL Creatinine 0.71 L (0.72-1.25) mg/dL Est GFR ( Amer) > 60 (> 60) Est GFR (Non-Af Amer) > 60 (> 60) BUN/Creatinine Ratio 21 (6-26) Glucose 216 H (70-99) mg/dL POC Glucose 216 H (58-89) Est Mean Plasma Glucose mg/dl Hemoglobin A1c ( - 5.6) % Calculated Osmolality 295 (280-300) Calcium 9.0 (8.6-10.8) mg/dL Phosphorus (2.3-4.7) mg/dL Magnesium (1.6-2.6) mg/dL Total Bilirubin (0.2-1.2) mg/dL AST (5-34) Units/L ALT (0-55) Units/L Alkaline Phosphatase (38-126) Units/L Serum Total Protein (6.0-8.3) g/dL Albumin (3.5-5.0) g/dL Globulin (2.4-3.5) g/dL Albumin/Globulin Ratio (1.1-2.2) Prealbumin (18.0-45.0) mg/dL Triglycerides (< 150) mg/dL Urine Color (Yellow) Urine Clarity (Clear) Urine pH (5.0-8.0) pH Units Ur Specific [place] (1.010-1.025) Urine Protein (Neg-Trace) mg/dL Urine Glucose (UA) (Normal) mg/dL Urine Ketones (Negative) mg/dL Urine Blood (Negative) Urine Nitrite (Negative) Urine Bilirubin (Negative) Urine Urobilinogen (Normal) mg/dL Ur Leukocyte Esterase (Negative) Urine Microscopic RBC (0-3) per hpf Urine Microscopic WBC (0-3) per hpf Ur Squamous Epith Cells (None-Few) per lpf Urine Bacteria (None-Few) per hpf Hyaline Casts (None-Few) per lpf Ur Culture Indicated? (NO) C. difficile Tox (PCR) (Negative) Specimen Rejected Blood Type Antibody Screen Crossmatch 04/20/16 04/20/16 04/20/16 Range/Units 10:47 11:13 15:44 WBC (4.3-11.1) K/mcL RBC (4.19-5.50) M/mcL Hgb (12.9-16.9) g/dL Hct (37.5-50.1) % MCV (83.0-100.0) fL MCH (28.0-33.3) pg MCHC (31.6-35.5) g/dL RDW (11.5-14.5) % Plt Count (140-400) K/mcL MPV (9.4-12.4) fL Immature Gran % (0-4) % Seg Neutrophils % % Lymphocytes % % Monocytes % % Eosinophils % % Basophils % % Neutrophils # (1.6-8.9) K/mcL Lymphocytes # (0.6-4.6) K/mcL Monocytes # (0.0-1.3) K/mcL Eosinophils # (0.0-0.6) K/mcL Basophils # (0.0-0.2) K/mcL Reactive Lymphocytes (Not Present) Platelet Estimate (Normal) Immature Plt Fraction (1.1-6.1) % PT (9.4-12.1) Seconds INR Sodium (136-145) mEq/L Potassium (3.5-4.5) mEq/L Chloride (98-109) mEq/L Carbon Dioxide (19-29) mEq/L BUN (8-26) mg/dL Creatinine (0.72-1.25) mg/dL Est GFR ( Amer) (> 60) Est GFR (Non-Af Amer) (> 60) BUN/Creatinine Ratio (6-26) Glucose (70-99) mg/dL POC Glucose 219 H 147 H (58-89) Est Mean Plasma Glucose mg/dl Hemoglobin A1c ( - 5.6) % Calculated Osmolality (280-300) Calcium (8.6-10.8) mg/dL Phosphorus (2.3-4.7) mg/dL Magnesium (1.6-2.6) mg/dL Total Bilirubin (0.2-1.2) mg/dL AST (5-34) Units/L ALT (0-55) Units/L Alkaline Phosphatase (38-126) Units/L Serum Total Protein (6.0-8.3) g/dL Albumin (3.5-5.0) g/dL Globulin (2.4-3.5) g/dL Albumin/Globulin Ratio (1.1-2.2) Prealbumin (18.0-45.0) mg/dL Triglycerides (< 150) mg/dL Urine Color Yellow (Yellow) Urine Clarity Clear (Clear) Urine pH 6.5 (5.0-8.0) pH Units Ur Specific [place] 1.015 (1.010-1.025) Urine Protein Trace (Neg-Trace) mg/dL Urine Glucose (UA) Normal (Normal) mg/dL Urine Ketones Negative (Negative) mg/dL Urine Blood Negative (Negative) Urine Nitrite Negative (Negative) Urine Bilirubin Negative (Negative) Urine Urobilinogen Normal (Normal) mg/dL Ur Leukocyte Esterase Negative (Negative) Urine Microscopic RBC 0-3 (0-3) per hpf Urine Microscopic WBC 0-3 (0-3) per hpf Ur Squamous Epith Cells Many H (None-Few) per lpf Urine Bacteria None Seen (None-Few) per hpf Hyaline Casts None Seen (None-Few) per lpf Ur Culture Indicated? NO (NO) C. difficile Tox (PCR) (Negative) Specimen Rejected Blood Type Antibody Screen Crossmatch 04/20/16 04/20/16 04/20/16 Range/Units 17:00 20:38 23:35 WBC (4.3-11.1) K/mcL RBC (4.19-5.50) M/mcL Hgb (12.9-16.9) g/dL Hct (37.5-50.1) % MCV (83.0-100.0) fL MCH (28.0-33.3) pg MCHC (31.6-35.5) g/dL RDW (11.5-14.5) % Plt Count (140-400) K/mcL MPV (9.4-12.4) fL Immature Gran % (0-4) % Seg Neutrophils % % Lymphocytes % % Monocytes % % Eosinophils % % Basophils % % Neutrophils # (1.6-8.9) K/mcL Lymphocytes # (0.6-4.6) K/mcL Monocytes # (0.0-1.3) K/mcL Eosinophils # (0.0-0.6) K/mcL Basophils # (0.0-0.2) K/mcL Reactive Lymphocytes (Not Present) Platelet Estimate (Normal) Immature Plt Fraction (1.1-6.1) % PT (9.4-12.1) Seconds INR Sodium (136-145) mEq/L Potassium (3.5-4.5) mEq/L Chloride (98-109) mEq/L Carbon Dioxide (19-29) mEq/L BUN (8-26) mg/dL Creatinine (0.72-1.25) mg/dL Est GFR ( Amer) (> 60) Est GFR (Non-Af Amer) (> 60) BUN/Creatinine Ratio (6-26) Glucose (70-99) mg/dL POC Glucose 343 H 116 H (58-89) Est Mean Plasma Glucose mg/dl Hemoglobin A1c ( - 5.6) % Calculated Osmolality (280-300) Calcium (8.6-10.8) mg/dL Phosphorus (2.3-4.7) mg/dL Magnesium (1.6-2.6) mg/dL Total Bilirubin (0.2-1.2) mg/dL AST (5-34) Units/L ALT (0-55) Units/L Alkaline Phosphatase (38-126) Units/L Serum Total Protein (6.0-8.3) g/dL Albumin (3.5-5.0) g/dL Globulin (2.4-3.5) g/dL Albumin/Globulin Ratio (1.1-2.2) Prealbumin (18.0-45.0) mg/dL Triglycerides (< 150) mg/dL Urine Color Yellow (Yellow) Urine Clarity Clear (Clear) Urine pH 6.5 (5.0-8.0) pH Units Ur Specific [place] 1.010 (1.010-1.025) Urine Protein Negative (Neg-Trace) mg/dL Urine Glucose (UA) Normal (Normal) mg/dL Urine Ketones Negative (Negative) mg/dL Urine Blood Negative (Negative) Urine Nitrite Negative (Negative) Urine Bilirubin Negative (Negative) Urine Urobilinogen Normal (Normal) mg/dL Ur Leukocyte Esterase Negative (Negative) Urine Microscopic RBC (0-3) per hpf Urine Microscopic WBC (0-3) per hpf Ur Squamous Epith Cells (None-Few) per lpf Urine Bacteria (None-Few) per hpf Hyaline Casts (None-Few) per lpf Ur Culture Indicated? NO (NO) C. difficile Tox (PCR) (Negative) Specimen Rejected Blood Type Antibody Screen Crossmatch 04/21/16 04/21/16 04/21/16 Range/Units 03:55 05:34 05:34 WBC 15.0 H (4.3-11.1) K/mcL RBC 3.84 L (4.19-5.50) M/mcL Hgb 11.3 L (12.9-16.9) g/dL Hct 35.5 L (37.5-50.1) % MCV 92.4 (83.0-100.0) fL MCH 29.4 (28.0-33.3) pg MCHC 31.8 (31.6-35.5) g/dL RDW 13.5 (11.5-14.5) % Plt Count 395 (140-400) K/mcL MPV 9.8 (9.4-12.4) fL Immature Gran % 1.2 (0-4) % Seg Neutrophils % 79.6 % Lymphocytes % 7.7 % Monocytes % 10.5 % Eosinophils % 0.7 % Basophils % 0.3 % Neutrophils # 12.0 H (1.6-8.9) K/mcL Lymphocytes # 1.2 (0.6-4.6) K/mcL Monocytes # 1.6 H (0.0-1.3) K/mcL Eosinophils # 0.1 (0.0-0.6) K/mcL Basophils # 0.0 (0.0-0.2) K/mcL Reactive Lymphocytes (Not Present) Platelet Estimate (Normal) Immature Plt Fraction (1.1-6.1) % PT (9.4-12.1) Seconds INR Sodium 143 (136-145) mEq/L Potassium 3.6 (3.5-4.5) mEq/L Chloride 105 (98-109) mEq/L Carbon Dioxide 32 H (19-29) mEq/L BUN 17 (8-26) mg/dL Creatinine 0.69 L (0.72-1.25) mg/dL Est GFR ( Amer) > 60 (> 60) Est GFR (Non-Af Amer) > 60 (> 60) BUN/Creatinine Ratio 25 (6-26) Glucose 126 H (70-99) mg/dL POC Glucose 151 H (58-89) Est Mean Plasma Glucose mg/dl Hemoglobin A1c ( - 5.6) % Calculated Osmolality 299 (280-300) Calcium 8.7 (8.6-10.8) mg/dL Phosphorus (2.3-4.7) mg/dL Magnesium (1.6-2.6) mg/dL Total Bilirubin (0.2-1.2) mg/dL AST (5-34) Units/L ALT (0-55) Units/L Alkaline Phosphatase (38-126) Units/L Serum Total Protein (6.0-8.3) g/dL Albumin (3.5-5.0) g/dL Globulin (2.4-3.5) g/dL Albumin/Globulin Ratio (1.1-2.2) Prealbumin (18.0-45.0) mg/dL Triglycerides (< 150) mg/dL Urine Color (Yellow) Urine Clarity (Clear) Urine pH (5.0-8.0) pH Units Ur Specific [place] (1.010-1.025) Urine Protein (Neg-Trace) mg/dL Urine Glucose (UA) (Normal) mg/dL Urine Ketones (Negative) mg/dL Urine Blood (Negative) Urine Nitrite (Negative) Urine Bilirubin (Negative) Urine Urobilinogen (Normal) mg/dL Ur Leukocyte Esterase (Negative) Urine Microscopic RBC (0-3) per hpf Urine Microscopic WBC (0-3) per hpf Ur Squamous Epith Cells (None-Few) per lpf Urine Bacteria (None-Few) per hpf Hyaline Casts (None-Few) per lpf Ur Culture Indicated? (NO) C. difficile Tox (PCR) (Negative) Specimen Rejected Blood Type Antibody Screen Crossmatch 04/21/16 04/21/16 04/21/16 Range/Units 07:54 10:57 15:53 WBC (4.3-11.1) K/mcL RBC (4.19-5.50) M/mcL Hgb (12.9-16.9) g/dL Hct (37.5-50.1) % MCV (83.0-100.0) fL MCH (28.0-33.3) pg MCHC (31.6-35.5) g/dL RDW (11.5-14.5) % Plt Count (140-400) K/mcL MPV (9.4-12.4) fL Immature Gran % (0-4) % Seg Neutrophils % % Lymphocytes % % Monocytes % % Eosinophils % % Basophils % % Neutrophils # (1.6-8.9) K/mcL Lymphocytes # (0.6-4.6) K/mcL Monocytes # (0.0-1.3) K/mcL Eosinophils # (0.0-0.6) K/mcL Basophils # (0.0-0.2) K/mcL Reactive Lymphocytes (Not Present) Platelet Estimate (Normal) Immature Plt Fraction (1.1-6.1) % PT (9.4-12.1) Seconds INR Sodium (136-145) mEq/L Potassium (3.5-4.5) mEq/L Chloride (98-109) mEq/L Carbon Dioxide (19-29) mEq/L BUN (8-26) mg/dL Creatinine (0.72-1.25) mg/dL Est GFR ( Amer) (> 60) Est GFR (Non-Af Amer) (> 60) BUN/Creatinine Ratio (6-26) Glucose (70-99) mg/dL POC Glucose 143 H 168 H 161 H (58-89) Est Mean Plasma Glucose mg/dl Hemoglobin A1c ( - 5.6) % Calculated Osmolality (280-300) Calcium (8.6-10.8) mg/dL Phosphorus (2.3-4.7) mg/dL Magnesium (1.6-2.6) mg/dL Total Bilirubin (0.2-1.2) mg/dL AST (5-34) Units/L ALT (0-55) Units/L Alkaline Phosphatase (38-126) Units/L Serum Total Protein (6.0-8.3) g/dL Albumin (3.5-5.0) g/dL Globulin (2.4-3.5) g/dL Albumin/Globulin Ratio (1.1-2.2) Prealbumin (18.0-45.0) mg/dL Triglycerides (< 150) mg/dL Urine Color (Yellow) Urine Clarity (Clear) Urine pH (5.0-8.0) pH Units Ur Specific [place] (1.010-1.025) Urine Protein (Neg-Trace) mg/dL Urine Glucose (UA) (Normal) mg/dL Urine Ketones (Negative) mg/dL Urine Blood (Negative) Urine Nitrite (Negative) Urine Bilirubin (Negative) Urine Urobilinogen (Normal) mg/dL Ur Leukocyte Esterase (Negative) Urine Microscopic RBC (0-3) per hpf Urine Microscopic WBC (0-3) per hpf Ur Squamous Epith Cells (None-Few) per lpf Urine Bacteria (None-Few) per hpf Hyaline Casts (None-Few) per lpf Ur Culture Indicated? (NO) C. difficile Tox (PCR) (Negative) Specimen Rejected Blood Type Antibody Screen Crossmatch 04/21/16 04/21/16 04/22/16 Range/Units 19:09 23:34 03:00 WBC (4.3-11.1) K/mcL RBC (4.19-5.50) M/mcL Hgb (12.9-16.9) g/dL Hct (37.5-50.1) % MCV (83.0-100.0) fL MCH (28.0-33.3) pg MCHC (31.6-35.5) g/dL RDW (11.5-14.5) % Plt Count (140-400) K/mcL MPV (9.4-12.4) fL Immature Gran % (0-4) % Seg Neutrophils % % Lymphocytes % % Monocytes % % Eosinophils % % Basophils % % Neutrophils # (1.6-8.9) K/mcL Lymphocytes # (0.6-4.6) K/mcL Monocytes # (0.0-1.3) K/mcL Eosinophils # (0.0-0.6) K/mcL Basophils # (0.0-0.2) K/mcL Reactive Lymphocytes (Not Present) Platelet Estimate (Normal) Immature Plt Fraction (1.1-6.1) % PT (9.4-12.1) Seconds INR Sodium 141 (136-145) mEq/L Potassium 3.8 (3.5-4.5) mEq/L Chloride 105 (98-109) mEq/L Carbon Dioxide 29 (19-29) mEq/L BUN 19 (8-26) mg/dL Creatinine 0.70 L (0.72-1.25) mg/dL Est GFR ( Amer) > 60 (> 60) Est GFR (Non-Af Amer) > 60 (> 60) BUN/Creatinine Ratio 27 H (6-26) Glucose 144 H (70-99) mg/dL POC Glucose 253 H 147 H (58-89) Est Mean Plasma Glucose mg/dl Hemoglobin A1c ( - 5.6) % Calculated Osmolality 297 (280-300) Calcium 8.6 (8.6-10.8) mg/dL Phosphorus (2.3-4.7) mg/dL Magnesium (1.6-2.6) mg/dL Total Bilirubin (0.2-1.2) mg/dL AST (5-34) Units/L ALT (0-55) Units/L Alkaline Phosphatase (38-126) Units/L Serum Total Protein (6.0-8.3) g/dL Albumin (3.5-5.0) g/dL Globulin (2.4-3.5) g/dL Albumin/Globulin Ratio (1.1-2.2) Prealbumin (18.0-45.0) mg/dL Triglycerides (< 150) mg/dL Urine Color (Yellow) Urine Clarity (Clear) Urine pH (5.0-8.0) pH Units Ur Specific [place] (1.010-1.025) Urine Protein (Neg-Trace) mg/dL Urine Glucose (UA) (Normal) mg/dL Urine Ketones (Negative) mg/dL Urine Blood (Negative) Urine Nitrite (Negative) Urine Bilirubin (Negative) Urine Urobilinogen (Normal) mg/dL Ur Leukocyte Esterase (Negative) Urine Microscopic RBC (0-3) per hpf Urine Microscopic WBC (0-3) per hpf Ur Squamous Epith Cells (None-Few) per lpf Urine Bacteria (None-Few) per hpf Hyaline Casts (None-Few) per lpf Ur Culture Indicated? (NO) C. difficile Tox (PCR) (Negative) Specimen Rejected Blood Type Antibody Screen Crossmatch 04/22/16 04/22/16 04/22/16 Range/Units 03:00 03:42 07:27 WBC 14.5 H (4.3-11.1) K/mcL RBC 3.77 L (4.19-5.50) M/mcL Hgb 11.2 L (12.9-16.9) g/dL Hct 34.8 L (37.5-50.1) % MCV 92.3 (83.0-100.0) fL MCH 29.7 (28.0-33.3) pg MCHC 32.2 (31.6-35.5) g/dL RDW 13.7 (11.5-14.5) % Plt Count 357 (140-400) K/mcL MPV 9.9 (9.4-12.4) fL Immature Gran % 0.7 (0-4) % Seg Neutrophils % 78.5 % Lymphocytes % 9.4 % Monocytes % 10.3 % Eosinophils % 0.8 % Basophils % 0.3 % Neutrophils # 11.4 H (1.6-8.9) K/mcL Lymphocytes # 1.4 (0.6-4.6) K/mcL Monocytes # 1.5 H (0.0-1.3) K/mcL Eosinophils # 0.1 (0.0-0.6) K/mcL Basophils # 0.1 (0.0-0.2) K/mcL Reactive Lymphocytes (Not Present) Platelet Estimate (Normal) Immature Plt Fraction (1.1-6.1) % PT (9.4-12.1) Seconds INR Sodium (136-145) mEq/L Potassium (3.5-4.5) mEq/L Chloride (98-109) mEq/L Carbon Dioxide (19-29) mEq/L BUN (8-26) mg/dL Creatinine (0.72-1.25) mg/dL Est GFR ( Amer) (> 60) Est GFR (Non-Af Amer) (> 60) BUN/Creatinine Ratio (6-26) Glucose (70-99) mg/dL POC Glucose 171 H 182 H (58-89) Est Mean Plasma Glucose mg/dl Hemoglobin A1c ( - 5.6) % Calculated Osmolality (280-300) Calcium (8.6-10.8) mg/dL Phosphorus (2.3-4.7) mg/dL Magnesium (1.6-2.6) mg/dL Total Bilirubin (0.2-1.2) mg/dL AST (5-34) Units/L ALT (0-55) Units/L Alkaline Phosphatase (38-126) Units/L Serum Total Protein (6.0-8.3) g/dL Albumin (3.5-5.0) g/dL Globulin (2.4-3.5) g/dL Albumin/Globulin Ratio (1.1-2.2) Prealbumin (18.0-45.0) mg/dL Triglycerides (< 150) mg/dL Urine Color (Yellow) Urine Clarity (Clear) Urine pH (5.0-8.0) pH Units Ur Specific [place] (1.010-1.025) Urine Protein (Neg-Trace) mg/dL Urine Glucose (UA) (Normal) mg/dL Urine Ketones (Negative) mg/dL Urine Blood (Negative) Urine Nitrite (Negative) Urine Bilirubin (Negative) Urine Urobilinogen (Normal) mg/dL Ur Leukocyte Esterase (Negative) Urine Microscopic RBC (0-3) per hpf Urine Microscopic WBC (0-3) per hpf Ur Squamous Epith Cells (None-Few) per lpf Urine Bacteria (None-Few) per hpf Hyaline Casts (None-Few) per lpf Ur Culture Indicated? (NO) C. difficile Tox (PCR) (Negative) Specimen Rejected Blood Type Antibody Screen Crossmatch 04/22/16 04/22/16 04/22/16 Range/Units 11:19 13:40 15:16 WBC (4.3-11.1) K/mcL RBC (4.19-5.50) M/mcL Hgb (12.9-16.9) g/dL Hct (37.5-50.1) % MCV (83.0-100.0) fL MCH (28.0-33.3) pg MCHC (31.6-35.5) g/dL RDW (11.5-14.5) % Plt Count (140-400) K/mcL MPV (9.4-12.4) fL Immature Gran % (0-4) % Seg Neutrophils % % Lymphocytes % % Monocytes % % Eosinophils % % Basophils % % Neutrophils # (1.6-8.9) K/mcL Lymphocytes # (0.6-4.6) K/mcL Monocytes # (0.0-1.3) K/mcL Eosinophils # (0.0-0.6) K/mcL Basophils # (0.0-0.2) K/mcL Reactive Lymphocytes (Not Present) Platelet Estimate (Normal) Immature Plt Fraction (1.1-6.1) % PT (9.4-12.1) Seconds INR Sodium (136-145) mEq/L Potassium (3.5-4.5) mEq/L Chloride (98-109) mEq/L Carbon Dioxide (19-29) mEq/L BUN (8-26) mg/dL Creatinine (0.72-1.25) mg/dL Est GFR ( Amer) (> 60) Est GFR (Non-Af Amer) (> 60) BUN/Creatinine Ratio (6-26) Glucose (70-99) mg/dL POC Glucose 159 H 161 H (58-89) Est Mean Plasma Glucose mg/dl Hemoglobin A1c ( - 5.6) % Calculated Osmolality (280-300) Calcium (8.6-10.8) mg/dL Phosphorus (2.3-4.7) mg/dL Magnesium (1.6-2.6) mg/dL Total Bilirubin (0.2-1.2) mg/dL AST (5-34) Units/L ALT (0-55) Units/L Alkaline Phosphatase (38-126) Units/L Serum Total Protein (6.0-8.3) g/dL Albumin (3.5-5.0) g/dL Globulin (2.4-3.5) g/dL Albumin/Globulin Ratio (1.1-2.2) Prealbumin (18.0-45.0) mg/dL Triglycerides (< 150) mg/dL Urine Color (Yellow) Urine Clarity (Clear) Urine pH (5.0-8.0) pH Units Ur Specific [place] (1.010-1.025) Urine Protein (Neg-Trace) mg/dL Urine Glucose (UA) (Normal) mg/dL Urine Ketones (Negative) mg/dL Urine Blood (Negative) Urine Nitrite (Negative) Urine Bilirubin (Negative) Urine Urobilinogen (Normal) mg/dL Ur Leukocyte Esterase (Negative) Urine Microscopic RBC (0-3) per hpf Urine Microscopic WBC (0-3) per hpf Ur Squamous Epith Cells (None-Few) per lpf Urine Bacteria (None-Few) per hpf Hyaline Casts (None-Few) per lpf Ur Culture Indicated? (NO) C. difficile Tox (PCR) Negative (Negative) Specimen Rejected Blood Type Antibody Screen Crossmatch 04/22/16 04/23/16 04/23/16 Range/Units 20:01 00:01 04:06 WBC (4.3-11.1) K/mcL RBC (4.19-5.50) M/mcL Hgb (12.9-16.9) g/dL Hct (37.5-50.1) % MCV (83.0-100.0) fL MCH (28.0-33.3) pg MCHC (31.6-35.5) g/dL RDW (11.5-14.5) % Plt Count (140-400) K/mcL MPV (9.4-12.4) fL Immature Gran % (0-4) % Seg Neutrophils % % Lymphocytes % % Monocytes % % Eosinophils % % Basophils % % Neutrophils # (1.6-8.9) K/mcL Lymphocytes # (0.6-4.6) K/mcL Monocytes # (0.0-1.3) K/mcL Eosinophils # (0.0-0.6) K/mcL Basophils # (0.0-0.2) K/mcL Reactive Lymphocytes (Not Present) Platelet Estimate (Normal) Immature Plt Fraction (1.1-6.1) % PT (9.4-12.1) Seconds INR Sodium (136-145) mEq/L Potassium (3.5-4.5) mEq/L Chloride (98-109) mEq/L Carbon Dioxide (19-29) mEq/L BUN (8-26) mg/dL Creatinine (0.72-1.25) mg/dL Est GFR ( Amer) (> 60) Est GFR (Non-Af Amer) (> 60) BUN/Creatinine Ratio (6-26) Glucose (70-99) mg/dL POC Glucose 195 H 168 H 158 H (58-89) Est Mean Plasma Glucose mg/dl Hemoglobin A1c ( - 5.6) % Calculated Osmolality (280-300) Calcium (8.6-10.8) mg/dL Phosphorus (2.3-4.7) mg/dL Magnesium (1.6-2.6) mg/dL Total Bilirubin (0.2-1.2) mg/dL AST (5-34) Units/L ALT (0-55) Units/L Alkaline Phosphatase (38-126) Units/L Serum Total Protein (6.0-8.3) g/dL Albumin (3.5-5.0) g/dL Globulin (2.4-3.5) g/dL Albumin/Globulin Ratio (1.1-2.2) Prealbumin (18.0-45.0) mg/dL Triglycerides (< 150) mg/dL Urine Color (Yellow) Urine Clarity (Clear) Urine pH (5.0-8.0) pH Units Ur Specific [place] (1.010-1.025) Urine Protein (Neg-Trace) mg/dL Urine Glucose (UA) (Normal) mg/dL Urine Ketones (Negative) mg/dL Urine Blood (Negative) Urine Nitrite (Negative) Urine Bilirubin (Negative) Urine Urobilinogen (Normal) mg/dL Ur Leukocyte Esterase (Negative) Urine Microscopic RBC (0-3) per hpf Urine Microscopic WBC (0-3) per hpf Ur Squamous Epith Cells (None-Few) per lpf Urine Bacteria (None-Few) per hpf Hyaline Casts (None-Few) per lpf Ur Culture Indicated? (NO) C. difficile Tox (PCR) (Negative) Specimen Rejected Blood Type Antibody Screen Crossmatch 04/23/16 04/23/16 04/23/16 Range/Units 05:00 05:00 05:00 WBC 17.0 H (4.3-11.1) K/mcL RBC 3.83 L (4.19-5.50) M/mcL Hgb 11.4 L (12.9-16.9) g/dL Hct 35.3 L (37.5-50.1) % MCV 92.2 (83.0-100.0) fL MCH 29.8 (28.0-33.3) pg MCHC 32.3 (31.6-35.5) g/dL RDW 13.8 (11.5-14.5) % Plt Count 346 (140-400) K/mcL MPV 9.6 (9.4-12.4) fL Immature Gran % 0.7 (0-4) % Seg Neutrophils % 83.1 % Lymphocytes % 6.4 % Monocytes % 8.2 % Eosinophils % 1.2 % Basophils % 0.4 % Neutrophils # 14.1 H (1.6-8.9) K/mcL Lymphocytes # 1.1 (0.6-4.6) K/mcL Monocytes # 1.4 H (0.0-1.3) K/mcL Eosinophils # 0.2 (0.0-0.6) K/mcL Basophils # 0.1 (0.0-0.2) K/mcL Reactive Lymphocytes (Not Present) Platelet Estimate (Normal) Immature Plt Fraction (1.1-6.1) % PT (9.4-12.1) Seconds INR Sodium 139 (136-145) mEq/L Potassium 4.2 (3.5-4.5) mEq/L Chloride 105 (98-109) mEq/L Carbon Dioxide 31 H (19-29) mEq/L BUN 16 (8-26) mg/dL Creatinine 0.72 (0.72-1.25) mg/dL Est GFR ( Amer) > 60 (> 60) Est GFR (Non-Af Amer) > 60 (> 60) BUN/Creatinine Ratio 22 (6-26) Glucose 155 H (70-99) mg/dL POC Glucose (58-89) Est Mean Plasma Glucose mg/dl Hemoglobin A1c ( - 5.6) % Calculated Osmolality 292 (280-300) Calcium 8.6 (8.6-10.8) mg/dL Phosphorus 3.0 (2.3-4.7) mg/dL Magnesium 2.0 (1.6-2.6) mg/dL Total Bilirubin 0.5 (0.2-1.2) mg/dL AST 15 (5-34) Units/L ALT 12 (0-55) Units/L Alkaline Phosphatase 52 (38-126) Units/L Serum Total Protein 5.7 L (6.0-8.3) g/dL Albumin 2.1 L (3.5-5.0) g/dL Globulin 3.6 H (2.4-3.5) g/dL Albumin/Globulin Ratio 0.6 L (1.1-2.2) Prealbumin 16.0 L (18.0-45.0) mg/dL Triglycerides (< 150) mg/dL Urine Color (Yellow) Urine Clarity (Clear) Urine pH (5.0-8.0) pH Units Ur Specific [place] (1.010-1.025) Urine Protein (Neg-Trace) mg/dL Urine Glucose (UA) (Normal) mg/dL Urine Ketones (Negative) mg/dL Urine Blood (Negative) Urine Nitrite (Negative) Urine Bilirubin (Negative) Urine Urobilinogen (Normal) mg/dL Ur Leukocyte Esterase (Negative) Urine Microscopic RBC (0-3) per hpf Urine Microscopic WBC (0-3) per hpf Ur Squamous Epith Cells (None-Few) per lpf Urine Bacteria (None-Few) per hpf Hyaline Casts (None-Few) per lpf Ur Culture Indicated? (NO) C. difficile Tox (PCR) (Negative) Specimen Rejected Blood Type Antibody Screen Crossmatch 04/23/16 04/23/16 04/23/16 Range/Units 07:20 11:29 15:20 WBC (4.3-11.1) K/mcL RBC (4.19-5.50) M/mcL Hgb (12.9-16.9) g/dL Hct (37.5-50.1) % MCV (83.0-100.0) fL MCH (28.0-33.3) pg MCHC (31.6-35.5) g/dL RDW (11.5-14.5) % Plt Count (140-400) K/mcL MPV (9.4-12.4) fL Immature Gran % (0-4) % Seg Neutrophils % % Lymphocytes % % Monocytes % % Eosinophils % % Basophils % % Neutrophils # (1.6-8.9) K/mcL Lymphocytes # (0.6-4.6) K/mcL Monocytes # (0.0-1.3) K/mcL Eosinophils # (0.0-0.6) K/mcL Basophils # (0.0-0.2) K/mcL Reactive Lymphocytes (Not Present) Platelet Estimate (Normal) Immature Plt Fraction (1.1-6.1) % PT (9.4-12.1) Seconds INR Sodium (136-145) mEq/L Potassium (3.5-4.5) mEq/L Chloride (98-109) mEq/L Carbon Dioxide (19-29) mEq/L BUN (8-26) mg/dL Creatinine (0.72-1.25) mg/dL Est GFR ( Amer) (> 60) Est GFR (Non-Af Amer) (> 60) BUN/Creatinine Ratio (6-26) Glucose (70-99) mg/dL POC Glucose 158 H 181 H 160 H (58-89) Est Mean Plasma Glucose mg/dl Hemoglobin A1c ( - 5.6) % Calculated Osmolality (280-300) Calcium (8.6-10.8) mg/dL Phosphorus (2.3-4.7) mg/dL Magnesium (1.6-2.6) mg/dL Total Bilirubin (0.2-1.2) mg/dL AST (5-34) Units/L ALT (0-55) Units/L Alkaline Phosphatase (38-126) Units/L Serum Total Protein (6.0-8.3) g/dL Albumin (3.5-5.0) g/dL Globulin (2.4-3.5) g/dL Albumin/Globulin Ratio (1.1-2.2) Prealbumin (18.0-45.0) mg/dL Triglycerides (< 150) mg/dL Urine Color (Yellow) Urine Clarity (Clear) Urine pH (5.0-8.0) pH Units Ur Specific [place] (1.010-1.025) Urine Protein (Neg-Trace) mg/dL Urine Glucose (UA) (Normal) mg/dL Urine Ketones (Negative) mg/dL Urine Blood (Negative) Urine Nitrite (Negative) Urine Bilirubin (Negative) Urine Urobilinogen (Normal) mg/dL Ur Leukocyte Esterase (Negative) Urine Microscopic RBC (0-3) per hpf Urine Microscopic WBC (0-3) per hpf Ur Squamous Epith Cells (None-Few) per lpf Urine Bacteria (None-Few) per hpf Hyaline Casts (None-Few) per lpf Ur Culture Indicated? (NO) C. difficile Tox (PCR) (Negative) Specimen Rejected Blood Type Antibody Screen Crossmatch 04/23/16 04/23/16 04/24/16 Range/Units 18:59 23:42 04:23 WBC (4.3-11.1) K/mcL RBC (4.19-5.50) M/mcL Hgb (12.9-16.9) g/dL Hct (37.5-50.1) % MCV (83.0-100.0) fL MCH (28.0-33.3) pg MCHC (31.6-35.5) g/dL RDW (11.5-14.5) % Plt Count (140-400) K/mcL MPV (9.4-12.4) fL Immature Gran % (0-4) % Seg Neutrophils % % Lymphocytes % % Monocytes % % Eosinophils % % Basophils % % Neutrophils # (1.6-8.9) K/mcL Lymphocytes # (0.6-4.6) K/mcL Monocytes # (0.0-1.3) K/mcL Eosinophils # (0.0-0.6) K/mcL Basophils # (0.0-0.2) K/mcL Reactive Lymphocytes (Not Present) Platelet Estimate (Normal) Immature Plt Fraction (1.1-6.1) % PT (9.4-12.1) Seconds INR Sodium (136-145) mEq/L Potassium (3.5-4.5) mEq/L Chloride (98-109) mEq/L Carbon Dioxide (19-29) mEq/L BUN (8-26) mg/dL Creatinine (0.72-1.25) mg/dL Est GFR ( Amer) (> 60) Est GFR (Non-Af Amer) (> 60) BUN/Creatinine Ratio (6-26) Glucose (70-99) mg/dL POC Glucose 215 H 186 H 156 H (58-89) Est Mean Plasma Glucose mg/dl Hemoglobin A1c ( - 5.6) % Calculated Osmolality (280-300) Calcium (8.6-10.8) mg/dL Phosphorus (2.3-4.7) mg/dL Magnesium (1.6-2.6) mg/dL Total Bilirubin (0.2-1.2) mg/dL AST (5-34) Units/L ALT (0-55) Units/L Alkaline Phosphatase (38-126) Units/L Serum Total Protein (6.0-8.3) g/dL Albumin (3.5-5.0) g/dL Globulin (2.4-3.5) g/dL Albumin/Globulin Ratio (1.1-2.2) Prealbumin (18.0-45.0) mg/dL Triglycerides (< 150) mg/dL Urine Color (Yellow) Urine Clarity (Clear) Urine pH (5.0-8.0) pH Units Ur Specific [place] (1.010-1.025) Urine Protein (Neg-Trace) mg/dL Urine Glucose (UA) (Normal) mg/dL Urine Ketones (Negative) mg/dL Urine Blood (Negative) Urine Nitrite (Negative) Urine Bilirubin (Negative) Urine Urobilinogen (Normal) mg/dL Ur Leukocyte Esterase (Negative) Urine Microscopic RBC (0-3) per hpf Urine Microscopic WBC (0-3) per hpf Ur Squamous Epith Cells (None-Few) per lpf Urine Bacteria (None-Few) per hpf Hyaline Casts (None-Few) per lpf Ur Culture Indicated? (NO) C. difficile Tox (PCR) (Negative) Specimen Rejected Blood Type Antibody Screen Crossmatch 04/24/16 04/24/16 04/24/16 Range/Units 04:30 04:30 08:07 WBC 18.1 H (4.3-11.1) K/mcL RBC 3.82 L (4.19-5.50) M/mcL Hgb 11.3 L (12.9-16.9) g/dL Hct 35.2 L (37.5-50.1) % MCV 92.1 (83.0-100.0) fL MCH 29.6 (28.0-33.3) pg MCHC 32.1 (31.6-35.5) g/dL RDW 14.0 (11.5-14.5) % Plt Count 344 (140-400) K/mcL MPV 10.1 (9.4-12.4) fL Immature Gran % 1.0 (0-4) % Seg Neutrophils % 82.4 % Lymphocytes % 6.5 % Monocytes % 8.0 % Eosinophils % 1.7 % Basophils % 0.4 % Neutrophils # 14.9 H (1.6-8.9) K/mcL Lymphocytes # 1.2 (0.6-4.6) K/mcL Monocytes # 1.5 H (0.0-1.3) K/mcL Eosinophils # 0.3 (0.0-0.6) K/mcL Basophils # 0.1 (0.0-0.2) K/mcL Reactive Lymphocytes (Not Present) Platelet Estimate (Normal) Immature Plt Fraction (1.1-6.1) % PT (9.4-12.1) Seconds INR Sodium 137 (136-145) mEq/L Potassium 4.1 (3.5-4.5) mEq/L Chloride 102 (98-109) mEq/L Carbon Dioxide 30 H (19-29) mEq/L BUN 15 (8-26) mg/dL Creatinine 0.71 L (0.72-1.25) mg/dL Est GFR ( Amer) > 60 (> 60) Est GFR (Non-Af Amer) > 60 (> 60) BUN/Creatinine Ratio 21 (6-26) Glucose 159 H (70-99) mg/dL POC Glucose 158 H (58-89) Est Mean Plasma Glucose mg/dl Hemoglobin A1c ( - 5.6) % Calculated Osmolality 288 (280-300) Calcium 8.8 (8.6-10.8) mg/dL Phosphorus (2.3-4.7) mg/dL Magnesium (1.6-2.6) mg/dL Total Bilirubin (0.2-1.2) mg/dL AST (5-34) Units/L ALT (0-55) Units/L Alkaline Phosphatase (38-126) Units/L Serum Total Protein (6.0-8.3) g/dL Albumin (3.5-5.0) g/dL Globulin (2.4-3.5) g/dL Albumin/Globulin Ratio (1.1-2.2) Prealbumin (18.0-45.0) mg/dL Triglycerides (< 150) mg/dL Urine Color (Yellow) Urine Clarity (Clear) Urine pH (5.0-8.0) pH Units Ur Specific [place] (1.010-1.025) Urine Protein (Neg-Trace) mg/dL Urine Glucose (UA) (Normal) mg/dL Urine Ketones (Negative) mg/dL Urine Blood (Negative) Urine Nitrite (Negative) Urine Bilirubin (Negative) Urine Urobilinogen (Normal) mg/dL Ur Leukocyte Esterase (Negative) Urine Microscopic RBC (0-3) per hpf Urine Microscopic WBC (0-3) per hpf Ur Squamous Epith Cells (None-Few) per lpf Urine Bacteria (None-Few) per hpf Hyaline Casts (None-Few) per lpf Ur Culture Indicated? (NO) C. difficile Tox (PCR) (Negative) Specimen Rejected Blood Type Antibody Screen Crossmatch 04/24/16 04/24/16 04/24/16 Range/Units 11:31 16:56 19:43 WBC (4.3-11.1) K/mcL RBC (4.19-5.50) M/mcL Hgb (12.9-16.9) g/dL Hct (37.5-50.1) % MCV (83.0-100.0) fL MCH (28.0-33.3) pg MCHC (31.6-35.5) g/dL RDW (11.5-14.5) % Plt Count (140-400) K/mcL MPV (9.4-12.4) fL Immature Gran % (0-4) % Seg Neutrophils % % Lymphocytes % % Monocytes % % Eosinophils % % Basophils % % Neutrophils # (1.6-8.9) K/mcL Lymphocytes # (0.6-4.6) K/mcL Monocytes # (0.0-1.3) K/mcL Eosinophils # (0.0-0.6) K/mcL Basophils # (0.0-0.2) K/mcL Reactive Lymphocytes (Not Present) Platelet Estimate (Normal) Immature Plt Fraction (1.1-6.1) % PT (9.4-12.1) Seconds INR Sodium (136-145) mEq/L Potassium (3.5-4.5) mEq/L Chloride (98-109) mEq/L Carbon Dioxide (19-29) mEq/L BUN (8-26) mg/dL Creatinine (0.72-1.25) mg/dL Est GFR ( Amer) (> 60) Est GFR (Non-Af Amer) (> 60) BUN/Creatinine Ratio (6-26) Glucose (70-99) mg/dL POC Glucose 155 H 166 H 269 H (58-89) Est Mean Plasma Glucose mg/dl Hemoglobin A1c ( - 5.6) % Calculated Osmolality (280-300) Calcium (8.6-10.8) mg/dL Phosphorus (2.3-4.7) mg/dL Magnesium (1.6-2.6) mg/dL Total Bilirubin (0.2-1.2) mg/dL AST (5-34) Units/L ALT (0-55) Units/L Alkaline Phosphatase (38-126) Units/L Serum Total Protein (6.0-8.3) g/dL Albumin (3.5-5.0) g/dL Globulin (2.4-3.5) g/dL Albumin/Globulin Ratio (1.1-2.2) Prealbumin (18.0-45.0) mg/dL Triglycerides (< 150) mg/dL Urine Color (Yellow) Urine Clarity (Clear) Urine pH (5.0-8.0) pH Units Ur Specific [place] (1.010-1.025) Urine Protein (Neg-Trace) mg/dL Urine Glucose (UA) (Normal) mg/dL Urine Ketones (Negative) mg/dL Urine Blood (Negative) Urine Nitrite (Negative) Urine Bilirubin (Negative) Urine Urobilinogen (Normal) mg/dL Ur Leukocyte Esterase (Negative) Urine Microscopic RBC (0-3) per hpf Urine Microscopic WBC (0-3) per hpf Ur Squamous Epith Cells (None-Few) per lpf Urine Bacteria (None-Few) per hpf Hyaline Casts (None-Few) per lpf Ur Culture Indicated? (NO) C. difficile Tox (PCR) (Negative) Specimen Rejected Blood Type Antibody Screen Crossmatch 04/25/16 04/25/16 04/25/16 Range/Units 00:00 03:27 03:27 WBC 19.3 H (4.3-11.1) K/mcL RBC 3.70 L (4.19-5.50) M/mcL Hgb 11.3 L (12.9-16.9) g/dL Hct 34.1 L (37.5-50.1) % MCV 92.2 (83.0-100.0) fL MCH 30.5 (28.0-33.3) pg MCHC 33.1 (31.6-35.5) g/dL RDW 14.4 (11.5-14.5) % Plt Count 335 (140-400) K/mcL MPV 9.7 (9.4-12.4) fL Immature Gran % 0.8 (0-4) % Seg Neutrophils % 84.4 % Lymphocytes % 5.2 % Monocytes % 7.9 % Eosinophils % 1.4 % Basophils % 0.3 % Neutrophils # 16.3 H (1.6-8.9) K/mcL Lymphocytes # 1.0 (0.6-4.6) K/mcL Monocytes # 1.5 H (0.0-1.3) K/mcL Eosinophils # 0.3 (0.0-0.6) K/mcL Basophils # 0.1 (0.0-0.2) K/mcL Reactive Lymphocytes (Not Present) Platelet Estimate (Normal) Immature Plt Fraction (1.1-6.1) % PT (9.4-12.1) Seconds INR Sodium 137 (136-145) mEq/L Potassium 4.2 (3.5-4.5) mEq/L Chloride 102 (98-109) mEq/L Carbon Dioxide 31 H (19-29) mEq/L BUN 19 (8-26) mg/dL Creatinine 0.76 (0.72-1.25) mg/dL Est GFR ( Amer) > 60 (> 60) Est GFR (Non-Af Amer) > 60 (> 60) BUN/Creatinine Ratio 25 (6-26) Glucose 162 H (70-99) mg/dL POC Glucose 129 H (58-89) Est Mean Plasma Glucose mg/dl Hemoglobin A1c ( - 5.6) % Calculated Osmolality 290 (280-300) Calcium 8.8 (8.6-10.8) mg/dL Phosphorus (2.3-4.7) mg/dL Magnesium (1.6-2.6) mg/dL Total Bilirubin (0.2-1.2) mg/dL AST (5-34) Units/L ALT (0-55) Units/L Alkaline Phosphatase (38-126) Units/L Serum Total Protein (6.0-8.3) g/dL Albumin (3.5-5.0) g/dL Globulin (2.4-3.5) g/dL Albumin/Globulin Ratio (1.1-2.2) Prealbumin (18.0-45.0) mg/dL Triglycerides (< 150) mg/dL Urine Color (Yellow) Urine Clarity (Clear) Urine pH (5.0-8.0) pH Units Ur Specific [place] (1.010-1.025) Urine Protein (Neg-Trace) mg/dL Urine Glucose (UA) (Normal) mg/dL Urine Ketones (Negative) mg/dL Urine Blood (Negative) Urine Nitrite (Negative) Urine Bilirubin (Negative) Urine Urobilinogen (Normal) mg/dL Ur Leukocyte Esterase (Negative) Urine Microscopic RBC (0-3) per hpf Urine Microscopic WBC (0-3) per hpf Ur Squamous Epith Cells (None-Few) per lpf Urine Bacteria (None-Few) per hpf Hyaline Casts (None-Few) per lpf Ur Culture Indicated? (NO) C. difficile Tox (PCR) (Negative) Specimen Rejected Blood Type Antibody Screen Crossmatch 04/25/16 04/25/16 04/25/16 Range/Units 04:48 07:24 11:00 WBC (4.3-11.1) K/mcL RBC (4.19-5.50) M/mcL Hgb (12.9-16.9) g/dL Hct (37.5-50.1) % MCV (83.0-100.0) fL MCH (28.0-33.3) pg MCHC (31.6-35.5) g/dL RDW (11.5-14.5) % Plt Count (140-400) K/mcL MPV (9.4-12.4) fL Immature Gran % (0-4) % Seg Neutrophils % % Lymphocytes % % Monocytes % % Eosinophils % % Basophils % % Neutrophils # (1.6-8.9) K/mcL Lymphocytes # (0.6-4.6) K/mcL Monocytes # (0.0-1.3) K/mcL Eosinophils # (0.0-0.6) K/mcL Basophils # (0.0-0.2) K/mcL Reactive Lymphocytes (Not Present) Platelet Estimate (Normal) Immature Plt Fraction (1.1-6.1) % PT (9.4-12.1) Seconds INR Sodium (136-145) mEq/L Potassium (3.5-4.5) mEq/L Chloride (98-109) mEq/L Carbon Dioxide (19-29) mEq/L BUN (8-26) mg/dL Creatinine (0.72-1.25) mg/dL Est GFR ( Amer) (> 60) Est GFR (Non-Af Amer) (> 60) BUN/Creatinine Ratio (6-26) Glucose (70-99) mg/dL POC Glucose 164 H 172 H 199 H (58-89) Est Mean Plasma Glucose mg/dl Hemoglobin A1c ( - 5.6) % Calculated Osmolality (280-300) Calcium (8.6-10.8) mg/dL Phosphorus (2.3-4.7) mg/dL Magnesium (1.6-2.6) mg/dL Total Bilirubin (0.2-1.2) mg/dL AST (5-34) Units/L ALT (0-55) Units/L Alkaline Phosphatase (38-126) Units/L Serum Total Protein (6.0-8.3) g/dL Albumin (3.5-5.0) g/dL Globulin (2.4-3.5) g/dL Albumin/Globulin Ratio (1.1-2.2) Prealbumin (18.0-45.0) mg/dL Triglycerides (< 150) mg/dL Urine Color (Yellow) Urine Clarity (Clear) Urine pH (5.0-8.0) pH Units Ur Specific [place] (1.010-1.025) Urine Protein (Neg-Trace) mg/dL Urine Glucose (UA) (Normal) mg/dL Urine Ketones (Negative) mg/dL Urine Blood (Negative) Urine Nitrite (Negative) Urine Bilirubin (Negative) Urine Urobilinogen (Normal) mg/dL Ur Leukocyte Esterase (Negative) Urine Microscopic RBC (0-3) per hpf Urine Microscopic WBC (0-3) per hpf Ur Squamous Epith Cells (None-Few) per lpf Urine Bacteria (None-Few) per hpf Hyaline Casts (None-Few) per lpf Ur Culture Indicated? (NO) C. difficile Tox (PCR) (Negative) Specimen Rejected Blood Type Antibody Screen Crossmatch 04/25/16 04/25/16 04/25/16 Range/Units 15:19 20:21 23:54 WBC (4.3-11.1) K/mcL RBC (4.19-5.50) M/mcL Hgb (12.9-16.9) g/dL Hct (37.5-50.1) % MCV (83.0-100.0) fL MCH (28.0-33.3) pg MCHC (31.6-35.5) g/dL RDW (11.5-14.5) % Plt Count (140-400) K/mcL MPV (9.4-12.4) fL Immature Gran % (0-4) % Seg Neutrophils % % Lymphocytes % % Monocytes % % Eosinophils % % Basophils % % Neutrophils # (1.6-8.9) K/mcL Lymphocytes # (0.6-4.6) K/mcL Monocytes # (0.0-1.3) K/mcL Eosinophils # (0.0-0.6) K/mcL Basophils # (0.0-0.2) K/mcL Reactive Lymphocytes (Not Present) Platelet Estimate (Normal) Immature Plt Fraction (1.1-6.1) % PT (9.4-12.1) Seconds INR Sodium (136-145) mEq/L Potassium (3.5-4.5) mEq/L Chloride (98-109) mEq/L Carbon Dioxide (19-29) mEq/L BUN (8-26) mg/dL Creatinine (0.72-1.25) mg/dL Est GFR ( Amer) (> 60) Est GFR (Non-Af Amer) (> 60) BUN/Creatinine Ratio (6-26) Glucose (70-99) mg/dL POC Glucose 184 H 187 H 134 H (58-89) Est Mean Plasma Glucose mg/dl Hemoglobin A1c ( - 5.6) % Calculated Osmolality (280-300) Calcium (8.6-10.8) mg/dL Phosphorus (2.3-4.7) mg/dL Magnesium (1.6-2.6) mg/dL Total Bilirubin (0.2-1.2) mg/dL AST (5-34) Units/L ALT (0-55) Units/L Alkaline Phosphatase (38-126) Units/L Serum Total Protein (6.0-8.3) g/dL Albumin (3.5-5.0) g/dL Globulin (2.4-3.5) g/dL Albumin/Globulin Ratio (1.1-2.2) Prealbumin (18.0-45.0) mg/dL Triglycerides (< 150) mg/dL Urine Color (Yellow) Urine Clarity (Clear) Urine pH (5.0-8.0) pH Units Ur Specific [place] (1.010-1.025) Urine Protein (Neg-Trace) mg/dL Urine Glucose (UA) (Normal) mg/dL Urine Ketones (Negative) mg/dL Urine Blood (Negative) Urine Nitrite (Negative) Urine Bilirubin (Negative) Urine Urobilinogen (Normal) mg/dL Ur Leukocyte Esterase (Negative) Urine Microscopic RBC (0-3) per hpf Urine Microscopic WBC (0-3) per hpf Ur Squamous Epith Cells (None-Few) per lpf Urine Bacteria (None-Few) per hpf Hyaline Casts (None-Few) per lpf Ur Culture Indicated? (NO) C. difficile Tox (PCR) (Negative) Specimen Rejected Blood Type Antibody Screen Crossmatch 04/26/16 04/26/16 04/26/16 Range/Units 03:16 04:43 04:43 WBC 16.2 H (4.3-11.1) K/mcL RBC 3.58 L (4.19-5.50) M/mcL Hgb 10.7 L (12.9-16.9) g/dL Hct 32.9 L (37.5-50.1) % MCV 91.9 (83.0-100.0) fL MCH 29.9 (28.0-33.3) pg MCHC 32.5 (31.6-35.5) g/dL RDW 14.3 (11.5-14.5) % Plt Count 282 (140-400) K/mcL MPV 9.9 (9.4-12.4) fL Immature Gran % 1.0 (0-4) % Seg Neutrophils % 83.6 % Lymphocytes % 5.4 % Monocytes % 8.2 % Eosinophils % 1.4 % Basophils % 0.4 % Neutrophils # 13.6 H (1.6-8.9) K/mcL Lymphocytes # 0.9 (0.6-4.6) K/mcL Monocytes # 1.3 (0.0-1.3) K/mcL Eosinophils # 0.2 (0.0-0.6) K/mcL Basophils # 0.1 (0.0-0.2) K/mcL Reactive Lymphocytes (Not Present) Platelet Estimate (Normal) Immature Plt Fraction (1.1-6.1) % PT (9.4-12.1) Seconds INR Sodium 138 (136-145) mEq/L Potassium 4.0 (3.5-4.5) mEq/L Chloride 105 (98-109) mEq/L Carbon Dioxide 33 H (19-29) mEq/L BUN 17 (8-26) mg/dL Creatinine 0.70 L (0.72-1.25) mg/dL Est GFR ( Amer) > 60 (> 60) Est GFR (Non-Af Amer) > 60 (> 60) BUN/Creatinine Ratio 24 (6-26) Glucose 169 H (70-99) mg/dL POC Glucose 171 H (58-89) Est Mean Plasma Glucose mg/dl Hemoglobin A1c ( - 5.6) % Calculated Osmolality 291 (280-300) Calcium 8.5 L (8.6-10.8) mg/dL Phosphorus 2.7 (2.3-4.7) mg/dL Magnesium 2.2 (1.6-2.6) mg/dL Total Bilirubin (0.2-1.2) mg/dL AST (5-34) Units/L ALT (0-55) Units/L Alkaline Phosphatase (38-126) Units/L Serum Total Protein (6.0-8.3) g/dL Albumin (3.5-5.0) g/dL Globulin (2.4-3.5) g/dL Albumin/Globulin Ratio (1.1-2.2) Prealbumin (18.0-45.0) mg/dL Triglycerides (< 150) mg/dL Urine Color (Yellow) Urine Clarity (Clear) Urine pH (5.0-8.0) pH Units Ur Specific [place] (1.010-1.025) Urine Protein (Neg-Trace) mg/dL Urine Glucose (UA) (Normal) mg/dL Urine Ketones (Negative) mg/dL Urine Blood (Negative) Urine Nitrite (Negative) Urine Bilirubin (Negative) Urine Urobilinogen (Normal) mg/dL Ur Leukocyte Esterase (Negative) Urine Microscopic RBC (0-3) per hpf Urine Microscopic WBC (0-3) per hpf Ur Squamous Epith Cells (None-Few) per lpf Urine Bacteria (None-Few) per hpf Hyaline Casts (None-Few) per lpf Ur Culture Indicated? (NO) C. difficile Tox (PCR) (Negative) Specimen Rejected Blood Type Antibody Screen Crossmatch 04/26/16 04/26/16 04/26/16 Range/Units 04:43 05:00 12:25 WBC (4.3-11.1) K/mcL RBC (4.19-5.50) M/mcL Hgb (12.9-16.9) g/dL Hct (37.5-50.1) % MCV (83.0-100.0) fL MCH (28.0-33.3) pg MCHC (31.6-35.5) g/dL RDW (11.5-14.5) % Plt Count (140-400) K/mcL MPV (9.4-12.4) fL Immature Gran % (0-4) % Seg Neutrophils % % Lymphocytes % % Monocytes % % Eosinophils % % Basophils % % Neutrophils # (1.6-8.9) K/mcL Lymphocytes # (0.6-4.6) K/mcL Monocytes # (0.0-1.3) K/mcL Eosinophils # (0.0-0.6) K/mcL Basophils # (0.0-0.2) K/mcL Reactive Lymphocytes (Not Present) Platelet Estimate (Normal) Immature Plt Fraction (1.1-6.1) % PT 15.1 H (9.4-12.1) Seconds INR 1.4 Sodium (136-145) mEq/L Potassium (3.5-4.5) mEq/L Chloride (98-109) mEq/L Carbon Dioxide (19-29) mEq/L BUN (8-26) mg/dL Creatinine (0.72-1.25) mg/dL Est GFR ( Amer) (> 60) Est GFR (Non-Af Amer) (> 60) BUN/Creatinine Ratio (6-26) Glucose (70-99) mg/dL POC Glucose 203 H (58-89) Est Mean Plasma Glucose mg/dl Hemoglobin A1c ( - 5.6) % Calculated Osmolality (280-300) Calcium (8.6-10.8) mg/dL Phosphorus (2.3-4.7) mg/dL Magnesium (1.6-2.6) mg/dL Total Bilirubin (0.2-1.2) mg/dL AST (5-34) Units/L ALT (0-55) Units/L Alkaline Phosphatase (38-126) Units/L Serum Total Protein (6.0-8.3) g/dL Albumin (3.5-5.0) g/dL Globulin (2.4-3.5) g/dL Albumin/Globulin Ratio (1.1-2.2) Prealbumin (18.0-45.0) mg/dL Triglycerides (< 150) mg/dL Urine Color (Yellow) Urine Clarity (Clear) Urine pH (5.0-8.0) pH Units Ur Specific [place] (1.010-1.025) Urine Protein (Neg-Trace) mg/dL Urine Glucose (UA) (Normal) mg/dL Urine Ketones (Negative) mg/dL Urine Blood (Negative) Urine Nitrite (Negative) Urine Bilirubin (Negative) Urine Urobilinogen (Normal) mg/dL Ur Leukocyte Esterase (Negative) Urine Microscopic RBC (0-3) per hpf Urine Microscopic WBC (0-3) per hpf Ur Squamous Epith Cells (None-Few) per lpf Urine Bacteria (None-Few) per hpf Hyaline Casts (None-Few) per lpf Ur Culture Indicated? (NO) C. difficile Tox (PCR) (Negative) Specimen Rejected Blood Type B POSITIVE Antibody Screen NEGATIVE Crossmatch See Detail 04/26/16 04/26/16 04/27/16 Range/Units 16:05 20:15 00:25 WBC (4.3-11.1) K/mcL RBC (4.19-5.50) M/mcL Hgb (12.9-16.9) g/dL Hct (37.5-50.1) % MCV (83.0-100.0) fL MCH (28.0-33.3) pg MCHC (31.6-35.5) g/dL RDW (11.5-14.5) % Plt Count (140-400) K/mcL MPV (9.4-12.4) fL Immature Gran % (0-4) % Seg Neutrophils % % Lymphocytes % % Monocytes % % Eosinophils % % Basophils % % Neutrophils # (1.6-8.9) K/mcL Lymphocytes # (0.6-4.6) K/mcL Monocytes # (0.0-1.3) K/mcL Eosinophils # (0.0-0.6) K/mcL Basophils # (0.0-0.2) K/mcL Reactive Lymphocytes (Not Present) Platelet Estimate (Normal) Immature Plt Fraction (1.1-6.1) % PT (9.4-12.1) Seconds INR Sodium (136-145) mEq/L Potassium (3.5-4.5) mEq/L Chloride (98-109) mEq/L Carbon Dioxide (19-29) mEq/L BUN (8-26) mg/dL Creatinine (0.72-1.25) mg/dL Est GFR ( Amer) (> 60) Est GFR (Non-Af Amer) (> 60) BUN/Creatinine Ratio (6-26) Glucose (70-99) mg/dL POC Glucose 245 H 253 H 196 H (58-89) Est Mean Plasma Glucose mg/dl Hemoglobin A1c ( - 5.6) % Calculated Osmolality (280-300) Calcium (8.6-10.8) mg/dL Phosphorus (2.3-4.7) mg/dL Magnesium (1.6-2.6) mg/dL Total Bilirubin (0.2-1.2) mg/dL AST (5-34) Units/L ALT (0-55) Units/L Alkaline Phosphatase (38-126) Units/L Serum Total Protein (6.0-8.3) g/dL Albumin (3.5-5.0) g/dL Globulin (2.4-3.5) g/dL Albumin/Globulin Ratio (1.1-2.2) Prealbumin (18.0-45.0) mg/dL Triglycerides (< 150) mg/dL Urine Color (Yellow) Urine Clarity (Clear) Urine pH (5.0-8.0) pH Units Ur Specific [place] (1.010-1.025) Urine Protein (Neg-Trace) mg/dL Urine Glucose (UA) (Normal) mg/dL Urine Ketones (Negative) mg/dL Urine Blood (Negative) Urine Nitrite (Negative) Urine Bilirubin (Negative) Urine Urobilinogen (Normal) mg/dL Ur Leukocyte Esterase (Negative) Urine Microscopic RBC (0-3) per hpf Urine Microscopic WBC (0-3) per hpf Ur Squamous Epith Cells (None-Few) per lpf Urine Bacteria (None-Few) per hpf Hyaline Casts (None-Few) per lpf Ur Culture Indicated? (NO) C. difficile Tox (PCR) (Negative) Specimen Rejected Blood Type Antibody Screen Crossmatch 04/27/16 04/27/16 04/27/16 Range/Units 03:45 03:45 03:45 WBC (4.3-11.1) K/mcL RBC (4.19-5.50) M/mcL Hgb (12.9-16.9) g/dL Hct (37.5-50.1) % MCV (83.0-100.0) fL MCH (28.0-33.3) pg MCHC (31.6-35.5) g/dL RDW (11.5-14.5) % Plt Count (140-400) K/mcL MPV (9.4-12.4) fL Immature Gran % (0-4) % Seg Neutrophils % % Lymphocytes % % Monocytes % % Eosinophils % % Basophils % % Neutrophils # (1.6-8.9) K/mcL Lymphocytes # (0.6-4.6) K/mcL Monocytes # (0.0-1.3) K/mcL Eosinophils # (0.0-0.6) K/mcL Basophils # (0.0-0.2) K/mcL Reactive Lymphocytes (Not Present) Platelet Estimate (Normal) Immature Plt Fraction (1.1-6.1) % PT (9.4-12.1) Seconds INR Sodium 137 (136-145) mEq/L Potassium 4.8 H (3.5-4.5) mEq/L Chloride 105 (98-109) mEq/L Carbon Dioxide 29 (19-29) mEq/L BUN 27 H D (8-26) mg/dL Creatinine 0.73 (0.72-1.25) mg/dL Est GFR ( Amer) > 60 (> 60) Est GFR (Non-Af Amer) > 60 (> 60) BUN/Creatinine Ratio 37 H (6-26) Glucose 141 H (70-99) mg/dL POC Glucose (58-89) Est Mean Plasma Glucose mg/dl Hemoglobin A1c ( - 5.6) % Calculated Osmolality 291 (280-300) Calcium 8.6 (8.6-10.8) mg/dL Phosphorus 2.9 (2.3-4.7) mg/dL Magnesium 2.1 (1.6-2.6) mg/dL Total Bilirubin (0.2-1.2) mg/dL AST (5-34) Units/L ALT (0-55) Units/L Alkaline Phosphatase (38-126) Units/L Serum Total Protein (6.0-8.3) g/dL Albumin (3.5-5.0) g/dL Globulin (2.4-3.5) g/dL Albumin/Globulin Ratio (1.1-2.2) Prealbumin (18.0-45.0) mg/dL Triglycerides (< 150) mg/dL Urine Color (Yellow) Urine Clarity (Clear) Urine pH (5.0-8.0) pH Units Ur Specific [place] (1.010-1.025) Urine Protein (Neg-Trace) mg/dL Urine Glucose (UA) (Normal) mg/dL Urine Ketones (Negative) mg/dL Urine Blood (Negative) Urine Nitrite (Negative) Urine Bilirubin (Negative) Urine Urobilinogen (Normal) mg/dL Ur Leukocyte Esterase (Negative) Urine Microscopic RBC (0-3) per hpf Urine Microscopic WBC (0-3) per hpf Ur Squamous Epith Cells (None-Few) per lpf Urine Bacteria (None-Few) per hpf Hyaline Casts (None-Few) per lpf Ur Culture Indicated? (NO) C. difficile Tox (PCR) (Negative) Specimen Rejected Clotted Blood Type Antibody Screen Crossmatch 04/27/16 04/27/16 04/27/16 Range/Units 04:11 04:50 06:44 WBC 18.9 H (4.3-11.1) K/mcL RBC 2.87 L (4.19-5.50) M/mcL Hgb 8.7 L D (12.9-16.9) g/dL Hct 27.0 L (37.5-50.1) % MCV 94.1 (83.0-100.0) fL MCH 30.3 (28.0-33.3) pg MCHC 32.2 (31.6-35.5) g/dL RDW 14.7 H (11.5-14.5) % Plt Count 258 (140-400) K/mcL MPV 10.9 (9.4-12.4) fL Immature Gran % 1.2 (0-4) % Seg Neutrophils % 84.5 % Lymphocytes % 4.6 % Monocytes % 9.5 % Eosinophils % 0.1 % Basophils % 0.1 % Neutrophils # 16.0 H (1.6-8.9) K/mcL Lymphocytes # 0.9 (0.6-4.6) K/mcL Monocytes # 1.8 H (0.0-1.3) K/mcL Eosinophils # 0.0 (0.0-0.6) K/mcL Basophils # 0.0 (0.0-0.2) K/mcL Reactive Lymphocytes (Not Present) Platelet Estimate Normal (Normal) Immature Plt Fraction 3.3 (1.1-6.1) % PT (9.4-12.1) Seconds INR Sodium (136-145) mEq/L Potassium (3.5-4.5) mEq/L Chloride (98-109) mEq/L Carbon Dioxide (19-29) mEq/L BUN (8-26) mg/dL Creatinine (0.72-1.25) mg/dL Est GFR ( Amer) (> 60) Est GFR (Non-Af Amer) (> 60) BUN/Creatinine Ratio (6-26) Glucose (70-99) mg/dL POC Glucose 157 H 146 H (58-89) Est Mean Plasma Glucose mg/dl Hemoglobin A1c ( - 5.6) % Calculated Osmolality (280-300) Calcium (8.6-10.8) mg/dL Phosphorus (2.3-4.7) mg/dL Magnesium (1.6-2.6) mg/dL Total Bilirubin (0.2-1.2) mg/dL AST (5-34) Units/L ALT (0-55) Units/L Alkaline Phosphatase (38-126) Units/L Serum Total Protein (6.0-8.3) g/dL Albumin (3.5-5.0) g/dL Globulin (2.4-3.5) g/dL Albumin/Globulin Ratio (1.1-2.2) Prealbumin (18.0-45.0) mg/dL Triglycerides (< 150) mg/dL Urine Color (Yellow) Urine Clarity (Clear) Urine pH (5.0-8.0) pH Units Ur Specific [place] (1.010-1.025) Urine Protein (Neg-Trace) mg/dL Urine Glucose (UA) (Normal) mg/dL Urine Ketones (Negative) mg/dL Urine Blood (Negative) Urine Nitrite (Negative) Urine Bilirubin (Negative) Urine Urobilinogen (Normal) mg/dL Ur Leukocyte Esterase (Negative) Urine Microscopic RBC (0-3) per hpf Urine Microscopic WBC (0-3) per hpf Ur Squamous Epith Cells (None-Few) per lpf Urine Bacteria (None-Few) per hpf Hyaline Casts (None-Few) per lpf Ur Culture Indicated? (NO) C. difficile Tox (PCR) (Negative) Specimen Rejected Blood Type Antibody Screen Crossmatch 04/27/16 04/27/16 04/27/16 Range/Units 10:58 11:14 15:59 WBC (4.3-11.1) K/mcL RBC (4.19-5.50) M/mcL Hgb (12.9-16.9) g/dL Hct (37.5-50.1) % MCV (83.0-100.0) fL MCH (28.0-33.3) pg MCHC (31.6-35.5) g/dL RDW (11.5-14.5) % Plt Count (140-400) K/mcL MPV (9.4-12.4) fL Immature Gran % (0-4) % Seg Neutrophils % % Lymphocytes % % Monocytes % % Eosinophils % % Basophils % % Neutrophils # (1.6-8.9) K/mcL Lymphocytes # (0.6-4.6) K/mcL Monocytes # (0.0-1.3) K/mcL Eosinophils # (0.0-0.6) K/mcL Basophils # (0.0-0.2) K/mcL Reactive Lymphocytes (Not Present) Platelet Estimate (Normal) Immature Plt Fraction (1.1-6.1) % PT (9.4-12.1) Seconds INR Sodium (136-145) mEq/L Potassium (3.5-4.5) mEq/L Chloride (98-109) mEq/L Carbon Dioxide (19-29) mEq/L BUN (8-26) mg/dL Creatinine (0.72-1.25) mg/dL Est GFR ( Amer) (> 60) Est GFR (Non-Af Amer) (> 60) BUN/Creatinine Ratio (6-26) Glucose (70-99) mg/dL POC Glucose 158 H 243 H (58-89) Est Mean Plasma Glucose mg/dl Hemoglobin A1c ( - 5.6) % Calculated Osmolality (280-300) Calcium (8.6-10.8) mg/dL Phosphorus (2.3-4.7) mg/dL Magnesium (1.6-2.6) mg/dL Total Bilirubin (0.2-1.2) mg/dL AST (5-34) Units/L ALT (0-55) Units/L Alkaline Phosphatase (38-126) Units/L Serum Total Protein (6.0-8.3) g/dL Albumin (3.5-5.0) g/dL Globulin (2.4-3.5) g/dL Albumin/Globulin Ratio (1.1-2.2) Prealbumin (18.0-45.0) mg/dL Triglycerides 40 (< 150) mg/dL Urine Color (Yellow) Urine Clarity (Clear) Urine pH (5.0-8.0) pH Units Ur Specific [place] (1.010-1.025) Urine Protein (Neg-Trace) mg/dL Urine Glucose (UA) (Normal) mg/dL Urine Ketones (Negative) mg/dL Urine Blood (Negative) Urine Nitrite (Negative) Urine Bilirubin (Negative) Urine Urobilinogen (Normal) mg/dL Ur Leukocyte Esterase (Negative) Urine Microscopic RBC (0-3) per hpf Urine Microscopic WBC (0-3) per hpf Ur Squamous Epith Cells (None-Few) per lpf Urine Bacteria (None-Few) per hpf Hyaline Casts (None-Few) per lpf Ur Culture Indicated? (NO) C. difficile Tox (PCR) (Negative) Specimen Rejected Blood Type Antibody Screen Crossmatch 04/27/16 04/28/16 04/28/16 Range/Units 20:51 00:08 03:10 WBC (4.3-11.1) K/mcL RBC (4.19-5.50) M/mcL Hgb (12.9-16.9) g/dL Hct (37.5-50.1) % MCV (83.0-100.0) fL MCH (28.0-33.3) pg MCHC (31.6-35.5) g/dL RDW (11.5-14.5) % Plt Count (140-400) K/mcL MPV (9.4-12.4) fL Immature Gran % (0-4) % Seg Neutrophils % % Lymphocytes % % Monocytes % % Eosinophils % % Basophils % % Neutrophils # (1.6-8.9) K/mcL Lymphocytes # (0.6-4.6) K/mcL Monocytes # (0.0-1.3) K/mcL Eosinophils # (0.0-0.6) K/mcL Basophils # (0.0-0.2) K/mcL Reactive Lymphocytes (Not Present) Platelet Estimate (Normal) Immature Plt Fraction (1.1-6.1) % PT (9.4-12.1) Seconds INR Sodium (136-145) mEq/L Potassium (3.5-4.5) mEq/L Chloride (98-109) mEq/L Carbon Dioxide (19-29) mEq/L BUN (8-26) mg/dL Creatinine (0.72-1.25) mg/dL Est GFR ( Amer) (> 60) Est GFR (Non-Af Amer) (> 60) BUN/Creatinine Ratio (6-26) Glucose (70-99) mg/dL POC Glucose 182 H 146 H (58-89) Est Mean Plasma Glucose mg/dl Hemoglobin A1c ( - 5.6) % Calculated Osmolality (280-300) Calcium (8.6-10.8) mg/dL Phosphorus 2.7 (2.3-4.7) mg/dL Magnesium 2.0 (1.6-2.6) mg/dL Total Bilirubin (0.2-1.2) mg/dL AST (5-34) Units/L ALT (0-55) Units/L Alkaline Phosphatase (38-126) Units/L Serum Total Protein (6.0-8.3) g/dL Albumin (3.5-5.0) g/dL Globulin (2.4-3.5) g/dL Albumin/Globulin Ratio (1.1-2.2) Prealbumin (18.0-45.0) mg/dL Triglycerides (< 150) mg/dL Urine Color (Yellow) Urine Clarity (Clear) Urine pH (5.0-8.0) pH Units Ur Specific [place] (1.010-1.025) Urine Protein (Neg-Trace) mg/dL Urine Glucose (UA) (Normal) mg/dL Urine Ketones (Negative) mg/dL Urine Blood (Negative) Urine Nitrite (Negative) Urine Bilirubin (Negative) Urine Urobilinogen (Normal) mg/dL Ur Leukocyte Esterase (Negative) Urine Microscopic RBC (0-3) per hpf Urine Microscopic WBC (0-3) per hpf Ur Squamous Epith Cells (None-Few) per lpf Urine Bacteria (None-Few) per hpf Hyaline Casts (None-Few) per lpf Ur Culture Indicated? (NO) C. difficile Tox (PCR) (Negative) Specimen Rejected Blood Type Antibody Screen Crossmatch 04/28/16 04/28/16 04/28/16 Range/Units 03:10 03:10 04:03 WBC 16.0 H (4.3-11.1) K/mcL RBC 2.73 L (4.19-5.50) M/mcL Hgb 8.4 L (12.9-16.9) g/dL Hct 25.7 L (37.5-50.1) % MCV 94.1 (83.0-100.0) fL MCH 30.8 (28.0-33.3) pg MCHC 32.7 (31.6-35.5) g/dL RDW 14.9 H (11.5-14.5) % Plt Count 256 (140-400) K/mcL MPV 10.0 (9.4-12.4) fL Immature Gran % 0.8 (0-4) % Seg Neutrophils % 83.7 % Lymphocytes % 5.4 % Monocytes % 9.2 % Eosinophils % 0.8 % Basophils % 0.1 % Neutrophils # 13.4 H (1.6-8.9) K/mcL Lymphocytes # 0.9 (0.6-4.6) K/mcL Monocytes # 1.5 H (0.0-1.3) K/mcL Eosinophils # 0.1 (0.0-0.6) K/mcL Basophils # 0.0 (0.0-0.2) K/mcL Reactive Lymphocytes (Not Present) Platelet Estimate (Normal) Immature Plt Fraction (1.1-6.1) % PT (9.4-12.1) Seconds INR Sodium 137 (136-145) mEq/L Potassium 4.4 (3.5-4.5) mEq/L Chloride 104 (98-109) mEq/L Carbon Dioxide 29 (19-29) mEq/L BUN 22 (8-26) mg/dL Creatinine 0.68 L (0.72-1.25) mg/dL Est GFR ( Amer) > 60 (> 60) Est GFR (Non-Af Amer) > 60 (> 60) BUN/Creatinine Ratio 32 H (6-26) Glucose 162 H (70-99) mg/dL POC Glucose 160 H (58-89) Est Mean Plasma Glucose mg/dl Hemoglobin A1c ( - 5.6) % Calculated Osmolality 291 (280-300) Calcium 8.5 L (8.6-10.8) mg/dL Phosphorus (2.3-4.7) mg/dL Magnesium (1.6-2.6) mg/dL Total Bilirubin 0.4 (0.2-1.2) mg/dL AST 12 (5-34) Units/L ALT 6 (0-55) Units/L Alkaline Phosphatase 37 L (38-126) Units/L Serum Total Protein 5.2 L (6.0-8.3) g/dL Albumin 1.9 L (3.5-5.0) g/dL Globulin 3.3 (2.4-3.5) g/dL Albumin/Globulin Ratio 0.6 L (1.1-2.2) Prealbumin (18.0-45.0) mg/dL Triglycerides (< 150) mg/dL Urine Color (Yellow) Urine Clarity (Clear) Urine pH (5.0-8.0) pH Units Ur Specific [place] (1.010-1.025) Urine Protein (Neg-Trace) mg/dL Urine Glucose (UA) (Normal) mg/dL Urine Ketones (Negative) mg/dL Urine Blood (Negative) Urine Nitrite (Negative) Urine Bilirubin (Negative) Urine Urobilinogen (Normal) mg/dL Ur Leukocyte Esterase (Negative) Urine Microscopic RBC (0-3) per hpf Urine Microscopic WBC (0-3) per hpf Ur Squamous Epith Cells (None-Few) per lpf Urine Bacteria (None-Few) per hpf Hyaline Casts (None-Few) per lpf Ur Culture Indicated? (NO) C. difficile Tox (PCR) (Negative) Specimen Rejected Blood Type Antibody Screen Crossmatch 04/28/16 04/28/16 04/28/16 Range/Units 07:15 10:44 15:41 WBC (4.3-11.1) K/mcL RBC (4.19-5.50) M/mcL Hgb (12.9-16.9) g/dL Hct (37.5-50.1) % MCV (83.0-100.0) fL MCH (28.0-33.3) pg MCHC (31.6-35.5) g/dL RDW (11.5-14.5) % Plt Count (140-400) K/mcL MPV (9.4-12.4) fL Immature Gran % (0-4) % Seg Neutrophils % % Lymphocytes % % Monocytes % % Eosinophils % % Basophils % % Neutrophils # (1.6-8.9) K/mcL Lymphocytes # (0.6-4.6) K/mcL Monocytes # (0.0-1.3) K/mcL Eosinophils # (0.0-0.6) K/mcL Basophils # (0.0-0.2) K/mcL Reactive Lymphocytes (Not Present) Platelet Estimate (Normal) Immature Plt Fraction (1.1-6.1) % PT (9.4-12.1) Seconds INR Sodium (136-145) mEq/L Potassium (3.5-4.5) mEq/L Chloride (98-109) mEq/L Carbon Dioxide (19-29) mEq/L BUN (8-26) mg/dL Creatinine (0.72-1.25) mg/dL Est GFR ( Amer) (> 60) Est GFR (Non-Af Amer) (> 60) BUN/Creatinine Ratio (6-26) Glucose (70-99) mg/dL POC Glucose 173 H 217 H 156 H (58-89) Est Mean Plasma Glucose mg/dl Hemoglobin A1c ( - 5.6) % Calculated Osmolality (280-300) Calcium (8.6-10.8) mg/dL Phosphorus (2.3-4.7) mg/dL Magnesium (1.6-2.6) mg/dL Total Bilirubin (0.2-1.2) mg/dL AST (5-34) Units/L ALT (0-55) Units/L Alkaline Phosphatase (38-126) Units/L Serum Total Protein (6.0-8.3) g/dL Albumin (3.5-5.0) g/dL Globulin (2.4-3.5) g/dL Albumin/Globulin Ratio (1.1-2.2) Prealbumin (18.0-45.0) mg/dL Triglycerides (< 150) mg/dL Urine Color (Yellow) Urine Clarity (Clear) Urine pH (5.0-8.0) pH Units Ur Specific [place] (1.010-1.025) Urine Protein (Neg-Trace) mg/dL Urine Glucose (UA) (Normal) mg/dL Urine Ketones (Negative) mg/dL Urine Blood (Negative) Urine Nitrite (Negative) Urine Bilirubin (Negative) Urine Urobilinogen (Normal) mg/dL Ur Leukocyte Esterase (Negative) Urine Microscopic RBC (0-3) per hpf Urine Microscopic WBC (0-3) per hpf Ur Squamous Epith Cells (None-Few) per lpf Urine Bacteria (None-Few) per hpf Hyaline Casts (None-Few) per lpf Ur Culture Indicated? (NO) C. difficile Tox (PCR) (Negative) Specimen Rejected Blood Type Antibody Screen Crossmatch 12/31/16 12/31/16 01/01/17 Range/Units 17:39 19:29 00:33 WBC (4.3-11.1) K/mcL RBC (4.19-5.50) M/mcL Hgb (12.9-16.9) g/dL Hct (37.5-50.1) % MCV (83.0-100.0) fL MCH (28.0-33.3) pg MCHC (31.6-35.5) g/dL RDW (11.5-14.5) % Plt Count (140-400) K/mcL MPV (9.4-12.4) fL Immature Gran % (0-4) % Seg Neutrophils % % Lymphocytes % % Monocytes % % Eosinophils % % Basophils % % Neutrophils # (1.6-8.9) K/mcL Lymphocytes # (0.6-4.6) K/mcL Monocytes # (0.0-1.3) K/mcL Eosinophils # (0.0-0.6) K/mcL Basophils # (0.0-0.2) K/mcL Reactive Lymphocytes (Not Present) Platelet Estimate (Normal) Immature Plt Fraction (1.1-6.1) % PT (9.4-12.1) Seconds INR Sodium (136-145) mEq/L Potassium (3.5-4.5) mEq/L Chloride (98-109) mEq/L Carbon Dioxide (19-29) mEq/L BUN (8-26) mg/dL Creatinine (0.72-1.25) mg/dL Est GFR ( Amer) (> 60) Est GFR (Non-Af Amer) (> 60) BUN/Creatinine Ratio (6-26) Glucose (70-99) mg/dL POC Glucose 155 H 230 H 158 H (58-89) Est Mean Plasma Glucose mg/dl Hemoglobin A1c ( - 5.6) % Calculated Osmolality (280-300) Calcium (8.6-10.8) mg/dL Phosphorus (2.3-4.7) mg/dL Magnesium (1.6-2.6) mg/dL Total Bilirubin (0.2-1.2) mg/dL AST (5-34) Units/L ALT (0-55) Units/L Alkaline Phosphatase (38-126) Units/L Serum Total Protein (6.0-8.3) g/dL Albumin (3.5-5.0) g/dL Globulin (2.4-3.5) g/dL Albumin/Globulin Ratio (1.1-2.2) Prealbumin (18.0-45.0) mg/dL Triglycerides (< 150) mg/dL Urine Color (Yellow) Urine Clarity (Clear) Urine pH (5.0-8.0) pH Units Ur Specific [place] (1.010-1.025) Urine Protein (Neg-Trace) mg/dL Urine Glucose (UA) (Normal) mg/dL Urine Ketones (Negative) mg/dL Urine Blood (Negative) Urine Nitrite (Negative) Urine Bilirubin (Negative) Urine Urobilinogen (Normal) mg/dL Ur Leukocyte Esterase (Negative) Urine Microscopic RBC (0-3) per hpf Urine Microscopic WBC (0-3) per hpf Ur Squamous Epith Cells (None-Few) per lpf Urine Bacteria (None-Few) per hpf Hyaline Casts (None-Few) per lpf Ur Culture Indicated? (NO) C. difficile Tox (PCR) (Negative) Specimen Rejected Blood Type Antibody Screen Crossmatch 04/29/16 04/29/16 04/29/16 Range/Units 03:08 03:57 04:00 WBC 12.0 H (4.3-11.1) K/mcL RBC 2.59 L (4.19-5.50) M/mcL Hgb 7.9 L (12.9-16.9) g/dL Hct 24.4 L (37.5-50.1) % MCV 94.2 (83.0-100.0) fL MCH 30.5 (28.0-33.3) pg MCHC 32.4 (31.6-35.5) g/dL RDW 15.0 H (11.5-14.5) % Plt Count 253 (140-400) K/mcL MPV 10.1 (9.4-12.4) fL Immature Gran % 1.2 (0-4) % Seg Neutrophils % 75.7 % Lymphocytes % 10.7 % Monocytes % 10.2 % Eosinophils % 2.0 % Basophils % 0.2 % Neutrophils # 9.1 H (1.6-8.9) K/mcL Lymphocytes # 1.3 (0.6-4.6) K/mcL Monocytes # 1.2 (0.0-1.3) K/mcL Eosinophils # 0.2 (0.0-0.6) K/mcL Basophils # 0.0 (0.0-0.2) K/mcL Reactive Lymphocytes Present A (Not Present) Platelet Estimate Normal (Normal) Immature Plt Fraction (1.1-6.1) % PT (9.4-12.1) Seconds INR Sodium 138 (136-145) mEq/L Potassium 4.4 (3.5-4.5) mEq/L Chloride 105 (98-109) mEq/L Carbon Dioxide 32 H (19-29) mEq/L BUN 21 (8-26) mg/dL Creatinine 0.63 L (0.72-1.25) mg/dL Est GFR ( Amer) > 60 (> 60) Est GFR (Non-Af Amer) > 60 (> 60) BUN/Creatinine Ratio 33 H (6-26) Glucose 136 H (70-99) mg/dL POC Glucose 155 H (58-89) Est Mean Plasma Glucose mg/dl Hemoglobin A1c ( - 5.6) % Calculated Osmolality 291 (280-300) Calcium 8.4 L (8.6-10.8) mg/dL Phosphorus 3.1 (2.3-4.7) mg/dL Magnesium 2.1 (1.6-2.6) mg/dL Total Bilirubin (0.2-1.2) mg/dL AST (5-34) Units/L ALT (0-55) Units/L Alkaline Phosphatase (38-126) Units/L Serum Total Protein (6.0-8.3) g/dL Albumin (3.5-5.0) g/dL Globulin (2.4-3.5) g/dL Albumin/Globulin Ratio (1.1-2.2) Prealbumin (18.0-45.0) mg/dL Triglycerides (< 150) mg/dL Urine Color (Yellow) Urine Clarity (Clear) Urine pH (5.0-8.0) pH Units Ur Specific [place] (1.010-1.025) Urine Protein (Neg-Trace) mg/dL Urine Glucose (UA) (Normal) mg/dL Urine Ketones (Negative) mg/dL Urine Blood (Negative) Urine Nitrite (Negative) Urine Bilirubin (Negative) Urine Urobilinogen (Normal) mg/dL Ur Leukocyte Esterase (Negative) Urine Microscopic RBC (0-3) per hpf Urine Microscopic WBC (0-3) per hpf Ur Squamous Epith Cells (None-Few) per lpf Urine Bacteria (None-Few) per hpf Hyaline Casts (None-Few) per lpf Ur Culture Indicated? (NO) C. difficile Tox (PCR) (Negative) Specimen Rejected Blood Type Antibody Screen Crossmatch 04/29/16 04/29/16 04/29/16 Range/Units 07:48 12:00 17:33 WBC (4.3-11.1) K/mcL RBC (4.19-5.50) M/mcL Hgb (12.9-16.9) g/dL Hct (37.5-50.1) % MCV (83.0-100.0) fL MCH (28.0-33.3) pg MCHC (31.6-35.5) g/dL RDW (11.5-14.5) % Plt Count (140-400) K/mcL MPV (9.4-12.4) fL Immature Gran % (0-4) % Seg Neutrophils % % Lymphocytes % % Monocytes % % Eosinophils % % Basophils % % Neutrophils # (1.6-8.9) K/mcL Lymphocytes # (0.6-4.6) K/mcL Monocytes # (0.0-1.3) K/mcL Eosinophils # (0.0-0.6) K/mcL Basophils # (0.0-0.2) K/mcL Reactive Lymphocytes (Not Present) Platelet Estimate (Normal) Immature Plt Fraction (1.1-6.1) % PT (9.4-12.1) Seconds INR Sodium (136-145) mEq/L Potassium (3.5-4.5) mEq/L Chloride (98-109) mEq/L Carbon Dioxide (19-29) mEq/L BUN (8-26) mg/dL Creatinine (0.72-1.25) mg/dL Est GFR ( Amer) (> 60) Est GFR (Non-Af Amer) (> 60) BUN/Creatinine Ratio (6-26) Glucose (70-99) mg/dL POC Glucose 115 H 141 H 202 H (58-89) Est Mean Plasma Glucose mg/dl Hemoglobin A1c ( - 5.6) % Calculated Osmolality (280-300) Calcium (8.6-10.8) mg/dL Phosphorus (2.3-4.7) mg/dL Magnesium (1.6-2.6) mg/dL Total Bilirubin (0.2-1.2) mg/dL AST (5-34) Units/L ALT (0-55) Units/L Alkaline Phosphatase (38-126) Units/L Serum Total Protein (6.0-8.3) g/dL Albumin (3.5-5.0) g/dL Globulin (2.4-3.5) g/dL Albumin/Globulin Ratio (1.1-2.2) Prealbumin (18.0-45.0) mg/dL Triglycerides (< 150) mg/dL Urine Color (Yellow) Urine Clarity (Clear) Urine pH (5.0-8.0) pH Units Ur Specific [place] (1.010-1.025) Urine Protein (Neg-Trace) mg/dL Urine Glucose (UA) (Normal) mg/dL Urine Ketones (Negative) mg/dL Urine Blood (Negative) Urine Nitrite (Negative) Urine Bilirubin (Negative) Urine Urobilinogen (Normal) mg/dL Ur Leukocyte Esterase (Negative) Urine Microscopic RBC (0-3) per hpf Urine Microscopic WBC (0-3) per hpf Ur Squamous Epith Cells (None-Few) per lpf Urine Bacteria (None-Few) per hpf Hyaline Casts (None-Few) per lpf Ur Culture Indicated? (NO) C. difficile Tox (PCR) (Negative) Specimen Rejected Blood Type Antibody Screen Crossmatch 04/29/16 04/29/16 04/30/16 Range/Units 20:08 23:48 05:25 WBC (4.3-11.1) K/mcL RBC (4.19-5.50) M/mcL Hgb (12.9-16.9) g/dL Hct (37.5-50.1) % MCV (83.0-100.0) fL MCH (28.0-33.3) pg MCHC (31.6-35.5) g/dL RDW (11.5-14.5) % Plt Count (140-400) K/mcL MPV (9.4-12.4) fL Immature Gran % (0-4) % Seg Neutrophils % % Lymphocytes % % Monocytes % % Eosinophils % % Basophils % % Neutrophils # (1.6-8.9) K/mcL Lymphocytes # (0.6-4.6) K/mcL Monocytes # (0.0-1.3) K/mcL Eosinophils # (0.0-0.6) K/mcL Basophils # (0.0-0.2) K/mcL Reactive Lymphocytes (Not Present) Platelet Estimate (Normal) Immature Plt Fraction (1.1-6.1) % PT (9.4-12.1) Seconds INR Sodium (136-145) mEq/L Potassium (3.5-4.5) mEq/L Chloride (98-109) mEq/L Carbon Dioxide (19-29) mEq/L BUN (8-26) mg/dL Creatinine (0.72-1.25) mg/dL Est GFR ( Amer) (> 60) Est GFR (Non-Af Amer) (> 60) BUN/Creatinine Ratio (6-26) Glucose (70-99) mg/dL POC Glucose 187 H 142 H 194 H (58-89) Est Mean Plasma Glucose mg/dl Hemoglobin A1c ( - 5.6) % Calculated Osmolality (280-300) Calcium (8.6-10.8) mg/dL Phosphorus (2.3-4.7) mg/dL Magnesium (1.6-2.6) mg/dL Total Bilirubin (0.2-1.2) mg/dL AST (5-34) Units/L ALT (0-55) Units/L Alkaline Phosphatase (38-126) Units/L Serum Total Protein (6.0-8.3) g/dL Albumin (3.5-5.0) g/dL Globulin (2.4-3.5) g/dL Albumin/Globulin Ratio (1.1-2.2) Prealbumin (18.0-45.0) mg/dL Triglycerides (< 150) mg/dL Urine Color (Yellow) Urine Clarity (Clear) Urine pH (5.0-8.0) pH Units Ur Specific [place] (1.010-1.025) Urine Protein (Neg-Trace) mg/dL Urine Glucose (UA) (Normal) mg/dL Urine Ketones (Negative) mg/dL Urine Blood (Negative) Urine Nitrite (Negative) Urine Bilirubin (Negative) Urine Urobilinogen (Normal) mg/dL Ur Leukocyte Esterase (Negative) Urine Microscopic RBC (0-3) per hpf Urine Microscopic WBC (0-3) per hpf Ur Squamous Epith Cells (None-Few) per lpf Urine Bacteria (None-Few) per hpf Hyaline Casts (None-Few) per lpf Ur Culture Indicated? (NO) C. difficile Tox (PCR) (Negative) Specimen Rejected Blood Type Antibody Screen Crossmatch 04/30/16 04/30/16 04/30/16 Range/Units 08:30 08:30 11:22 WBC 11.8 H (4.3-11.1) K/mcL RBC 3.05 L (4.19-5.50) M/mcL Hgb 9.3 L (12.9-16.9) g/dL Hct 27.9 L (37.5-50.1) % MCV 91.5 (83.0-100.0) fL MCH 30.5 (28.0-33.3) pg MCHC 33.3 (31.6-35.5) g/dL RDW 15.5 H (11.5-14.5) % Plt Count 294 (140-400) K/mcL MPV 9.7 (9.4-12.4) fL Immature Gran % 0.9 (0-4) % Seg Neutrophils % 86.8 % Lymphocytes % 4.7 % Monocytes % 7.0 % Eosinophils % 0.3 % Basophils % 0.3 % Neutrophils # 10.2 H (1.6-8.9) K/mcL Lymphocytes # 0.6 (0.6-4.6) K/mcL Monocytes # 0.8 (0.0-1.3) K/mcL Eosinophils # 0.0 (0.0-0.6) K/mcL Basophils # 0.0 (0.0-0.2) K/mcL Reactive Lymphocytes (Not Present) Platelet Estimate (Normal) Immature Plt Fraction (1.1-6.1) % PT (9.4-12.1) Seconds INR Sodium 137 (136-145) mEq/L Potassium 4.1 (3.5-4.5) mEq/L Chloride 102 (98-109) mEq/L Carbon Dioxide 31 H (19-29) mEq/L BUN 29 H (8-26) mg/dL Creatinine 0.79 (0.72-1.25) mg/dL Est GFR ( Amer) > 60 (> 60) Est GFR (Non-Af Amer) > 60 (> 60) BUN/Creatinine Ratio 37 H (6-26) Glucose 181 H (70-99) mg/dL POC Glucose 192 H (58-89) Est Mean Plasma Glucose mg/dl Hemoglobin A1c ( - 5.6) % Calculated Osmolality 294 (280-300) Calcium 8.7 (8.6-10.8) mg/dL Phosphorus 3.5 (2.3-4.7) mg/dL Magnesium 1.8 (1.6-2.6) mg/dL Total Bilirubin (0.2-1.2) mg/dL AST (5-34) Units/L ALT (0-55) Units/L Alkaline Phosphatase (38-126) Units/L Serum Total Protein (6.0-8.3) g/dL Albumin (3.5-5.0) g/dL Globulin (2.4-3.5) g/dL Albumin/Globulin Ratio (1.1-2.2) Prealbumin (18.0-45.0) mg/dL Triglycerides (< 150) mg/dL Urine Color (Yellow) Urine Clarity (Clear) Urine pH (5.0-8.0) pH Units Ur Specific [place] (1.010-1.025) Urine Protein (Neg-Trace) mg/dL Urine Glucose (UA) (Normal) mg/dL Urine Ketones (Negative) mg/dL Urine Blood (Negative) Urine Nitrite (Negative) Urine Bilirubin (Negative) Urine Urobilinogen (Normal) mg/dL Ur Leukocyte Esterase (Negative) Urine Microscopic RBC (0-3) per hpf Urine Microscopic WBC (0-3) per hpf Ur Squamous Epith Cells (None-Few) per lpf Urine Bacteria (None-Few) per hpf Hyaline Casts (None-Few) per lpf Ur Culture Indicated? (NO) C. difficile Tox (PCR) (Negative) Specimen Rejected Blood Type Antibody Screen Crossmatch 04/30/16 04/30/16 05/01/16 Range/Units 16:03 21:02 00:24 WBC (4.3-11.1) K/mcL RBC (4.19-5.50) M/mcL Hgb (12.9-16.9) g/dL Hct (37.5-50.1) % MCV (83.0-100.0) fL MCH (28.0-33.3) pg MCHC (31.6-35.5) g/dL RDW (11.5-14.5) % Plt Count (140-400) K/mcL MPV (9.4-12.4) fL Immature Gran % (0-4) % Seg Neutrophils % % Lymphocytes % % Monocytes % % Eosinophils % % Basophils % % Neutrophils # (1.6-8.9) K/mcL Lymphocytes # (0.6-4.6) K/mcL Monocytes # (0.0-1.3) K/mcL Eosinophils # (0.0-0.6) K/mcL Basophils # (0.0-0.2) K/mcL Reactive Lymphocytes (Not Present) Platelet Estimate (Normal) Immature Plt Fraction (1.1-6.1) % PT (9.4-12.1) Seconds INR Sodium (136-145) mEq/L Potassium (3.5-4.5) mEq/L Chloride (98-109) mEq/L Carbon Dioxide (19-29) mEq/L BUN (8-26) mg/dL Creatinine (0.72-1.25) mg/dL Est GFR ( Amer) (> 60) Est GFR (Non-Af Amer) (> 60) BUN/Creatinine Ratio (6-26) Glucose (70-99) mg/dL POC Glucose 117 H 154 H 127 H (58-89) Est Mean Plasma Glucose mg/dl Hemoglobin A1c ( - 5.6) % Calculated Osmolality (280-300) Calcium (8.6-10.8) mg/dL Phosphorus (2.3-4.7) mg/dL Magnesium (1.6-2.6) mg/dL Total Bilirubin (0.2-1.2) mg/dL AST (5-34) Units/L ALT (0-55) Units/L Alkaline Phosphatase (38-126) Units/L Serum Total Protein (6.0-8.3) g/dL Albumin (3.5-5.0) g/dL Globulin (2.4-3.5) g/dL Albumin/Globulin Ratio (1.1-2.2) Prealbumin (18.0-45.0) mg/dL Triglycerides (< 150) mg/dL Urine Color (Yellow) Urine Clarity (Clear) Urine pH (5.0-8.0) pH Units Ur Specific [place] (1.010-1.025) Urine Protein (Neg-Trace) mg/dL Urine Glucose (UA) (Normal) mg/dL Urine Ketones (Negative) mg/dL Urine Blood (Negative) Urine Nitrite (Negative) Urine Bilirubin (Negative) Urine Urobilinogen (Normal) mg/dL Ur Leukocyte Esterase (Negative) Urine Microscopic RBC (0-3) per hpf Urine Microscopic WBC (0-3) per hpf Ur Squamous Epith Cells (None-Few) per lpf Urine Bacteria (None-Few) per hpf Hyaline Casts (None-Few) per lpf Ur Culture Indicated? (NO) C. difficile Tox (PCR) (Negative) Specimen Rejected Blood Type Antibody Screen Crossmatch 05/01/16 05/01/16 05/01/16 Range/Units 03:40 03:40 03:56 WBC 9.4 (4.3-11.1) K/mcL RBC 2.85 L (4.19-5.50) M/mcL Hgb 8.8 L (12.9-16.9) g/dL Hct 26.6 L (37.5-50.1) % MCV 93.3 (83.0-100.0) fL MCH 30.9 (28.0-33.3) pg MCHC 33.1 (31.6-35.5) g/dL RDW 15.8 H (11.5-14.5) % Plt Count 243 (140-400) K/mcL MPV 9.4 (9.4-12.4) fL Immature Gran % 1.4 (0-4) % Seg Neutrophils % 73.4 % Lymphocytes % 12.2 % Monocytes % 9.7 % Eosinophils % 2.9 % Basophils % 0.4 % Neutrophils # 6.9 (1.6-8.9) K/mcL Lymphocytes # 1.2 (0.6-4.6) K/mcL Monocytes # 0.9 (0.0-1.3) K/mcL Eosinophils # 0.3 (0.0-0.6) K/mcL Basophils # 0.0 (0.0-0.2) K/mcL Reactive Lymphocytes (Not Present) Platelet Estimate (Normal) Immature Plt Fraction (1.1-6.1) % PT (9.4-12.1) Seconds INR Sodium 140 (136-145) mEq/L Potassium 4.3 (3.5-4.5) mEq/L Chloride 104 (98-109) mEq/L Carbon Dioxide 31 H (19-29) mEq/L BUN 29 H (8-26) mg/dL Creatinine 0.80 (0.72-1.25) mg/dL Est GFR ( Amer) > 60 (> 60) Est GFR (Non-Af Amer) > 60 (> 60) BUN/Creatinine Ratio 36 H (6-26) Glucose 115 H (70-99) mg/dL POC Glucose 120 H (58-89) Est Mean Plasma Glucose mg/dl Hemoglobin A1c ( - 5.6) % Calculated Osmolality 297 (280-300) Calcium 8.7 (8.6-10.8) mg/dL Phosphorus (2.3-4.7) mg/dL Magnesium (1.6-2.6) mg/dL Total Bilirubin (0.2-1.2) mg/dL AST (5-34) Units/L ALT (0-55) Units/L Alkaline Phosphatase (38-126) Units/L Serum Total Protein (6.0-8.3) g/dL Albumin (3.5-5.0) g/dL Globulin (2.4-3.5) g/dL Albumin/Globulin Ratio (1.1-2.2) Prealbumin (18.0-45.0) mg/dL Triglycerides (< 150) mg/dL Urine Color (Yellow) Urine Clarity (Clear) Urine pH (5.0-8.0) pH Units Ur Specific [place] (1.010-1.025) Urine Protein (Neg-Trace) mg/dL Urine Glucose (UA) (Normal) mg/dL Urine Ketones (Negative) mg/dL Urine Blood (Negative) Urine Nitrite (Negative) Urine Bilirubin (Negative) Urine Urobilinogen (Normal) mg/dL Ur Leukocyte Esterase (Negative) Urine Microscopic RBC (0-3) per hpf Urine Microscopic WBC (0-3) per hpf Ur Squamous Epith Cells (None-Few) per lpf Urine Bacteria (None-Few) per hpf Hyaline Casts (None-Few) per lpf Ur Culture Indicated? (NO) C. difficile Tox (PCR) (Negative) Specimen Rejected Blood Type Antibody Screen Crossmatch 05/01/16 05/01/16 05/01/16 Range/Units 07:17 11:29 15:52 WBC (4.3-11.1) K/mcL RBC (4.19-5.50) M/mcL Hgb (12.9-16.9) g/dL Hct (37.5-50.1) % MCV (83.0-100.0) fL MCH (28.0-33.3) pg MCHC (31.6-35.5) g/dL RDW (11.5-14.5) % Plt Count (140-400) K/mcL MPV (9.4-12.4) fL Immature Gran % (0-4) % Seg Neutrophils % % Lymphocytes % % Monocytes % % Eosinophils % % Basophils % % Neutrophils # (1.6-8.9) K/mcL Lymphocytes # (0.6-4.6) K/mcL Monocytes # (0.0-1.3) K/mcL Eosinophils # (0.0-0.6) K/mcL Basophils # (0.0-0.2) K/mcL Reactive Lymphocytes (Not Present) Platelet Estimate (Normal) Immature Plt Fraction (1.1-6.1) % PT (9.4-12.1) Seconds INR Sodium (136-145) mEq/L Potassium (3.5-4.5) mEq/L Chloride (98-109) mEq/L Carbon Dioxide (19-29) mEq/L BUN (8-26) mg/dL Creatinine (0.72-1.25) mg/dL Est GFR ( Amer) (> 60) Est GFR (Non-Af Amer) (> 60) BUN/Creatinine Ratio (6-26) Glucose (70-99) mg/dL POC Glucose 120 H 138 H 161 H (58-89) Est Mean Plasma Glucose mg/dl Hemoglobin A1c ( - 5.6) % Calculated Osmolality (280-300) Calcium (8.6-10.8) mg/dL Phosphorus (2.3-4.7) mg/dL Magnesium (1.6-2.6) mg/dL Total Bilirubin (0.2-1.2) mg/dL AST (5-34) Units/L ALT (0-55) Units/L Alkaline Phosphatase (38-126) Units/L Serum Total Protein (6.0-8.3) g/dL Albumin (3.5-5.0) g/dL Globulin (2.4-3.5) g/dL Albumin/Globulin Ratio (1.1-2.2) Prealbumin (18.0-45.0) mg/dL Triglycerides (< 150) mg/dL Urine Color (Yellow) Urine Clarity (Clear) Urine pH (5.0-8.0) pH Units Ur Specific [place] (1.010-1.025) Urine Protein (Neg-Trace) mg/dL Urine Glucose (UA) (Normal) mg/dL Urine Ketones (Negative) mg/dL Urine Blood (Negative) Urine Nitrite (Negative) Urine Bilirubin (Negative) Urine Urobilinogen (Normal) mg/dL Ur Leukocyte Esterase (Negative) Urine Microscopic RBC (0-3) per hpf Urine Microscopic WBC (0-3) per hpf Ur Squamous Epith Cells (None-Few) per lpf Urine Bacteria (None-Few) per hpf Hyaline Casts (None-Few) per lpf Ur Culture Indicated? (NO) C. difficile Tox (PCR) (Negative) Specimen Rejected Blood Type Antibody Screen Crossmatch 05/01/16 05/01/16 05/02/16 Range/Units 20:32 23:48 03:30 WBC 9.7 (4.3-11.1) K/mcL RBC 3.14 L (4.19-5.50) M/mcL Hgb 9.8 L (12.9-16.9) g/dL Hct 29.4 L (37.5-50.1) % MCV 93.6 (83.0-100.0) fL MCH 31.2 (28.0-33.3) pg MCHC 33.3 (31.6-35.5) g/dL RDW 15.6 H (11.5-14.5) % Plt Count 253 (140-400) K/mcL MPV 9.8 (9.4-12.4) fL Immature Gran % 1.2 (0-4) % Seg Neutrophils % 78.9 % Lymphocytes % 7.9 % Monocytes % 9.7 % Eosinophils % 2.1 % Basophils % 0.2 % Neutrophils # 7.6 (1.6-8.9) K/mcL Lymphocytes # 0.8 (0.6-4.6) K/mcL Monocytes # 0.9 (0.0-1.3) K/mcL Eosinophils # 0.2 (0.0-0.6) K/mcL Basophils # 0.0 (0.0-0.2) K/mcL Reactive Lymphocytes (Not Present) Platelet Estimate (Normal) Immature Plt Fraction (1.1-6.1) % PT (9.4-12.1) Seconds INR Sodium (136-145) mEq/L Potassium (3.5-4.5) mEq/L Chloride (98-109) mEq/L Carbon Dioxide (19-29) mEq/L BUN (8-26) mg/dL Creatinine (0.72-1.25) mg/dL Est GFR ( Amer) (> 60) Est GFR (Non-Af Amer) (> 60) BUN/Creatinine Ratio (6-26) Glucose (70-99) mg/dL POC Glucose 179 H 116 H (58-89) Est Mean Plasma Glucose mg/dl Hemoglobin A1c ( - 5.6) % Calculated Osmolality (280-300) Calcium (8.6-10.8) mg/dL Phosphorus (2.3-4.7) mg/dL Magnesium (1.6-2.6) mg/dL Total Bilirubin (0.2-1.2) mg/dL AST (5-34) Units/L ALT (0-55) Units/L Alkaline Phosphatase (38-126) Units/L Serum Total Protein (6.0-8.3) g/dL Albumin (3.5-5.0) g/dL Globulin (2.4-3.5) g/dL Albumin/Globulin Ratio (1.1-2.2) Prealbumin (18.0-45.0) mg/dL Triglycerides (< 150) mg/dL Urine Color (Yellow) Urine Clarity (Clear) Urine pH (5.0-8.0) pH Units Ur Specific [place] (1.010-1.025) Urine Protein (Neg-Trace) mg/dL Urine Glucose (UA) (Normal) mg/dL Urine Ketones (Negative) mg/dL Urine Blood (Negative) Urine Nitrite (Negative) Urine Bilirubin (Negative) Urine Urobilinogen (Normal) mg/dL Ur Leukocyte Esterase (Negative) Urine Microscopic RBC (0-3) per hpf Urine Microscopic WBC (0-3) per hpf Ur Squamous Epith Cells (None-Few) per lpf Urine Bacteria (None-Few) per hpf Hyaline Casts (None-Few) per lpf Ur Culture Indicated? (NO) C. difficile Tox (PCR) (Negative) Specimen Rejected Blood Type Antibody Screen Crossmatch 05/02/16 05/02/16 05/02/16 Range/Units 03:30 03:42 07:10 WBC (4.3-11.1) K/mcL RBC (4.19-5.50) M/mcL Hgb (12.9-16.9) g/dL Hct (37.5-50.1) % MCV (83.0-100.0) fL MCH (28.0-33.3) pg MCHC (31.6-35.5) g/dL RDW (11.5-14.5) % Plt Count (140-400) K/mcL MPV (9.4-12.4) fL Immature Gran % (0-4) % Seg Neutrophils % % Lymphocytes % % Monocytes % % Eosinophils % % Basophils % % Neutrophils # (1.6-8.9) K/mcL Lymphocytes # (0.6-4.6) K/mcL Monocytes # (0.0-1.3) K/mcL Eosinophils # (0.0-0.6) K/mcL Basophils # (0.0-0.2) K/mcL Reactive Lymphocytes (Not Present) Platelet Estimate (Normal) Immature Plt Fraction (1.1-6.1) % PT (9.4-12.1) Seconds INR Sodium 139 (136-145) mEq/L Potassium 4.1 (3.5-4.5) mEq/L Chloride 104 (98-109) mEq/L Carbon Dioxide 31 H (19-29) mEq/L BUN 25 (8-26) mg/dL Creatinine 0.73 (0.72-1.25) mg/dL Est GFR ( Amer) > 60 (> 60) Est GFR (Non-Af Amer) > 60 (> 60) BUN/Creatinine Ratio 34 H (6-26) Glucose 120 H (70-99) mg/dL POC Glucose 112 H 123 H (58-89) Est Mean Plasma Glucose mg/dl Hemoglobin A1c ( - 5.6) % Calculated Osmolality 294 (280-300) Calcium 8.8 (8.6-10.8) mg/dL Phosphorus (2.3-4.7) mg/dL Magnesium (1.6-2.6) mg/dL Total Bilirubin (0.2-1.2) mg/dL AST (5-34) Units/L ALT (0-55) Units/L Alkaline Phosphatase (38-126) Units/L Serum Total Protein (6.0-8.3) g/dL Albumin (3.5-5.0) g/dL Globulin (2.4-3.5) g/dL Albumin/Globulin Ratio (1.1-2.2) Prealbumin (18.0-45.0) mg/dL Triglycerides (< 150) mg/dL Urine Color (Yellow) Urine Clarity (Clear) Urine pH (5.0-8.0) pH Units Ur Specific [place] (1.010-1.025) Urine Protein (Neg-Trace) mg/dL Urine Glucose (UA) (Normal) mg/dL Urine Ketones (Negative) mg/dL Urine Blood (Negative) Urine Nitrite (Negative) Urine Bilirubin (Negative) Urine Urobilinogen (Normal) mg/dL Ur Leukocyte Esterase (Negative) Urine Microscopic RBC (0-3) per hpf Urine Microscopic WBC (0-3) per hpf Ur Squamous Epith Cells (None-Few) per lpf Urine Bacteria (None-Few) per hpf Hyaline Casts (None-Few) per lpf Ur Culture Indicated? (NO) C. difficile Tox (PCR) (Negative) Specimen Rejected Blood Type Antibody Screen Crossmatch 05/02/16 Range/Units 11:27 WBC (4.3-11.1) K/mcL RBC (4.19-5.50) M/mcL Hgb (12.9-16.9) g/dL Hct (37.5-50.1) % MCV (83.0-100.0) fL MCH (28.0-33.3) pg MCHC (31.6-35.5) g/dL RDW (11.5-14.5) % Plt Count (140-400) K/mcL MPV (9.4-12.4) fL Immature Gran % (0-4) % Seg Neutrophils % % Lymphocytes % % Monocytes % % Eosinophils % % Basophils % % Neutrophils # (1.6-8.9) K/mcL Lymphocytes # (0.6-4.6) K/mcL Monocytes # (0.0-1.3) K/mcL Eosinophils # (0.0-0.6) K/mcL Basophils # (0.0-0.2) K/mcL Reactive Lymphocytes (Not Present) Platelet Estimate (Normal) Immature Plt Fraction (1.1-6.1) % PT (9.4-12.1) Seconds INR Sodium (136-145) mEq/L Potassium (3.5-4.5) mEq/L Chloride (98-109) mEq/L Carbon Dioxide (19-29) mEq/L BUN (8-26) mg/dL Creatinine (0.72-1.25) mg/dL Est GFR ( Amer) (> 60) Est GFR (Non-Af Amer) (> 60) BUN/Creatinine Ratio (6-26) Glucose (70-99) mg/dL POC Glucose 186 H (58-89) Est Mean Plasma Glucose mg/dl Hemoglobin A1c ( - 5.6) % Calculated Osmolality (280-300) Calcium (8.6-10.8) mg/dL Phosphorus (2.3-4.7) mg/dL Magnesium (1.6-2.6) mg/dL Total Bilirubin (0.2-1.2) mg/dL AST (5-34) Units/L ALT (0-55) Units/L Alkaline Phosphatase (38-126) Units/L Serum Total Protein (6.0-8.3) g/dL Albumin (3.5-5.0) g/dL Globulin (2.4-3.5) g/dL Albumin/Globulin Ratio (1.1-2.2) Prealbumin (18.0-45.0) mg/dL Triglycerides (< 150) mg/dL Urine Color (Yellow) Urine Clarity (Clear) Urine pH (5.0-8.0) pH Units Ur Specific [place] (1.010-1.025) Urine Protein (Neg-Trace) mg/dL Urine Glucose (UA) (Normal) mg/dL Urine Ketones (Negative) mg/dL Urine Blood (Negative) Urine Nitrite (Negative) Urine Bilirubin (Negative) Urine Urobilinogen (Normal) mg/dL Ur Leukocyte Esterase (Negative) Urine Microscopic RBC (0-3) per hpf Urine Microscopic WBC (0-3) per hpf Ur Squamous Epith Cells (None-Few) per lpf Urine Bacteria (None-Few) per hpf Hyaline Casts (None-Few) per lpf Ur Culture Indicated? (NO) C. difficile Tox (PCR) (Negative) Specimen Rejected Blood Type Antibody Screen Crossmatch
[2016-05-02] MEDS ORDERED: Benzonatate 100 MG CAPSULE PO PRN (15:43)
[2016-05-02] MEDS: *HR* OxyCODONE/APAP 5/325 TABLET PO PRN (20:06)
[2016-05-03] MEDS: hydrALAZINE 25 MG TABLET PO SCH ×4 (00:51→17:04)
[2016-05-03] MEDS: *HR* OxyCODONE/APAP 5/325 TABLET PO PRN ×2 (02:50→17:05)
[2016-05-03] MEDS: *HR* Heparin 5,000 UNIT/ML VIAL SQ SCH ×2 (06:21→17:04)
[2016-05-03] MEDS: Furosemide 40 MG TABLET PO SCH (09:25)
[2016-05-03] MEDS: Lisinopril 20 MG TABLET PO SCH (09:25)
[2016-05-03] MEDS: amLODIPine 5 MG TABLET PO SCH (09:25)
--- NOTE | 2016-05-03 15:29 | Discharge Summary ---
Date of Encounter: 05/03/16 Time of Encounter: 15:25 - Discharge Diagnosis (1) Abscess of sigmoid colon due to diverticulitis Priority: Primary Status: Acute (2) DVT prophylaxis Priority: Secondary Status: Acute (3) Hypertension Priority: Secondary Status: Chronic Qualifiers: Hypertension type: essential hypertension Qualified Code(s): I10 - Essential (primary) hypertension (4) CAD (coronary artery disease) Priority: Secondary Status: Chronic Qualifiers: Coronary Disease-Associated Artery/Lesion type: [place] artery [place] vs. transplanted heart: [place] heart Associated angina: without angina Qualified Code(s): I25.10 - Atherosclerotic heart disease of [place] coronary artery without angina pectoris (5) CHF (congestive heart failure) Priority: Secondary Status: Chronic Qualifiers: Congestive heart failure type: diastolic Congestive heart failure chronicity: unspecified congestive heart failure chronicity Qualified Code(s) : I50.30 - Unspecified diastolic (congestive) heart failure (6) COPD (chronic obstructive pulmonary disease) Priority: Secondary Status: Chronic Qualifiers: COPD type: unspecified COPD Qualified Code(s): J44.9 - Chronic obstructive pulmonary disease, unspecified - Discharge Medications Prescriptions: OxyCODONE/APAP 5/325 [Percocet 5/325 MG] 1 each PO Q6HR PRN #14 tablet PRN Reason: pain not relieved by Tylenol Furosemide [Lasix] 40 mg PO DAILY #30 tablet Home Medications: Atenolol [Tenormin] 100 mg PO DAILY 03/01/15 [History] Donepezil [Aricept] 20 mg PO DAILY 03/01/15 [History] Lisinopril [Zestril] 40 mg PO DAILY 03/01/15 [History] Omeprazole [PriLOSEC] 20 mg PO DAILY 03/01/15 [History] Zafirlukast [Accolate] 20 mg PO DAILY 03/01/15 [History] Amlodipine [Norvasc] 10 mg PO DAILY 07/22/15 [History] Finasteride [Proscar] 5 mg PO DAILY 10/03/15 [History] Albuterol Sulfate [Proair Hfa] 2 puff IH DAILY 04/15/16 [History] Nortriptyline HCl 75 mg PO HS 04/15/16 [History] Oxygen 2.5 l .ROUTE DAILY 04/15/16 [History] Furosemide [Lasix] 40 mg PO DAILY #30 tablet 05/03/16 [Rx] OxyCODONE/APAP 5/325 [Percocet 5/325 MG] 1 each PO Q6HR PRN #14 tablet 05/03/16 [Rx] Allergies/Adverse Reactions: Allergies No Known Allergies Allergy (Verified 04/15/16 15:46) Date of admission: 04/15/16 02:11 Primary care physician: Michael Grant Consults: 05/01/16 13:05 Consult to [employer] [CONS] Routine Reason for SW Consult: arrange for Home Health for continued colostomy care and teaching after discharge home. 04/15/16 12:29 Consult to Cardiology [CONS] Routine Comment: Consulting Provider: Cardiology Linda Reason for Consult: evaluate cardiac risks because pt may need surgery Call Completed: No 04/26/16 13:22 Consult to Occupational Therapy [CONS] Routine Comment: Evaluate, develop and implement POC Consult to Physical Therapy [CONS] Routine Comment: Evaluate, develop and implement POC 04/26/16 13:43 Consult to Enterostomal Therapist [CONS] Routine Reason for Consult: new end colostomy upper left anterior abdominal wall Time Notified: 13:00 Call Completed: Yes 04/26/16 16:59 Consult to Physician [CONS] Stat Consulting Provider: Kobi Mcbride Reason for Consult: Surgery Call Completed: No Discharging clinician: Deon Valadez Anticipated date of discharge: 05/03/16 - Patient Status Disposition: Transfer SNF Condition: Good Functional capacity at discharge: uses cane/walker Overall status at discharge: patient is progressing back to baseline - Discharge Instructions Instructions: Chronic Hypertension (DC) Follow Up With: Waqar Caldwell MD [Partnered Physician] - 05/15/16 8:45 am (1-2 wks ) Kobi Mcbride MD [Non-Partnered Physician] - (In 1-2 weeks) - Diet and Activity Activity: as per physical therapy, increase activity as tolerated, wear oxygen at all times Diet: diabetic diet, low fat, low cholesterol, low salt diet Hospital course: Mr. Desai is a 80 year old male patient with a history of coronary artery disease hypertension and congestive heart failure was admitted here with acute diverticulitis with abscess of the sigmoid colon. Patient has had a prolonged stay in the hospital. He was initially managed medically and then underwent exploratory celiotomy and Raúl procedure with partial omentectomy and incidental appendectomy. He has a colostomy afterwards. He was then placed on TPN and slowly transitioned to oral diet which he is tolerating well now. Patient also has a history of urinary retention and urology was consulted. Patient does have meatal stenosis and he had a Robbins catheter placed by urology with great difficulty. 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 At this time, patient is clinically stable for discharge and has been cleared from a surgery standpoint. He will be discharged to [facility] for rehabilitation. - Time Spent with Patient Total time spent providing and/or coordinating discharge services: Greater than 30 minutes (45) - Constitutional Vitals: Temp Pulse Resp BP Pulse Ox 97.2 F L 68 16 154/62 94 L 05/03/16 11:56 05/03/16 11:56 05/03/16 11:56 05/03/16 11:56 05/03/16 11:56 General appearance: Present: cooperative, A&O X 3, morbidly obese, no acute distress, answers questions appropriately - Respiratory Respiratory exam: Present: CTAB. Absent: accessory muscle use, rales, rhonchi, wheezes - Cardiovascular Cardiovascular exam: Present: RRR, +S1, +S2. Absent: diastolic murmur, gallop, rubs, systolic murmur - GI/Abdominal GI/Abdominal exam: Present: normal bowel sounds, soft, no peritoneal signs. Absent: distended, tenderness (Colostomy bag in place. Surgical incision healing well.) - Extremities Exam Extremities exam: Present: warm, radial pulses palpable and symetrical. Absent : calf tenderness, cyanotic, pedal edema - Neurological Exam Neurological exam: Present: oriented X3, no focal deficits. Absent: facial droop, speech deficit - VTE Documentation of Mechanical Device: Intermittent pneumatic compression device - Attending Attestation This document has been at least partially created by [a]list games recognition technology by Dr. Valadez. Errors in grammar, wording or other phrases may exist. If errors are found after the documentation is signed, they will be addressed individually in the addendum section of this document when appropriate.
--- NOTE | 2016-05-03 15:42 | Physician Discharge Referral ---
ExtendedCare Referral Info Transfer To: ECF Provider in Charge after Transfer: PCP Institutional Level of Care: Skilled - Diagnosis (1) Abscess of sigmoid colon due to diverticulitis Priority: Primary Status: Acute (2) DVT prophylaxis Priority: Secondary Status: Acute (3) Hypertension Priority: Secondary Status: Chronic (4) CAD (coronary artery disease) Priority: Secondary Status: Chronic (5) CHF (congestive heart failure) Priority: Secondary Status: Chronic (6) COPD (chronic obstructive pulmonary disease) Priority: Secondary Status: Chronic Prognosis: Fair Aware of Diagnosis: Patient Aware of Prognosis: Patient - Transfer Medications Prescriptions: OxyCODONE/APAP 5/325 [Percocet 5/325 MG] 1 each PO Q6HR PRN #14 tablet PRN Reason: pain not relieved by Tylenol Furosemide [Lasix] 40 mg PO DAILY #30 tablet Home Medications: Atenolol [Tenormin] 100 mg PO DAILY 03/01/15 [History] Donepezil [Aricept] 20 mg PO DAILY 03/01/15 [History] Lisinopril [Zestril] 40 mg PO DAILY 03/01/15 [History] Omeprazole [PriLOSEC] 20 mg PO DAILY 03/01/15 [History] Zafirlukast [Accolate] 20 mg PO DAILY 03/01/15 [History] Amlodipine [Norvasc] 10 mg PO DAILY 07/22/15 [History] Finasteride [Proscar] 5 mg PO DAILY 10/03/15 [History] Albuterol Sulfate [Proair Hfa] 2 puff IH DAILY 04/15/16 [History] Nortriptyline HCl 75 mg PO HS 04/15/16 [History] Oxygen 2.5 l .ROUTE DAILY 04/15/16 [History] Furosemide [Lasix] 40 mg PO DAILY #30 tablet 05/03/16 [Rx] OxyCODONE/APAP 5/325 [Percocet 5/325 MG] 1 each PO Q6HR PRN #14 tablet 05/03/16 [Rx] Allergies/Adverse Reactions: Allergies No Known Allergies Allergy (Verified 04/15/16 15:46) - Respiratory Orders Oxygen / L per min (3) Smoking Cessation: Smoking cessation has been advised. For more information, call the [place] Tobacco Quit Line at 1-745-DFNO-NOW. - Ancillary Orders May consult with Dentist, Cook [employer] Eggs, Grit Removal Operator PRN - Advance Directives Code Status: Full Code - Mobility Orders Other (PER PT) - Rehabiliation Orders Rehab Potential: Fair Rehab Orders: Evaluation for Physical Therapy, Evaluation for Occupational Therapy CERTIFICATION: I certify that the transfer of the above named patient to an Extended Care Facility is necessary for the continuing treatment of the diagnosis listed. The above information is true and accurate reflection of patient's current condition. Confidential - Redisclosure prohibited without a patient's written consent.
[2016-05-03 16:00] LABS: Bilirubin,Urine Negative (Negative); Blood,Urine Negative (Negative); Clarity,Urine Clear (Clear); Color,Urine Yellow (Yellow); Glucose,Urine (UA) Normal (Normal); Ketones,Urine Negative (Negative); Leukocyte Esterase,Urine Moderate (Negative); Nitrite,Urine Negative (Negative); Protein,Urine Negative (Neg-Trace); Specific Gravity,Urine 1.017 (1.010-1.025); Urobilinogen,Urine Normal (Normal)
[2016-05-03 16:02] LABS: Bacteria,Urine None Seen per hpf (None-Few); Hyaline Casts,Urine None Seen per lpf (None-Few); Squamous Epithelial Cell,Urine Many per lpf (None-Few); WBC,Urine 15-30 per hpf (0-3)
[2016-05-03 18:04] VITALS: BP 148/61
== END 2016-05-03 19:10 | DRG 329 ==
LOC: EMEROO 19:12 → 3ANU 19:12 → SUATTDRO 04-15 02:11 → 3ANU 04-26 02:30
PROVIDERS: ADMIT Internal Medicine; ATTEND Internal Medicine

== ENCOUNTER 2016-12-04 15:45 | Observation (INO) ==
[2016-12-04] MEDS ORDERED: 0.9 % Sodium Chloride 1,000 ML IVC ONE (16:11)
[2016-12-04 17:15] LABS: Basophils # 0.1 K/mcL (0.0-0.2); Basophils % 0.8 %; Eosinophils # 0.3 K/mcL (0.0-0.6); Eosinophils % 3.5 %; Hematocrit 41.3 % (37.5-50.1); Hemoglobin 14.1 g/dL (12.9-16.9); Immature Granulocytes % 0.4 % (0-4); Lymphocytes # 0.9 K/mcL (0.6-4.6); Lymphocytes % 11.4 %; Mean Corpuscular HGB Conc 34.1 g/dL (31.6-35.5); Mean Corpuscular Hemoglobin 29.6 pg (28.0-33.3); Mean Corpuscular Volume 86.8 fL (83.0-100.0); Mean Platelet Volume 9.3 fL (9.4-12.4); Monocytes # 0.7 K/mcL (0.0-1.3); Monocytes % 9.3 %; Neutrophils # 5.6 K/mcL (1.6-8.9); Platelet Count 184 K/mcL (140-400); Red Blood Count 4.76 M/mcL (4.19-5.50); Red Cell Distribution Width 13.1 % (11.5-14.5); Segmented Neutrophils % 74.6 %
[2016-12-04 17:27] LABS: BUN/Creatinine Ratio 18 (6-26); Blood Urea Nitrogen 15 mg/dL (8-26); Calcium 9.4 mg/dL (8.6-10.8); Carbon Dioxide 25 mEq/L (19-29); Chloride 104 mEq/L (98-109); Glucose 177 mg/dL (70-99); Osmolality,Calculated 291 (280-300); Potassium 3.8 mEq/L (3.5-4.5); Sodium 138 mEq/L (136-145); eGFR For African Americans > 60 (> 60); eGFR For Non-African Americans > 60 (> 60)
[2016-12-04 17:43] LABS: Bilirubin,Urine Negative (Negative); Blood,Urine Negative (Negative); Clarity,Urine Clear (Clear); Color,Urine Yellow (Yellow); Glucose,Urine (UA) 250 mg/dL (Normal); Ketones,Urine Negative (Negative); Leukocyte Esterase,Urine Small (Negative); Nitrite,Urine Negative (Negative); PH,Urine 6.5 pH Units (5.0-8.0); Protein,Urine 30 mg/dL (Neg-Trace); Specific Gravity,Urine 1.021 (1.010-1.025); Urobilinogen,Urine Normal (Normal)
[2016-12-04 17:46] LABS: Bacteria,Urine None Seen per hpf (None-Few); Hyaline Casts,Urine None Seen per lpf (None-Few); RBC,Urine 0-3 per hpf (0-3); Squamous Epithelial Cell,Urine Many per lpf (None-Few)
[2016-12-04] MEDS ORDERED: Acetaminophen 325 MG TABLET PO PRN (19:50)
[2016-12-04] MEDS ORDERED: Naloxone 0.4 MG/ML INJ IVP PRN (19:50)
[2016-12-04] MEDS ORDERED: Nitroglycerin 0.4 MG TAB.SUBL SL PRN (19:59)
[2016-12-04] MEDS ORDERED: *HR* OxyCODONE/APAP 5/325 TABLET PO PRN (19:59)
[2016-12-04] MEDS ORDERED: Diphenoxylate/Atropine 1 TAB TABLET PO PRN (19:59)
[2016-12-04] MEDS ORDERED: *HR* Metoprolol 5 MG/5 ML VIAL IVP PRN ×3 (20:02→21:57)
--- NOTE | 2016-12-04 20:16 | Internal Med History&Physical ---
<Griffin Boyd J - Last Filed: 12/04/16 20:31> Date of Encounter: 12/04/16 Time of Encounter: 20:08 Assessment and Plan (1) Weakness of both lower extremities Current visit: Yes Status: Acute Acute weakness of BLE; no prominent gait deficit noted upon ED evaluation. No focal neuro deficits noted. Implementing Nihhs and neurocheck protocol. MRI head without contrast. MRA of head and neck without contrast. Consider adding anxiolytic d/t claustrophobia and need of an MRI, PT/OT consult placed for further evaluation. (2) Dizziness Current visit: Yes Status: Acute Acute dizziness which began last night at 10pm. During ED assessment patient seemed to have difficulty with balance when changing positions. SBP is elevated however it is permissible at this time until CVA is r/o. Up with assist and using DME's with ambulation. Get orthostatic BP for further evaluation. Implementing Nihhs and neurocheck protocol. MRI head without contrast. MRA of head and neck without contrast. echocardiogram r/o cva (3) Hypertension Current visit: Yes Status: Chronic HTN noted in the ED was SBP 190's at one time during this ED admission. However , he is having continued chronic ischemic changes versus a stroke/CVA; will stop home BB, and RAMA for permissive HTN until results of the MRI. Will continue or hold BP meds based upon results. IVP BB added 2.5 mg Q6H prn for SBP >190 Continue to monitor. Qualifiers: Hypertension type: essential hypertension Qualified Code(s): I10 - Essential (primary) hypertension (4) COPD (chronic obstructive pulmonary disease) Current visit: Yes Status: Chronic H/O COPD and sleep apnea. On home BiPap. Continue Albuterol PRN. Will consider adding Duonebs if needed. PRN orders for o2 to maintain SPO2 greater than 92%. Qualifiers: COPD type: unspecified COPD Qualified Code(s): J44.9 - Chronic obstructive pulmonary disease, unspecified (5) DVT prophylaxis Current visit: Yes Status: Acute prolonged inactive states secondary to diffculty with mobility and new BLE weakness. Risk for DVT. Start SC Lovenox. Internal Medicine - H&P: HPI Chief complaint: Acute dizziness and BLE weakness Admitted From: Home Plans for Post Hospital Care: Home History of present illness: Mr. Desia is a 81 year old male with a PMH of HTN, HLD, CHF, CAD, COPD, CVA/TIA , GERD, chronic edema, sleep apnea, and morbid obesity presents to [facility] [place] on with new onset dizziness and BLE weakness which began last night at 10pm. Information obtained from chart review and the patient. It is noted that the patient does have a hx of CVA/TIA but no obvious neuro deficits exist. He reports that last night he awoke with a sensation as if he were falling off of a davi. When he arose this morning to begin his daily routine he became dizzy and fell backwards onto his bed. The dizziness appears to worsen with position changes. His baseline at home is lower extremity weakness but he is able to ambulate with a cane. However, he notes today he feels that his legs are having more difficulty than normal with supporting his weight. Troponins were drawn in the ED and found to be negative. a head Ct exhibited global parenchymal volume loss with chronic microvascular changes and scattered athersclerosis. He is being admitted for observation for futher workup and evaluation. Past Med Surg Social Fam HX - Past Medical History Medical history: cancer, CHF, COPD, coronary artery disease, CVA, dementia, hyperlipidemia, hypertension Psychiatric history: no psych history - Past Surgical History Surgical History: no surgical history - Social History Smoking Status: Never smoker Smokeless Tobacco Status: No Alcohol use: none Drug use: none - Family History Father Adopted: No Race: Family Member Ethnicity: Non- Living Status: Age at : 73 Cause of : Heart disease Hx Family Cardiac Disorders: Yes Internal Medicine - H&P: Meds Donepezil [Aricept] 20 mg PO DAILY 03/01/15 [History] Lisinopril [Zestril] 40 mg PO DAILY 03/01/15 [History] Omeprazole [PriLOSEC] 20 mg PO DAILY 03/01/15 [History] Zafirlukast [Accolate] 20 mg PO DAILY 03/01/15 [History] Albuterol Sulfate [Proair Hfa] 2 puff IH DAILY PRN 04/15/16 [History] Nortriptyline HCl 75 mg PO HS 04/15/16 [History] OxyCODONE/APAP 5/325 [Percocet 5/325 MG] 1 each PO Q6HR PRN #14 tablet 05/03/16 [Rx] Amlodipine Besylate 10 mg PO DAILY 12/04/16 [History] Aspirin Enteric Coated [Aspirin EC] 81 mg PO DAILY 12/04/16 [History] Diphenoxylate/Atropine [Lomotil 2.5 mg/0.025 mg] 1 each PO QID PRN 12/04/16 [ History] Ergocalciferol (VITAMIN D2) [Vitamin D] 400 unit PO DAILY 12/04/16 [History] Furosemide [Lasix] 20 mg PO DAILY 12/04/16 [History] Metoprolol Succinate 100 mg PO DAILY 12/04/16 [History] Multivit-Min/FA/Lycopen/Lutein [Centrum Silver Tablet] 1 each PO DAILY 12/04/16 [History] Nitroglycerin [Nitrostat] 0.4 mg SL Q5M PRN 12/04/16 [History] Nortriptyline [Pamelor] 10 mg PO DAILY 12/04/16 [History] [place]-3/Dha/Epa/Fish Oil [Fish Oil 1,000 mg Softgel] 1,000 mg PO DAILY 12/04/16 [History] Ranitidine HCl [Acid Wheelchair Van Operator First Responder] 150 mg PO HS 12/04/16 [History] Allergies No Known Allergies Allergy (Verified 06/01/16 09:10) All Systems PM: A 10-system review of systems was performed and is negative for pertinent findings except as documented above in the HPI. - Constitutional Constitutional: falls, weakness, no anorexia, no chills, no fatigue, no fever(s) , no lethargy, no malaise, no night sweats Additional comments: Fell on his bed this morning. - EENT Eyes: no blurry vision, no change in vision, no discharge, no pain, no photophobia Ears: no ear discharge, no ear pain, no tinnitus Nose, mouth and throat: no dysphagia, no nasal discharge, no neck pain, no sore throat - Cardiovascular Cardiovascular ROS IM: edema, no chest pain, no diaphoresis, no dyspnea, no lightheadedness, no palpitations, no syncope Additional comments: Chronic edema. Denies any syncopal episodes but admits to new dizziness - Respiratory Respiratory: no cough, no dyspnea, no wheezing, no excessive phlegm production - Gastrointestinal Gastrointestinal: no abdominal pain, no diarrhea, no hematemesis, no hematochezia, no melena, no nausea, no vomiting - Musculoskeletal Musculoskeletal ROS IM: no numbness, no stiffness, no tingling - Integumentary Integumentary IM: no rash, no unusual bruising - Neurological Neurological ROS: dizziness, weakness, no confusion, no convulsions, no focal weakness, no headache(s), no loss of vision, no numbness, no tingling, no tremor (s) - Hematologic/Lymphatic Hematologic/Lymphatic: no easy bruising - Constitutional Vitals: Temp Pulse Resp BP Pulse Ox 98.5 F 56 16 190/84 95 12/04/16 15:50 12/04/16 17:48 12/04/16 17:48 12/04/16 17:48 12/04/16 17:48 General appearance: Present: cooperative, A&O X 3, morbidly obese, pleasant, no acute distress, answers questions appropriately - Head Head exam: Present: atraumatic, normocephalic - Eye Eye exam: Present: EOMI, normal appearance, PERRL, conjuntiva pink, sclera anicteric. Absent: nystagmus Pupils: Present: PERRL - Neck Neck exam general surgery: Present: supple, trachea midline. Absent: lymphadenopathy - Respiratory Respiratory exam: Present: CTAB. Absent: accessory muscle use, rales, rhonchi, wheezes - Cardiovascular Cardiovascular exam: Present: RRR, +S1, +S2. Absent: diastolic murmur, gallop, rubs, systolic murmur - GI/Abdominal GI/Abdominal exam: Present: normal bowel sounds, soft, no peritoneal signs. Absent: bruit, distended, tenderness - Extremities Exam Extremities exam: Present: warm, radial pulses palpable and symmetrical. Absent : calf tenderness, cyanotic, pedal edema - Neurological Exam Neurological exam: Present: CN II-XII intact, oriented X3, no focal deficits. Absent: pronater drift, facial droop, speech deficit - Expanded Neurological Exam Patient oriented to: Present: person, place Cranial Nerves: EOM's intact PM: Normal, nystagmus PM: Normal, tongue deviation PM: Normal Neuro motor strength exam: LUE: 5, RUE: 5, LLE: 4 (slight BLE weakness), RLE: 4 (slight BLE weakness) Coma Scale Eye Opening: Spontaneous Coma Scale Motor Response: Obeys Commands Coma Scale Verbal Response: Oriented Coma Scale Total: 15 - Skin Skin exam: Present: dry, intact Internal Med - H&P Results - Labs CBC & Chem 7: 12/04/16 17:08 12/04/16 17:08 - Diagnostic Studies CT scan - head Additional comments: as per HPI <Christian Smith - Last Filed: 12/04/16 23:50> Date of Encounter: 12/04/16 Internal Medicine - H&P: HPI History of present illness: Mr. Desai is a 81 year old male All Systems PM: A 10-system review of systems was performed and is negative for pertinent findings except as documented above in the HPI. - Constitutional Vitals: Temp Pulse Resp BP Pulse Ox 97.9 F 66 18 178/129 96 12/04/16 22:29 12/04/16 22:29 12/04/16 22:29 12/04/16 22:29 12/04/16 22:29 Internal Med - H&P Results - Labs CBC & Chem 7: 12/04/16 17:08 12/04/16 17:08 - Attending Attestation I independently obtained history and examined this patient and my medical decision-making was reviewed with the nurse practitioner, Benitez Boyd . I agree with the documented findings, disposition and treatment plan as described. My findings are summarized below: patient is awake alert and oriented. Heart exam reveals regular S1-S2, no murmurs. Abdomen is obese soft with a colostomy bag in place. Plan: We will place patient in observation. We will obtain every 4 hours neurochecks. We will obtain MRI of the brain to rule out CVA.
[2016-12-04] MEDS: Famotidine 20 MG TABLET PO SCH (21:19)
[2016-12-04] MEDS ORDERED: *HR* Metoprolol 5 MG/5 ML VIAL IVP ONE (21:55)
[2016-12-05] MEDS ORDERED: *HR* LORazepam 2 MG/ML VIAL IVP ONE ×2 (00:30→10:00)
--- NOTE | 2016-12-05 00:34 | Emergency Department Note ---
Disposition Clinical Impression: Dizziness, Weakness of both lower extremities, Transient confusion Disposition: Admitted As Inpatient Condition: Fair Referrals: Millie Carpenter DO [Primary Care Provider] - Forms: ED Satisfaction Letter Time of Disposition: 18:30 Dizziness HPI - General Chief Complaint: ED Dizziness Stated Complaint: "dizzy, weak, not feeling well" Source: EMS Limitations: physical limitation, age Nursing Notes Reviewed: Yes Vital Signs Reviewed: Yes - History of Present Illness HPI Narrative: Patient's 81-year-old male who complains of acute onset of weakness of lower extremities 9 hours ago. Patient states that he awoke around 3 AM and felt weakness in his legs bilaterally and half of his body felt really heavy. Patient's also states the patient has periods of confusion. Patient has extensive medical history of comorbid conditions. Previous episodes of altered mental status and history - Related Data Home Medications Medication Instructions Recorded Confirmed Donepezil [Aricept] 20 mg PO DAILY 03/01/15 12/04/16 Lisinopril [Zestril] 40 mg PO DAILY 03/01/15 12/04/16 Omeprazole [PriLOSEC] 20 mg PO DAILY 03/01/15 12/04/16 Zafirlukast [Accolate] 20 mg PO DAILY 03/01/15 12/04/16 Albuterol Sulfate [Proair Hfa] 2 puff IH DAILY PRN 04/15/16 12/04/16 Nortriptyline HCl 75 mg PO HS 04/15/16 12/04/16 Amlodipine Besylate 10 mg PO DAILY 12/04/16 12/04/16 Aspirin Enteric Coated [Aspirin EC] 81 mg PO DAILY 12/04/16 12/04/16 Diphenoxylate/Atropine [Lomotil 1 each PO QID PRN 12/04/16 12/04/16 2.5 mg/0.025 mg] Ergocalciferol (VITAMIN D2) 400 unit PO DAILY 12/04/16 12/04/16 [Vitamin D] Furosemide [Lasix] 20 mg PO DAILY 12/04/16 12/04/16 Metoprolol Succinate 100 mg PO DAILY 12/04/16 12/04/16 Multivit-Min/FA/Lycopen/Lutein 1 each PO DAILY 12/04/16 12/04/16 [Centrum Silver Tablet] Nitroglycerin [Nitrostat] 0.4 mg SL Q5M PRN 12/04/16 12/04/16 Nortriptyline [Pamelor] 10 mg PO DAILY 12/04/16 12/04/16 [place]-3/Dha/Epa/Fish Oil [Fish Oil 1,000 mg PO DAILY 12/04/16 12/04/16 1,000 mg Softgel] Ranitidine HCl [Acid Membership Advisor] 150 mg PO HS 12/04/16 12/04/16 Previous Rx's Medication Instructions Recorded OxyCODONE/APAP 5/325 [Percocet 1 each PO Q6HR PRN #14 tablet 05/03/16 5/325 MG] Allergies Allergy/AdvReac Type Severity Reaction Status Date / Time No Known Allergies Allergy Verified 06/01/16 09:10 All systems ED: reviewed and negative except as stated. Review of Systems: As Per HPI Constitutional: Reports: weakness. Denies: fever, chills Eyes: Denies: eye pain, vision change ENT ED: Denies: ear pain, throat pain, congestion Cardiovascular: Denies: chest pain, palpitations Respiratory: Denies: cough, dyspnea Gastrointestinal: Denies: abdominal pain, nausea, vomiting, diarrhea Genitourinary: Denies: urgency, dysuria Musculoskeletal: Denies: back pain, neck pain Integumentary: Denies: rash, abrasion Neurological: Reports: weakness, abnormal gait, vertigo. Denies: headache, numbness Psychiatric: Denies: anxiety Endocrine: Denies: fatigue Hematological/Lymphatic: Denies: easy bleeding Past Medical History - Past Medical History Attestation: Yes The following information was validated with the patient. Source: patient, obtained from family Medical history: Reports: cancer, CHF, COPD, coronary artery disease, CVA, dementia, hyperlipidemia, hypertension Surgical history: Reports: no surgical history Psychiatric history: Reports: no psych history - Social History Smoking Status: Never smoker Smokeless Tobacco Status: No Alcohol use: Reports: none Drug use: Reports: none Physical Exam Vital Signs Temperature 98.5 F 12/04/16 15:50 Pulse Rate 59 12/04/16 15:50 Respiratory Rate 17 12/04/16 15:50 Blood Pressure 196/90 12/04/16 15:50 O2 Sat by Pulse Oximetry 93 12/04/16 15:50 Temperature 97.9 F 12/04/16 22:29 Pulse Rate 66 08/08/17 22:29 Respiratory Rate 18 12/04/16 22:29 Blood Pressure 178/129 12/04/16 22:29 O2 Sat by Pulse Oximetry 96 12/04/16 22:29 Oxygen Delivery Oxygen Delivery Room Air -General Appearance: Patient is a 81-year-old male who is alert and oriented 3 and in no acute distress. Patient is pleasant and answers all questions -Neurological exam: Cranial nerves II-12 intact, no focal deficits observed, strength equal 5/5 bilaterally in upper and lower extremities, cerebellar motion test negative. Negative loss of sensation, when placed in seated position patient complained of vertigo symptoms. Symptoms resolved in less than a minute. Patient stood up and had difficulty staying erect. Patient complained of feeling backwards pull and needed assistance with walking to commode. Patient is more than able to maintain weightbearing on both legs but shuffles - Head Head exam: atraumatic, normocephalic, normal inspection - Eye Eye exam: Present: normal appearance, PERRL, EOMI, negative for scleral icterus negative for conjunctival pallor - ENT ENT exam: normal exam, normal oropharynx, mucous membranes moist - Neck Neck exam: Present: normal inspection, full ROM, trachea midline, negative JVD - Chest Chest inspection: Present: Patient has bilateral equal rise and fall of chest wall. Non-tender to palpation. - Respiratory Respiratory exam: Clear to auscultation bilaterally without wheezes rales or rhonchi Cardiovascular Cardiovascular exam: Present: regular rate, normal rhythm, normal heart sounds, without murmurs rubs or gallops. - Abdominal Exam Abdominal exam: Present: soft, nondistended, Non-Tender light and deep palpation in all quadrants. Bowel sounds normoactive throughout all 4 quadrants. Negative for hyper or hyperresonance. - Extremities Exam Extremities exam: Present: normal inspection, full ROM pulses equal and regular bilaterally in upper and lower extremities - Back Exam Back exam: Present: normal inspection, full ROM. Absent: tenderness, CVA tenderness (R), CVA tenderness (L) - Psychiatric Psychiatric exam: Present: normal affect, normal mood - Skin Skin exam: Present: warm, dry, intact, normal color - General Limitations: physical limitation, age General appearance: alert Course - Consultations [facility] #1[facility] medical management Time: 18:10 Vital Signs Temperature 98.5 F 12/04/16 15:50 Pulse Rate 59 12/04/16 15:50 Respiratory Rate 17 12/04/16 15:50 Blood Pressure 196/90 12/04/16 15:50 O2 Sat by Pulse Oximetry 93 12/04/16 15:50 Temperature 98.5 F 12/04/16 15:50 Pulse Rate 59 12/04/16 15:50 Respiratory Rate 17 12/04/16 15:50 Blood Pressure 196/90 12/04/16 15:50 O2 Sat by Pulse Oximetry 93 12/04/16 15:50 Oxygen Delivery Oxygen Delivery Room Air Dizziness - MDM Narrative Medical decision making narrative: Patient concerning for CVA, arrhythmia, heart failure, BPPV Head CT showed Head CT 12/04/16 16:11 IMPRESSION: 1. No acute intracranial abnormality. 2. Global parenchymal volume loss with chronic microvascular ischemic change. 3. Scattered atherosclerosis. Patient continues to have those of weakness and vertigo but not in any pain, not have any shortness of breath and no loss of consciousness. Patient's lab workup was unremarkable. Given patient's persisting weakness recommend admission to hospital for further workup and treatment. Patient and understand and agree to treatment and plan for admission Patient's condition was discussed with hospitalist who accepts patient for admission. - Lab Data Lab results reviewed: Yes I reviewed the patient's lab results. Lab results narrative: Short CBC 12/04/16 Range/Units 17:08 WBC 7.4 (4.3-11.1) K/mcL Hgb 14.1 (12.9-16.9) g/dL Hct 41.3 (37.5-50.1) % Plt Count 184 (140-400) K/mcL Neutrophils # 5.6 (1.6-8.9) K/mcL BMP 12/04/16 Range/Units 17:08 Sodium 138 (136-145) mEq/L Potassium 3.8 (3.5-4.5) mEq/L Chloride 104 (98-109) mEq/L Carbon Dioxide 25 (19-29) mEq/L BUN 15 (8-26) mg/dL Creatinine 0.84 (0.72-1.25) mg/dL Glucose 177 H (70-99) mg/dL Calcium 9.4 (8.6-10.8) mg/dL Cardiac Enzymes 12/04/16 Range/Units 17:08 Troponin I 0.00 (0-0.03) ng/mL Urine 12/04/16 Range/Units 17:30 Urine Color Yellow (Yellow) Urine Clarity Clear (Clear) Urine pH 6.5 (5.0-8.0) pH Units Ur Specific [place] 1.021 (1.010-1.025) Urine Protein 30 H (Neg-Trace) mg/dL Urine Glucose (UA) 250 H (Normal) mg/dL - Radiology Data Radiology results reviewed: Yes I reviewed the patient's radiology results. Head CT 12/04/16 16:11 IMPRESSION: 1. No acute intracranial abnormality. 2. Global parenchymal volume loss with chronic microvascular ischemic change. 3. Scattered atherosclerosis. D/ / Pepe Gandara MD / Pepe Gandara MD Interpreting Provider: Pepe Gandara MD Chest X-Ray 12/04/16 16:13 IMPRESSION: 1. No convincing evidence of acute cardiopulmonary abnormality. 2. Mild bibasilar atelectasis. D/ / Pepe Gandara MD / Pepe Gandara MD Interpreting Provider: Pepe Gandara MD - EKG Data EKG attestation: Yes I reviewed and interpreted this EKG. EKG shows normal: sinus rhythm
[2016-12-05 01:24] LABS: Basophils # 0.1 K/mcL (0.0-0.2); Basophils % 0.7 %; Eosinophils # 0.2 K/mcL (0.0-0.6); Eosinophils % 2.5 %; Hematocrit 41.3 % (37.5-50.1); Hemoglobin 14.2 g/dL (12.9-16.9); Immature Granulocytes % 0.2 % (0-4); Lymphocytes # 0.9 K/mcL (0.6-4.6); Lymphocytes % 10.6 %; Mean Corpuscular HGB Conc 34.4 g/dL (31.6-35.5); Mean Corpuscular Volume 87.1 fL (83.0-100.0); Mean Platelet Volume 9.6 fL (9.4-12.4); Monocytes # 0.8 K/mcL (0.0-1.3); Neutrophils # 6.8 K/mcL (1.6-8.9); Platelet Count 208 K/mcL (140-400); Red Blood Count 4.74 M/mcL (4.19-5.50); Red Cell Distribution Width 12.9 % (11.5-14.5)
[2016-12-05 01:34] LABS: BUN/Creatinine Ratio 14 (6-26); Blood Urea Nitrogen 13 mg/dL (8-26); Calcium 9.4 mg/dL (8.6-10.8); Carbon Dioxide 26 mEq/L (19-29); Chloride 106 mEq/L (98-109); Glucose 179 mg/dL (70-99); Osmolality,Calculated 295 (280-300); Potassium 3.9 mEq/L (3.5-4.5); Sodium 140 mEq/L (136-145); eGFR For African Americans > 60 (> 60); eGFR For Non-African Americans > 60 (> 60)
[2016-12-05] MEDS: *HR* Enoxaparin 40 MG/0.4 ML SYRINGE SQ SCH (04:49)
[2016-12-05] MEDS: Multivit/Ca/Min/Fe/FA 1 TAB TABLET PO SCH (07:51)
[2016-12-05] MEDS: amLODIPine 5 MG TABLET PO SCH (07:52)
[2016-12-05] MEDS: Lisinopril 20 MG TABLET PO SCH (07:52)
[2016-12-05] MEDS: Aspirin Enteric Coated 81 MG Tablet PO SCH (07:52)
[2016-12-05] MEDS: Furosemide 20 MG TABLET PO SCH (07:52)
[2016-12-05] MEDS: Cholecalciferol (D-3) 1,000 UNIT TABLET PO SCH (07:52)
[2016-12-05] MEDS ORDERED: Metoprolol 100 MG TABLET PO SCH (09:00)
[2016-12-05] MEDS ORDERED: *HR* LORazepam 2 MG/ML VIAL ONE (09:54)
[2016-12-05] MEDS: (Omega-3/Dha/Epa/Fish Oil [Fish Oil 1,000 Mg Softgel] PO SCH (11:57)
[2016-12-05] MEDS: ZAFIRLUKAST 20 MG PO SCH (11:58)
[2016-12-05] MEDS ORDERED: Perflutren Lipid Microsphere 1.3 ML in 0.9 % Sodium Chloride 8.7 ML IVP ONE (13:31)
[2016-12-05] MEDS: *HR* Metoprolol 5 MG/5 ML VIAL IVP PRN (16:04)
--- NOTE | 2016-12-05 19:38 | Internal Med Progress Note ---
Date of Encounter: 12/05/16 Time of Encounter: 17:00 - Assessment and plan (1) UTI (urinary tract infection) Current Visit: No Status: Acute Assessment and plan: Patient with urinary tract infection with group G Streptococcus. No allergies to antibiotics. We will treat with Unasyn, and send home on Augmentin. Patient is endorsing burning with urination which she states is acute on chronic for him secondary to his BPH. Qualifiers: Urinary tract infection type: acute cystitis Hematuria presence: with hematuria Qualified Code(s): N30.01 - Acute cystitis with hematuria (2) Weakness of both lower extremities Current Visit: Yes Status: Acute Assessment and plan: Likely secondary to urinary tract infection. Patient stating his dizziness and weakness has improved since admission. Head CT negative. Chest x-ray negative. MRI and MRA unremarkable. Echocardiogram still pending. OT and PT consultations are also still pending. Patient stating he uses a walker and a cane at home and denies any recent falls. Suspect he will be able to be discharged tomorrow pending clinical outcomes. ITS Impressions Head CT 12/04/16 16:11 IMPRESSION: 1. No acute intracranial abnormality. 2. Global parenchymal volume loss with chronic microvascular ischemic change. 3. Scattered atherosclerosis. D/ / Pepe Gandara MD / Pepe Gandara MD Interpreting Provider: Pepe Gandara MD Chest X-Ray 12/04/16 16:13 IMPRESSION: 1. No convincing evidence of acute cardiopulmonary abnormality. 2. Mild bibasilar atelectasis. D/ / Pepe Gandara MD / Pepe Gandara MD Interpreting Provider: Pepe Gandara MD Brain MRI 12/05/16 19:57 IMPRESSION: 1. No acute intracranial abnormality. Specifically, no acute infarction. 2. Diffuse parenchymal volume loss and sequela of mild chronic microvascular ischemic changes. 3. No hemodynamically significant stenosis or occlusion in the cervical arterial circulation. 4. No hemodynamically significant stenosis or occlusion in the intracranial arterial circulation. D/ / 12/05/2016 12:03:39 Jean Perez MD / joselito Interpreting Provider: Jean Perez MD Head MRA 12/05/16 19:57 IMPRESSION: 1. No acute intracranial abnormality. Specifically, no acute infarction. 2. Diffuse parenchymal volume loss and sequela of mild chronic microvascular ischemic changes. 3. No hemodynamically significant stenosis or occlusion in the cervical arterial circulation. 4. No hemodynamically significant stenosis or occlusion in the intracranial arterial circulation. D/ / 12/05/2016 12:03:39 Jean Perez MD / joselito Interpreting Provider: Jean Perez MD Neck MRA 12/05/16 19:57 IMPRESSION: 1. No acute intracranial abnormality. Specifically, no acute infarction. 2. Diffuse parenchymal volume loss and sequela of mild chronic microvascular ischemic changes. 3. No hemodynamically significant stenosis or occlusion in the cervical arterial circulation. 4. No hemodynamically significant stenosis or occlusion in the intracranial arterial circulation. D/ / 12/05/2016 12:03:39 Jean Perez MD / joselito Interpreting Provider: Jean Perez MD (3) Dizziness Current Visit: Yes Status: Resolved (4) Hypertension Current Visit: Yes Status: Chronic Assessment and plan: Markedly uncontrolled. Patient stating that his blood pressure is always high when he is in the hospital and when he is at his doctor's office. He states at home, his blood pressure is in the 140s over 70s consistently. We will continue to treat for accelerated hypertension. Qualifiers: Hypertension type: essential hypertension Qualified Code(s): I10 - Essential (primary) hypertension (5) CHF (congestive heart failure) Current Visit: No Status: Chronic Assessment and plan: Chronic diastolic heart failure, no acute exacerbation. On furosemide at home. Qualifiers: Congestive heart failure type: diastolic Congestive heart failure chronicity: chronic Qualified Code(s): I50.32 - Chronic diastolic (congestive ) heart failure (6) CAD (coronary artery disease) Current Visit: No Status: Chronic Assessment and plan: Patient denies chest pain or shortness of breath Qualifiers: Coronary Disease-Associated Artery/Lesion type: [place] artery [place] vs. transplanted heart: [place] heart Associated angina: without angina Qualified Code(s): I25.10 - Atherosclerotic heart disease of [place] coronary artery without angina pectoris (7) COPD (chronic obstructive pulmonary disease) Current Visit: Yes Status: Chronic Assessment and plan: No acute exacerbation. Patient denies shortness of breath above his norm. Tolerating room air well. Qualifiers: COPD type: unspecified COPD Qualified Code(s): J44.9 - Chronic obstructive pulmonary disease, unspecified (8) DVT prophylaxis Current Visit: Yes Status: Acute Assessment and plan: Subcutaneous Lovenox (9) Prediabetes Current Visit: Yes Status: Chronic Assessment and plan: Recent A1c of 6.4%. Recommend follow-up outpatient and lifestyle changes (10) Morbid obesity with BMI of 45.0-49.9, adult Current Visit: Yes Status: Chronic (11) BPH (benign prostatic hyperplasia) Current Visit: Yes Status: Chronic - Subjective Interval history: Patient seen and examined. On examination, patient sitting upright on the side of his bed eating his dinner. Patient denies pain or shortness of breath at this time. He states he still feels a little bit weak, but overall he feels better. Patient stating he is eating normally. He does endorse dysuria stating this is chronic for him. - Constitutional Vitals: Temp Pulse Resp BP Pulse Ox 97.9 F 70 16 189/74 96 12/05/16 18:44 12/05/16 18:44 12/05/16 18:44 12/05/16 18:44 12/05/16 18:44 General appearance: Present: cooperative, A&O X 3, morbidly obese, pleasant, no acute distress, answers questions appropriately - Head Head exam: Present: atraumatic, normocephalic - Eye Eye exam: Present: PERRL, conjuntiva pink, sclera anicteric Pupils: Present: PERRL - Neck Neck exam general surgery: Present: supple, trachea midline. Absent: lymphadenopathy - Respiratory Respiratory exam: Present: decreased breath sounds. Absent: accessory muscle use, rales, respiratory distress, rhonchi, wheezes - Cardiovascular Cardiovascular exam: Present: RRR, +S1, +S2. Absent: diastolic murmur, gallop, rubs, systolic murmur - GI/Abdominal GI/Abdominal exam: Present: distended, normal bowel sounds, soft, no peritoneal signs. Absent: tenderness - Extremities Exam Extremities exam: Present: warm, radial pulses palpable and symmetrical. Absent : calf tenderness, cyanotic, pedal edema - Neurological Exam Neurological exam: Present: alert, CN II-XII intact, oriented X3, no focal deficits, strengths equal and symetr throughout. Absent: pronater drift, facial droop, speech deficit - Skin Skin exam: Present: dry, intact, pallor, warm Internal Medicine: Result - Labs CBC & Chem 7: 12/05/16 00:58 12/05/16 00:58 Labs: Short CBC 12/05/16 Range/Units 00:58 WBC 8.9 (4.3-11.1) K/mcL Hgb 14.2 (12.9-16.9) g/dL Hct 41.3 (37.5-50.1) % Plt Count 208 (140-400) K/mcL Neutrophils # 6.8 (1.6-8.9) K/mcL BMP 12/05/16 00:58 Sodium 140 Potassium 3.9 Chloride 106 Carbon Dioxide 26 BUN 13 Creatinine 0.90 Glucose 179 H Calcium 9.4 Cardiac Enzymes 12/05/16 12/05/16 Range/Units 00:58 08:07 Troponin I 0.00 0.00 (0-0.03) ng/mL - Impressions Impressions Brain MRI 12/05/16 19:57 IMPRESSION: 1. No acute intracranial abnormality. Specifically, no acute infarction. 2. Diffuse parenchymal volume loss and sequela of mild chronic microvascular ischemic changes. 3. No hemodynamically significant stenosis or occlusion in the cervical arterial circulation. 4. No hemodynamically significant stenosis or occlusion in the intracranial arterial circulation. D/ / 12/05/2016 12:03:39 Jean Perez MD / joselito Interpreting Provider: Jean Perez MD Head MRA 12/05/16 19:57 IMPRESSION: 1. No acute intracranial abnormality. Specifically, no acute infarction. 2. Diffuse parenchymal volume loss and sequela of mild chronic microvascular ischemic changes. 3. No hemodynamically significant stenosis or occlusion in the cervical arterial circulation. 4. No hemodynamically significant stenosis or occlusion in the intracranial arterial circulation. D/ / 12/05/2016 12:03:39 Jean Perez MD / joselito Interpreting Provider: Jean Perez MD Neck MRA 12/05/16 19:57 IMPRESSION: 1. No acute intracranial abnormality. Specifically, no acute infarction. 2. Diffuse parenchymal volume loss and sequela of mild chronic microvascular ischemic changes. 3. No hemodynamically significant stenosis or occlusion in the cervical arterial circulation. 4. No hemodynamically significant stenosis or occlusion in the intracranial arterial circulation. D/ / 12/05/2016 12:03:39 Jean Perez MD / joselito Interpreting Provider: Jean Perez MD Consult Discharge Plan - Plan Referrals: Millie Carpenter DO [Primary Care Provider] -
[2016-12-05] MEDS ORDERED: Ampicillin/Sulbactam 3,000 MG in 0.9 % Sodium Chloride Mini Bag 100 ML IVPB SCH (19:44)
--- NOTE | 2016-12-05 20:18 | Electrocardiograph Report ---
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
[2016-12-05] MEDS: Famotidine 20 MG TABLET PO SCH (20:45)
--- NOTE | 2016-12-05 21:17 | Event Note ---
Date of Encounter: 12/05/16 Time of Encounter: 21:16 Blood pressure is markedly elevated, as high as 240 systolic earlier today. Plan: I will change the metoprolol to twice a day dosing and add HCTZ to start in the morning.
[2016-12-06] MEDS: Ampicillin/Sulbactam 3,000 MG in 0.9 % Sodium Chloride Mini Bag 100 ML IVPB SCH ×2 (03:41→08:08)
[2016-12-06] MEDS: *HR* Metoprolol 5 MG/5 ML VIAL IVP PRN (05:03)
[2016-12-06] MEDS: *HR* Enoxaparin 40 MG/0.4 ML SYRINGE SQ SCH (05:03)
[2016-12-06] MEDS: Lisinopril 20 MG TABLET PO SCH (08:07)
[2016-12-06] MEDS: Cholecalciferol (D-3) 1,000 UNIT TABLET PO SCH (08:07)
[2016-12-06] MEDS: Aspirin Enteric Coated 81 MG Tablet PO SCH (08:08)
[2016-12-06] MEDS: amLODIPine 5 MG TABLET PO SCH (08:08)
[2016-12-06] MEDS: Furosemide 20 MG TABLET PO SCH (08:08)
[2016-12-06] MEDS: Multivit/Ca/Min/Fe/FA 1 TAB TABLET PO SCH (08:08)
[2016-12-06] MEDS: (Omega-3/Dha/Epa/Fish Oil [Fish Oil 1,000 Mg Softgel] PO SCH (08:09)
[2016-12-06] MEDS: ZAFIRLUKAST 20 MG PO SCH (08:20)
[2016-12-06] MEDS ORDERED: hydroCHLOROthiazide 25 MG TABLET PO SCH (09:00)
[2016-12-06] MEDS ORDERED: cloNIDine HCl 0.1 MG TABLET PO SCH (11:45)
[2016-12-06 11:57] VITALS: BP 195/78
--- NOTE | 2016-12-06 15:50 | Discharge Summary ---
Date of Encounter: 12/06/16 Time of Encounter: 14:00 - Discharge Diagnosis (1) White coat syndrome with diagnosis of hypertension Priority: Primary Status: Chronic Comments: Patient stating it is well-known to his primary care provider that his blood pressure is always elevated when he is in the hospital and when he is in the doctor's office but is normotensive at home. He states that "you can give me any blood pressure medication in the world but as long as I am in a hospital or in a doctor's office, her blood pressure will not go down." I will have him go home and check his blood pressure daily and follow-up closely outpatient with his primary care provider. If his blood pressure does not come down over the next day or 2, he has been instructed to return back to the emergency department. (2) UTI (urinary tract infection) Priority: Primary Status: Acute Comments: Patient with urinary tract infection with group G Streptococcus. No allergies to antibiotics. Treated with Unasyn while admitted, and sent home on Augmentin. Patient is endorsing burning with urination which she states is acute on chronic for him secondary to his BPH. Qualifiers: Urinary tract infection type: acute cystitis Hematuria presence: with hematuria Qualified Code(s): N30.01 - Acute cystitis with hematuria (3) Weakness of both lower extremities Priority: Primary Status: Resolved Comments: Occupational therapy recommended no needs, physical therapy recommended outpatient therapy that would need to be set up by his primary care provider (4) Dizziness Priority: Primary Status: Resolved (5) Hypertension Priority: Secondary Status: Chronic Comments: See prior note for white coat hypertension Qualifiers: Hypertension type: essential hypertension Qualified Code(s): I10 - Essential (primary) hypertension (6) CHF (congestive heart failure) Priority: Secondary Status: Chronic Comments: Chronic diastolic heart failure, no acute exacerbation. On furosemide at home. Qualifiers: Congestive heart failure type: diastolic Congestive heart failure chronicity: chronic Qualified Code(s): I50.32 - Chronic diastolic (congestive ) heart failure (7) CAD (coronary artery disease) Priority: Secondary Status: Chronic Comments: Patient denied chest pain or shortness of breath throughout this admission Qualifiers: Coronary Disease-Associated Artery/Lesion type: [place] artery [place] vs. transplanted heart: [place] heart Associated angina: without angina Qualified Code(s): I25.10 - Atherosclerotic heart disease of [place] coronary artery without angina pectoris (8) COPD (chronic obstructive pulmonary disease) Priority: Secondary Status: Chronic Comments: No acute exacerbation Qualifiers: COPD type: unspecified COPD Qualified Code(s): J44.9 - Chronic obstructive pulmonary disease, unspecified (9) DVT prophylaxis Priority: Primary Status: Acute Comments: Subcutaneous Lovenox while admitted (10) Prediabetes Priority: Secondary Status: Chronic Comments: Recent A1c of 6.4%. Recommend follow-up outpatient and lifestyle changes (11) Morbid obesity with BMI of 45.0-49.9, adult Priority: Secondary Status: Chronic (12) BPH (benign prostatic hyperplasia) Priority: Secondary Status: Chronic - Discharge Medications Prescriptions: Amoxicillin/Clavulanate [Augmentin] 500 mg PO BIDWM #12 tablet cloNIDine HCl [CloNIDine HCl] 0.1 mg PO TID #90 tab Home Medications: Donepezil [Aricept] 20 mg PO DAILY 03/01/15 [History] Lisinopril [Zestril] 40 mg PO DAILY 03/01/15 [History] Omeprazole [PriLOSEC] 20 mg PO DAILY 03/01/15 [History] Zafirlukast [Accolate] 20 mg PO DAILY 03/01/15 [History] Albuterol Sulfate [Proair Hfa] 2 puff IH DAILY PRN 04/15/16 [History] Nortriptyline HCl 75 mg PO HS 04/15/16 [History] OxyCODONE/APAP 5/325 [Percocet 5/325 MG] 1 each PO Q6HR PRN #14 tablet 05/03/16 [Rx] Amlodipine Besylate 10 mg PO DAILY 12/04/16 [History] Aspirin Enteric Coated [Aspirin EC] 81 mg PO DAILY 12/04/16 [History] Diphenoxylate/Atropine [Lomotil 2.5 mg/0.025 mg] 1 each PO QID PRN 12/04/16 [ History] Ergocalciferol (VITAMIN D2) [Vitamin D] 400 unit PO DAILY 12/04/16 [History] Furosemide [Lasix] 20 mg PO DAILY 12/04/16 [History] Metoprolol Succinate 100 mg PO DAILY 12/04/16 [History] Multivit-Min/FA/Lycopen/Lutein [Centrum Silver Tablet] 1 each PO DAILY 12/04/16 [History] Nitroglycerin [Nitrostat] 0.4 mg SL Q5M PRN 12/04/16 [History] Nortriptyline [Pamelor] 10 mg PO DAILY 12/04/16 [History] Batchelor-3/Dha/Epa/Fish Oil [Fish Oil 1,000 mg Softgel] 1,000 mg PO DAILY 12/04/16 [History] Ranitidine HCl [Acid Slitter Scorer Cut Off Operator] 150 mg PO HS 12/04/16 [History] Amoxicillin/Clavulanate [Augmentin] 500 mg PO BIDWM #12 tablet 12/06/16 [Rx] cloNIDine HCl [CloNIDine HCl] 0.1 mg PO TID #90 tab 12/06/16 [Rx] Allergies/Adverse Reactions: Allergies No Known Allergies Allergy (Verified 06/01/16 09:10) Procedures/tests Complete & Pending: Procedures Performed prior 72 hours Category Date Time Status MR angio head wo con [MR] Routine MRI 12/05/16 19:57 Completed MR angio neck wo/w con [MR] Routine MRI 12/05/16 19:57 Completed MR head/brain wo con [MR] Routine MRI 12/05/16 19:57 Completed ECG 12 lead ECG [ECG] Routine Y 12/04/16 15:52 Completed EV echocardiogram w enhance Routine Y 12/05/16 20:44 Completed Date of admission: 12/04/16 18:26 Primary care physician: Michael Grant Consults: 12/04/16 19:56 Consult to Occupational Therapy [CONS] Routine Comment: Evaluate, develop and implement POC Reason for Consult: acute dizziness and BLE weakness Consult to Physical Therapy [CONS] Routine Comment: Evaluate, develop and implement POC Reason for Consult: acute dizziness and BLE weakness Discharging clinician: Barbara Youngblood Anticipated date of discharge: 12/06/16 - Patient Status Disposition: Home, Self-Care Condition: Fair Functional capacity at discharge: uses cane/walker Overall status at discharge: patient is back to baseline - Discharge Instructions Follow Up With: Millie Carpenter DO [Primary Care Provider] - 12/11/16 9:30 am Forms: ED Satisfaction Letter Additional Instructions: Follow-up with primary care provider as scheduled, maintain close contact and return to the emergency department if your blood pressure does not normalize - Diet and Activity Activity: increase activity as tolerated Diet: diabetic diet, low fat, low cholesterol, low salt diet Hospital course: Mr. 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 Patient presented to the emergency department chief complaint of new onset of dizziness and bilateral lower extremity weakness which began on the night prior to presentation. He states that on night prior to presentation, he woke up and felt as if he was falling off a cleft. He then woke up in the morning and began his daily routine when he became dizzy and fell backwards onto his bed. The dizziness had worsened with position changes and he began to endorse lower extremity weakness. He states his lotion and weakness is chronic and he typically ambulates with a cane however on the day of presentation, he was having more difficulty supporting his weight. Workup in the emergency department unremarkable other than an abnormal urinalysis and marked hypertension. Head CT negative for acute processes. Chest x-ray negative. Patient was admitted to the hospitalist service for further evaluation and management. MRI of the brain, MRA of the head and neck were both unremarkable. Echocardiogram is unremarkable with ejection fraction of 60-65% and mild diastolic dysfunction. The patient was euvolemic on examination during this admission. His urinary tract infection was consistent with group G Streptococcus and he was treated with Unasyn while admitted and sent home on Augmentin. During this admission, his dizziness and lower extremity weakness had returned to its baseline. He was seen and evaluated by physical therapy who recommended outpatient therapy that we need to be set up by his primary care provider if indicated, occupational therapy surmised he had no needs. Main focus during this admission began to include controlling his blood pressure. HCTZ was added to his regimen, his metoprolol was increased, and clonidine was added to his regimen and his blood pressure remained unaffected and elevated. I had a lengthy discussion with the patient and his and they both confirm that the patient always has high blood pressure when he is at the hospital and when he is at a doctor's office. He states that when he goes home, his blood pressure will return to normal. He also stated that "you can give me all the blood pressure medications in the world but as long as I am here in the hospital, my blood pressure would not go down." I sent an email to his primary care provider to ensure follow-up within the next day or 2 to make sure that his blood pressure did go down after he went home. I did add clonidine to his regimen. He was also seen by his primary care provider recently and furosemide was added to his regimen as well. I instructed the patient to return back to the emergency department if his blood pressure does not return to normal and I instructed him to have close contact with his primary care provider. He was discharged home in stable condition with close outpatient follow-up highly recommended within the next day or 2. ITS Impressions Head CT 12/04/16 16:11 IMPRESSION: 1. No acute intracranial abnormality. 2. Global parenchymal volume loss with chronic microvascular ischemic change. 3. Scattered atherosclerosis. D/ / Pepe Gandara MD / Pepe Gandara MD Interpreting Provider: Pepe Gandara MD Chest X-Ray 12/04/16 16:13 IMPRESSION: 1. No convincing evidence of acute cardiopulmonary abnormality. 2. Mild bibasilar atelectasis. D/ / Pepe Gandara MD / Pepe Gandara MD Interpreting Provider: Pepe Gandara MD Brain MRI 12/05/16 19:57 IMPRESSION: 1. No acute intracranial abnormality. Specifically, no acute infarction. 2. Diffuse parenchymal volume loss and sequela of mild chronic microvascular ischemic changes. 3. No hemodynamically significant stenosis or occlusion in the cervical arterial circulation. 4. No hemodynamically significant stenosis or occlusion in the intracranial arterial circulation. D/ / 12/05/2016 12:03:39 Jean Perez MD / joselito Interpreting Provider: Jean Perez MD Head MRA 12/05/16 19:57 IMPRESSION: 1. No acute intracranial abnormality. Specifically, no acute infarction. 2. Diffuse parenchymal volume loss and sequela of mild chronic microvascular ischemic changes. 3. No hemodynamically significant stenosis or occlusion in the cervical arterial circulation. 4. No hemodynamically significant stenosis or occlusion in the intracranial arterial circulation. D/ / 12/05/2016 12:03:39 Jean Perez MD / joselito Interpreting Provider: Jean Perez MD Neck MRA 12/05/16 19:57 IMPRESSION: 1. No acute intracranial abnormality. Specifically, no acute infarction. 2. Diffuse parenchymal volume loss and sequela of mild chronic microvascular ischemic changes. 3. No hemodynamically significant stenosis or occlusion in the cervical arterial circulation. 4. No hemodynamically significant stenosis or occlusion in the intracranial arterial circulation. D/ / 12/05/2016 12:03:39 Jean Perez MD / joselito Interpreting Provider: Jean Perez MD Echo with Saline and Imaging Enhancement Agent Impressions: Technically sub-optimal due to body habitus. LVEF 60-65%. Normal LV chamber size and function. Mild concentric left ventricular hypertrophy. Mild left ventricular diastolic dysfunction. Suboptimal image quality, but no obvious evidence of a PFO with agitated saline contrast. No evidence of pulmonary hypertension identified. RVSP was not well obtained. No obvious significant valvular dysfunction. - Time Spent with Patient Total time spent providing and/or coordinating discharge services: - Constitutional Vitals: Temp Pulse Resp BP Pulse Ox 98.1 F 70 17 195/78 94 12/06/16 11:52 12/06/16 11:52 12/06/16 11:52 12/06/16 11:52 12/06/16 11:52 General appearance: Present: cooperative, A&O X 3, morbidly obese, pleasant, no acute distress, answers questions appropriately - Head Head exam: Present: atraumatic, normocephalic - Eye Eye exam: Present: PERRL, conjuntiva pink, sclera anicteric Pupils: Present: PERRL - Neck Neck exam general surgery: Present: supple, trachea midline. Absent: lymphadenopathy - Respiratory Respiratory exam: Present: CTAB. Absent: accessory muscle use, rales, respiratory distress, rhonchi, wheezes - Cardiovascular Cardiovascular exam: Present: RRR, +S1, +S2. Absent: diastolic murmur, gallop, rubs, systolic murmur - GI/Abdominal GI/Abdominal exam: Present: normal bowel sounds, soft, no peritoneal signs. Absent: distended, tenderness - Extremities Exam Extremities exam: Present: warm, radial pulses palpable and symmetrical. Absent : calf tenderness, cyanotic, pedal edema - Neurological Exam Neurological exam: Present: alert, CN II-XII intact, oriented X3, no focal deficits, strengths equal and symetr throughout. Absent: pronater drift, facial droop, speech deficit - Skin Skin exam: Present: dry, intact, normal color, warm
== END 2016-12-06 17:50 | disposition home or self-care (01) ==
LOC: EMEROO 15:45 → 3BNU 15:45
PROVIDERS: ADMIT Nurse Practitioner Family; ATTEND Nurse Practitioner Family

== ENCOUNTER 2018-09-05 11:31 | Inpatient (IN) ==
--- NOTE | 2018-09-05 11:42 | Emergency Department Note ---
Disposition Clinical Impression: TIA (transient ischemic attack), Ventricular tachycardia, Generalized weakness Disposition: Admitted As Inpatient Condition: Fair Forms: ED Satisfaction Letter Time of Disposition: 12:58 Neuro HPI - General Chief Complaint: ED Neuro Symptoms/Deficit Stated Complaint: Neuro Symptoms Time Seen by Provider: 09/05/18 11:32 Source: patient, EMS Mode of arrival: EMS Limitations: no limitations Nursing Notes Reviewed: Yes Vital Signs Reviewed: Yes - History of Present Illness HPI Narrative: Patient presenting to the ED via EMS with neurological symptoms and weakness. Patient has a history of a CVA previously. States that yesterday morning he started having some slurred speech and expressive aphasia. States that he is very weak all over. He was trying to go to the doctor's office today and his right leg gave out on him and he fell. No injury from the fall. Denies any head injury or loss of consciousness. Denies any chest pain or shortness of breath. No abdominal pain. No nausea, vomiting or loss of bowel or bladder control. Complains of left leg weakness, but no neck, back or leg pain. Does have a history of a CVA that he states feels similar to this. States that he feels like he knows what he wants to say he just cannot get it out. - Related Data Home Medications: Home Medications Medication Instructions Recorded Confirmed Albuterol Sulfate [Proair Hfa] 1 puff IH PRN PRN 07/14/18 07/14/18 Albuterol Sulfate [Proair Hfa] 2 puff IH DAILY 07/14/18 07/14/18 Amlodipine Besylate 10 mg PO DAILY 07/14/18 07/14/18 Aspirin [Adult Aspirin Regimen] 81 mg PO DAILY 07/14/18 07/14/18 Carvedilol [Coreg] 25 mg PO BID 07/14/18 07/14/18 Diphenoxylate/Atropine [Lomotil 1 tab PO DAILY PRN 07/14/18 07/14/18 2.5 mg/0.025 mg] Donepezil [Aricept] 20 mg PO HS 07/14/18 07/14/18 Ergocalciferol (VITAMIN D2) 400 unit PO DAILY 07/14/18 07/14/18 [Vitamin D] Finasteride [Proscar] 10 mg PO DAILY 07/14/18 07/14/18 Furosemide [Lasix] 20 mg PO DAILY 07/14/18 07/14/18 Ketorolac [Toradol] 10 mg PO PRN PRN 07/14/18 07/14/18 Lisinopril [Zestril] 40 mg PO DAILY 07/14/18 07/14/18 Meclizine HCl [Verticalm] 25 mg PO HS 07/14/18 07/14/18 Metformin HCl 500 mg PO DAILY 07/14/18 07/14/18 Multivit-Min/FA/Lycopen/Lutein 1 each PO DAILY 07/14/18 07/14/18 [Centrum Silver Tablet] Nitroglycerin [Nitrostat] 0.4 mg SL PRN PRN 07/14/18 07/14/18 Nortriptyline HCl 10 mg PO DAILY 07/14/18 07/14/18 [place]-3 Fatty Acids [Fish Oil] 1,000 mg PO DAILY 07/14/18 07/14/18 Omeprazole [PriLOSEC] 20 mg PO DAILY 07/14/18 07/14/18 Oxycodone HCl/Acetaminophen 1 - 2 tab PO QID PRN 07/14/18 07/14/18 [Percocet 5-325 mg Tablet] Zafirlukast [Accolate] 20 mg PO DAILY 07/14/18 07/14/18 cloNIDine HCl [CloNIDine HCl] 0.1 mg PO BID 07/14/18 07/14/18 raNITIdine HCl [Zantac] 150 mg PO HS 07/14/18 07/14/18 Allergies/Adverse Reactions: Allergies Allergy/AdvReac Type Severity Reaction Status Date / Time No Known Allergies Allergy Verified 07/14/18 15:37 Review of Systems: As reviewed in the HPI. All other systems reviewed are negative or normal. Past Medical History - Past Medical History Attestation: Yes The following information was validated with the patient. Source: nursing notes reviewed Medical history: Reports: cancer, CHF, COPD, coronary artery disease, CVA, dementia, hyperlipidemia, hypertension Surgical history: Reports: non-contributory Psychiatric history: Reports: no psych history - Social History Smoking Status: Never smoker Smokeless Tobacco Status: No Alcohol use: Reports: none Drug use: Reports: none Physical Exam CONSTITUTIONAL: [Tearful, chronically ill-appearing, obese] EYES: [EOMI, clear conjunctiva, PERRLA] HENT: [Normocephalic, atraumatic, moist mucus membranes, normal oropharynx] NECK: [normal inspection, full ROM, trachea midline, no obvious swelling] PULMONARY: [normal lung sounds bilaterally, normal chest rise and fall, no respiratory distress or stridor, no wheezes, no rales, no rhonchi CARDIOVASCULAR: [regular rate, regular rhythm, normal heart sounds, no murmurs, distal extremities are warm and well perfused] GASTROINSTESTINAL: [soft, non-tender, non-rigid, non-distended, no guarding, no rebound, normal bowel sounds] GENITOURINARY/RECTAL: [deferred] NEUROLOGIC: [Alert, oriented x3, normal speech, moves all extremities, please see NIH for further details] EXTREMITIES: [Normal inspection, full ROM, no tenderness, no pedal edema, normal capillary refill] MUSCULOSKELETAL: [no gross deformities, atraumatic] SKIN: [No cyanosis, no diaphoresis, normal color, warm, no rash] PSYCHIATRIC: [Anxious, tearful] - General General appearance: alert, in no apparent distress Course Course Narrative: Patient presenting to the ED, greater than 24 hours after onset of neuro symptoms. NIH is 3. We will get a head CT, labs and admit. - Reevaluation(s) Reevaluation #1: 11:53 AM - called the patient's room for a short run of ventricular tachycardia. Patient asymptomatic at this time. Spoke with the and he has no previous cardiac history and symptoms actually started greater than 48 hours ago. We will continue to monitor closely. If he does have any further runs of V. tach. We will start on amiodarone. Reevaluation #2: Patient admitted the hospitalist Vital Signs Temperature 98.7 F 09/05/18 11:33 Pulse Rate 76 09/05/18 11:33 Respiratory Rate 18 09/05/18 11:33 Blood Pressure 206/100 09/05/18 11:33 O2 Sat by Pulse Oximetry 97 09/05/18 11:33 Temperature 98.7 F 09/05/18 11:33 Pulse Rate 63 09/05/18 12:51 Respiratory Rate 16 09/05/18 12:51 Blood Pressure 188/89 09/05/18 12:51 O2 Sat by Pulse Oximetry 97 09/05/18 12:01 Oxygen Delivery Oxygen Delivery Room Air Neuro Symptoms/Deficit - Medical Records Medical records reviewed: Yes I reviewed the patient's medical records. - Lab Data Lab results reviewed: Yes I reviewed the patient's lab results. Result diagrams: 09/05/18 12:07 09/05/18 12:07 Lab Results 09/05/18 09/05/18 09/05/18 Range/Units 12:07 12:07 12:07 WBC 7.8 (4.3-11.1) K/mcL RBC 4.21 (4.19-5.50) M/mcL Hgb 13.4 (12.9-16.9) g/dL Hct 39.3 (37.5-50.1) % MCV 93.3 (83.0-100.0) fL MCH 31.8 (28.0-33.3) pg MCHC 34.1 (31.6-35.5) g/dL RDW 12.7 (11.5-14.5) % Plt Count 183 (140-400) K/mcL MPV 9.9 (9.4-12.4) fL PT 11.6 (9.4-12.1) Seconds INR 1.0 APTT 28.9 (26.0-36.0) Seconds Sodium 138 (136-145) mEq/L Potassium 3.5 (3.5-5.1) mEq/L Chloride 105 (98-107) mEq/L Carbon Dioxide 23 (23-29) mEq/L BUN 14 (8-23) mg/dL Creatinine 0.70 (0.70-1.30) mg/dL Est GFR ( Amer) > 60 (> 60) Est GFR (Non-Af Amer) > 60 (> 60) BUN/Creatinine Ratio 20 (6-26) Glucose 178 H (70-105) mg/dL Calculated Osmolality 291 (280-300) Calcium 9.3 (8.6-10.3) mg/dL Troponin I < 0.03 (< 0.04) ng/mL Urine Color (Yellow) Urine Clarity (Clear) Urine pH (5.0-8.0) pH Units Ur Specific [place] (1.010-1.025) Urine Protein (Neg-Trace) mg/dL Urine Glucose (UA) (Normal) mg/dL Urine Ketones (Negative) mg/dL Urine Blood (Negative) Urine Nitrite (Negative) Urine Bilirubin (Negative) Urine Urobilinogen (Normal) mg/dL Ur Leukocyte Esterase (Negative) Urine Microscopic RBC (0-3) per hpf Urine Microscopic WBC (0-3) per hpf Ur Squamous Epith Cells (None-Few) per lpf Urine Bacteria (None-Few) per hpf Hyaline Casts (None-Few) per lpf Ur Culture Indicated? (NO) 09/05/18 Range/Units 12:14 WBC (4.3-11.1) K/mcL RBC (4.19-5.50) M/mcL Hgb (12.9-16.9) g/dL Hct (37.5-50.1) % MCV (83.0-100.0) fL MCH (28.0-33.3) pg MCHC (31.6-35.5) g/dL RDW (11.5-14.5) % Plt Count (140-400) K/mcL MPV (9.4-12.4) fL PT (9.4-12.1) Seconds INR APTT (26.0-36.0) Seconds Sodium (136-145) mEq/L Potassium (3.5-5.1) mEq/L Chloride (98-107) mEq/L Carbon Dioxide (23-29) mEq/L BUN (8-23) mg/dL Creatinine (0.70-1.30) mg/dL Est GFR ( Amer) (> 60) Est GFR (Non-Af Amer) (> 60) BUN/Creatinine Ratio (6-26) Glucose (70-105) mg/dL Calculated Osmolality (280-300) Calcium (8.6-10.3) mg/dL Troponin I (< 0.04) ng/mL Urine Color Yellow (Yellow) Urine Clarity Clear (Clear) Urine pH 6.0 (5.0-8.0) pH Units Ur Specific [place] 1.017 (1.010-1.025) Urine Protein 100 H (Neg-Trace) mg/dL Urine Glucose (UA) 100 H (Normal) mg/dL Urine Ketones Negative (Negative) mg/dL Urine Blood Trace H (Negative) Urine Nitrite Negative (Negative) Urine Bilirubin Negative (Negative) Urine Urobilinogen Normal (Normal) mg/dL Ur Leukocyte Esterase Negative (Negative) Urine Microscopic RBC 5-15 H (0-3) per hpf Urine Microscopic WBC 5-15 H (0-3) per hpf Ur Squamous Epith Cells Many H (None-Few) per lpf Urine Bacteria None Seen (None-Few) per hpf Hyaline Casts None Seen (None-Few) per lpf Ur Culture Indicated? YES A (NO) - Radiology Data Radiology results reviewed: Yes I reviewed the patient's radiology results. - EKG Data EKG attestation: Yes I reviewed and interpreted this EKG. EKG results narrative: Sinus rhythm, rate 75, left axis deviation, right bundle branch block that is unchanged from previous, no acute ischemic change NIH Stroke Scale - Level of Consciousness LOC: Alert - LOC Questions LOC Questions: Answers both correctly - LOC Commands LOC Commands: Performs both correctly - Best Gaze Best Gaze: Normal - Visual Visual: No visual loss - Facial Palsy Facial Palsy: Minor asymmetry on smiling, flattened nasolabial fold - Motor Arms Motor Arm-Left: No drift for 10 seconds Motor Arm-Right: No drift for 10 seconds - Motor Legs Motor Leg-Left: No drift for 5 seconds Motor Leg-Right: Some effort against gravity, limb drifts to bed - Limb Ataxia Limb Ataxia: Normal, No Ataxia - Sensory Sensory: Normal - Best Language Best Language: No aphasia - Dysarthria Dysarthria: Normal - Extinction and Inattention Extinction and Inattention: Normal - NIHSS Total Score NIHSS Total Score: 3 TPA Checklist - LKW: 3-4.5 hrs Add. Warnings/Precautions Patient/family understanding: The patient/family members have been counseled and understood the risk, benefit, and alternatives of treatment. Critical Care Time Critical Care Time: Yes Total Critical Care Time: 35 Attestation: I personally spent ___35___ minutes devoted to the care of this critically ill patient with TIA versus CVA and short runs of ventricular tachycardia. This time excludes the time for billable procedures.
[2018-09-05 12:18] LABS: Hematocrit 39.3 % (37.5-50.1); Hemoglobin 13.4 g/dL (12.9-16.9); Mean Corpuscular HGB Conc 34.1 g/dL (31.6-35.5); Mean Corpuscular Hemoglobin 31.8 pg (28.0-33.3); Mean Corpuscular Volume 93.3 fL (83.0-100.0); Mean Platelet Volume 9.9 fL (9.4-12.4); Platelet Count 183 K/mcL (140-400); Red Blood Count 4.21 M/mcL (4.19-5.50); Red Cell Distribution Width 12.7 % (11.5-14.5)
[2018-09-05 12:25] LABS: Prothrombin Time 11.6 Seconds (9.4-12.1)
[2018-09-05 12:27] LABS: Bilirubin,Urine Negative (Negative); Blood,Urine Trace (Negative); Clarity,Urine Clear (Clear); Color,Urine Yellow (Yellow); Glucose,Urine (UA) 100 mg/dL (Normal); Ketones,Urine Negative (Negative); Leukocyte Esterase,Urine Negative (Negative); Nitrite,Urine Negative (Negative); Protein,Urine 100 mg/dL (Neg-Trace); Specific Gravity,Urine 1.017 (1.010-1.025); Urobilinogen,Urine Normal (Normal)
[2018-09-05 12:28] LABS: Activated Partial Thrombo Time 28.9 Seconds (26.0-36.0)
[2018-09-05 12:29] LABS: Bacteria,Urine None Seen per hpf (None-Few); Hyaline Casts,Urine None Seen per lpf (None-Few); Squamous Epithelial Cell,Urine Many per lpf (None-Few)
[2018-09-05 12:39] LABS: BUN/Creatinine Ratio 20 (6-26); Blood Urea Nitrogen 14 mg/dL (8-23); Calcium 9.3 mg/dL (8.6-10.3); Carbon Dioxide 23 mEq/L (23-29); Chloride 105 mEq/L (98-107); Glucose 178 mg/dL (70-105); Osmolality,Calculated 291 (280-300); Potassium 3.5 mEq/L (3.5-5.1); Sodium 138 mEq/L (136-145); Troponin I < 0.03 ng/mL (< 0.04); eGFR For Non-African Americans > 60 (> 60)
[2018-09-05] MEDS ORDERED: Aspirin 81 MG TAB.CHEW PO ONE (12:59)
--- NOTE | 2018-09-05 13:05 | Emergency Department Note ---
Disposition Clinical Impression: TIA (transient ischemic attack), Ventricular tachycardia, Generalized weakness Disposition: Admitted As Inpatient Condition: Fair Referrals: Millie Carpenter DO [Primary Care Provider] - Forms: ED Satisfaction Letter General Adult HPI - General Chief complaint: ED Neuro Symptoms/Deficit Stated complaint: Neuro Symptoms Time Seen by Provider: 09/05/18 11:32 Source: patient, EMS Mode of arrival: EMS Limitations: no limitations - History of Present Illness Pain Scale: 0 - Related Data Home Medications Medication Instructions Recorded Confirmed Albuterol Sulfate [Proair Hfa] 1 puff IH PRN PRN 07/14/18 07/14/18 Albuterol Sulfate [Proair Hfa] 2 puff IH DAILY 07/14/18 07/14/18 Amlodipine Besylate 10 mg PO DAILY 07/14/18 07/14/18 Aspirin [Adult Aspirin Regimen] 81 mg PO DAILY 07/14/18 07/14/18 Carvedilol [Coreg] 25 mg PO BID 07/14/18 07/14/18 Diphenoxylate/Atropine [Lomotil 1 tab PO DAILY PRN 07/14/18 07/14/18 2.5 mg/0.025 mg] Donepezil [Aricept] 20 mg PO HS 07/14/18 07/14/18 Ergocalciferol (VITAMIN D2) 400 unit PO DAILY 07/14/18 07/14/18 [Vitamin D] Finasteride [Proscar] 10 mg PO DAILY 07/14/18 07/14/18 Furosemide [Lasix] 20 mg PO DAILY 07/14/18 07/14/18 Ketorolac [Toradol] 10 mg PO PRN PRN 07/14/18 07/14/18 Lisinopril [Zestril] 40 mg PO DAILY 07/14/18 07/14/18 Meclizine HCl [Verticalm] 25 mg PO HS 07/14/18 07/14/18 Metformin HCl 500 mg PO DAILY 07/14/18 07/14/18 Multivit-Min/FA/Lycopen/Lutein 1 each PO DAILY 07/14/18 07/14/18 [Centrum Silver Tablet] Nitroglycerin [Nitrostat] 0.4 mg SL PRN PRN 07/14/18 07/14/18 Nortriptyline HCl 10 mg PO DAILY 07/14/18 07/14/18 [place]-3 Fatty Acids [Fish Oil] 1,000 mg PO DAILY 07/14/18 07/14/18 Omeprazole [PriLOSEC] 20 mg PO DAILY 07/14/18 07/14/18 Oxycodone HCl/Acetaminophen 1 - 2 tab PO QID PRN 07/14/18 07/14/18 [Percocet 5-325 mg Tablet] Zafirlukast [Accolate] 20 mg PO DAILY 07/14/18 07/14/18 cloNIDine HCl [CloNIDine HCl] 0.1 mg PO BID 07/14/18 07/14/18 raNITIdine HCl [Zantac] 150 mg PO HS 07/14/18 07/14/18 Allergies Allergy/AdvReac Type Severity Reaction Status Date / Time No Known Allergies Allergy Verified 07/14/18 15:37 Past Medical History - Past Medical History Medical history: Reports: cancer, CHF, COPD, coronary artery disease, CVA, dementia, hyperlipidemia, hypertension Surgical history: Reports: non-contributory Psychiatric history: Reports: no psych history - Social History Smoking Status: Never smoker Smokeless Tobacco Status: No Alcohol use: Reports: none Drug use: Reports: none Physical Exam - General Limitations: no limitations General appearance: alert, in no apparent distress Course Vital Signs Temperature 98.7 F 09/05/18 11:33 Pulse Rate 76 09/05/18 11:33 Respiratory Rate 18 09/05/18 11:33 Blood Pressure 206/100 09/05/18 11:33 O2 Sat by Pulse Oximetry 97 09/05/18 11:33 Temperature 98.7 F 09/05/18 11:33 Pulse Rate 63 09/05/18 12:51 Respiratory Rate 16 09/05/18 12:51 Blood Pressure 188/89 09/05/18 12:51 O2 Sat by Pulse Oximetry 97 09/05/18 12:01 Oxygen Delivery Oxygen Delivery Room Air Medical Decision Making - Lab Data Result diagrams: 09/05/18 12:07 09/05/18 12:07 Lab Results 09/05/18 09/05/18 09/05/18 Range/Units 12:07 12:07 12:07 WBC 7.8 (4.3-11.1) K/mcL RBC 4.21 (4.19-5.50) M/mcL Hgb 13.4 (12.9-16.9) g/dL Hct 39.3 (37.5-50.1) % MCV 93.3 (83.0-100.0) fL MCH 31.8 (28.0-33.3) pg MCHC 34.1 (31.6-35.5) g/dL RDW 12.7 (11.5-14.5) % Plt Count 183 (140-400) K/mcL MPV 9.9 (9.4-12.4) fL PT 11.6 (9.4-12.1) Seconds INR 1.0 APTT 28.9 (26.0-36.0) Seconds Sodium 138 (136-145) mEq/L Potassium 3.5 (3.5-5.1) mEq/L Chloride 105 (98-107) mEq/L Carbon Dioxide 23 (23-29) mEq/L BUN 14 (8-23) mg/dL Creatinine 0.70 (0.70-1.30) mg/dL Est GFR ( Amer) > 60 (> 60) Est GFR (Non-Af Amer) > 60 (> 60) BUN/Creatinine Ratio 20 (6-26) Glucose 178 H (70-105) mg/dL Calculated Osmolality 291 (280-300) Calcium 9.3 (8.6-10.3) mg/dL Troponin I < 0.03 (< 0.04) ng/mL Urine Color (Yellow) Urine Clarity (Clear) Urine pH (5.0-8.0) pH Units Ur Specific [place] (1.010-1.025) Urine Protein (Neg-Trace) mg/dL Urine Glucose (UA) (Normal) mg/dL Urine Ketones (Negative) mg/dL Urine Blood (Negative) Urine Nitrite (Negative) Urine Bilirubin (Negative) Urine Urobilinogen (Normal) mg/dL Ur Leukocyte Esterase (Negative) Urine Microscopic RBC (0-3) per hpf Urine Microscopic WBC (0-3) per hpf Ur Squamous Epith Cells (None-Few) per lpf Urine Bacteria (None-Few) per hpf Hyaline Casts (None-Few) per lpf Ur Culture Indicated? (NO) 09/05/18 Range/Units 12:14 WBC (4.3-11.1) K/mcL RBC (4.19-5.50) M/mcL Hgb (12.9-16.9) g/dL Hct (37.5-50.1) % MCV (83.0-100.0) fL MCH (28.0-33.3) pg MCHC (31.6-35.5) g/dL RDW (11.5-14.5) % Plt Count (140-400) K/mcL MPV (9.4-12.4) fL PT (9.4-12.1) Seconds INR APTT (26.0-36.0) Seconds Sodium (136-145) mEq/L Potassium (3.5-5.1) mEq/L Chloride (98-107) mEq/L Carbon Dioxide (23-29) mEq/L BUN (8-23) mg/dL Creatinine (0.70-1.30) mg/dL Est GFR ( Amer) (> 60) Est GFR (Non-Af Amer) (> 60) BUN/Creatinine Ratio (6-26) Glucose (70-105) mg/dL Calculated Osmolality (280-300) Calcium (8.6-10.3) mg/dL Troponin I (< 0.04) ng/mL Urine Color Yellow (Yellow) Urine Clarity Clear (Clear) Urine pH 6.0 (5.0-8.0) pH Units Ur Specific [place] 1.017 (1.010-1.025) Urine Protein 100 H (Neg-Trace) mg/dL Urine Glucose (UA) 100 H (Normal) mg/dL Urine Ketones Negative (Negative) mg/dL Urine Blood Trace H (Negative) Urine Nitrite Negative (Negative) Urine Bilirubin Negative (Negative) Urine Urobilinogen Normal (Normal) mg/dL Ur Leukocyte Esterase Negative (Negative) Urine Microscopic RBC 5-15 H (0-3) per hpf Urine Microscopic WBC 5-15 H (0-3) per hpf Ur Squamous Epith Cells Many H (None-Few) per lpf Urine Bacteria None Seen (None-Few) per hpf Hyaline Casts None Seen (None-Few) per lpf Ur Culture Indicated? YES A (NO) Attestation Statement - Attestation Attestation: I examined this patient and my medical decision-making was reviewed with the Resident Physician. I agree with the documented findings, disposition and treatment plan as described except to the extent set forth below. 83 year old male presents to the ED with coplaints of weakness and increased syncopal falls with a history of TIAs/strokes and is otherwise a vasculopath. During his evlaution in the ED he had a ten beat run of Vtach but otherwise has not shown to be in it again. we will admit to medicine.
[2018-09-05 13:15] LABS: Magnesium 1.7 mg/dL (1.6-2.6); Phosphorous 2.8 mg/dL (2.7-4.5)
[2018-09-05 13:28] LABS: Thyroid Stimulating Hormone 1.714 mcIU/mL (0.340-5.600)
--- NOTE | 2018-09-05 16:17 | Electrocardiograph Report ---
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
[2018-09-05] MEDS ORDERED: *HR* HYDROcodone/Acet 5/325 mg TABLET PO PRN (16:28)
[2018-09-05] MEDS ORDERED: Naloxone 0.4 MG/ML INJ IVP PRN (16:28)
[2018-09-05] MEDS ORDERED: Acetaminophen 325 MG TABLET PO PRN (16:28)
[2018-09-05] MEDS ORDERED: Ondansetron 4 MG/2 ML VIAL IVP PRN (16:28)
[2018-09-05] MEDS ORDERED: *HR* OxyCODONE/APAP 5/325 TABLET PO PRN (16:36)
[2018-09-05] MEDS ORDERED: Nitroglycerin 0.4 MG TAB.SUBL SL PRN (16:36)
[2018-09-05] MEDS ORDERED: D5% in Water 1,000 ML IVC PRN (17:40)
[2018-09-05] MEDS ORDERED: *HR* Dextrose 50 % in Water (Syg) 50 ML SYRINGE IVP PRN (17:40)
[2018-09-05] MEDS ORDERED: Dextrose Gel 15 GM/37.5 ML TUBE PO PRN ×2 (17:40)
--- NOTE | 2018-09-05 18:09 | Internal Med History&Physical ---
Date of Encounter: 09/05/18 Time of Encounter: 16:00 Internal Medicine - H&P: HPI Chief complaint: R Sided weakness Admitted From: Emergency Dept Plans for Post Hospital Care: Home History of present illness: Mr. Desai is a 83 year old male past medical history of hypertension hyperlipidemia CHF COPD CVA/TIA GERD morbid obesity diabetes acute diverticulitis perforation Raúl procedure- colostomy- according to the patient he woke yesterday morning attempted because of the restroom and felt weak and was able to support himself and he fell down stated right side was Jose and weak. His also notes that he has some slurred speech and expressive aphasia. She also noted that he had a slight right facial droop and had some difficulty eating patient did not want to go to the hospital if he wanted to go to the doctor's office today. However he continued to experience right-sided weakness presented to the ER with the above complaints. Initial CT of head with no acute intracranial abnormalities rest x-ray with no acute process EKG with appears to be sinus rhythm with a first-degree block and right bundle melinda block with no acute ischemic changes. In the ER patient did have a 10 beat run of nonsustained V. tach and she was asymptomatic Lab work was unremarkable electrolytes stable. He was admitted for further workup evaluation. Currently patient continues to expand right-sided weakness and a right facial droop did notice some drooling during conversation. states that this is unchanged from yesterday discussed CODE STATUS with patient and patient would like to be a full code at this time discuss treatment plan with the patient including MRI verbalized understanding. Patient was hypertensive on presentation when necessary hydralazine has been ordered Past Med Surg Social Fam HX - Past Medical History Medical history: cancer, CHF, COPD, coronary artery disease, CVA, dementia, hyperlipidemia, hypertension Additional medical history: Borderline DM, Obesity, Asbestos exposure, DJD, D iverticulitis w/colon perf. CVA in 60's, FARHAT with CPAP. colon cancer Psychiatric history: no psych history - Past Surgical History Surgical History: non-contributory Additional surgical history: EGD, Cardiac Cath. - Social History Smoking Status: Never smoker Smokeless Tobacco Status: No Alcohol use: none Drug use: none - Family History Mother Living Status: Hx Family Cardiac Disorders: Yes Hx Family Respiratory Disorders: Yes Hx Family Cancer: No Hx Family GI Disorders: No Hx Family Endocrine Disorder: No Hx Family Neuromuscular Disorders: No Hx Family Neurologic Disorders: No Hx Family HEENT Disorders: No Hx Family Autoimmune Disorders: No Father Adopted: No Family Member Ethnicity: Non- Living Status: Hx Family Cardiac Disorders: Yes Hx Family Respiratory Disorders: Yes Hx Family Cancer: Yes Hx Family GI Disorders: No Hx Family Endocrine Disorder: No Hx Family Neuromuscular Disorders: No Hx Family Neurologic Disorders: No Hx Family HEENT Disorders: No Hx Family Autoimmune Disorders: No Internal Medicine - H&P: Meds Albuterol Sulfate [Proair Hfa] 2 puff IH BID PRN 07/14/18 [History] Amlodipine Besylate 10 mg PO DAILY 07/14/18 [History] Aspirin [Adult Aspirin Regimen] 81 mg PO DAILY 07/14/18 [History] Carvedilol [Coreg] 25 mg PO BID 07/14/18 [History] Donepezil [Aricept] 20 mg PO HS 07/14/18 [History] Ergocalciferol (VITAMIN D2) [Vitamin D] 400 unit PO DAILY 07/14/18 [History] Finasteride [Proscar] 10 mg PO DAILY 07/14/18 [History] Lisinopril [Zestril] 40 mg PO DAILY 07/14/18 [History] Meclizine HCl [Verticalm] 25 mg PO HS PRN 07/14/18 [History] Multivit-Min/FA/Lycopen/Lutein [Centrum Silver Tablet] 1 each PO DAILY 07/14/18 [History] Nitroglycerin [Nitrostat] 0.4 mg SL PRN PRN 07/14/18 [History] Nortriptyline HCl 75 mg PO HS 07/14/18 [History] [place]-3 Fatty Acids [Fish Oil] 1,000 mg PO DAILY 07/14/18 [History] Omeprazole [PriLOSEC] 20 mg PO DAILY 07/14/18 [History] Oxycodone HCl/Acetaminophen [Percocet 5-325 mg Tablet] 1 - 2 tab PO QID PRN 07/14/18 [History] Zafirlukast [Accolate] 20 mg PO DAILY 07/14/18 [History] raNITIdine HCl [Zantac] 150 mg PO HS 07/14/18 [History] Metformin HCl 500 mg PO DAILY 09/05/18 [History] Nortriptyline [Pamelor] 10 mg PO DAILY 09/05/18 [History] Allergy/AdvReac Type Severity Reaction Status Date / Time No Known Allergies Allergy Verified 07/14/18 15:37 All Systems PM: A 10-system review of systems was performed and is negative for pertinent findings except as documented above in the HPI. - Constitutional Constitutional: falls, weakness - EENT Eyes: no change in vision, no discharge, no pain, no photophobia Ears: no ear discharge, no ear pain, no tinnitus Nose, mouth and throat: no dysphagia, no nasal discharge, no neck pain, no sore throat - Cardiovascular Cardiovascular ROS IM: no chest pain, no diaphoresis, no dyspnea, no light headedness, no palpitations, no syncope - Respiratory Respiratory: no cough, no dyspnea, no wheezing, no excessive phlegm production - Gastrointestinal Gastrointestinal: no abdominal pain, no diarrhea, no hematemesis, no h ematochezia, no melena, no nausea, no vomiting - Musculoskeletal Musculoskeletal ROS IM: muscle weakness, no numbness, no tingling - Integumentary Integumentary IM: no rash, no unusual bruising - Neurological Neurological ROS: abnormal speech, dizziness, numbness, weakness, no confusion, no convulsions, no focal weakness, no tingling, no tremor(s) - Hematologic/Lymphatic Hematologic/Lymphatic: no easy bruising - Constitutional Vitals: Temp Pulse Resp BP Pulse Ox 97.7 F 79 15 198/101 97 09/05/18 15:14 09/05/18 15:14 09/05/18 15:14 09/05/18 15:14 09/05/18 15:14 General appearance: Present: A&O X 3, morbidly obese Exam: . - Head Head exam: Present: atraumatic Additional comments: Right-sided facial droop - Eye Eye exam: Present: EOMI, PERRL, conjuntiva pink, sclera anicteric Pupils: Present: PERRL - Neck Neck exam general surgery: Present: supple, trachea midline. Absent: lymphadenopathy - Respiratory Respiratory exam: Present: CTAB. Absent: accessory muscle use, rales, rhonchi, wheezes - Cardiovascular Cardiovascular exam: Present: RRR, +S1, +S2. Absent: diastolic murmur, gallop, rubs, systolic murmur - GI/Abdominal GI/Abdominal exam: Present: normal bowel sounds, soft, no peritoneal signs. Absent: distended, tenderness Additional comments: Patient has left quadrants colostomy - Extremities Exam Extremities exam: Present: warm, radial pulses palpable and symmetrical. Absent: calf tenderness, cyanotic, pedal edema - Neurological Exam Neurological exam: Present: alert, CN II-XII intact, oriented X3, no focal deficits, facial droop. Absent: pronater drift, speech deficit - Expanded Neurological Exam Cranial Nerves: EOM's intact PM: Normal, nystagmus PM: Normal, tongue deviation PM: Normal Cerebellar function: finger to nose: Abnormal Right, heel to j[place]ston: Abnormal Right Upper motor neuron: pronator drift: Abnormal Right Neuro motor strength exam: LUE: 5, RUE: 3, LLE: 4, RLE: 2/1 Coma Scale Eye Opening: Spontaneous Coma Scale Motor Response: Obeys Commands Coma Scale Verbal Response: Oriented Coma Scale Total: 15 - Skin Skin exam: Present: dry, intact Internal Med - H&P Results - Labs CBC & Chem 7: 09/05/18 12:07 09/05/18 12:07 Labs: Short CBC 09/05/18 Range/Units 12:07 WBC 7.8 (4.3-11.1) K/mcL Hgb 13.4 (12.9-16.9) g/dL Hct 39.3 (37.5-50.1) % Plt Count 183 (140-400) K/mcL BMP 09/05/18 12:07 Sodium 138 Potassium 3.5 Chloride 105 Carbon Dioxide 23 BUN 14 Creatinine 0.70 Glucose 178 H Calcium 9.3 Cardiac Enzymes 09/05/18 Range/Units 12:07 Troponin I < 0.03 (< 0.04) ng/mL Urine 09/05/18 Range/Units 12:14 Urine Color Yellow (Yellow) Urine Clarity Clear (Clear) Urine pH 6.0 (5.0-8.0) pH Units Ur Specific [place] 1.017 (1.010-1.025) Urine Protein 100 H (Neg-Trace) mg/dL Urine Glucose (UA) 100 H (Normal) mg/dL - Impressions ITS Impressions Chest X-Ray 09/05/18 11:37 IMPRESSION: No evidence for acute cardiopulmonary process. D/ / Ronald Peacock MD / Ronald Peacock MD Interpreting Provider: Ronald Peacock MD Head CT 09/05/18 11:37 IMPRESSION: No acute intracranial abnormality. D/ / Ronald Peacock MD / Ronald Peacock MD Interpreting Provider: Ronald Peacock MD Pelvis X-Ray 09/05/18 11:39 IMPRESSION: No acute osseous abnormality. D/ / Aris Child MD / Aris Child MD Interpreting Provider: Aris Child MD - Assessment and Plan (1) TIA (transient ischemic attack) Current Visit: Yes Status: Acute Assessment and plan: 1 history of previous CVA [place] 20 years ago.-Over the past 24 hours patient has been experiencing slurred speech right-sided facial droop and right-sided w eakness. states that right-sided facial droop and speech has improved continues to have right lower extremity weakness right upper extremity weakness and numbness. Has been experiencing falls initial CT of head is negative We will obtain MRI of brain Continuous cardiac monitoring Obtain cardiac echo Obtain carotid duplex Obtain lipid profile Continue with aspirin and statin Continue with blood pressure control-with systolic goal around 160 Glucose control with postprandial less than 180 Consult neurology (2) Ventricular tachycardia Current Visit: Yes Status: Acute Assessment and plan: Patient had a 10 beat run of V. tach asymptomatic in the ER Continuous cardiac monitoring If V. tach continues Will initiate on amiodarone Consult cardiology if warranted Obtain cardiac echo Monitor electrolytes and replace Monitor troponins (3) COPD (chronic obstructive pulmonary disease) Current Visit: No Status: Chronic Assessment and plan: Currently stable oxygen as needed bronchodilators as needed Qualifiers: COPD type: unspecified COPD Qualified Code(s): J44.9 - Chronic obstructive pulmonary disease, unspecified (4) Hypertension Current Visit: No Status: Chronic Assessment and plan: Continue with home medications currently patient is hypertensive with systolic reading of 190 Hydralazine as needed Qualifiers: Hypertension type: unspecified Qualified Code(s): I10 - Essential (primary) hypertension (5) Diabetes Current Visit: Yes Status: Acute Assessment and plan: Accu-Cheks before meals at bedtime with sliding scale insulin. Hold oral agents for now Qualifiers: Diabetes mellitus type: type 2 Diabetes mellitus salvage determiner insulin use: without prison use Diabetes mellitus complication status: without complication Qualified Code(s): E11.9 - Type 2 diabetes mellitus without complications (6) DVT prophylaxis Current Visit: No Status: Acute Assessment and plan: Heparin subcutaneous - Time Spent With Patient Total time spent is greater than 50% in coordination of care (as documented) at patient's floor/unit and/or counseling patient:
[2018-09-05] MEDS ORDERED: Perflutren Lipid Microsphere 1.3 ML in 0.9 % Sodium Chloride 8.7 ML IVP ONE (21:24)
[2018-09-05] MEDS: Insulin LISPRO 300 UNITS/3 ML VIAL SQ SCH (21:38)
[2018-09-05] MEDS: Famotidine 20 MG TABLET PO SCH (21:39)
[2018-09-06 02:33] LABS: Basophils % 0.5 %; Eosinophils # 0.2 K/mcL (0.0-0.6); Hematocrit 38.5 % (37.5-50.1); Hemoglobin 13.4 g/dL (12.9-16.9); Immature Granulocytes % 0.3 % (0-4); Lymphocytes # 0.9 K/mcL (0.6-4.6); Lymphocytes % 9.9 %; Mean Corpuscular HGB Conc 34.8 g/dL (31.6-35.5); Mean Corpuscular Hemoglobin 31.8 pg (28.0-33.3); Mean Corpuscular Volume 91.2 fL (83.0-100.0); Mean Platelet Volume 10.6 fL (9.4-12.4); Monocytes # 0.8 K/mcL (0.0-1.3); Monocytes % 8.6 %; Neutrophils # 6.9 K/mcL (1.6-8.9); Platelet Count 210 K/mcL (140-400); Red Blood Count 4.22 M/mcL (4.19-5.50); Red Cell Distribution Width 12.6 % (11.5-14.5); Segmented Neutrophils % 78.7 %
[2018-09-06 02:51] LABS: Chol/HDL Ratio 4.1 (0-4.9)
[2018-09-06 02:52] LABS: BUN/Creatinine Ratio 17 (6-26); Blood Urea Nitrogen 12 mg/dL (8-23); Calcium 9.3 mg/dL (8.6-10.3); Carbon Dioxide 25 mEq/L (23-29); Chloride 103 mEq/L (98-107); Glucose 212 mg/dL (70-105); Magnesium 1.7 mg/dL (1.6-2.6); Osmolality,Calculated 294 (280-300); Potassium 3.4 mEq/L (3.5-5.1); Sodium 139 mEq/L (136-145); eGFR For Non-African Americans > 60 (> 60)
[2018-09-06] MEDS: *HR* Heparin 5,000 UNIT/ML VIAL SQ SCH ×2 (05:17→17:50)
[2018-09-06] MEDS: Lisinopril 20 MG TABLET PO SCH (07:53)
[2018-09-06] MEDS: Finasteride 5 MG TABLET PO SCH (07:53)
[2018-09-06] MEDS: amLODIPine 5 MG TABLET PO SCH (07:53)
[2018-09-06] MEDS: Cholecalciferol (D-3) 1,000 UNIT TABLET PO SCH (07:53)
[2018-09-06] MEDS: Insulin LISPRO 300 UNITS/3 ML VIAL SQ SCH ×4 (07:54→20:32)
[2018-09-06] MEDS: Aspirin Enteric Coated 81 MG Tablet PO SCH (07:54)
--- NOTE | 2018-09-06 09:40 | Neurology - Consult Note ---
Date of Encounter: 09/06/18 Time of Encounter: 09:36 Assessment and Plan (1) CVA (cerebral vascular accident) Current Visit: Yes Status: Acute Patient is an 83 year old with multiple risk factors for CVA including hypertension, diabetes, obstructive sleep apnea, morbid obesity, hyperlipidemia who developed acute onset of slurred speech and right-sided weakness with positive acute left pontine infarct on MRI of the brain. Etiology is likely small vessel disease. Patient had stopped aspirin 81 mg daily 2-3 weeks prior to onset of stroke due to nosebleed therefore I recommend to restart and keep him on aspirin 81 mg daily. Continue statin therapy. Patient still has rather significant right-sided weakness likely he can benefit from inpatient physical rehabilitation. Please continue DVT prophylaxis and permissive hypertension management during acute phase of acute stroke. Await stroke workup including echocardiogram and carotid artery duplex study. Patient advised to continue CPAP therapy for his obstructive sleep apnea at home Possible prognosis of neurological deficits related to such top of stroke discussed with the patient. Currently, his right-sided weakness is rather profound and it is expected that the patient would experience right-sided hemiparesis in the future. Qualifiers: CVA mechanism: unspecified Qualified Code(s): I63.9 - Cerebral infarction, unspecified History of Present Illness Chief complaint: Right-sided weakness and speech difficulty HPI: Mr. Desai is a 83 year old male with past medical history significant for hypertension, diabetes, morbid obesity, obstructive sleep apnea, cognitive impairment who developed rather acute onset of right-sided weakness involving right arm and leg as well as slurred speech occurring evening hours last . Patient states that he was in the bathroom and suddenly felt his right leg was weak and he was slowly coming down. He was also having difficulty grabbing the railing in the bathroom and was unable to get up. Also was found by his that he was having slurred speech. However, he did not want to go to hospital and went to bed instead. He saw his family physician yesterday who noticed the patient still had rather significant right-sided weakness and slurred speech therefore he was advised to go to emergency room. Initial CT of the head showed no acute intracranial abnormality. Patient was decided not to be a candidate for TPA thrombolysis therapy due to the fact that he was out of the window for such therapy by the time he arrived emergency room. Patient subsequently which demonstrated acute infarct in the leftward aspect of the dwayne. At the time of this interview, patient still has slight dysarthria however, language content appears normal. Patient still has rather significant weakness in his right arm and leg. Patient is able to swallow without any difficulty. No fever, no mental status changes. Patient states that he had been taking small baby aspirin since the last 5-6 years however, it was discontinued about 2-3 weeks ago due to heavy nosebleed. Past Med Surg Social Fam HX - Past Medical History Medical history: cancer, CHF, COPD, coronary artery disease, CVA, dementia, hyperlipidemia, hypertension Additional medical history: Borderline DM, Obesity, Asbestos exposure, DJD, Diverticulitis w/colon perf. CVA in 60's, FARHAT with CPAP. colon cancer Psychiatric history: no psych history - Past Surgical History Surgical History: non-contributory Additional surgical history: EGD, Cardiac Cath. - Social History Smoking Status: Never smoker Smokeless Tobacco Status: No Alcohol use: none Drug use: none - Family History Mother Living Status: Hx Family Cardiac Disorders: Yes Hx Family Respiratory Disorders: Yes Hx Family Cancer: No Hx Family GI Disorders: No Hx Family Endocrine Disorder: No Hx Family Neuromuscular Disorders: No Hx Family Neurologic Disorders: No Hx Family HEENT Disorders: No Hx Family Autoimmune Disorders: No Father Adopted: No Family Member Ethnicity: Non- Living Status: Hx Family Cardiac Disorders: Yes Hx Family Respiratory Disorders: Yes Hx Family Cancer: Yes Hx Family GI Disorders: No Hx Family Endocrine Disorder: No Hx Family Neuromuscular Disorders: No Hx Family Neurologic Disorders: No Hx Family HEENT Disorders: No Hx Family Autoimmune Disorders: No Medications and Allergies Albuterol Sulfate [Proair Hfa] 2 puff IH BID PRN 07/14/18 [History] Amlodipine Besylate 10 mg PO DAILY 07/14/18 [History] Aspirin [Adult Aspirin Regimen] 81 mg PO DAILY 07/14/18 [History] Carvedilol [Coreg] 25 mg PO BID 07/14/18 [History] Donepezil [Aricept] 20 mg PO HS 07/14/18 [History] Ergocalciferol (VITAMIN D2) [Vitamin D] 400 unit PO DAILY 07/14/18 [History] Finasteride [Proscar] 10 mg PO DAILY 07/14/18 [History] Lisinopril [Zestril] 40 mg PO DAILY 07/14/18 [History] Meclizine HCl [Verticalm] 25 mg PO HS PRN 07/14/18 [History] Multivit-Min/FA/Lycopen/Lutein [Centrum Silver Tablet] 1 each PO DAILY 07/14/18 [History] Nitroglycerin [Nitrostat] 0.4 mg SL PRN PRN 07/14/18 [History] Nortriptyline HCl 75 mg PO HS 07/14/18 [History] [place]-3 Fatty Acids [Fish Oil] 1,000 mg PO DAILY 07/14/18 [History] Omeprazole [PriLOSEC] 20 mg PO DAILY 07/14/18 [History] Oxycodone HCl/Acetaminophen [Percocet 5-325 mg Tablet] 1 - 2 tab PO QID PRN 07/14/18 [History] Zafirlukast [Accolate] 20 mg PO DAILY 07/14/18 [History] raNITIdine HCl [Zantac] 150 mg PO HS 07/14/18 [History] Metformin HCl 500 mg PO DAILY 09/05/18 [History] Nortriptyline [Pamelor] 10 mg PO DAILY 09/05/18 [History] Allergy/AdvReac Type Severity Reaction Status Date / Time No Known Allergies Allergy Verified 07/14/18 15:37 All Systems: The remainder of the systems were reviewed and are negative - Constitutional Constitutional ROS IM: chills (no ), fever(s) (no), headache(s) (n ), night sweats (no) - Nose, Mouth, Throat Nose, mouth and throat: abnormal hearing (yes), disequilibrium (no), dizziness (no), epistaxis (no) - Cardiovascular Cardiovascular ROS IM: chest pain (no), diaphoresis (no), dyspnea (no) - Respiratory Respiratory IM: cough (no ), dyspnea (no), wheezing (no) - Gastrointestinal Gastrointestinal: abdominal pain (no), change in bowel habits (no), change in stool character (no), coffee ground emesis (no) - Genitourinary Genitourinary ROS: difficulty urinating (n), difficulty voiding (no) - Musculoskeletal Musculoskeletal ROS IM: abnormal gait (yes), muscle weakness (yes) - Neurological Neurological ROS: abnormal gait (unable to walk), abnormal hearing (yes), abnormal movements (no), abnormal speech (yes), focal weakness (yes) - Psychiatric Psychiatric general PM: abnormal sleep pattern (no), anhedonia (no), anxiety (no), behavioral changes (no) - Hematologic/Lymphatic Hematologic/Lymphatic pediatric: easy bleeding (yes ( nose bleed two weeks ago)) Physical Examination - Vital Signs Vital Signs: Initial Vital Signs Temp Pulse Resp BP Pulse Ox 98.7 F 76 18 206/100 97 09/05/18 11:33 09/05/18 11:33 09/05/18 11:33 09/05/18 11:33 09/05/18 11:33 - Constitutional General appearance: comfortable - Neurologic Sensorimotor examination: intact Motor examination - right side: 4/5: deltoids, biceps, triceps, wrist flexion, wrist extension, accountant clerk, hip flexors, tibialis Anterior, quadriceps, toe extension (EHL), plantarflexion Motor examination - left side: 5/5: deltoids, biceps, triceps, wrist flexion, wrist extension, hip flexors, accountant clerk, quadriceps, tibialis Anterior, toe extension (EHL), plantarflexion Detailed sensory examination: intact Posture: other (None) Reflex and gait examination: intact Reflexes: Biceps: 1+, Triceps: 1+, Brachioradialis: 1+, Patella: 1+, Achilles: 1+ Mental Status Examination: awake, alert, oriented to person, oriented to place, oriented to time, follows commands appropriately, answers questions appropriately, no agnosia, no aphasia, no aproxia Cranial nerve examination: PERRL, EOMI, visual gan intact, corneal reflexes brisk symmetrically, sensory to face intact, mastication intact, no facial asymmetry is present (Right facial droopin noted), no dysarthria (Mild dysarthria noted. Language content is normal), hearing is intact symmetrically, soft palate elevates bilaterally upon phonation, gag reflex intact, flexes SCM and trapezius muscles symmetrically with full power, tongue protrudes midline, no atrophy or facial fasiculations present Cerebellar examination: no dysmetria (right sided dysmetria due to weakness), dysarthria (MIld dysarthria noted) Results - Laboratory Findings CBC and BMP: 09/06/18 01:06 09/06/18 01:06 Abnormal lab findings: Abnormal lab results Potassium 3.4 mEq/L (3.5-5.1) L 09/06/18 01:06 Glucose 212 mg/dL (70-105) H 09/06/18 01:06 POC Glucose 221 mg/dL (70-99) H 09/05/18 19:59 38 mg/dL (40-59) L 09/06/18 01:06 100 mg/dL (Neg-Trace) H 09/05/18 12:14 100 mg/dL (Normal) H 09/05/18 12:14 Trace (Negative) H 09/05/18 12:14 5-15 per hpf (0-3) H 09/05/18 12:14 5-15 per hpf (0-3) H 09/05/18 12:14 Ur Squamous Epith Cells Many per lpf (None-Few) H 09/05/18 12:14 Ur Culture Indicated? YES (NO) A 09/05/18 12:14 - Diagnostic Findings Additional findings: EXAMINATION: MRI OF THE BRAIN WITHOUT CONTRAST 09/05/2018 9:28 pm TECHNIQUE: Multiplanar multisequence MRI of the brain was performed without the administration of intravenous contrast. COMPARISON: November 2016 HISTORY: ORDERING SYSTEM PROVIDED HISTORY: TIA FINDINGS: INTRACRANIAL STRUCTURES/VENTRICLES: Ventricles and sulci are stable. There is a small amount of increased T2/FLAIR signal in the periventricular and subcortical white matter. A small amount of increased signal is noted in the anterior right lentiform nucleus region. A small amount of increased signal is noted in the dwayne left of midline. This was not present on the old exam. Increased diffusion signal in the dwayne left of midline is noted. No other restricted diffusion signal is noted. There is no acute hemorrhage or extra-axial collection. Flow voids are patent. ORBITS: Borderline radiographic proptotic changes are noted. SINUSES: The visualized paranasal sinuses and mastoid air cells are well aerated. BONES/SOFT TISSUES: The bone marrow signal intensity appears normal. The soft tissues demonstrate no acute abnormality. MR/MR head/brain wo con IMPRESSION: Acute infarct in the leftward aspect of the dwayne Mild small vessel ischemic change bilaterally D/ / Sergey Alvarado / Sergey Alvarado Interpreting Provider: Sergey Alvarado Consult Discharge Plan - Plan Referrals: Millie Carpenter, [Primary Care Provider] -
--- NOTE | 2018-09-06 15:25 | Internal Med Progress Note ---
Hospitalist Progress Note - Encounter Date of Encounter: 09/06/18 Time of Encounter: 15:22 - Subjective Interval History: Patient was seen and examined at bedside I did discuss the results of MRI as well as treatment plan which includes aspirin and statin CPAP therapy PTOT evaluation and inpatient rehabilitation. Patient verbalized understanding patient does express that he did stop his aspirin 2-3 weeks ago due to nose bleeding advised patient to continue with aspirin at this time. 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 Eyes: Sclera is white. There is no discharge from eyes. ENMT: Oral/pharyngeal mucosa is normal in appearance. There is no discharge from nose or ears. Respiratory: Normal breath sounds with no crackles and wheezes bilaterally. CV: Heart is regular with no gallop or murmur. GI: Abdomen is flat and soft with no palpable mass or visceromegaly. : There is no tenderness in patient's flanks bilaterally. Neuro exam: Right-sided facial droop with abnormal gait he is unable to walk and right-sided focal weakness he is unable to raise his right leg right arm strength 3/5 Psychiatric: He has normal affect. His thought process is appropriate to the situation. - Assessment and Plan (1) CVA (cerebral vascular accident) Current Visit: Yes Status: Acute Assessment and Plan: Patient presented after experiencing acute onset of right-sided weakness as well as right sided facials droop and slurred speech. Patient states that he stopped taking 81 mg aspirin 2-3 weeks ago due to nosebleeds. He has multiple risk factors for CVA including hypertension diabetes FARHAT morbid obesity previous CVA. 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 LVEF 60-65%. Normal LV chamber size and function. Mild concentric left ventricular hypertrophy. Atypical septal motion consistent with bundle branch block. Mild left ventricular diastolic dysfunction. Grossly normal right ventricular structure and function. No evidence of pulmonary hypertension identified. RVSP not well obtained due to poor TR jet. No obvious significant valvular dysfunction. Agitated saline administered. Unable to determine the possible presence of intracardiac shunting due to poor image quality. (2) TIA (transient ischemic attack) Current Visit: Yes Status: Ruled-out Assessment and Plan: 1 history of previous CVA [place] 20 years ago.-Over the past 24 hours patient has been experiencing slurred speech right-sided facial droop and right-sided weakness. states that right-sided facial droop and speech has improved continues to have right lower extremity weakness right upper extremity weakness and numbness. Has been experiencing falls initial CT of head is negative We will obtain MRI of brain Continuous cardiac monitoring Obtain cardiac echo Obtain carotid duplex Obtain lipid profile Continue with aspirin and statin Continue with blood pressure control-with systolic goal around 160 Glucose control with postprandial less than 180 Consult neurology -TIA ruled out MRI positive acute left pontine infarct neurology has been consulted (3) Ventricular tachycardia Current Visit: Yes Status: Acute Assessment and Plan: Patient had a 10 beat run of V. tach asymptomatic in the ER Continuous cardiac monitoring If V. tach continues Will initiate on amiodarone Consult cardiology if warranted Obtain cardiac echo Monitor electrolytes and replace Monitor troponins 09/06 No more episodes of V. tach overnight Patient was hypokalemic this morning we will replace potassium as well as give magnesium magnesium 1.7 troponins were negative 3 cardiac echo is pending at this time (4) COPD (chronic obstructive pulmonary disease) Current Visit: No Status: Chronic Assessment and Plan: Currently stable oxygen as needed bronchodilators as needed (5) Hypertension Current Visit: No Status: Chronic Assessment and Plan: Continue with home medications currently patient is hypertensive with systolic reading of 190-allow permissive hypertensive Hydralazine as needed (6) Diabetes Current Visit: Yes Status: Acute Assessment and Plan: Accu-Cheks before meals at bedtime with sliding scale insulin. Hold oral agents for now (7) DVT prophylaxis Current Visit: No Status: Acute Assessment and Plan: Heparin subcutaneous - Time Spent with Patient Total time spent is greater than 50% in coordination of care (as documented) at patient's floor/unit and/or counseling patient: Internal Medicine: Result - Labs CBC & Chem 7: 09/06/18 01:06 09/06/18 01:06 Labs: Short CBC 09/06/18 Range/Units 01:06 WBC 8.8 (4.3-11.1) K/mcL Hgb 13.4 (12.9-16.9) g/dL Hct 38.5 (37.5-50.1) % Plt Count 210 (140-400) K/mcL Neutrophils # 6.9 (1.6-8.9) K/mcL BMP 09/06/18 01:06 Sodium 139 Potassium 3.4 L Chloride 103 Carbon Dioxide 25 BUN 12 Creatinine 0.72 Glucose 212 H Calcium 9.3 Cardiac Enzymes 09/05/18 09/06/18 Range/Units 18:11 01:06 Troponin I < 0.03 < 0.03 (< 0.04) ng/mL - ABG Interpretation ABG results: PT/INR, D-dimer PT 11.6 Seconds (9.4-12.1) 09/05/18 12:07 - Impressions Impressions Echocardiogram 09/05/18 16:50 Impressions: Technically sub-optimal due to poor echocardiographic windows. LVEF 60-65%. Normal LV chamber size and function. Mild concentric left ventricular hypertrophy. Atypical septal motion consistent with bundle branch block. Mild left ventricular diastolic dysfunction. Grossly normal right ventricular structure and function. No evidence of pulmonary hypertension identified. RVSP not well obtained due to poor TR jet. No obvious significant valvular dysfunction. Agitated saline administered. Unable to determine the possible presence of intracardiac shunting due to poor image quality. Left Ventricular Wall Motion: Rest Echo Findings All wall segments showed normal motion. Findings: Study Quality * Technically sub-optimal due to poor echocardiographic windows. ECG Findings * Rhythm appeared to be sinus with premature beats and a bundle branch block. Left Ventricle * LVEF 60-65%. * Normal LV chamber size and function. * Mild concentric left ventricular hypertrophy. * Atypical septal motion consistent with bundle branch block. * Mild left ventricular diastolic dysfunction. Right Ventricle * Grossly normal right ventricular structure and function. Left Atrium * Mildly dilated left atrium. Right Atrium * Normal right atrial size. Aortic Valve * Aortic valve not well visualized. * No aortic stenosis. * No aortic regurgitation. Mitral Valve * Mild mitral annular calcification. * No mitral regurgitation. * No mitral stenosis. Tricuspid Valve * Tricuspid valve not well visualized. * Trace tricuspid regurgitation. * No evidence of pulmonary hypertension identified. RVSP not well obtained due to poor TR jet. Pulmonic Valve * Pulmonic valve is not well visualized. Aorta * Normally sized aortic root. Pericardium * The pericardium appears normal. IVC * The IVC is not well evaluated. Pulmonary Artery * Pulmonary artery not well visualized. Interatrial Septum * Agitated saline administered. Unable to determine the possible presence of intracardiac shunting due to poor image quality. Brain MRI 09/05/18 16:51 IMPRESSION: Acute infarct in the leftward aspect of the dwayne Mild small vessel ischemic change bilaterally D/ / Sergey Alvarado / Sergey Alvarado Interpreting Provider: Sergey Alvarado Consult Discharge Plan - Plan Referrals: Millie Carpenter, DO [Primary Care Provider] - (1) CVA (cerebral vascular accident) Qualifiers: CVA mechanism: unspecified Qualified Code(s): I63.9 - Cerebral infarction, unspecified (4) COPD (chronic obstructive pulmonary disease) Qualifiers: COPD type: unspecified COPD Qualified Code(s): J44.9 - Chronic obstructive pulmonary disease, unspecified (5) Hypertension Qualifiers: Hypertension type: unspecified Qualified Code(s): I10 - Essential (primary) hypertension (6) Diabetes Qualifiers: Diabetes mellitus type: type 2 Diabetes mellitus [facility] insulin use: without termite helper use Diabetes mellitus complication status: without complication Qualified Code(s): E11.9 - Type 2 diabetes mellitus without complications
[2018-09-06] MEDS: Famotidine 20 MG TABLET PO SCH (20:32)
[2018-09-07 03:28] LABS: Basophils # 0.1 K/mcL (0.0-0.2); Basophils % 0.8 %; Eosinophils # 0.2 K/mcL (0.0-0.6); Eosinophils % 3.4 %; Hematocrit 38.6 % (37.5-50.1); Hemoglobin 13.3 g/dL (12.9-16.9); Immature Granulocytes % 0.3 % (0-4); Lymphocytes % 13.8 %; Mean Corpuscular HGB Conc 34.5 g/dL (31.6-35.5); Mean Corpuscular Volume 92.8 fL (83.0-100.0); Mean Platelet Volume 10.3 fL (9.4-12.4); Monocytes # 0.7 K/mcL (0.0-1.3); Monocytes % 9.9 %; Neutrophils # 5.1 K/mcL (1.6-8.9); Platelet Count 189 K/mcL (140-400); Red Blood Count 4.16 M/mcL (4.19-5.50); Red Cell Distribution Width 12.8 % (11.5-14.5); Segmented Neutrophils % 71.8 %
[2018-09-07 03:31] LABS: VBG Ionized Calcium 1.16 mmol/L (1.15-1.35)
[2018-09-07 03:48] LABS: BUN/Creatinine Ratio 19 (6-26); Blood Urea Nitrogen 17 mg/dL (8-23); Calcium 9.6 mg/dL (8.6-10.3); Carbon Dioxide 27 mEq/L (23-29); Chloride 104 mEq/L (98-107); Glucose 204 mg/dL (70-105); Osmolality,Calculated 293 (280-300); Potassium 3.6 mEq/L (3.5-5.1); Sodium 138 mEq/L (136-145); eGFR For Non-African Americans > 60 (> 60)
[2018-09-07] MEDS ORDERED: *HR* Labetalol 20 MG/4 ML SYRINGE IVP ONE (04:35)
[2018-09-07] MEDS: *HR* Heparin 5,000 UNIT/ML VIAL SQ SCH ×2 (04:49→17:21)
[2018-09-07] MEDS: Insulin LISPRO 300 UNITS/3 ML VIAL SQ SCH ×4 (08:54→22:31)
[2018-09-07] MEDS: Finasteride 5 MG TABLET PO SCH (08:54)
[2018-09-07] MEDS: Cholecalciferol (D-3) 1,000 UNIT TABLET PO SCH (08:55)
[2018-09-07] MEDS: Aspirin Enteric Coated 81 MG Tablet PO SCH (08:55)
[2018-09-07] MEDS: amLODIPine 5 MG TABLET PO SCH (08:55)
[2018-09-07] MEDS: Lisinopril 20 MG TABLET PO SCH (08:55)
--- NOTE | 2018-09-07 12:54 | Internal Med Progress Note ---
Hospitalist Progress Note - Encounter Date of Encounter: 09/07/18 Time of Encounter: 10:00 - Subjective Interval History: Patient was seen at bedside, noticed improvement in movement of right arm and right leg cont to have right sided facial droop. Patient states that he feels as if his speech is improving - Exam Vitals: Temp Pulse Resp BP Pulse Ox 97.7 F 70 16 178/80 98 09/07/18 11:56 09/07/18 11:56 09/07/18 11:56 09/07/18 11:56 09/07/18 11:56 Exam: Skin: Free of rash and discoloration. Eyes: Sclera is white. There is no discharge from eyes. ENMT: Oral/pharyngeal mucosa is normal in appearance. There is no discharge from nose or ears. Respiratory: Normal breath sounds with no crackles and wheezes bilaterally. CV: Heart is regular with no gallop or murmur. GI: Abdomen is flat and soft with no palpable mass or visceromegaly. : There is no tenderness in patient's flanks bilaterally. Neuro exam: Right-sided facial droop with abnormal gait he is unable to walk and right-sided focal weakness he is unable right leg 3/5 strength- right arm strength 3/5 Psychiatric: He has normal affect. His thought process is appropriate to the situation. - Assessment and Plan (1) CVA (cerebral vascular accident) Current Visit: Yes Status: Acute Assessment and Plan: Patient presented after experiencing acute onset of right-sided weakness as well as right sided facials droop and slurred speech. Patient states that he stopped taking 81 mg aspirin 2-3 weeks ago due to nosebleeds. He has multiple risk factors for CVA including hypertension diabetes FARHAT morbid obesity previous CVA. MRI did reveal a positive acute left pontine infarct neurology has been consulted and appreciate recommendation Continuous cardiac monitoring carotid duplex-nonstenotic plaque bilaterally Obtain lipid profile Continue with aspirin and statin Continue with blood pressure control-with systolic goal around 160 Glucose control with postprandial less than 180 Consult PT OT patient will require inpatient rehabilitation due to continued right-sided heamiparesis- he has improved ROM to R arm and R leg cont with r sided facial droop Cardiac echo Impressions: Technically sub-optimal due to poor echocardiographic windows. LVEF 60-65%. Normal LV chamber size and function. Mild concentric left ventricular hypertrophy. Atypical septal motion consistent with bundle branch block. Mild left ventricular diastolic dysfunction. Grossly normal right ventricular structure and function. No evidence of pulmonary hypertension identified. RVSP not well obtained due to poor TR jet. No obvious significant valvular dysfunction. Agitated saline administered. Unable to determine the possible presence of intracardiac shunting due to poor image quality. (2) TIA (transient ischemic attack) Current Visit: Yes Status: Ruled-out Assessment and Plan: 1 history of previous CVA [place] 20 years ago.-Over the past 24 hours patient has been experiencing slurred speech right-sided facial droop and right-sided weakness. states that right-sided facial droop and speech has improved continues to have right lower extremity weakness right upper extremity weakness and numbness. Has been experiencing falls initial CT of head is negative We will obtain MRI of brain Continuous cardiac monitoring Obtain cardiac echo Obtain carotid duplex Obtain lipid profile Continue with aspirin and statin Continue with blood pressure control-with systolic goal around 160 Glucose control with postprandial less than 180 Consult neurology -TIA ruled out MRI positive acute left pontine infarct neurology has been consulted (3) Ventricular tachycardia Current Visit: Yes Status: Acute Assessment and Plan: Patient had a 10 beat run of V. tach asymptomatic in the ER Continuous cardiac monitoring If V. tach continues Will initiate on amiodarone Consult cardiology if warranted Obtain cardiac echo Monitor electrolytes and replace Monitor troponins 09/07 No more episodes of V. tach Patient was hypokalemic- replace and monitor electrolytes (4) COPD (chronic obstructive pulmonary disease) Current Visit: No Status: Chronic Assessment and Plan: stable (5) Hypertension Current Visit: No Status: Chronic Assessment and Plan: Continue with home medications-allow permissive hypertensive Hydralazine as needed (6) Diabetes Current Visit: Yes Status: Acute Assessment and Plan: Accu-Cheks before meals at bedtime with sliding scale insulin. Hold oral agents for now (7) DVT prophylaxis Current Visit: No Status: Acute Assessment and Plan: Heparin subcutaneous - Time Spent with Patient Total time spent is greater than 50% in coordination of care (as documented) at patient's floor/unit and/or counseling patient: Internal Medicine: Result - Labs CBC & Chem 7: 09/07/18 03:01 09/07/18 03:01 Labs: Short CBC 09/07/18 Range/Units 03:01 WBC 7.1 (4.3-11.1) K/mcL Hgb 13.3 (12.9-16.9) g/dL Hct 38.6 (37.5-50.1) % Plt Count 189 (140-400) K/mcL Neutrophils # 5.1 (1.6-8.9) K/mcL BMP 09/07/18 03:01 Sodium 138 Potassium 3.6 Chloride 104 Carbon Dioxide 27 BUN 17 Creatinine 0.88 Glucose 204 H Calcium 9.6 - ABG Interpretation ABG results: PT/INR, D-dimer PT 11.6 Seconds (9.4-12.1) 09/05/18 12:07 Consult Discharge Plan - Plan Referrals: Millie Carpenter DO [Primary Care Provider] - (Appointment has been requested.) (1) CVA (cerebral vascular accident) Qualifiers: CVA mechanism: unspecified Qualified Code(s): I63.9 - Cerebral infarction, unspecified (4) COPD (chronic obstructive pulmonary disease) Qualifiers: COPD type: unspecified COPD Qualified Code(s): J44.9 - Chronic obstructive pulmonary disease, unspecified (5) Hypertension Qualifiers: Hypertension type: unspecified Qualified Code(s): I10 - Essential (primary) hypertension (6) Diabetes Qualifiers: Diabetes mellitus type: type 2 Diabetes mellitus senior living insulin use: without senior living use Diabetes mellitus complication status: without complication Qualified Code(s): E11.9 - Type 2 diabetes mellitus without complications
--- NOTE | 2018-09-07 13:45 | Electrocardiograph Report ---
[address] [address] Test Date: 2018-09-05 Pat Name: Nathen Desai Department: [id number] Room: 3B43 Gender: M Jalousie Installer: : [id number] Requested By: Suzie Lowery Order Number: [id number] Reading MD: Reji Ramos Measurements Intervals [place] Rate: 75 P: 253 [place]: 179 QRS: -33 QRSD: 168 T: -19 QT: 449 QTc: 456 Interpretive Statements Sinus rhythm with PACs Right bundle branch block Electronically Signed On 09-07-2018 13:43:21 EDT by Reji Ramos
[2018-09-07] MEDS: Famotidine 20 MG TABLET PO SCH (22:31)
[2018-09-08 03:10] LABS: BUN/Creatinine Ratio 20 (6-26); Blood Urea Nitrogen 19 mg/dL (8-23); Carbon Dioxide 27 mEq/L (23-29); Chloride 102 mEq/L (98-107); Potassium 3.9 mEq/L (3.5-5.1); Sodium 137 mEq/L (136-145)
[2018-09-08 03:11] LABS: Calcium 9.6 mg/dL (8.6-10.3); Glucose 228 mg/dL (70-105); Osmolality,Calculated 293 (280-300); eGFR For Non-African Americans > 60 (> 60)
[2018-09-08] MEDS: *HR* Heparin 5,000 UNIT/ML VIAL SQ SCH ×2 (03:40→17:32)
[2018-09-08] MEDS: Aspirin Enteric Coated 81 MG Tablet PO SCH (08:30)
[2018-09-08] MEDS: amLODIPine 5 MG TABLET PO SCH (08:30)
[2018-09-08] MEDS: Cholecalciferol (D-3) 1,000 UNIT TABLET PO SCH (08:30)
[2018-09-08] MEDS: Finasteride 5 MG TABLET PO SCH (08:30)
[2018-09-08] MEDS: Lisinopril 20 MG TABLET PO SCH (08:30)
[2018-09-08] MEDS: Insulin LISPRO 300 UNITS/3 ML VIAL SQ SCH ×4 (08:31→22:09)
--- NOTE | 2018-09-08 10:00 | Neurology Progress Note ---
Date of Encounter: 09/08/18 Time of Encounter: 10:00 Assessment and Plan (1) CVA (cerebral vascular accident) Current Visit: Yes Status: Acute Qualifiers: CVA mechanism: unspecified Qualified Code(s): I63.9 - Cerebral infarction, unspecified Objective - Constitutional Vitals: Temp Pulse Resp BP Pulse Ox 97.9 F 75 18 118/64 96 09/08/18 07:47 09/08/18 07:47 09/08/18 07:47 09/08/18 07:47 09/08/18 08:30 - Neurological Exam Sensorimotor examination: Present: intact Motor examination - left side: 08/31: deltoids, biceps, triceps, wrist flexion, wrist extension, hip flexors, candle wicker, quadriceps, tibialis Anterior, toe extension (EHL), plantarflexion Sensation intact: Present: intact Posture: Present: other (None) Reflex and gait examination: intact Mental Status Examination: Present: awake, alert, oriented to person, oriented to place, oriented to time, follows commands appropriately, answers questions appropriately, no agnosia, no aphasia, no aproxia Cranial nerve examination: Present: PERRL, EOMI, visual gan intact, corneal reflexes brisk symmetrically, sensory to face intact, mastication intact, no fa cial asymmetry is present (Right facial droopin noted), no dysarthria (Mild dysarthria noted. Language content is normal), hearing is intact symmetrically, soft palate elevates bilaterally upon phonation, gag reflex intact, flexes SCM and trapezius muscles symmetrically with full power, tongue protrudes midline, no atrophy or facial fasiculations present Cerebellar examination: Present: no dysmetria (right sided dysmetria due to weakness), dysarthria (MIld dysarthria noted) Results - Laboratory Findings CBC and BMP: 09/07/18 03:01 09/08/18 01:51 Abnormal lab findings: Abnormal lab results RBC 4.16 M/mcL (4.19-5.50) L 09/07/18 03:01 Potassium 3.4 mEq/L (3.5-5.1) L 09/06/18 01:06 Glucose 228 mg/dL (70-105) H 09/08/18 01:51 POC Glucose 212 mg/dL (70-99) H 09/07/18 20:47 38 mg/dL (40-59) L 09/06/18 01:06 100 mg/dL (Neg-Trace) H 09/05/18 12:14 100 mg/dL (Normal) H 09/05/18 12:14 Trace (Negative) H 09/05/18 12:14 5-15 per hpf (0-3) H 09/05/18 12:14 5-15 per hpf (0-3) H 09/05/18 12:14 Ur Squamous Epith Cells Many per lpf (None-Few) H 09/05/18 12:14 Ur Culture Indicated? YES (NO) A 09/05/18 12:14 Consult Discharge Plan - Plan Referrals: Millie Carpenter, DO [Primary Care Provider] - (Appointment has been requested.)
--- NOTE | 2018-09-08 11:00 | Neurology Progress Note ---
Date of Encounter: 09/08/18 Time of Encounter: 10:57 Assessment and Plan (1) CVA (cerebral vascular accident) Current Visit: Yes Status: Acute Neurology seen in follow-up for acute CVA. Briefly, a 3-year-old male with multiple risk factors for CVA. MRI brain positive for acute left pontine infarct. Carotid duplex exam revealed bilateral carotid systems with nonstenotic plaque. TTE with EF of 60-65%, mild LVH with atypical septal wall motion, mild LVEDD, and no valvular dysfunction. Most likely etiology is small vessel disease. Patient reports that he has recently stopped taking aspirin for 2-3 weeks prior to onset of symptoms. He has been strongly encouraged to continue taking aspirin and continue with statin therapy given acute CVA. This morning on exam the right-sided weakness, facial asymmetry and slurred speech persist. However, the patient reports that the right-sided weakness has improved significantly since admission. In addition to discussing medication compliance was able to discuss the need for inpatient rehabilitation given the significant right-sided deficits as S/P CVA. At this time neurology will sign off. Please reconsult should any further need arise. Qualifiers: CVA mechanism: unspecified Qualified Code(s): I63.9 - Cerebral infarction, unspecified Subjective Principal diagnosis: CVA Interval history: Patient seen in follow-up for acute CVA. Briefly, he is an 83-year-old male w ith a past history significant for HTN, DM, morbid obesity, obstructive sleep apnea. He presented with a sudden onset of right-sided weakness involving the arm and leg as well as slurred speech. MRI of the brain positive for acute infarct in the leftward aspect of the dwayne. The patient reports today that the right-sided weakness has improved since admission. He denies any new neurological implants overnight. Clinically, he remained stable without any further complications. Objective - Constitutional Vitals: Temp Pulse Resp BP Pulse Ox 97.9 F 75 18 118/64 96 09/08/18 07:47 09/08/18 07:47 09/08/18 07:47 09/08/18 07:47 09/08/18 08:30 Exam: Examination: General Examination: *CONSTITUTIONAL: Alert and oriented x3, no acute distress *GENERAL APPEARANCE OF PATIENT obese elderly male *EYES: pupils equal, round, reactive to light and accommodation, conjunctiva clear *CARDIOVASCULAR RRR, S1, S2, no peripheral edema, distal temperature normal, dorsalis pedis pulses normal. See vital signs Musculoskeletal: *GAIT AND STATION deferred, fall risk. Extensive right sided weakness *ASSESSMENT OF MUSCLE STRENGTH IN THE UPPER AND LOWER EXTREMITIES right deltoid, bicep, tricep, hospice administrator strength, hip flexors ,anterior tibialis, dorsoflexion of the foot 4/5. Left deltoid, bicep, tricep, hospice administrator strength, hip flexors, anterior tibialis and dorsiflexion of the left foot 5/5 *MUSCLE TONE IN THE UPPER AND LOWER EXTREMITIES normal. No abnormal movements, fasciculations or atrophy identified. Neurological: *ORIENTATION to person, situation, time and place *RECURRENT AND REMOTE MEMORY intact *ATTENTION AND CONCENTRATION are normal *LANGUAGE FUNCTION no significant aphasia. slurred speech noted *FUND OF KNOWLEDGE aware of current events, past history, vocabulary *MENTAL attention span and concentration normal. *CN II optic fundi were normal, no papilledema noted. *CN III,IV, PERRLA extraocular eye movements were full, no nystagmus and no ptosis noted. *CN V shows normal sensation but has decreased innervation on the right with right asymmetry of the mouth *CN VII right facial asymmetry with decreased innervation *CN VIII shows no significant hearing loss on exam *CN IX,,X palate elevated symmetrically *CN XI normal strength in the sternocleidomastoid muscles, symmetrical shoulder shrugging. *CN XII tongue with rightward deviation, with normal strength and movement. *SENSORY EXAMINATION light touch intact *REFLEXES: deep tendon reflexes were normal and symmetrical , grade 2/4 diffusely, no pathological reflexes were noted. *CEREBELLAR TESTING dysmetria on the right side with finger to nose exam *PAIN LEVEL 0/10 - Neurological Exam Sensorimotor examination: Present: intact Motor examination - left side: 5/5: deltoids, biceps, triceps, wrist flexion, wrist extension, hip flexors, hospice administrator, quadriceps, tibialis Anterior, toe extension (EHL), plantarflexion Sensation intact: Present: intact Posture: Present: other (None) Reflex and gait examination: intact Mental Status Examination: Present: awake, alert, oriented to person, oriented to place, oriented to time, follows commands appropriately, answers questions appropriately, no agnosia, no aphasia, no aproxia Cranial nerve examination: Present: PERRL, EOMI, visual gan intact, corneal reflexes brisk symmetrically, sensory to face intact, mastication intact, no facial asymmetry is present (Right facial droopin noted), no dysarthria (Mild dysarthria noted. Language content is normal), hearing is intact symmetrically, soft palate elevates bilaterally upon phonation, gag reflex intact, flexes SCM and trapezius muscles symmetrically with full power, tongue protrudes midline, no atrophy or facial fasiculations present Cerebellar examination: Present: no dysmetria (right sided dysmetria due to w eakness), dysarthria (MIld dysarthria noted) Results - Laboratory Findings CBC and BMP: 09/07/18 03:01 09/08/18 01:51 Abnormal lab findings: Abnormal lab results RBC 4.16 M/mcL (4.19-5.50) L 09/07/18 03:01 Potassium 3.4 mEq/L (3.5-5.1) L 09/06/18 01:06 Glucose 228 mg/dL (70-105) H 09/08/18 01:51 POC Glucose 212 mg/dL (70-99) H 09/07/18 20:47 38 mg/dL (40-59) L 09/06/18 01:06 100 mg/dL (Neg-Trace) H 09/05/18 12:14 100 mg/dL (Normal) H 09/05/18 12:14 Trace (Negative) H 09/05/18 12:14 5-15 per hpf (0-3) H 09/05/18 12:14 5-15 per hpf (0-3) H 09/05/18 12:14 Ur Squamous Epith Cells Many per lpf (None-Few) H 09/05/18 12:14 Ur Culture Indicated? YES (NO) A 09/05/18 12:14 Consult Discharge Plan - Plan Referrals: Millie Carpenter DO [Primary Care Provider] - (Appointment has been requested.)
--- NOTE | 2018-09-08 15:13 | Internal Med Progress Note ---
Hospitalist Progress Note - Encounter Date of Encounter: 09/08/18 Time of Encounter: 15:01 - Subjective Interval History: Patient was seen and examined at bedside sitting up in the chair is upset because he is tired of sitting in the chair able to raise right arm as well as right leg continues to have right-sided facial droop anticipate transfer to rehabilitation tomorrow - Exam Vitals: Temp Pulse Resp BP Pulse Ox 98.6 F 66 18 165/79 93 09/08/18 11:16 09/08/18 11:16 09/08/18 11:16 09/08/18 11:16 09/08/18 11:16 Exam: Skin: Free of rash and discoloration. Eyes: Sclera is white. There is no discharge from eyes. ENMT: Oral/pharyngeal mucosa is normal in appearance. There is no discharge from nose or ears. Respiratory: Normal breath sounds with no crackles and wheezes bilaterally. CV: Heart is regular with no gallop or murmur. GI: Abdomen is flat and soft with no palpable mass or visceromegaly. : There is no tenderness in patient's flanks bilaterally. Neuro exam: Right-sided facial droop with abnormal gait he is unable to walk and right-sided focal weakness right leg 3/5 strength- right arm strength 3/5 Psychiatric: He has normal affect. His thought process is appropriate to the situation. - Assessment and Plan (1) CVA (cerebral vascular accident) Current Visit: Yes Status: Acute Assessment and Plan: Patient presented after experiencing acute onset of right-sided weakness as well as right sided facials droop and slurred speech. Patient states that he stopped taking 81 mg aspirin 2-3 weeks ago due to nosebleeds. He has multiple risk factors for CVA including hypertension diabetes FARHAT morbid obesity previous CVA. 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 Cardiac echo Impressions: Technically sub-optimal due to poor echocardiographic windows. LVEF 60-65%. Normal LV chamber size and function. Mild concentric left ventricular hypertrophy. Atypical septal motion consistent with bundle branch block. Mild left ventricular diastolic dysfunction. Grossly normal right ventricular structure and function. No evidence of pulmonary hypertension identified. RVSP not well obtained due to poor TR jet. No obvious significant valvular dysfunction. Agitated saline administered. Unable to determine the possible presence of intracardiac shunting due to poor image quality. (2) TIA (transient ischemic attack) Current Visit: Yes Status: Ruled-out Assessment and Plan: 1 history of previous CVA [place] 20 years ago.-Over the past 24 hours patient has been experiencing slurred speech right-sided facial droop and right-sided weakness. states that right-sided facial droop and speech has improved continues to have right lower extremity weakness right upper extremity weakness and numbness. Has been experiencing falls initial CT of head is negative We will obtain MRI of brain Continuous cardiac monitoring Obtain cardiac echo Obtain carotid duplex Obtain lipid profile Continue with aspirin and statin Continue with blood pressure control-with systolic goal around 160 Glucose control with postprandial less than 180 Consult neurology -TIA ruled out MRI positive acute left pontine infarct neurology has been consulted (3) Ventricular tachycardia Current Visit: Yes Status: Acute Assessment and Plan: Patient had a 10 beat run of V. tach asymptomatic in the ER Continuous cardiac monitoring If V. tach continues Will initiate on amiodarone Consult cardiology if warranted Obtain cardiac echo Monitor electrolytes and replace troponins-negative 3 09/07 No more episodes of V. tach Patient was hypokalemic/hypomagnesia- replace and monitor electrolytes (4) COPD (chronic obstructive pulmonary disease) Current Visit: No Status: Chronic Assessment and Plan: stable (5) Hypertension Current Visit: No Status: Chronic Assessment and Plan: Continue with home medications-allow permissive hypertensive Hydralazine as needed (6) Diabetes Current Visit: Yes Status: Acute Assessment and Plan: Accu-Cheks before meals at bedtime with sliding scale insulin. Hold oral agents for now (7) DVT prophylaxis Current Visit: No Status: Acute Assessment and Plan: Heparin subcutaneous - Time Spent with Patient Total time spent is greater than 50% in coordination of care (as documented) at patient's floor/unit and/or counseling patient: Internal Medicine: Result - Labs CBC & Chem 7: 09/07/18 03:01 09/08/18 01:51 Labs: BMP 09/08/18 01:51 Sodium 137 Potassium 3.9 Chloride 102 Carbon Dioxide 27 BUN 19 Creatinine 0.95 Glucose 228 H Calcium 9.6 - ABG Interpretation ABG results: PT/INR, D-dimer PT 11.6 Seconds (9.4-12.1) 09/05/18 12:07 Consult Discharge Plan - Plan Referrals: Millie Carpenter DO [Primary Care Provider] - (Appointment has been requested.) (1) CVA (cerebral vascular accident) Qualifiers: CVA mechanism: unspecified Qualified Code(s): I63.9 - Cerebral infarction, unspecified (4) COPD (chronic obstructive pulmonary disease) Qualifiers: COPD type: unspecified COPD Qualified Code(s): J44.9 - Chronic obstructive pulmonary disease, unspecified (5) Hypertension Qualifiers: Hypertension type: unspecified Qualified Code(s): I10 - Essential (primary) hypertension (6) Diabetes Qualifiers: Diabetes mellitus type: type 2 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
[2018-09-08] MEDS: Famotidine 20 MG TABLET PO SCH (22:09)
[2018-09-09] MEDS: *HR* Heparin 5,000 UNIT/ML VIAL SQ SCH ×2 (05:23→17:43)
[2018-09-09 06:12] LABS: Adenovirus F 40/41 PCR Not detected (Not detect); Astrovirus PCR Not detected (Not detect); C.difficile Toxin A/B Gene PCR Not detected (Not detect); Campylobacter by PCR Not detected (Not detect); Cryptosporidium by PCR Not detected (Not detect); Cyclospora cayetanensis PCR Not detected (Not detect); E. coli O157 by PCR Not detected (Not detect); Entamoeba histolytica PCR Not detected (Not detect); Enteroaggregative E.coli(EAEC) Not detected (Not detect); Enteropathogenic E.coli(EPEC) Not detected (Not detect); Enterotoxigenic E.coli (ETEC) Not detected (Not detect); Giardia lamblia PCR Not detected (Not detect); Norovirus GI/GII PCR DETECTED (Not detect); Plesiomonas shigelloides PCR Not detected (Not detect); Rotavirus A PCR Not detected (Not detect); Salmonella PCR Not detected (Not detect); Sapovirus PCR Not detected (Not detect); Shig/EnteroinvasiveE coli EIEC Not detected (Not detect); Shigalike tox-prod E coli STEC Not detected (Not detect); Vibrio PCR Not detected (Not detect); Vibrio cholerae PCR Not detected (Not detect); Yersinia enterocolitica PCR Not detected (Not detect)
[2018-09-09] MEDS: Cholecalciferol (D-3) 1,000 UNIT TABLET PO SCH (10:11)
[2018-09-09] MEDS: Finasteride 5 MG TABLET PO SCH (10:11)
[2018-09-09] MEDS: amLODIPine 5 MG TABLET PO SCH (10:12)
[2018-09-09] MEDS: Lisinopril 20 MG TABLET PO SCH (10:12)
[2018-09-09] MEDS: Aspirin Enteric Coated 81 MG Tablet PO SCH (10:12)
[2018-09-09] MEDS: Insulin LISPRO 300 UNITS/3 ML VIAL SQ SCH ×4 (10:13→20:49)
[2018-09-09 12:07] LABS: BUN/Creatinine Ratio 33 (6-26); Blood Urea Nitrogen 37 mg/dL (8-23); Calcium 9.6 mg/dL (8.6-10.3); Carbon Dioxide 20 mEq/L (23-29); Chloride 107 mEq/L (98-107); Glucose 194 mg/dL (70-105); Magnesium 2.2 mg/dL (1.6-2.6); Osmolality,Calculated 300 (280-300); Potassium 4.3 mEq/L (3.5-5.1); Sodium 138 mEq/L (136-145); eGFR For Non-African Americans > 60 (> 60)
--- NOTE | 2018-09-09 17:24 | Discharge Summary ---
Orders not resulted at time of discharge: Pending orders 09/09/18 11:04 Venous Doppler [EV venous imaging UE RT] Routine Date of Encounter: 09/09/18 Time of Encounter: 17:24 - Discharge Diagnosis (1) CVA (cerebral vascular accident) Status: Acute Qualifiers: CVA mechanism: unspecified Qualified Code(s): I63.9 - Cerebral infarction, unspecified (2) TIA (transient ischemic attack) Status: Ruled-out (3) Ventricular tachycardia Status: Acute (4) COPD (chronic obstructive pulmonary disease) Status: Chronic Qualifiers: COPD type: unspecified COPD Qualified Code(s): J44.9 - Chronic obstructive pulmonary disease, unspecified (5) Hypertension Status: Chronic Qualifiers: Hypertension type: unspecified Qualified Code(s): I10 - Essential (primary) hypertension (6) Diabetes Status: Acute Qualifiers: Diabetes mellitus type: type 2 Diabetes mellitus rat exterminator insulin use: without halfway use Diabetes mellitus complication status: without complication Qualified Code(s): E11.9 - Type 2 diabetes mellitus without complications (7) DVT prophylaxis Status: Acute Hospital course: Mr. Desai is a 83 year old male - Time Spent with Patient Total time spent providing and/or coordinating discharge services: - Discharge Medications Prescriptions: No Action Omeprazole [PriLOSEC] 20 mg PO DAILY Zafirlukast [Accolate] 20 mg PO DAILY raNITIdine HCl [Zantac] 150 mg PO HS [place]-3 Fatty Acids [Fish Oil] 1,000 mg PO DAILY Nortriptyline HCl 75 mg PO HS Nitroglycerin [Nitrostat] 0.4 mg SL PRN PRN PRN Reason: Chest Pain Multivit-Min/FA/Lycopen/Lutein [Centrum Silver Tablet] 1 each PO DAILY Meclizine HCl [Verticalm] 25 mg PO HS PRN PRN Reason: Vertigo Lisinopril [Zestril] 40 mg PO DAILY Finasteride [Proscar] 10 mg PO DAILY Ergocalciferol (VITAMIN D2) [Vitamin D] 400 unit PO DAILY Donepezil [Aricept] 20 mg PO HS Carvedilol [Coreg] 25 mg PO BID Aspirin [Adult Aspirin Regimen] 81 mg PO DAILY Amlodipine Besylate 10 mg PO DAILY Albuterol Sulfate [Proair Hfa] 2 puff IH BID PRN PRN Reason: Shortness Of Breath Oxycodone HCl/Acetaminophen [Percocet 5-325 mg Tablet] 1 - 2 tab PO QID PRN PRN Reason: Pain Metformin HCl 500 mg PO DAILY Nortriptyline [Pamelor] 10 mg PO DAILY Home Medications: Albuterol Sulfate [Proair Hfa] 2 puff IH BID PRN 07/14/18 [History] Amlodipine Besylate 10 mg PO DAILY 07/14/18 [History] Aspirin [Adult Aspirin Regimen] 81 mg PO DAILY 07/14/18 [History] Carvedilol [Coreg] 25 mg PO BID 07/14/18 [History] Donepezil [Aricept] 20 mg PO HS 07/14/18 [History] Ergocalciferol (VITAMIN D2) [Vitamin D] 400 unit PO DAILY 07/14/18 [History] Finasteride [Proscar] 10 mg PO DAILY 07/14/18 [History] Lisinopril [Zestril] 40 mg PO DAILY 07/14/18 [History] Meclizine HCl [Verticalm] 25 mg PO HS PRN 07/14/18 [History] Multivit-Min/FA/Lycopen/Lutein [Centrum Silver Tablet] 1 each PO DAILY 07/14/18 [History] Nitroglycerin [Nitrostat] 0.4 mg SL PRN PRN 07/14/18 [History] Nortriptyline HCl 75 mg PO HS 07/14/18 [History] [place]-3 Fatty Acids [Fish Oil] 1,000 mg PO DAILY 07/14/18 [History] Omeprazole [PriLOSEC] 20 mg PO DAILY 07/14/18 [History] Oxycodone HCl/Acetaminophen [Percocet 5-325 mg Tablet] 1 - 2 tab PO QID PRN 07/14/18 [History] Zafirlukast [Accolate] 20 mg PO DAILY 07/14/18 [History] raNITIdine HCl [Zantac] 150 mg PO HS 07/14/18 [History] Metformin HCl 500 mg PO DAILY 09/05/18 [History] Nortriptyline [Pamelor] 10 mg PO DAILY 09/05/18 [History] Allergies/Adverse Reactions: Allergy/AdvReac Type Severity Reaction Status Date / Time No Known Allergies Allergy Verified 07/14/18 15:37 Date of admission: 09/06/18 10:54 Primary care physician: Michael Grant Consults: 09/05/18 16:34 Consult to Occupational Therapy [CONS] Routine Comment: Evaluate, develop and implement POC Reason for Consult: weakness Does patient have active BEDREST order?: No Is patient medically & hemodynamically stable?: Yes Patient assessed for mobility or mobilized this visit?: No 09/05/18 16:35 Consult to Physical Therapy [CONS] Routine Comment: Evaluate, develop and implement POC Reason for Consult: wekness TIA Does patient have active BEDREST order?: No Is patient medically & hemodynamically stable?: Yes Patient assessed for mobility or mobilized this visit?: No 09/05/18 17:53 Consult to Neurology [CONS] Routine Consulting Provider: [facility] Reason for Consult: r sided facial droop r sided weakness Time Notified: 17:55 Call Completed: Yes 09/08/18 11:25 Consult to Respiratory Clinician [CONS] Routine Reason for SW Consult: PT/OT RECOMMENDS SNF - Constitutional Vitals: Temp Pulse Resp BP Pulse Ox 98.3 F 88 18 177/86 94 09/09/18 16:29 09/09/18 16:29 09/09/18 16:29 09/09/18 16:29 09/09/18 16:29 General appearance: Present: A&O X 3, morbidly obese - Patient Status Condition: Fair - Discharge Instructions Follow Up With: Millie Carpenter DO [Primary Care Provider] - (Appointment has been requested.)
--- NOTE | 2018-09-09 19:25 | Internal Med Progress Note ---
Hospitalist Progress Note - Encounter Date of Encounter: 09/09/18 Time of Encounter: 11:00 - Exam Vitals: Temp Pulse Resp BP Pulse Ox 98.8 F 87 16 161/81 93 09/09/18 18:32 09/09/18 18:32 09/09/18 18:32 09/09/18 18:32 09/09/18 18:32 - Assessment and Plan (1) CVA (cerebral vascular accident) Current Visit: Yes Status: Acute (2) TIA (transient ischemic attack) Current Visit: Yes Status: Ruled-out (3) Ventricular tachycardia Current Visit: Yes Status: Acute (4) COPD (chronic obstructive pulmonary disease) Current Visit: No Status: Chronic (5) Hypertension Current Visit: No Status: Chronic (6) Diabetes Current Visit: Yes Status: Acute (7) DVT prophylaxis Current Visit: No Status: Acute - Time Spent with Patient Total time spent is greater than 50% in coordination of care (as documented) at patient's floor/unit and/or counseling patient: Internal Medicine: Result - Labs CBC & Chem 7: 09/07/18 03:01 09/09/18 10:27 Labs: BMP 09/09/18 10:27 Sodium 138 Potassium 4.3 Chloride 107 Carbon Dioxide 20 L BUN 37 H Creatinine 1.13 Glucose 194 H Calcium 9.6 - ABG Interpretation ABG results: PT/INR, D-dimer PT 11.6 Seconds (9.4-12.1) 09/05/18 12:07 Consult Discharge Plan - Plan Referrals: Millie Carpenter DO [Primary Care Provider] - (Appointment has been requested.) (1) CVA (cerebral vascular accident) Qualifiers: CVA mechanism: unspecified Qualified Code(s): I63.9 - Cerebral infarction, unspecified (4) COPD (chronic obstructive pulmonary disease) Qualifiers: COPD type: unspecified COPD Qualified Code(s): J44.9 - Chronic obstructive pulmonary disease, unspecified (5) Hypertension Qualifiers: Hypertension type: unspecified Qualified Code(s): I10 - Essential (primary) hypertension (6) Diabetes Qualifiers: Diabetes mellitus type: type 2 Diabetes mellitus rat exterminator insulin use: without rat exterminator use Diabetes mellitus complication status: without complication Qualified Code(s): E11.9 - Type 2 diabetes mellitus without complications
--- NOTE | 2018-09-09 19:29 | Discharge Summary ---
- NOTES TO OUTPATIENT PROVIDER Notes to Outpatient Provider: Acute L pontine infarct- inpatient physical therapy due to persistent right-sided hemiparesis. Monitor BP. positive for norovirus Orders not resulted at time of discharge: Pending orders 09/09/18 11:04 Venous Doppler [EV venous imaging UE RT] Routine Date of Encounter: 09/09/18 Time of Encounter: 11:00 - Discharge Diagnosis (1) CVA (cerebral vascular accident) Priority: Primary Status: Acute Qualifiers: CVA mechanism: unspecified Qualified Code(s): I63.9 - Cerebral infarction, unspecified (2) TIA (transient ischemic attack) Priority: Secondary Status: Ruled-out (3) Ventricular tachycardia Priority: Secondary Status: Acute (4) COPD (chronic obstructive pulmonary disease) Priority: Secondary Status: Chronic Qualifiers: COPD type: unspecified COPD Qualified Code(s): J44.9 - Chronic obstructive pulmonary disease, unspecified (5) Hypertension Priority: Secondary Status: Chronic Qualifiers: Hypertension type: unspecified Qualified Code(s): I10 - Essential (primary) hypertension (6) Diabetes Priority: Secondary Status: Acute Qualifiers: Diabetes mellitus type: type 2 Diabetes mellitus intermediate designer insulin use: without intermediate designer use Diabetes mellitus complication status: without complication Qualified Code(s): E11.9 - Type 2 diabetes mellitus without complications Hospital course: Mr. Desai is a 83 year old male past medical history of hypertension hyperlipidemia CHF COPD CVA/TIA GERD morbid obesity diabetes acute diverticulitis perforation Raúl procedure- colostomy- according to the patient he woke yesterday morning attempted because of the restroom and felt weak and was able to support himself and he fell down stated right side was Jose and weak. His also notes that he has some slurred speech and expressive aphasia. She also noted that he had a slight right facial droop and had some difficulty eating patient did not want to go to the hospital if he wanted to go to the doctor's office today. However he continued to experience right-sided weakness presented to the ER with the above complaints. Initial CT of head with no acute intracranial abnormalities rest x-ray with no acute process EKG with appears to be sinus rhythm with a first-degree block and right bundle melinda block with no acute ischemic changes. In the ER patient did have a 10 beat run of nonsustained V. tach and she was asymptomatic Lab work did show a mag of 1.7 which was replaced . He did not have anymore episodes of V. tach arrhythmias during admission Patient had stopped aspirin 81 mg daily 2-3 weeks prior to onset of stroke due to nosebleed. MRI Acute infarct in the leftward aspect of the dwayne Patient was decided not to be a candidate for TPA thrombolysis therapy due to the fact that he was out of the window for such therapy by the time he arrived emergency room. Neurology consulted - cardiac echo with EF of 60-65% permissive HTN - He continued with R sided hemiparesis evaluated by PT and OT and speech recommending inpatient rehabilitation. Respiratory panel was completed which did show patient had norvovirus-patient to continue to have elevated blood pressure at times reaching 190 systolic and was receiving when necessary hydralazine currently maxed doses of Norvasc and lisinopril and Coreg, adding Low-dose hydrochlorothiazide-patient also developed right arm swelling. Concern for DVT venous duplex has been ordered and currently pending. If blood pressure remains stable as well as there is no DVT patient will be discharged to [facility] 09/10/2018 - Time Spent with Patient Total time spent providing and/or coordinating discharge services: - Discharge Medications Prescriptions: New Carvedilol [Coreg] 25 mg PO BID tablet hydroCHLOROthiazide [Hydrochlorothiazide] 12.5 mg PO DAILY tablet Atorvastatin [Lipitor] 20 mg PO HS tablet Continued Omeprazole [PriLOSEC] 20 mg PO DAILY Zafirlukast [Accolate] 20 mg PO DAILY raNITIdine HCl [Zantac] 150 mg PO HS [place]-3 Fatty Acids [Fish Oil] 1,000 mg PO DAILY Nortriptyline HCl 75 mg PO HS Nitroglycerin [Nitrostat] 0.4 mg SL PRN PRN PRN Reason: Chest Pain Multivit-Min/FA/Lycopen/Lutein [Centrum Silver Tablet] 1 each PO DAILY Meclizine HCl [Verticalm] 25 mg PO HS PRN PRN Reason: Vertigo Lisinopril [Zestril] 40 mg PO DAILY Finasteride [Proscar] 10 mg PO DAILY Ergocalciferol (VITAMIN D2) [Vitamin D] 400 unit PO DAILY Donepezil [Aricept] 20 mg PO HS Aspirin [Adult Aspirin Regimen] 81 mg PO DAILY Amlodipine Besylate 10 mg PO DAILY Albuterol Sulfate [Proair Hfa] 2 puff IH BID PRN PRN Reason: Shortness Of Breath Metformin HCl 500 mg PO DAILY Nortriptyline [Pamelor] 10 mg PO DAILY Oxycodone HCl/Acetaminophen [Percocet 5-325 mg Tablet] 1 - 2 tab PO QID PRN 1 Days #4 tablet PRN Reason: Pain No Action Carvedilol [Coreg] 25 mg PO BID Home Medications: Albuterol Sulfate [Proair Hfa] 2 puff IH BID PRN 07/14/18 [History] Amlodipine Besylate 10 mg PO DAILY 07/14/18 [History] Aspirin [Adult Aspirin Regimen] 81 mg PO DAILY 07/14/18 [History] Carvedilol [Coreg] 25 mg PO BID 07/14/18 [History] Donepezil [Aricept] 20 mg PO HS 07/14/18 [History] Ergocalciferol (VITAMIN D2) [Vitamin D] 400 unit PO DAILY 07/14/18 [History] Finasteride [Proscar] 10 mg PO DAILY 07/14/18 [History] Lisinopril [Zestril] 40 mg PO DAILY 07/14/18 [History] Meclizine HCl [Verticalm] 25 mg PO HS PRN 07/14/18 [History] Multivit-Min/FA/Lycopen/Lutein [Centrum Silver Tablet] 1 each PO DAILY 07/14/18 [History] Nitroglycerin [Nitrostat] 0.4 mg SL PRN PRN 07/14/18 [History] Nortriptyline HCl 75 mg PO HS 07/14/18 [History] [place]-3 Fatty Acids [Fish Oil] 1,000 mg PO DAILY 07/14/18 [History] Omeprazole [PriLOSEC] 20 mg PO DAILY 07/14/18 [History] Zafirlukast [Accolate] 20 mg PO DAILY 07/14/18 [History] raNITIdine HCl [Zantac] 150 mg PO HS 07/14/18 [History] Metformin HCl 500 mg PO DAILY 09/05/18 [History] Nortriptyline [Pamelor] 10 mg PO DAILY 09/05/18 [History] Atorvastatin [Lipitor] 20 mg PO HS tablet 09/09/18 [Rx] Carvedilol [Coreg] 25 mg PO BID tablet 09/09/18 [Rx] Oxycodone HCl/Acetaminophen [Percocet 5-325 mg Tablet] 1 - 2 tab PO QID PRN 1 Days #4 tablet 09/09/18 [Rx] hydroCHLOROthiazide [Hydrochlorothiazide] 12.5 mg PO DAILY tablet 09/09/18 [Rx] Allergies/Adverse Reactions: Allergy/AdvReac Type Severity Reaction Status Date / Time No Known Allergies Allergy Verified 07/14/18 15:37 Date of admission: 09/06/18 10:54 Primary care physician: Michael Grant Consults: 09/05/18 16:34 Consult to Occupational Therapy [CONS] Routine Comment: Evaluate, develop and implement POC Reason for Consult: weakness Does patient have active BEDREST order?: No Is patient medically & hemodynamically stable?: Yes Patient assessed for mobility or mobilized this visit?: No 09/05/18 16:35 Consult to Physical Therapy [CONS] Routine Comment: Evaluate, develop and implement POC Reason for Consult: wekness TIA Does patient have active BEDREST order?: No Is patient medically & hemodynamically stable?: Yes Patient assessed for mobility or mobilized this visit?: No 09/05/18 17:53 Consult to Neurology [CONS] Routine Consulting Provider: Neurology [facility] Reason for Consult: r sided facial droop r sided weakness Time Notified: 17:55 Call Completed: Yes 09/08/18 11:25 Consult to [employer] [CONS] Routine Reason for SW Consult: PT/OT RECOMMENDS SNF Discharging clinician: Suzie Lowery Anticipated date of discharge: 09/09/18 - Constitutional Vitals: Temp Pulse Resp BP Pulse Ox 98.8 F 87 16 161/81 93 09/09/18 18:32 09/09/18 18:32 09/09/18 18:32 09/09/18 18:32 09/09/18 18:32 General appearance: Present: A&O X 3, morbidly obese Exam: Skin: Free of rash and discoloration. Eyes: Sclera is white. There is no discharge from eyes. ENMT: Oral/pharyngeal mucosa is normal in appearance. There is no discharge from nose or ears. Respiratory: Normal breath sounds with no crackles and wheezes bilaterally. CV: Heart is regular with no gallop or murmur. GI: Abdomen is flat and soft with no palpable mass or visceromegaly. : There is no tenderness in patient's flanks bilaterally. Neuro exam: Right-sided facial droop with abnormal gait he is unable to walk and right-sided focal weakness right leg 3/5 strength- right arm strength 3/5 Psychiatric: He has normal affect. His thought process is appropriate to the situation. Extremities right arm edematous - Patient Status Disposition: Transfer SNF Condition: Fair Functional capacity at discharge: wheelchair bound Overall status at discharge: patient is not back to baseline - Discharge Instructions Instructions: Diabetes Mellitus Type 2 in Adults (DC) Follow Up With: Millie Carpenter DO [Primary Care Provider] - (Appointment has been requested.) - Diet and Activity Activity: as per physical therapy Diet: low fat, low cholesterol
[2018-09-09] MEDS: Famotidine 20 MG TABLET PO SCH (20:48)
[2018-09-10] MEDS: *HR* Heparin 5,000 UNIT/ML VIAL SQ SCH (06:08)
[2018-09-10] MEDS ORDERED: hydroCHLOROthiazide 25 MG TABLET PO SCH (09:00)
[2018-09-10] MEDS: Finasteride 5 MG TABLET PO SCH (10:14)
[2018-09-10] MEDS: amLODIPine 5 MG TABLET PO SCH (10:14)
[2018-09-10] MEDS: Cholecalciferol (D-3) 1,000 UNIT TABLET PO SCH (10:15)
[2018-09-10] MEDS: Aspirin Enteric Coated 81 MG Tablet PO SCH (10:15)
[2018-09-10] MEDS: Lisinopril 20 MG TABLET PO SCH (10:15)
[2018-09-10] MEDS: Insulin LISPRO 300 UNITS/3 ML VIAL SQ SCH (10:19)
--- NOTE | 2018-09-10 10:57 | Physician Discharge Referral ---
[facility] Referral Info Transfer To: inpatient rehab Provider in Charge after Transfer: PCP, Other Institutional Level of Care: Skilled Expected Duration of Placement: 4-6 weeks. Prognosis: Fair Aware of Diagnosis: Family Aware of Prognosis: Family - Transfer Medications Prescriptions: Atorvastatin [Lipitor] 80 mg PO HS #30 tablet HYDROcodone/Acet 5/325 mg [[place] 5-325 mg] 1 tab PO Q6HR PRN 3 Days #12 tablet PRN Reason: Moderate Pain Home Medications: Albuterol Sulfate [Proair Hfa] 2 puff IH BID PRN 07/14/18 [History] Amlodipine Besylate 10 mg PO DAILY 07/14/18 [History] Aspirin [Adult Aspirin Regimen] 81 mg PO DAILY 07/14/18 [History] Carvedilol [Coreg] 25 mg PO BID 07/14/18 [History] Donepezil [Aricept] 20 mg PO HS 07/14/18 [History] Ergocalciferol (VITAMIN D2) [Vitamin D] 400 unit PO DAILY 07/14/18 [History] Finasteride [Proscar] 10 mg PO DAILY 07/14/18 [History] Lisinopril [Zestril] 40 mg PO DAILY 07/14/18 [History] Meclizine HCl [Verticalm] 25 mg PO HS PRN 07/14/18 [History] Multivit-Min/FA/Lycopen/Lutein [Centrum Silver Tablet] 1 each PO DAILY 07/14/18 [History] Nitroglycerin [Nitrostat] 0.4 mg SL PRN PRN 07/14/18 [History] Nortriptyline HCl 75 mg PO HS 07/14/18 [History] [place]-3 Fatty Acids [Fish Oil] 1,000 mg PO DAILY 07/14/18 [History] Omeprazole [PriLOSEC] 20 mg PO DAILY 07/14/18 [History] Zafirlukast [Accolate] 20 mg PO DAILY 07/14/18 [History] raNITIdine HCl [Zantac] 150 mg PO HS 07/14/18 [History] Metformin HCl 500 mg PO DAILY 09/05/18 [History] Nortriptyline [Pamelor] 10 mg PO DAILY 09/05/18 [History] Carvedilol [Coreg] 25 mg PO BID tablet 09/09/18 [Rx] hydroCHLOROthiazide [Hydrochlorothiazide] 12.5 mg PO DAILY tablet 09/09/18 [Rx] Atorvastatin [Lipitor] 80 mg PO HS #30 tablet 09/10/18 [Rx] HYDROcodone/Acet 5/325 mg [[place] 5-325 mg] 1 tab PO Q6HR PRN 3 Days #12 tablet 09/10/18 [Rx] Allergies/Adverse Reactions: Allergy/AdvReac Type Severity Reaction Status Date / Time No Known Allergies Allergy Verified 07/14/18 15:37 - Respiratory Orders Smoking Cessation: Smoking cessation has been advised. For more information, call the [place] Tobacco Quit Line at 2-690-SWLD-NOW. - Advance Directives Code Status: Full Code - Mobility Orders Other - Rehabiliation Orders Rehab Potential: Fair CERTIFICATION: I certify that the transfer of the above named patient to an Extended Care Facility is necessary for the continuing treatment of the diagnosis listed. The above information is true and accurate reflection of patient's current condition. Confidential - Redisclosure prohibited without a patient's written consent.
[2018-09-10 11:28] VITALS: BP 152/85
== END 2018-09-10 12:37 | DRG 65 ==
LOC: EMEROOARM 11:31 → 3BNU 11:31
PROVIDERS: ADMIT Student in an Organized Health Care Education/Training Program; ATTEND Nurse Practitioner Acute Care

== ENCOUNTER 2021-06-11 13:38 | Observation (INO) ==
[2021-06-11] MEDS ORDERED: Isovue-370 500 ML BOTTLE IVP ONE (13:46)
[2021-06-11 14:06] LABS: Basophils % 0.4 %; Eosinophils % 0.4 %; Hematocrit 39.5 % (37.5-50.1); Hemoglobin 13.4 g/dL (12.9-16.9); Immature Granulocytes % 0.4 % (0-4); Lymphocytes # 0.2 K/mcL (0.6-4.6); Lymphocytes % 1.7 %; Mean Corpuscular HGB Conc 33.9 g/dL (31.6-35.5); Mean Corpuscular Hemoglobin 31.4 pg (28.0-33.3); Mean Corpuscular Volume 92.5 fL (83.0-100.0); Mean Platelet Volume 9.5 fL (9.4-12.4); Monocytes # 0.2 K/mcL (0.0-1.3); Platelet Count 235 K/mcL (140-400); Red Blood Count 4.27 M/mcL (4.19-5.50); Red Cell Distribution Width 12.8 % (11.5-14.5); Segmented Neutrophils % 95.1 %; White Blood Count 11.2 K/mcL (4.3-11.1)
[2021-06-11 14:10] LABS: Neutrophils # 10.7 K/mcL (1.6-8.9)
[2021-06-11 14:14] LABS: INR 1.2; Prothrombin Time 13.2 Seconds (9.4-12.1)
[2021-06-11 14:16] LABS: Activated Partial Thrombo Time 25.3 Seconds (26.0-36.0)
[2021-06-11 14:23] LABS: Platelet Estimate Normal (Normal)
[2021-06-11 14:29] LABS: Alanine Aminotransferase 8 Units/L (7-52); Albumin 3.7 g/dL (3.5-5.7); Albumin/Globulin Ratio 1.2 (1.1-2.2); Alkaline Phosphatase 67 Units/L (34-104); Aspartate Amino Transferase 15 Units/L (13-39); BUN/Creatinine Ratio 16 (6-26); Bilirubin,Total 0.9 mg/dL (0.3-1.0); Blood Urea Nitrogen 14 mg/dL (8-23); Calcium 9.4 mg/dL (8.6-10.3); Carbon Dioxide 23 mEq/L (23-29); Chloride 104 mEq/L (98-107); Glucose 108 mg/dL (70-105); Osmolality,Calculated 289 (280-300); Potassium 3.3 mEq/L (3.5-5.1); Sodium 139 mEq/L (136-145); Total Protein 6.7 g/dL (6.4-8.9); Troponin I < 0.03 ng/mL (< 0.04); eGFR For African Americans > 60 (> 60); eGFR For Non-African Americans > 60 (> 60)
[2021-06-11] MEDS ORDERED: Naloxone 0.4 MG/ML INJ IVP PRN (18:04)
[2021-06-11] MEDS ORDERED: Acetaminophen 325 MG TABLET PO PRN (18:04)
[2021-06-11 18:07] LABS: Bacteria,Urine Few per hpf (None-Few); Bilirubin,Urine Negative (Negative); Blood,Urine Small (Negative); Clarity,Urine Turbid (Clear); Color,Urine Yellow (Yellow); Glucose,Urine (UA) Normal (Normal); Hyaline Casts,Urine Few per lpf (None Seen); Ketones,Urine Trace mg/dL (Negative); Leukocyte Esterase,Urine Large (Negative); Mucus,Urine Few per lpf (None-Few); Nitrite,Urine Negative (Negative); Protein,Urine 30 mg/dL (Neg-Trace); RBC,Urine 30-50 per hpf (0-3); Renal Epithelial Cells,Urine Few per hpf (None-Few); Specific Gravity,Urine > 1.030 (1.010-1.025); Squamous Epithelial Cell,Urine Moderate per hpf (None-Few); Transitional Epi Cells,Urine Few per hpf (None-Few); Urobilinogen,Urine Normal (Normal); WBC,Urine TNTC per hpf (0-3)
[2021-06-11] MEDS: cefTRIAXone 1,000 MG in 0.9 % Sodium Chloride Mini Bag 100 ML IVP SCH (20:25)
[2021-06-11] MEDS: *HR* Heparin 5,000 UNIT/ML VIAL SQ SCH (20:35)
[2021-06-11] MEDS: carvediloL 25 MG TABLET PO SCH (20:36)
[2021-06-11 21:16] LABS: Basophils # 0.1 K/mcL (0.0-0.2); Basophils % 0.3 %; Hematocrit 36.7 % (37.5-50.1); Hemoglobin 12.4 g/dL (12.9-16.9); Immature Granulocytes % 1.1 % (0-4); Lymphocytes # 0.5 K/mcL (0.6-4.6); Lymphocytes % 2.4 %; Mean Corpuscular HGB Conc 33.8 g/dL (31.6-35.5); Mean Corpuscular Hemoglobin 31.4 pg (28.0-33.3); Mean Corpuscular Volume 92.9 fL (83.0-100.0); Monocytes % 4.7 %; Neutrophils # 19.5 K/mcL (1.6-8.9); Platelet Count 231 K/mcL (140-400); Red Blood Count 3.95 M/mcL (4.19-5.50); Red Cell Distribution Width 12.9 % (11.5-14.5); Segmented Neutrophils % 91.5 %; White Blood Count 21.3 K/mcL (4.3-11.1)
[2021-06-12] MEDS: *HR* Heparin 5,000 UNIT/ML VIAL SQ SCH ×2 (05:46→18:11)
[2021-06-12 06:45] LABS: Alanine Aminotransferase 8 Units/L (7-52); Albumin 3.5 g/dL (3.5-5.7); Albumin/Globulin Ratio 1.2 (1.1-2.2); Alkaline Phosphatase 56 Units/L (34-104); Aspartate Amino Transferase 17 Units/L (13-39); BUN/Creatinine Ratio 17 (6-26); Bilirubin,Total 0.9 mg/dL (0.3-1.0); Blood Urea Nitrogen 16 mg/dL (8-23); Calcium 9.7 mg/dL (8.6-10.3); Carbon Dioxide 29 mEq/L (23-29); Chloride 102 mEq/L (98-107); Chol/HDL Ratio 2.5 (0-4.9); Cholesterol 89 mg/dL (< 200); Globulin 2.9 g/dL (2.4-3.5); Glucose 125 mg/dL (70-105); HDL Cholesterol 35 mg/dL (40-59); LDL Cholesterol,Calculated 40 mg/dL (< 100); Osmolality,Calculated 291 (280-300); Potassium 4.1 mEq/L (3.5-5.1); Sodium 139 mEq/L (136-145); Total Protein 6.4 g/dL (6.4-8.9); Triglycerides 71 mg/dL (< 150); eGFR For African Americans > 60 (> 60); eGFR For Non-African Americans > 60 (> 60)
[2021-06-12] MEDS ORDERED: *HR* LORazepam 2 MG/ML VIAL IVP ONE (09:39)
[2021-06-12] MEDS: lisinopriL 20 MG TABLET PO SCH (09:43)
[2021-06-12] MEDS: Aspirin Enteric Coated 81 MG Tablet PO SCH (09:43)
[2021-06-12] MEDS: Finasteride 5 MG TABLET PO SCH (09:44)
[2021-06-12] MEDS: carvediloL 25 MG TABLET PO SCH ×2 (09:44→19:40)
[2021-06-12] MEDS: cefTRIAXone 1,000 MG in 0.9 % Sodium Chloride Mini Bag 100 ML IVP SCH (09:45)
[2021-06-12] MEDS ORDERED: Vancomycin 1,500 MG/265 ML IV.SOLN IVPB SCH (10:00)
[2021-06-12 10:51] LABS: Estimated Average Glucose 143 mg/dl; Hemoglobin A1C 6.6 %
[2021-06-12] MEDS: *HR* Metoprolol 5 MG/5 ML VIAL IVP PRN (14:45)
[2021-06-12 16:22] LABS: Hematocrit 34.7 % (37.5-50.1); Hemoglobin 11.4 g/dL (12.9-16.9); Mean Corpuscular HGB Conc 32.9 g/dL (31.6-35.5); Mean Corpuscular Hemoglobin 30.7 pg (28.0-33.3); Mean Corpuscular Volume 93.5 fL (83.0-100.0); Mean Platelet Volume 9.8 fL (9.4-12.4); Platelet Count 193 K/mcL (140-400); Red Blood Count 3.71 M/mcL (4.19-5.50)
[2021-06-12 16:25] LABS: White Blood Count 10.1 K/mcL (4.3-11.1)
[2021-06-12] MEDS: hydroCHLOROthiazide 25 MG TABLET PO SCH (18:11)
[2021-06-13] MEDS: *HR* Heparin 5,000 UNIT/ML VIAL SQ SCH ×2 (05:19→17:08)
[2021-06-13 06:03] LABS: Basophils % 0.6 %; Eosinophils # 0.1 K/mcL (0.0-0.6); Eosinophils % 1.6 %; Hematocrit 36.3 % (37.5-50.1); Hemoglobin 12.4 g/dL (12.9-16.9); Immature Granulocytes % 0.3 % (0-4); Lymphocytes # 0.6 K/mcL (0.6-4.6); Lymphocytes % 9.2 %; Mean Corpuscular HGB Conc 34.2 g/dL (31.6-35.5); Mean Corpuscular Hemoglobin 31.6 pg (28.0-33.3); Mean Corpuscular Volume 92.4 fL (83.0-100.0); Mean Platelet Volume 9.7 fL (9.4-12.4); Monocytes # 0.8 K/mcL (0.0-1.3); Monocytes % 12.2 %; Neutrophils # 5.2 K/mcL (1.6-8.9); Platelet Count 212 K/mcL (140-400); Red Blood Count 3.93 M/mcL (4.19-5.50); Red Cell Distribution Width 12.8 % (11.5-14.5); Segmented Neutrophils % 76.1 %; White Blood Count 6.8 K/mcL (4.3-11.1)
[2021-06-13 06:22] LABS: Alanine Aminotransferase 12 Units/L (7-52); Albumin 3.4 g/dL (3.5-5.7); Albumin/Globulin Ratio 1.2 (1.1-2.2); Alkaline Phosphatase 56 Units/L (34-104); Aspartate Amino Transferase 24 Units/L (13-39); BUN/Creatinine Ratio 15 (6-26); Bilirubin,Total 0.6 mg/dL (0.3-1.0); Blood Urea Nitrogen 13 mg/dL (8-23); Calcium 9.5 mg/dL (8.6-10.3); Carbon Dioxide 29 mEq/L (23-29); Chloride 102 mEq/L (98-107); Globulin 2.9 g/dL (2.4-3.5); Glucose 156 mg/dL (70-105); Osmolality,Calculated 295 (280-300); Potassium 3.5 mEq/L (3.5-5.1); Sodium 141 mEq/L (136-145); Total Protein 6.3 g/dL (6.4-8.9); eGFR For African Americans > 60 (> 60); eGFR For Non-African Americans > 60 (> 60)
[2021-06-13] MEDS: Finasteride 5 MG TABLET PO SCH (08:26)
[2021-06-13] MEDS: carvediloL 25 MG TABLET PO SCH ×2 (08:27→19:39)
[2021-06-13] MEDS: cefTRIAXone 1,000 MG in 0.9 % Sodium Chloride Mini Bag 100 ML IVP SCH (08:27)
[2021-06-13] MEDS: hydroCHLOROthiazide 25 MG TABLET PO SCH (08:27)
[2021-06-13] MEDS: Aspirin Enteric Coated 81 MG Tablet PO SCH (08:27)
[2021-06-13] MEDS: lisinopriL 20 MG TABLET PO SCH (08:27)
[2021-06-13] MEDS ORDERED: hydroCHLOROthiazide 25 MG TABLET PO ONE (12:07)
[2021-06-13] MEDS: *HR* Metoprolol 5 MG/5 ML VIAL IVP PRN (21:10)
[2021-06-14 03:30] LABS: Basophils # 0.1 K/mcL (0.0-0.2); Basophils % 0.9 %; Eosinophils # 0.3 K/mcL (0.0-0.6); Eosinophils % 4.3 %; Hematocrit 38.2 % (37.5-50.1); Hemoglobin 13.2 g/dL (12.9-16.9); Immature Granulocytes % 0.3 % (0-4); Lymphocytes % 14.8 %; Mean Corpuscular HGB Conc 34.6 g/dL (31.6-35.5); Mean Corpuscular Hemoglobin 31.7 pg (28.0-33.3); Mean Corpuscular Volume 91.8 fL (83.0-100.0); Mean Platelet Volume 10.1 fL (9.4-12.4); Monocytes # 0.9 K/mcL (0.0-1.3); Monocytes % 13.9 %; Neutrophils # 4.3 K/mcL (1.6-8.9); Platelet Count 217 K/mcL (140-400); Red Blood Count 4.16 M/mcL (4.19-5.50); Red Cell Distribution Width 12.8 % (11.5-14.5); Segmented Neutrophils % 65.8 %; White Blood Count 6.6 K/mcL (4.3-11.1)
[2021-06-14] MEDS: *HR* Metoprolol 5 MG/5 ML VIAL IVP PRN (03:48)
[2021-06-14 03:58] LABS: Alanine Aminotransferase 13 Units/L (7-52); Albumin 3.4 g/dL (3.5-5.7); Albumin/Globulin Ratio 1.1 (1.1-2.2); Alkaline Phosphatase 58 Units/L (34-104); Aspartate Amino Transferase 23 Units/L (13-39); BUN/Creatinine Ratio 19 (6-26); Bilirubin,Total 0.5 mg/dL (0.3-1.0); Blood Urea Nitrogen 15 mg/dL (8-23); Calcium 9.1 mg/dL (8.6-10.3); Carbon Dioxide 28 mEq/L (23-29); Chloride 100 mEq/L (98-107); Globulin 3.1 g/dL (2.4-3.5); Glucose 164 mg/dL (70-105); Osmolality,Calculated 288 (280-300); Potassium 3.4 mEq/L (3.5-5.1); Sodium 137 mEq/L (136-145); Total Protein 6.5 g/dL (6.4-8.9); eGFR For African Americans > 60 (> 60); eGFR For Non-African Americans > 60 (> 60)
[2021-06-14] MEDS: *HR* Heparin 5,000 UNIT/ML VIAL SQ SCH (04:58)
[2021-06-14] MEDS: lisinopriL 20 MG TABLET PO SCH (08:53)
[2021-06-14] MEDS: Finasteride 5 MG TABLET PO SCH (08:53)
[2021-06-14] MEDS: carvediloL 25 MG TABLET PO SCH (08:53)
[2021-06-14] MEDS: Aspirin Enteric Coated 81 MG Tablet PO SCH (08:56)
[2021-06-14] MEDS: cefTRIAXone 1,000 MG in 0.9 % Sodium Chloride Mini Bag 100 ML IVP SCH (08:56)
[2021-06-14] MEDS ORDERED: hydroCHLOROthiazide 25 MG TABLET PO SCH (09:00)
[2021-06-14 11:07] VITALS: BP 146/75; PULSE 61; TEMP 97.6; O2SAT 95
== END 2021-06-14 12:13 | disposition home health service (06) ==
LOC: 3BNU 13:38 → EMEROOARM 13:38 → 3BNU 19:30
PROVIDERS: ADMIT General Practice; ATTEND General Practice